=== PATIENT | female | born 1945 | race Caucasian/White ===

== ENCOUNTER 2017-03-30 13:43 | Day surgery (SDC) | payer BC, MEDICARE ==
[2017-03-22 09:30] VITALS: BMI 30.1
[~2017-03-30 13:43] MED LIST: DEXAMETHASONE SOD PHOSPHATE 10 MG/ML 1 ML VIAL IV ONE; MIDAZOLAM 2 MG/2 ML VIAL IV PRN; ONDANSETRON 4 MG/2 ML VIAL IVP ONE; SCOPOLAMINE 1.5MG/72HR PATCH TRANSDERM ONE; ceFAZolin 2 GM in SODIUM CHLORIDE 0.9% 100 ML IVPB ONE
[2017-03-30 14:03] VITALS: RESP 16
[2017-03-30] MEDS: LACTATED RINGERS 1,000 ML IV SCH ×2 (14:11→14:25)
[2017-03-30] MEDS: LIDOCAINE 1% 20 ML VIAL (10MG/ML) FOR IV START INTRADERMA PRN ×2 (14:20→14:25)
[2017-03-30] MEDS ORDERED: fentaNYL (PF) 50 MCG/ML 2 ML AMP IVP ONE (15:44)
[2017-03-30] MEDS ORDERED: BUPIVACAIN-EPI 0.5%-1:200,000 30 ML VIAL SQ ONE ×2 (16:32→16:55)
[2017-03-30] MEDS ORDERED: PROPOFOL 10 MG/ML 20 ML VIAL IV ONE (16:35)
[2017-03-30] MEDS ORDERED: ePHEDrine SULFATE/0.9% NACL/PF 50 MG/5 ML SYRINGE IV ONE (16:35)
[2017-03-30] MEDS ORDERED: LIDOCAINE 1% INJ 10MG/ML (20 ML MDV) ONE (16:35)
[2017-03-30] MEDS ORDERED: fentaNYL (PF) 50 MCG/ML 2 ML AMP ONE (16:35)
[2017-03-30] MEDS ORDERED: GLYCOPYRROLATE 0.2 MG/ML 2 ML VIAL ONE (16:35)
[2017-03-30] MEDS ORDERED: ROCURONIUM BROMIDE 10 MG/ML 10 ML VIAL IV ONE (16:35)
[2017-03-30] MEDS ORDERED: MIDAZOLAM 2 MG/2 ML VIAL ONE (16:35)
[2017-03-30] MEDS ORDERED: NEOSTIGMINE 1 MG/ML 10 ML VIAL ONE (16:35)
[2017-03-30] MEDS ORDERED: SUCCINYLCHOLINE CHLORIDE 100 MG/5 ML SYR IV ONE (16:35)
[2017-03-30] MEDS: HYDROmorphone 1 MG/ML 1 ML SYRINGE IVP PRN ×4 (18:25→18:59)
--- NOTE | 2017-03-30 18:36 | P.OP ---
Date of Procedure: 03/30/17 Preoperative Diagnosis: Symptomatic cholelithiasis Postoperative Diagnosis: Chronic cholecystitis with hydropic gall bladder abdominal wall nodule Procedure(s) Performed: Robot assisted laparoscpoic cholecystectomy Implants: Anesthesia: FREEMAN Surgeon: Camille Dodd Pathology: other (gall bladder, abdominal wall nodule) Condition: stable Disposition: PACU Indications for Procedure: Operative Findings: hydropic gallbladder anterior abdominal wall nodule Description of Procedure: Patient is a 72-year-old female who presented with right upper quadrant pain and a clinical diagnosis of chronic cholecystitis was made. Ultrasound showed non dilated duct and cholelithiasis. After appropriate informed consent and answering all the patient's questions patient taken the operating placement position and given general anesthesia with endotracheal intubation. Left upper quadrant was identified and a Veress needle was used. The abdominal cavity. Once the abdomen was insufflated to 15 mmHg Optiview technique was used and the abdominal cavity through the same incision after removal of the Veress needle. 2 right lower quadrant 8 mm ports one left upper quadrant 8 mm port and an infraumbilical 10 mm port were placed. The robot was docked and instrument were taken. Gallbladder was noted to be significantly distended and hydropic. It was retracted laterally. The cystic duct was small and deep. After meticulous dissection and probing the appropriate critical view cystic duct and 6 lateral both identified clearly. The cystic duct was normal in size. They were both clipped proximally and distally and then transected sharply with the help of a scissors. The gallbladder was then taken off the gallbladder fossa . The robot was then undocked and the gallbladder was placed in an Endo Catch bag. and removed through the 12 mm port site after dilating it. On inspection there was a small nodule on the anterior abdominal wall just to the left side of the 8 mm port site placed in the right lower quadrant. Laparoscopic scissors was used to take a biopsy of this nodule which was completely removed and handed off for pathology. Gallbladder fossa was then inspected hemostasis secured the clips were noted to be in good position and there was no spillage no other bleeding. Abdomen otherwise looked normal. In this time the 12 mm port site was removed and closed with interrupted 0 Vicryl stitches. This was done using a Ac Bolton. Local anesthesia was infiltrated around that as well. At this time the procedure was completed gas was shut off abdomen was thoroughly desufflated and all the ports were removed.
[2017-03-30] MEDS ORDERED: ALPRAZolam 0.25 MG TAB PO PRN (18:38)
[2017-03-30] MEDS ORDERED: traMADol 50 MG TAB PO PRN (18:38)
[2017-03-30] MEDS ORDERED: SUMAtriptan SUCCINATE 50 MG TAB PO PRN (18:38)
[2017-03-30] MEDS ORDERED: LACTATED RINGERS 1,000 ML IV ONE ×2 (19:21)
[2017-03-30] MEDS ORDERED: PROPRANOLOL LA 80 MG CAP.SA.24H PO SCH (21:00)
[2017-03-30] MEDS ORDERED: LORATADINE 10 MG TAB PO SCH (21:00)
[2017-03-30] MEDS: HEPARIN SODIUM,PORCINE 5,000 UNIT/ML 1 ML VIAL SQ SCH (21:03)
[2017-03-30] MEDS: HYDROcodone/APAP 5-325MG 1 EACH TAB PO PRN (21:31)
[2017-03-31] MEDS: HYDROcodone/APAP 5-325MG 1 EACH TAB PO PRN (03:44)
[2017-03-31] MEDS: LACTATED RINGERS 1,000 ML IV SCH ×2 (07:18→16:42)
[2017-03-31] MEDS ORDERED: ONDANSETRON 4 MG/2 ML VIAL IVP PRN (07:54)
[2017-03-31] MEDS ORDERED: PANTOPRAZOLE 40 MG/10 ML VIAL IVP SCH (09:00)
[2017-03-31] MEDS: HEPARIN SODIUM,PORCINE 5,000 UNIT/ML 1 ML VIAL SQ SCH (09:03)
[2017-03-31] MEDS ORDERED: KETOROLAC 30 MG/ML 1 ML VIAL IVP STA ×2 (10:54→11:14)
--- NOTE | 2017-03-31 11:51 | P.DS ---
Providers Expected date of discharge: 03/31/17 Attending physician: Camille Porter Primary care physician: [facility] Course: 72-year-old female who presented on elective admission to undergo a lap robotic- assisted cholecystectomy for a clinical diagnosis of chronic cholecystitis. Done on March 30 Patient had been seen prior with symptomatic right upper quadrant pain. Patient had a prior ultrasound done which did show nondilated duct and cholelithiasis. Patient stated that she was seen by her day light relief operator prior to the procedure Dr. Hay who indicated that the patient from a cardiac perspective was felt to be appropriate to proceed with the surgical procedure. Postop there were no new events. Patient did have one episode of feeling nauseated after receiving her [place] on an empty stomach. At the time of discharge patient was able to ambulate in the hallway urinating no difficulty surgical sites no redness. Was felt to be appropriate to be discharged Impression discharge diagnosis History of symptomatic right upper quadrant pain suspect due to cholelithiasis Chronic cholecystitis with hydropic gallbladder abdominal wall nodule March 30 robot assisted laparoscopic cholecystectomy The above impression and plan of care have been discussed and directed by signing physician. Velma Coles nurse practitioner acting as scribe for signing physician. Plan - Discharge Summary New Discharge Prescriptions: New Ondansetron HCl [Zofran] 4 mg PO Q6H #15 tablet Ibuprofen [Motrin] 800 mg OP Q6H #30 tab Continue Melatonin 1 mg PO HS Pravastatin Sodium 40 mg PO HS Gravette-3 Acid Ethyl Esters [Lovaza] 900 mg PO HS Aspirin EC [Ecotrin] 325 mg PO DAILY ALPRAZolam 0.25 mg PO BID PRN PRN Reason: Anxiety traMADol HCl [Ultram] 50 mg PO Q6H PRN PRN Reason: Headache Propranolol LA [Inderal LA] 80 mg PO HS Naproxen Sodium [Aleve] 220 mg PO Q12HR SUMAtriptan SUCCINATE [Imitrex] 100 mg PO BID PRN PRN Reason: headache Loratadine 10 mg PO HS Calcium Carbonate [Calcium] 600 mg PO HS Discharge Medication List ALPRAZolam 0.25 mg PO BID PRN 06/01/15 [History] Aspirin EC [Ecotrin] 325 mg PO DAILY 06/01/15 [History] Melatonin 1 mg PO HS 06/01/15 [History] Naproxen Sodium [Aleve] 220 mg PO Q12HR 06/01/15 [History] Gravette-3 Acid Ethyl Esters [Lovaza] 900 mg PO HS 06/01/15 [History] Pravastatin Sodium 40 mg PO HS 06/01/15 [History] Propranolol LA [Inderal LA] 80 mg PO HS 06/01/15 [History] SUMAtriptan SUCCINATE [Imitrex] 100 mg PO BID PRN 06/01/15 [History] traMADol HCl [Ultram] 50 mg PO Q6H PRN 06/01/15 [History] Calcium Carbonate [Calcium] 600 mg PO HS 03/22/17 [History] Loratadine 10 mg PO HS 03/22/17 [History] Ibuprofen [Motrin] 800 mg OP Q6H #30 tab 03/31/17 [Rx] Ondansetron HCl [Zofran] 4 mg PO Q6H #15 tablet 03/31/17 [Rx] Follow up Appointment(s)/Referral(s): Camille Porter MD [STAFF PHYSICIAN] - 04/05/17 1:00 pm Patient Instructions/Handouts: Laparoscopic Cholecystectomy (DC) Activity/Diet/Wound Care/Special Instructions: No lifting over 10 pounds Wear binder for support as needed May shower daily No tub baths until seen in the follow-up visit Notify attending dr porter if any redness fever chills at surgical site Discharge Disposition: HOME SELF-CARE
[2017-03-31 14:32] VITALS: BP 100/63; PULSE 63; TEMP 98.4
== END 2017-03-31 16:40 | disposition home or self-care (01) ==
LOC: OR 13:43 → 3SUR 18:20 → OR 03-31 16:40
PROVIDERS: ATTEND Surgery
DX: K80.10 Calculus of gallbladder with chronic cholecystitis without obstruction (principal); K82.1 Hydrops of gallbladder; R19.00 Intra-abdominal and pelvic swelling, mass and lump, unspecified site; G89.4 Chronic pain syndrome; I34.0 Nonrheumatic mitral (valve) insufficiency; E66.01 Morbid (severe) obesity due to excess calories; Z68.31 Body mass index [BMI] 31.0-31.9, adult; E78.00 Pure hypercholesterolemia, unspecified; F41.1 Generalized anxiety disorder; F43.21 Adjustment disorder with depressed mood; G43.909 Migraine, unspecified, not intractable, without status migrainosus; I10 Essential (primary) hypertension; M51.36 Other intervertebral disc degeneration, lumbar region; Z79.82 Long term (current) use of aspirin; Z79.899 Other long term (current) drug therapy; Z79.1 Long term (current) use of non-steroidal anti-inflammatories (NSAID); Z87.891 Personal history of nicotine dependence; D23.5 Other benign neoplasm of skin of trunk
CPT/HCPCS: 47562; 88304; 88305; 88342; 88341; J2250; J1644 ×2; J1100; J2710; J0690; J2405 ×2; J2001; J3010; J1885; J1170; J0330; J2704; C9113

== ENCOUNTER → 2017-06-05 | Outpatient (CLI) | payer MEDICARE, OTHER ==
--- NOTE | 2017-06-06 11:40 | MM ---
Reason for exam: screening (asymptomatic). Last mammogram was performed 1 year ago. History: Patient is postmenopausal. Family history of premenopausal breast cancer in grandmother at age 40. Cyst aspiration of the left breast. Cyst aspiration of the right breast. 2 excisional biopsies of the right breast. Took estrogen for 5 years. Took progesterone for 5 years. Physical Findings: A clinical breast exam by your physician is recommended on an annual basis and results should be correlated with mammographic findings. MG 3D Screening Mammo W/Cad Bilateral CC and MLO view(s) were taken. Prior study comparison: May 25, 2016, bilateral MG 3d screening mammo w/cad. April 28, 2015, bilateral MG screening mammo w CAD. The breast tissue is heterogeneously dense. This may lower the sensitivity of mammography. Finding: There are typically benign round calcifications in both breasts. There is no discrete abnormality. ASSESSMENT: Benign, BI-RAD 2 RECOMMENDATION: Routine screening mammogram of both breasts in 1 year.
== END | disposition home or self-care (01) ==
LOC: RADMAMWWP 10:16
PROVIDERS: ATTEND Obstetrics & Gynecology
DX: Z12.31 Encounter for screening mammogram for malignant neoplasm of breast (principal); Z80.3 Family history of malignant neoplasm of breast
CPT/HCPCS: 77063; G0202

== ENCOUNTER → 2017-10-13 | Outpatient (CLI) | payer MEDICARE, OTHER ==
--- NOTE | 2017-10-13 09:17 | FL ---
EXAMINATION TYPE: FL UGI DATE OF EXAM: 10/13/2017 COMPARISON: NONE HISTORY: Pain TECHNIQUE: A single/double contrast UGI study is performed. FINDINGS: Dual Hose Cementer image of the abdomen shows no gross abnormality. The esophagus shows normal motility and emptying into the stomach. There is small sliding-type hiatal hernia. No reflux identified during the course of the study. The stomach shows normal distensibility, peristalsis, and mucosal folds. No evidence of any mass or ulcer disease. No significant gastroesophageal reflux was seen during real time performance of this study. The duodenal bulb, sweep, and proximal small bowel loops are unremarkable. IMPRESSION: Small reducible sliding type hiatal hernia.
== END ==
LOC: RADFLMAIN 07:59
PROVIDERS: ATTEND Family Medicine
DX: K44.9 Diaphragmatic hernia without obstruction or gangrene (principal)
CPT/HCPCS: 74240

== ENCOUNTER → 2018-11-14 | Outpatient (CLI) | payer MEDICARE, OTHER ==
--- NOTE | 2018-11-16 08:25 | MM ---
Reason for exam: screening (asymptomatic). Last mammogram was performed 1 year and 5 months ago. History: Patient is postmenopausal. Family history of premenopausal breast cancer in grandmother at age 40. Cyst aspiration of the left breast. Cyst aspiration of the right breast. 2 excisional biopsies of the right breast. Took estrogen for 5 years. Took progesterone for 5 years. Physical Findings: A clinical breast exam by your physician is recommended on an annual basis and results should be correlated with mammographic findings. MG 3D Screening Mammo W/Cad Bilateral CC and MLO view(s) were taken. Prior study comparison: June 05, 2017, bilateral MG 3d screening mammo w/cad. May 25, 2016, bilateral MG 3d screening mammo w/cad. There are scattered fibroglandular densities. No significant changes when compared with prior studies. ASSESSMENT: Negative, BI-RAD 1 RECOMMENDATION: Routine screening mammogram of both breasts in 1 year.
== END | disposition home or self-care (01) ==
LOC: RADMAMWWP 13:25
PROVIDERS: ATTEND Obstetrics & Gynecology
DX: Z12.31 Encounter for screening mammogram for malignant neoplasm of breast (principal); Z80.3 Family history of malignant neoplasm of breast
CPT/HCPCS: 77063; 77067

== ENCOUNTER → 2019-12-17 | Outpatient (CLI) | payer MEDICARE, OTHER ==
--- NOTE | 2019-12-19 10:28 | MM ---
Reason for exam: screening (asymptomatic). Last mammogram was performed 1 year and 1 month ago. History: Patient is postmenopausal. Family history of premenopausal breast cancer in grandmother at age 40. Cyst aspiration of the left breast. Cyst aspiration of the right breast. 2 excisional biopsies of the right breast. Took estrogen for 5 years. Took progesterone for 5 years. Physical Findings: A clinical breast exam by your physician is recommended on an annual basis and results should be correlated with mammographic findings. MG 3D Screening Mammo W/Cad Bilateral CC and MLO view(s) were taken. Prior study comparison: November 14, 2018, bilateral MG 3d screening mammo w/cad. June 05, 2017, bilateral MG 3d screening mammo w/cad. The breast tissue is heterogeneously dense. This may lower the sensitivity of mammography. There are benign appearing round calcifications in the left breast. There is no discrete abnormality. ASSESSMENT: Benign, BI-RAD 2 RECOMMENDATION: Routine screening mammogram of both breasts in 1 year.
== END | disposition home or self-care (01) ==
LOC: RADMAMWWP 14:24
PROVIDERS: ATTEND Obstetrics & Gynecology
DX: Z12.31 Encounter for screening mammogram for malignant neoplasm of breast (principal)
CPT/HCPCS: 77063; 77067

== ENCOUNTER 2020-02-24 17:08 | Inpatient (IN) | payer MEDICARE, OTHER ==
--- NOTE | 2020-02-24 17:47 | ED ---
General Adult HPI - General Chief complaint: Recheck/Abnormal Lab/Rx Stated complaint: abnormal EKG Time Seen by Provider: 02/24/20 17:17 Source: patient, RN notes reviewed Mode of arrival: ambulatory Limitations: no limitations - History of Present Illness Initial comments: 74-year-old female presents emergency department for evaluation of fatigue, abn ormal EKG and dizziness. Patient states over the last week she's been having very fast episodes where she gets very unsteady, dizziness but she has been having chronic fatigue. Patient states that she has stress test in August which are Baseline. Patient states she contacted her merry go round attendant but her symptoms but she should go see Dr. Aguilar for her chronic headaches but states not having increasing headaches. Thought maybe is related to medications. Patient states she went to her primary care physician's up today who did also EKG showing normal rhythm. Patient has a current complaints of chest pain at this time. Patient denies any shortness with currently denies any leg swelling on the usual no abdominal pain. - Related Data Home Medications Medication Instructions Recorded Confirmed ALPRAZolam 0.25 mg PO BID PRN 06/01/15 03/30/17 Aspirin EC [Ecotrin] 325 mg PO DAILY 06/01/15 03/22/17 Melatonin 1 mg PO HS 06/01/15 03/30/17 Naproxen Sodium [Aleve] 220 mg PO Q12HR 06/01/15 03/22/17 [place]-3 Acid Ethyl Esters [Lovaza] 900 mg PO HS 06/01/15 03/30/17 Pravastatin Sodium 40 mg PO HS 06/01/15 03/30/17 Propranolol LA [Inderal LA] 80 mg PO HS 06/01/15 03/30/17 SUMAtriptan SUCCINATE [Imitrex] 100 mg PO BID PRN 06/01/15 03/30/17 traMADol HCl [Ultram] 50 mg PO Q6H PRN 06/01/15 03/30/17 Calcium Carbonate [Calcium] 600 mg PO HS 03/22/17 03/30/17 Loratadine 10 mg PO HS 03/22/17 03/30/17 Previous Rx's Medication Instructions Recorded Ibuprofen [Motrin] 800 mg OP Q6H #30 tab 03/31/17 Ondansetron HCl [Zofran] 4 mg PO Q6H #15 tablet 03/31/17 Allergies Allergy/AdvReac Type Severity Reaction Status Date / Time No Known Allergies Allergy Verified 02/24/20 17:15 Review of Systems ROS Statement: Those systems with pertinent positive or pertinent negative responses have been documented in the HPI. ROS Other: All systems not noted in ROS Statement are negative. Past Medical History Past Medical History: Hyperlipidemia, Osteoarthritis (OA) Additional Past Medical History / Comment(s): migrane, varicose veins; "leaky heart valve" sees Dr Ruiz, epidural shots in back for disk problems. History of Any Multi-Drug Resistant Organisms: None Reported Past Surgical History: Orthopedic Surgery, Tonsillectomy Additional Past Surgical History / Comment(s): vein stripping; R wrist joint replaced Past Anesthesia/Blood Transfusion Reactions: No Reported Reaction Past Psychological History: Anxiety Smoking Status: Former smoker Past Alcohol Use History: Rare Past Drug Use History: None Reported - Past Family History Mother Family Medical History: No Reported History General Exam Limitations: no limitations General appearance: alert, in no apparent distress Head exam: Present: atraumatic, normocephalic, normal inspection Eye exam: Present: normal appearance, PERRL, EOMI. Absent: scleral icterus, conjunctival injection, periorbital swelling ENT exam: Present: normal exam, normal oropharynx, mucous membranes moist Neck exam: Present: normal inspection, full ROM. Absent: tenderness, meningismus, lymphadenopathy Respiratory exam: Present: normal lung sounds bilaterally. Absent: respiratory distress, wheezes, rales, rhonchi, stridor Cardiovascular Exam: Present: regular rate, normal rhythm, normal heart sounds. Absent: systolic murmur, diastolic murmur, rubs, gallop, clicks GI/Abdominal exam: Present: soft, normal bowel sounds. Absent: distended, tenderness, guarding, rebound, rigid Neurological exam: Present: alert, oriented X3, CN II-XII intact Skin exam: Present: warm, dry, intact, normal color. Absent: rash Course Vital Signs 02/24/20 02/24/20 17:11 18:30 Temperature 97.7 F Pulse Rate 95 90 Respiratory 18 18 Rate Blood Pressure 129/87 108/80 O2 Sat by Pulse 99 96 Oximetry EKG Findings - EKG Comments: EKG Findings:: EKG performed at 17:27 sinus tachycardia with first-degree block and occasional PACs noted rate of 1:15 TX to 72 QRS 92 QT/QTC 316/437 EKG reviewed from outpatient there are areas of bradycardia and questionable runs of A. fib. Medical Decision Making - Medical Decision Making 34-year-old presented for fatigue, episodes of dizziness, abnormal EKG. Patient has cardiac arrhythmia possible proximal A. fib. Patient be admitted for cardiology evaluation. - Lab Data Result diagrams: 02/24/20 17:43 02/24/20 17:43 Lab Results 02/24/20 02/24/20 02/24/20 Range/Units 17:43 17:43 17:43 WBC 7.8 (3.8-10.6) k/uL RBC 4.98 (3.80-5.40) m/uL Hgb 14.9 (11.4-16.0) gm/dL Hct 44.4 (34.0-46.0) % MCV 89.2 (80.0-100.0) fL MCH 29.9 (25.0-35.0) pg MCHC 33.6 (31.0-37.0) g/dL RDW 12.8 (11.5-15.5) % Plt Count 220 (150-450) k/uL Neutrophils % 61 % Lymphocytes % 27 % Monocytes % 5 % Eosinophils % 4 % Basophils % 1 % Neutrophils # 4.8 (1.3-7.7) k/uL Lymphocytes # 2.1 (1.0-4.8) k/uL Monocytes # 0.4 (0-1.0) k/uL Eosinophils # 0.3 (0-0.7) k/uL Basophils # 0.1 (0-0.2) k/uL PT 9.9 (9.0-12.0) sec INR 0.9 (<1.2) APTT 22.1 (22.0-30.0) sec Sodium 137 (137-145) mmol/L Potassium 5.0 (3.5-5.1) mmol/L Chloride 104 (98-107) mmol/L Carbon Dioxide 25 (22-30) mmol/L Anion Gap 8 mmol/L BUN 14 (7-17) mg/dL Creatinine 0.59 (0.52-1.04) mg/dL Est GFR (CKD-EPI)AfAm >90 (>60 ml/min/1.73 sqM) Est GFR (CKD-EPI)NonAf >90 (>60 ml/min/1.73 sqM) Glucose 124 H (74-99) mg/dL Calcium 9.5 (8.4-10.2) mg/dL Magnesium 2.0 (1.6-2.3) mg/dL Total Bilirubin 0.7 (0.2-1.3) mg/dL AST 56 H (14-36) U/L ALT 46 H (4-34) U/L Alkaline Phosphatase 27 L (38-126) U/L Troponin I (0.000-0.034) ng/mL NT-Pro-B Natriuret Pep pg/mL Total Protein 6.8 (6.3-8.2) g/dL Albumin 4.2 (3.5-5.0) g/dL Lipase 132 (23-300) U/L TSH (0.465-4.680) mIU/L 02/24/20 02/24/20 02/24/20 Range/Units 17:43 17:43 17:43 WBC (3.8-10.6) k/uL RBC (3.80-5.40) m/uL Hgb (11.4-16.0) gm/dL Hct (34.0-46.0) % MCV (80.0-100.0) fL MCH (25.0-35.0) pg MCHC (31.0-37.0) g/dL RDW (11.5-15.5) % Plt Count (150-450) k/uL Neutrophils % % Lymphocytes % % Monocytes % % Eosinophils % % Basophils % % Neutrophils # (1.3-7.7) k/uL Lymphocytes # (1.0-4.8) k/uL Monocytes # (0-1.0) k/uL Eosinophils # (0-0.7) k/uL Basophils # (0-0.2) k/uL PT (9.0-12.0) sec INR (<1.2) APTT (22.0-30.0) sec Sodium (137-145) mmol/L Potassium (3.5-5.1) mmol/L Chloride (98-107) mmol/L Carbon Dioxide (22-30) mmol/L Anion Gap mmol/L BUN (7-17) mg/dL Creatinine (0.52-1.04) mg/dL Est GFR (CKD-EPI)AfAm (>60 ml/min/1.73 sqM) Est GFR (CKD-EPI)NonAf (>60 ml/min/1.73 sqM) Glucose (74-99) mg/dL Calcium (8.4-10.2) mg/dL Magnesium (1.6-2.3) mg/dL Total Bilirubin (0.2-1.3) mg/dL AST (14-36) U/L ALT (4-34) U/L Alkaline Phosphatase (38-126) U/L Troponin I <0.012 (0.000-0.034) ng/mL NT-Pro-B Natriuret Pep 2250 pg/mL Total Protein (6.3-8.2) g/dL Albumin (3.5-5.0) g/dL Lipase (23-300) U/L TSH 1.750 (0.465-4.680) mIU/L Disposition Clinical Impression: Dizziness, Paroxysmal cardiac arrhythmia Disposition: ADMITTED IP TO THIS HOSP Condition: Fair Referrals: Clay Yi DO [Primary Care Provider] - 1-2 days
[2020-02-24 17:50] LABS: Basophils # (A) 0.1 k/uL (0-0.2); Basophils % (A) 1 %; Eosinophils # (A) 0.3 k/uL (0-0.7); Eosinophils % (A) 4 %; HCT 44.4 % (34.0-46.0); HGB 14.9 gm/dL (11.4-16.0); Lymphocytes # (A) 2.1 k/uL (1.0-4.8); Lymphocytes % (A) 27 %; MCH 29.9 pg (25.0-35.0); MCHC 33.6 g/dL (31.0-37.0); MCV 89.2 fL (80.0-100.0); Mean Platelet Volume 9.1; Monocytes # (A) 0.4 k/uL (0-1.0); Monocytes % (A) 5 %; Neutrophils # (A) 4.8 k/uL (1.3-7.7); Neutrophils % (A) 61 %; Platelet Count 220 k/uL (150-450); RBC 4.98 m/uL (3.80-5.40); RDW 12.8 % (11.5-15.5); WBC 7.8 k/uL (3.8-10.6)
[2020-02-24 18:01] LABS: ALT 46 U/L (4-34); AST 56 U/L (14-36); African American GFR (CKD) >90 (>60 ml/min/1.73 sqM); Albumin 4.2 g/dL (3.5-5.0); Alkaline Phosphatase 27 U/L (38-126); Anion Gap 8 mmol/L; Blood Urea Nitrogen 14 mg/dL (7-17); Calcium 9.5 mg/dL (8.4-10.2); Carbon Dioxide 25 mmol/L (22-30); Chloride 104 mmol/L (98-107); Glucose 124 mg/dL (74-99); Non-African American GFR(CKD) >90 (>60 ml/min/1.73 sqM); Sodium 137 mmol/L (137-145); Total Bilirubin 0.7 mg/dL (0.2-1.3); Total Protein 6.8 g/dL (6.3-8.2)
--- NOTE | 2020-02-24 18:05 | XR ---
EXAMINATION TYPE: XR chest 2V DATE OF EXAM: 02/24/2020 COMPARISON: NONE HISTORY: Short of breath. Dizziness. TECHNIQUE: 2 views FINDINGS: There is no heart failure nor confluent pneumonic infiltrate. Costophrenic angles are clear . Thoracic aorta is atheromatous. There are chest leads. IMPRESSION: No active cardiopulmonary disease. Normal heart.
[2020-02-24 18:12] LABS: INR 0.9 (<1.2); Partial Thromboplastin Time 22.1 sec (22.0-30.0); Prothrombin Time 9.9 sec (9.0-12.0)
[2020-02-24] MEDS ORDERED: NITROGLYCERIN SL TABS 0.4 MG TAB SUBLINGUAL PRN (19:14)
[2020-02-24] MEDS ORDERED: SUMAtriptan succinate 50 MG TAB PO PRN (19:16)
[2020-02-24] MEDS ORDERED: traMADol 50 MG TAB PO PRN (19:16)
[2020-02-24] MEDS ORDERED: ALPRAZolam 0.25 MG TAB PO PRN (19:16)
[2020-02-24] MEDS ORDERED: ONDANSETRON 4 MG TAB PO PRN (19:30)
[2020-02-24] MEDS: PRAVASTATIN SODIUM 40 MG TAB PO SCH (21:07)
[2020-02-24] MEDS: MELATONIN 1 MG TAB PO SCH (21:07)
[2020-02-24] MEDS: CALCIUM CARBONATE 500 MG CHEWABLE PO SCH (21:07)
[2020-02-25] MEDS ORDERED: SUMAtriptan succinate 50 MG TAB PO PRN (00:26)
[2020-02-25] MEDS: SUMAtriptan succinate 50 MG TAB PO PRN ×2 (00:38→20:56)
[2020-02-25 08:43] LABS: Cholesterol 169 mg/dL (<200); HDL Cholesterol 50 mg/dL (40-60); LDL Cholesterol,Calculated 74 mg/dL (0-99); Triglycerides 225 mg/dL (<150)
[2020-02-25] MEDS: ASPIRIN 325 MG TAB PO SCH (09:15)
[2020-02-25] MEDS: METOPROLOL TARTRATE 25 MG TAB PO SCH ×2 (12:03→20:30)
[2020-02-25] MEDS ORDERED: HEPARIN SODIUM,PORCINE 5,000 UNIT/ML 1 ML VIAL IV PRN (13:10)
[2020-02-25] MEDS ORDERED: HEPARIN SODIUM,PORCINE 5,000 UNIT/ML 1 ML VIAL IV ONE (13:10)
--- NOTE | 2020-02-25 13:17 | P.CRDCN ---
History of Present Illness Consult date: 02/25/20 Chief complaint: Shortness of breath History of present illness: This is a very pleasant 74-year-old female patient who sees Dr. Ruiz in the off [place] on regular basis with a past medical history significant for dyslipidemia and no history of coronary artery disease or congestive heart failure or any cardiac arrhythmia was referred to come to the hospital by her primary care physician. She was seen yesterday at her neurologist office for a follow-up regarding migraine headache. She was told that her heart was irregular. When she walked to her car she was short of breath and she decided to call her primary care physician. She was seen at her primary care physician office where an EKG was performed and revealed atrial fibrillation and the patient was referred to the emergency department. Currently she is asymptomatic. She denies any chest pain or chest discomfort or shortness of breath or any feeling of heart racing or fluttering. Before she was admitted to the hospital she was experiencing shortness of breath with exertion lately. No dizziness or lightheadedness and no syncope. The atrial fibrillation is a new to the [facility]. The patient never been told that she has atrial fibrillation in the past. Currently she has been maintaining normal sinus mechanism. I am going to start the patient on small dose of metoprolol. We will consider anticoagulation with heparin for now. Subsequently she will be anticoagulated orally. Will get an echocardiogram was Doppler. 3 sets of cardiac enzymes were checked and came in to be overall unremarkable. Sleep apnea need to be ruled out probably as an outpatient. Also severe coronary artery disease needs to be ruled out as an outpatient. Past Medical History Past Medical History: Eye Disorder, GERD/Reflux, Hyperlipidemia, Osteoarthritis (OA), Vascular Disorder Additional Past Medical History / Comment(s): Frequent migraines, lower back disc disease/pain, L shoulder pain, arthritis in multiple joints, leaky heart valve, bilateral leg varicosities, IBS, benign colon polyps, bronchitis, UTI, nephritis during 1st , R eye has "light flashes"-has had injection History of Any Multi-Drug Resistant Organisms: None Reported Past Surgical History: Breast Surgery, Cholecystectomy, Orthopedic Surgery, Tonsillectomy Additional Past Surgical History / Comment(s): Bilateral wrist tendon surgery, 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 Smoking Status: Former smoker - Past Family History Mother Family Medical History: CVA/TIA Additional Family Medical History / Comment(s): Mother lived to be 92.5 years old. Father Family Medical History: Cancer, COPD Additional Family Medical History / Comment(s): Father of lung cancer. He was a smoker. Medications and Allergies Home Medications Medication Instructions Recorded Confirmed Type Aspirin EC [Ecotrin] 162.5 mg PO HS 06/01/15 02/24/20 History Elliott-3 Acid Ethyl Esters [Lovaza] 1 gm PO HS 06/01/15 02/24/20 History Pravastatin Sodium 40 mg PO HS 06/01/15 02/24/20 History Propranolol LA [Inderal LA] 80 mg PO HS 06/01/15 02/24/20 History SUMAtriptan SUCCINATE [Imitrex] 50 mg PO BID PRN 06/01/15 02/24/20 History Acetaminophen [Tylenol Extra 500 mg PO BID PRN 02/24/20 02/24/20 History Strength] Calcium Carbonate/Vitamin D3 1 cap PO HS 02/24/20 02/24/20 History [Calcium 600-Vit D3 200 Tablet] Ibuprofen [Motrin Ib] 200 mg PO BID PRN 02/24/20 02/24/20 History Melatonin 5 mg PO HS 02/24/20 02/24/20 History Omeprazole 20 mg PO HS 02/24/20 02/24/20 History Allergies Allergy/AdvReac Type Severity Reaction Status Date / Time No Known Allergies Allergy Verified 02/24/20 20:01 Physical Exam Vitals: Vital Signs Temp Pulse Pulse Resp BP BP Pulse Ox 02/25/20 11:35 97.7 F 103 H 20 127/84 97 02/25/20 09:18 97.0 F L 89 14 114/74 96 02/25/20 09:00 89 14 02/25/20 05:00 97.1 F L 89 18 130/81 99 02/25/20 01:00 97.2 F L 104 H 18 130/91 97 02/24/20 19:46 110 H 18 132/96 99 02/24/20 18:30 90 18 108/80 96 02/24/20 17:11 97.7 F 95 18 129/87 99 Intake and Output 02/24/20 02/25/20 02/25/20 22:59 06:59 14:59 Other: Voiding Method Toilet # Voids 0 Weight 88.451 kg 88.451 kg - Constitutional General appearance: no acute distress - Respiratory Respiratory: bilateral: CTA - Cardiovascular Rhythm: regular Heart sounds: normal: S1, S2 Results 02/24/20 17:43 02/24/20 17:43 Cardiac Enzymes 02/24/20 02/24/20 02/24/20 Range/Units 17:43 17:43 20:54 AST 56 H (14-36) U/L Troponin I <0.012 <0.012 (0.000-0.034) ng/mL 02/25/20 Range/Units 00:14 AST (14-36) U/L Troponin I <0.012 (0.000-0.034) ng/mL Coagulation 02/24/20 Range/Units 17:43 PT 9.9 (9.0-12.0) sec APTT 22.1 (22.0-30.0) sec Lipids 02/25/20 Range/Units 00:14 Triglycerides 225 H (<150) mg/dL Cholesterol 169 (<200) mg/dL HDL Cholesterol 50 (40-60) mg/dL CBC 02/24/20 Range/Units 17:43 WBC 7.8 (3.8-10.6) k/uL RBC 4.98 (3.80-5.40) m/uL Hgb 14.9 (11.4-16.0) gm/dL Hct 44.4 (34.0-46.0) % Plt Count 220 (150-450) k/uL Comprehensive Metabolic Panel 02/24/20 Range/Units 17:43 Sodium 137 (137-145) mmol/L Potassium 5.0 (3.5-5.1) mmol/L Chloride 104 (98-107) mmol/L Carbon Dioxide 25 (22-30) mmol/L BUN 14 (7-17) mg/dL Creatinine 0.59 (0.52-1.04) mg/dL Glucose 124 H (74-99) mg/dL Calcium 9.5 (8.4-10.2) mg/dL AST 56 H (14-36) U/L ALT 46 H (4-34) U/L Alkaline Phosphatase 27 L (38-126) U/L Total Protein 6.8 (6.3-8.2) g/dL Albumin 4.2 (3.5-5.0) g/dL Current Medications Generic Name Dose Route Start Last Admin Trade Name Freq PRN Reason Stop Dose Admin Alprazolam 0.25 mg 02/24/20 19:16 Xanax PO BID PRN Anxiety Aspirin 325 mg 02/25/20 09:00 02/25/20 09:15 Aspirin PO 325 mg DAILY [facility] Administration Calcium Carbonate/Glycine 500 mg 02/24/20 21:00 02/24/20 21:07 Tums PO 500 mg HS [facility] Administration Heparin Sodium (Porcine) 0 unit 02/25/20 13:10 Heparin IV PER PROTOCOL PRN Low PTT Protocol Heparin Sodium/Sodium Chloride 250 mls @ 10 mls/hr 02/25/20 13:15 25,000 unit/ Sodium Chloride IV .Q24H [facility] Protocol 11.306 UNITS/KG/HR Melatonin 1 mg 02/24/20 21:00 02/24/20 21:07 Melatonin PO 1 mg HS [facility] Administration Metoprolol Tartrate 25 mg 02/25/20 12:00 02/25/20 12:03 Lopressor PO 25 mg BID [facility] Administration Nitroglycerin 0.4 mg 02/24/20 19:14 Nitrostat SUBLINGUAL Q5M PRN Chest Pain Ondansetron HCl 4 mg 02/24/20 19:30 Zofran PO Q6H PRN Nausea Pravastatin Sodium 40 mg 02/24/20 21:00 02/24/20 21:07 Pravachol PO 40 mg HS [facility] Administration Sumatriptan Succinate 100 mg 02/25/20 00:27 02/25/20 00:38 Imitrex PO 50 mg BID PRN Administration headache Tramadol HCl 50 mg 02/24/20 19:16 Ultram PO Q6H PRN Headache Intake and Output 02/24/20 02/25/20 02/25/20 22:59 06:59 14:59 Other: Voiding Method Toilet # Voids 0 Weight 88.451 kg 88.451 kg Patient Weight 02/26/20 06:59 Weight 88.451 kg 02/24/20 17:43 08/03/20 17:43 Assessment and Plan Assessment: Assessment #1 paroxysmal atrial fibrillation/atrial flutter #2 dyslipidemia Plan #1 acute coronary event was ruled out #2 we'll obtain an echocardiogram was Doppler #3 sleep apnea needs to be ruled out as an outpatient #4 start the patient on metoprolol #5 rule out thyroid disorder by obtaining TSH and free T4 #6 start the patient on oral anticoagulation after IV anticoagulation Thank you for allowing us participate in the patient's care
[2020-02-25 13:32] LABS: Basophils # (A) 0.1 k/uL (0-0.2); Basophils % (A) 2 %; Eosinophils # (A) 0.3 k/uL (0-0.7); Eosinophils % (A) 5 %; HCT 44.6 % (34.0-46.0); HGB 14.6 gm/dL (11.4-16.0); Lymphocytes # (A) 1.7 k/uL (1.0-4.8); Lymphocytes % (A) 30 %; MCH 29.7 pg (25.0-35.0); MCHC 32.7 g/dL (31.0-37.0); MCV 90.6 fL (80.0-100.0); Monocytes # (A) 0.3 k/uL (0-1.0); Monocytes % (A) 6 %; Neutrophils # (A) 3.2 k/uL (1.3-7.7); Neutrophils % (A) 56 %; Platelet Count 212 k/uL (150-450); RBC 4.92 m/uL (3.80-5.40); RDW 12.9 % (11.5-15.5); WBC 5.6 k/uL (3.8-10.6)
[2020-02-25] MEDS: HEPARIN SOD,PORK IN 0.45% NACL 25,000 UNIT in 0.45% NACL 1 250ML.BAG IV SCH (13:49)
[2020-02-25 13:52] LABS: Partial Thromboplastin Time 22.4 sec (22.0-30.0); Prothrombin Time 10.2 sec (9.0-12.0)
[2020-02-25] MEDS ORDERED: FUROSEMIDE 10 MG/ML 2 ML VIAL IV ONE (18:59)
--- NOTE | 2020-02-25 18:59 | P.HPIM ---
History of Present Illness H&P Date: 02/25/20 Chief Complaint: Short of breath History of presenting complaint: This is a pleasant 74-year-old patient of Dr. Yi. Chronic stable medical conditions include GERD, hyperlipidemia, Jose Luis throat is, frequent migraines, lower back pain, arthritis in multiple joints, bilateral lower extremity varicosities, IBS, anxiety depression. For 2 weeks patient been having episodes of getting dizzy. Gets short of breath which very short distances. Feeling weak and tired fatigued. No cough. No fever no chills. No lower extremity edema. Patient's found to be in atrial flutter fibrillation. Put on beta linda. Review of systems: GEN.: Tired EYES: None HEENT: None NECK: None RESPIRATORY: As above CARDIOVASCULAR: As above, no palpitation GASTROINTESTINAL: Reflux GENITOURINARY: None MUSCULOSKELETAL: . Pain Many joints LYMPHATICS: None HEMATOLOGICAL: None PSYCHIATRY: None NEUROLOGICAL: None Past medical history to include: GERD, hyperlipidemia, osteoarthritis, migraines, lower back pain, leaky heart valve, bilateral lower extremity varicosities, IBS, colon polyps benign, anxiety depression, claustrophobia Social history: Has an adult son donned residing with her. Patient smoked for 13 years [id number]. Alcohol rarely. Physical examination: VITAL SIGNS: 97.7, 95, 18, 129/87, 99% room air GENERAL: [BMI 31.5, sitting in bed, slightly tired. EYES: Pupils equal. Conjunctiva normal. HEENT: External appearance of nose and ears normal, oral cavity grossly normal. NECK: JVD not raised; masses not palpable. HEART: Heart sounds irregular; no edema. LUNGS: Respiratory rate normal; clear to auscultation. ABDOMEN: Soft, nontender, liver spleen not palpable, no masses palpable. PSYCH: Alert and oriented x3; mood and affect normal. MUSCULAR skeletal: Evidence of OA especially in the hands NEUROLOGICAL: Cranial nerves grossly intact; no facial asymmetry, power and sensation grossly intact. LYMPHATICS: No lymph nodes palpable in the axilla and neck INVESTIGATIONS, reviewed in the clinical context: White count 7.8 hemoglobin 14.9 platelets 07392 creatinine 0.5 by AST 56 ALT 46 Troponin I 3 negative ProBNP 2250, TSH normal, LDL 74 EKG tracing personally reviewed by me-irregular heartbeat with flutter waves Chest x-ray film personally reviewed by me-questionable borderline prominence vascular Assessment: -Patient symptoms started 2 weeks ago. Of shortness of breath, dizziness, easily getting tired. Formed with atrial flutter fibrillation with a variable ventricular rate. -GERD -Hyperlipidemia -Primary osteoarthritis -Irritable bowel syndrome -Anxiety depression not otherwise specified Plan: Patient is started IV heparin. Lopressor. Home medications resumed. 2-D echocardiogram is pending. Care was discussed with the patient. On telemetry. Because of venous prominence and elevated BNP and give 1 dose of 20 mg of IV La six. Repeat labs in the morning. Past Medical History Past Medical History: Eye Disorder, GERD/Reflux, Hyperlipidemia, Osteoarthritis (OA), Vascular Disorder Additional Past Medical History / Comment(s): Frequent migraines, lower back disc disease/pain, L shoulder pain, arthritis in multiple joints, leaky heart valve, bilateral leg varicosities, IBS, benign colon polyps, bronchitis, UTI, nephritis during 1st , R eye has "light flashes"-has had injection History of Any Multi-Drug Resistant Organisms: None Reported Past Surgical History: Breast Surgery, Cholecystectomy, Orthopedic Surgery, Tonsillectomy Additional Past Surgical History / Comment(s): Bilateral wrist tendon surgery, 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 Smoking Status: Former smoker - Past Family History Mother Family Medical History: CVA/TIA Additional Family Medical History / Comment(s): Mother lived to be 92.5 years old. Father Family Medical History: Cancer, COPD Additional Family Medical History / Comment(s): Father of lung cancer. He was a smoker. Medications and Allergies Home Medications Medication Instructions Recorded Confirmed Type Aspirin EC [Ecotrin] 162.5 mg PO HS 06/01/15 02/24/20 History Morning Sun-3 Acid Ethyl Esters [Lovaza] 1 gm PO HS 06/01/15 02/24/20 History Pravastatin Sodium 40 mg PO HS 06/01/15 02/24/20 History Propranolol LA [Inderal LA] 80 mg PO HS 06/01/15 02/24/20 History SUMAtriptan SUCCINATE [Imitrex] 50 mg PO BID PRN 06/01/15 02/24/20 History Acetaminophen [Tylenol Extra 500 mg PO BID PRN 02/24/20 02/24/20 History Strength] Calcium Carbonate/Vitamin D3 1 cap PO HS 02/24/20 02/24/20 History [Calcium 600-Vit D3 200 Tablet] Ibuprofen [Motrin Ib] 200 mg PO BID PRN 02/24/20 02/24/20 History Melatonin 5 mg PO HS 02/24/20 02/24/20 History Omeprazole 20 mg PO HS 02/24/20 02/24/20 History Allergies Allergy/AdvReac Type Severity Reaction Status Date / Time No Known Allergies Allergy Verified 02/24/20 20:01 Physical Exam Vitals: Vital Signs Temp Pulse Pulse Resp BP BP Pulse Ox 02/25/20 09:18 97.0 F L 89 14 114/74 96 02/25/20 09:00 89 14 02/25/20 05:00 97.1 F L 89 18 130/81 99 02/25/20 01:00 97.2 F L 104 H 18 130/91 97 02/24/20 19:46 110 H 18 132/96 99 02/24/20 18:30 90 18 108/80 96 02/24/20 17:11 97.7 F 95 18 129/87 99 Intake and Output 02/24/20 02/25/20 02/25/20 22:59 06:59 14:59 Other: Voiding Method Toilet Weight 88.451 kg 88.451 kg Results CBC & Chem 7: 02/25/20 13:18 02/24/20 17:43 Labs: Abnormal Lab Results - Last 24 Hours (Table) 02/24/20 02/25/20 Range/Units 17:43 00:14 Glucose 124 H (74-99) mg/dL AST 56 H (14-36) U/L ALT 46 H (4-34) U/L Alkaline Phosphatase 27 L (38-126) U/L Triglycerides 225 H (<150) mg/dL Thrombosis Risk Factor Assmnt - Choose All That Apply Any of the Below Risk Factors Present?: Yes Each Factor Represents 1 point: Obesity (BMI >25), Varicose veins Other Risk Factors: Yes Each Risk Factor Represents 2 Points: Age 61-74 years Other congenital or acquired thrombophilia - If yes, enter type in comment: No Thrombosis Risk Factor Assessment Total Risk Factor Score: 4 Thrombosis Risk Factor Assessment Level: Moderate Risk
[2020-02-25] MEDS: MELATONIN 1 MG TAB PO SCH (20:30)
[2020-02-25] MEDS: PRAVASTATIN SODIUM 40 MG TAB PO SCH (20:30)
[2020-02-25] MEDS: CALCIUM CARBONATE 500 MG CHEWABLE PO SCH (20:30)
[2020-02-26 02:59] LABS: Basophils # (A) 0.1 k/uL (0-0.2); Basophils % (A) 1 %; Eosinophils # (A) 0.3 k/uL (0-0.7); Eosinophils % (A) 4 %; HCT 45.3 % (34.0-46.0); HGB 14.6 gm/dL (11.4-16.0); Lymphocytes # (A) 2.4 k/uL (1.0-4.8); Lymphocytes % (A) 33 %; MCH 29.5 pg (25.0-35.0); MCHC 32.3 g/dL (31.0-37.0); MCV 91.4 fL (80.0-100.0); Mean Platelet Volume 8.8; Monocytes # (A) 0.5 k/uL (0-1.0); Monocytes % (A) 7 %; Neutrophils # (A) 4.1 k/uL (1.3-7.7); Neutrophils % (A) 54 %; Platelet Count 195 k/uL (150-450); RBC 4.95 m/uL (3.80-5.40); RDW 12.7 % (11.5-15.5); WBC 7.5 k/uL (3.8-10.6)
[2020-02-26 03:48] LABS: African American GFR (CKD) >90 (>60 ml/min/1.73 sqM); Anion Gap 8 mmol/L; Blood Urea Nitrogen 18 mg/dL (7-17); Calcium 9.3 mg/dL (8.4-10.2); Carbon Dioxide 23 mmol/L (22-30); Chloride 106 mmol/L (98-107); Glucose 110 mg/dL (74-99); Non-African American GFR(CKD) 89 (>60 ml/min/1.73 sqM); Potassium 4.5 mmol/L (3.5-5.1); Sodium 137 mmol/L (137-145)
[2020-02-26] MEDS: METOPROLOL TARTRATE 25 MG TAB PO SCH (07:56)
[2020-02-26] MEDS: ASPIRIN 325 MG TAB PO SCH (07:56)
--- NOTE | 2020-02-26 10:29 | P.PN ---
Subjective Progress Note Date: 02/26/20 Principal diagnosis: Paroxysmal atrial fibrillation This is a very pleasant 74-year-old female patient who sees Dr. Ruiz in the office on regular basis with a past medical history significant for dyslipidemia and no history of coronary artery disease or congestive heart failure or any cardiac arrhythmia was referred to come to the hospital by her primary care physician. She was seen yesterday at her neurologist office for a follow-up regarding migraine headache. She was told that her heart was irregular. When she walked to her car she was short of breath and she decided to call her primary care physician. She was seen at her primary care physician office where an EKG was performed and revealed atrial fibrillation and the patient was referred to the emergency department. Currently she is asymptomatic. She denies any chest pain or chest discomfort or shortness of breath or any feeling of heart racing or fluttering. Before she was admitted to the hospital she was experiencing shortness of breath with exertion lately. No dizziness or lightheadedness and no syncope. The atrial fibrillation is a new to the patient. The patient never been told that she has atrial fibrillation in the past. Currently she has been maintaining normal sinus mechanism. The patient was seen today, 02/26/2020. Overall she stated that she is feeling better. She denies any chest pain or chest discomfort. Hemodynamically she is stable. She continues to be in and out atrial fibrillation. I am going to increase the dose of metoprolol to 50 mg by mouth twice a day. Beside that continue IV heparin and consider oral anticoagulation down the line. The TSH was checked and came in to be unremarkable. The echocardiogram still pending. I would advise monitor the patient for additional 24 hours. Objective - Vital Signs Vital signs: Vital Signs Temp 97.5 F L 02/26/20 08:00 Pulse 109 H 02/26/20 08:00 Resp 20 02/26/20 08:00 BP 107/69 02/26/20 08:00 Pulse Ox 96 02/26/20 08:00 Intake & Output 02/25/20 02/26/20 02/26/20 18:59 06:59 18:59 Intake Total 360 302.833 Balance 360 302.833 Weight 88.451 kg 88.9 kg Intake: Intake, IV Titration 62.833 Amount Heparin Sod,Pork in 0.45% 62.833 NaCl 25,000 unit In 0.45 % NaCl 1 250ml.bag @ 11. 306 UNITS/KG/HR 10 mls/hr IV .Q24H [facility] Rx#: [id number] Oral 360 240 Other: Voiding Method Toilet # Voids 2 3 # Bowel Movements 1 - Constitutional General appearance: Present: no acute distress - Respiratory Respiratory: bilateral: CTA - Cardiovascular Rhythm: regular Heart sounds: normal: S1, S2 - Labs CBC & Chem 7: 02/26/20 02:41 02/26/20 02:41 Labs: Abnormal Lab Results - Last 24 Hours (Table) 02/25/20 02/26/20 02/26/20 Range/Units 19:37 02:41 02:41 APTT 40.6 H 45.5 H (22.0-30.0) sec BUN 18 H (7-17) mg/dL Glucose 110 H (74-99) mg/dL Assessment and Plan Assessment: Assessment #1 paroxysmal atrial fibrillation/atrial flutter #2 dyslipidemia Plan #1 increase the dose of metoprolol #2 follow-up on the echocardiogram #3 continue IV heparin and consider oral anticoagulation #4 follow-up with the patient
[2020-02-26] MEDS: HEPARIN SOD,PORK IN 0.45% NACL 25,000 UNIT in 0.45% NACL 1 250ML.BAG IV SCH (12:23)
[2020-02-26 15:35] VITALS: RESP 18
[2020-02-26] MEDS: METOPROLOL TARTRATE 50 MG TAB PO SCH (20:54)
[2020-02-26] MEDS: MELATONIN 1 MG TAB PO SCH (20:54)
[2020-02-26] MEDS: PRAVASTATIN SODIUM 40 MG TAB PO SCH (20:54)
[2020-02-26] MEDS: CALCIUM CARBONATE 500 MG CHEWABLE PO SCH (20:54)
--- NOTE | 2020-02-26 22:47 | P.PN ---
Progress Note - Text Progress Note Date: 02/26/20 Chief Complaint: Short of breath History of presenting complaint: This is a pleasant 74-year-old patient of Dr. Yi. Chronic stable medical conditions include GERD, hyperlipidemia, Jose Luis throat is, frequent migraines, lower back pain, arthritis in multiple joints, bilateral lower extremity varicosities, IBS, anxiety depression. For 2 weeks patient been having episodes of getting dizzy. Gets short of breath which very short distances. Feeling weak and tired fatigued. No cough. No fever no chills. No lower extremity edema. Patient's found to be in atrial flutter fibrillation. Put on beta linda. Today-heart rate better controlled. Still running up. Dose of Lopressor increased to 50 mg twice a day. On IV heparin. Review of systems: Was done for constitutional, cardiovascular, GI, pulmonary. relevant finding as above Active Medications Alprazolam (Xanax) 0.25 mg PO BID PRN PRN Reason: Anxiety Aspirin (Aspirin) 325 mg PO DAILY [facility] Last Admin: 02/26/20 07:56 Dose: 325 mg Documented by: Calcium Carbonate/Glycine (Tums) 500 mg PO [facility] Last Admin: 02/26/20 20:54 Dose: 500 mg Documented by: Heparin Sodium (Porcine) (Heparin) 0 unit IV PER PROTOCOL PRN; Protocol PRN Reason: Low PTT Heparin Sodium/Sodium Chloride (25,000 unit/ Sodium Chloride) 250 mls @ 10 mls/hr IV .Q24H [facility]; Protocol Last Admin: 02/26/20 12:23 Dose: 13.3 units/kg/hr, 11.764 mls/hr Documented by: Melatonin (Melatonin) 1 mg PO [facility] Last Admin: 02/26/20 20:54 Dose: 1 mg Documented by: Metoprolol Tartrate (Lopressor) 50 mg PO BID [facility] Last Admin: 02/26/20 20:54 Dose: 50 mg Documented by: Nitroglycerin (Nitrostat) 0.4 mg SUBLINGUAL Q5M PRN PRN Reason: Chest Pain Ondansetron HCl (Zofran) 4 mg PO Q6H PRN PRN Reason: Nausea Pravastatin Sodium (Pravachol) 40 mg PO [facility] Last Admin: 02/26/20 20:54 Dose: 40 mg Documented by: Sumatriptan Succinate (Imitrex) 100 mg PO BID PRN PRN Reason: headache Last Admin: 02/25/20 20:56 Dose: 100 mg Documented by: Tramadol HCl (Ultram) 50 mg PO Q6H PRN PRN Reason: Headache Physical examination: VITAL SIGNS: 97.5, 109, 20, 107/69, 96% room air GENERAL: [BMI 31.5, sitting in bed, more comfortable EYES: Pupils equal. Conjunctiva normal. HEENT: External appearance of nose and ears normal, oral cavity grossly normal. NECK: JVD not raised; masses not palpable. HEART: Heart sounds irregular; no edema. LUNGS: Respiratory rate normal; clear to auscultation. ABDOMEN: Soft, nontender, liver spleen not palpable, no masses palpable. PSYCH: Alert and oriented x3; mood and affect normal. MUSCULAR skeletal: Evidence of OA especially in the hands INVESTIGATIONS, reviewed in the clinical context: White count 7.5 hemoglobin 14.6 potassium 4.5 creatinine 0.63 Previous testing White count 7.8 hemoglobin 14.9 platelets 34341 creatinine 0.5 by AST 56 ALT 46 Troponin I 3 negative ProBNP 2250, TSH normal, LDL 74 EKG tracing personally reviewed by me-irregular heartbeat with flutter waves Chest x-ray film personally reviewed by me-questionable borderline prominence vascular Assessment: -Patient symptoms started 2 weeks ago. Of shortness of breath, dizziness, easily getting tired. Formed with atrial flutter fibrillation with a variable ventricular rate. -GERD -Hyperlipidemia -Primary osteoarthritis -Irritable bowel syndrome -Anxiety depression not otherwise specified -IV heparin monitoring Plan: 2-D echo results pending. Lopressor increased to 50 mg twice a day. Patient encouraged to ambulate
[2020-02-27 06:26] LABS: Basophils # (A) 0.1 k/uL (0-0.2); Basophils % (A) 1 %; Eosinophils # (A) 0.3 k/uL (0-0.7); Eosinophils % (A) 5 %; HCT 44.3 % (34.0-46.0); HGB 14.1 gm/dL (11.4-16.0); Lymphocytes # (A) 2.4 k/uL (1.0-4.8); Lymphocytes % (A) 38 %; MCH 28.9 pg (25.0-35.0); MCHC 31.8 g/dL (31.0-37.0); MCV 90.9 fL (80.0-100.0); Mean Platelet Volume 8.7; Monocytes # (A) 0.4 k/uL (0-1.0); Monocytes % (A) 6 %; Neutrophils # (A) 3.1 k/uL (1.3-7.7); Neutrophils % (A) 48 %; Platelet Count 198 k/uL (150-450); RBC 4.88 m/uL (3.80-5.40); WBC 6.4 k/uL (3.8-10.6)
[2020-02-27] MEDS: SUMAtriptan succinate 50 MG TAB PO PRN (06:51)
[2020-02-27] MEDS ORDERED: PANTOPRAZOLE 40 MG TABLET PO SCH (08:00)
[2020-02-27] MEDS: METOPROLOL TARTRATE 50 MG TAB PO SCH (08:20)
[2020-02-27] MEDS: ASPIRIN 325 MG TAB PO SCH (08:20)
[2020-02-27] MEDS: HEPARIN SOD,PORK IN 0.45% NACL 25,000 UNIT in 0.45% NACL 1 250ML.BAG IV SCH (08:20)
[2020-02-27 09:23] VITALS: TEMP 98
--- NOTE | 2020-02-27 10:19 | P.PN ---
Subjective Progress Note Date: 02/27/20 Principal diagnosis: Paroxysmal atrial fibrillation This is a very pleasant 74-year-old female patient who sees Dr. Ruiz in the office on regular basis with a past medical history significant for dyslipidemia and no history of coronary artery disease or congestive heart failure or any cardiac arrhythmia was referred to come to the hospital by her primary care physician. She was seen yesterday at her neurologist office for a follow-up regarding migraine headache. She was told that her heart was irregular. When she walked to her car she was short of breath and she decided to call her primary care physician. She was seen at her primary care physician office where an EKG was performed and revealed atrial fibrillation and the patient was referred to the emergency department. Currently she is asymptomatic. She denies any chest pain or chest discomfort or shortness of breath or any feeling of heart racing or fluttering. Before she was admitted to the hospital she was experiencing shortness of breath with exertion lately. No dizziness or lightheadedness and no syncope. The atrial fibrillation is a new to the patient. The patient never been told that she has atrial fibrillation in the past. Currently she has been maintaining normal sinus mechanism. The patient was seen today 2019. Overall and from a perivascular standpoint she is asymptomatic. She denies any chest pain or chest discomfort or shortness of breath. The heart rate seems to be better with this episode of A. fib with RVR after the dose of metoprolol was increased yesterday. The echocardiogram still pending. The TSH was checked and came in to be unremarkable. If the echo came in to be unremarkable the patient can be discharged home after we get coverage for oral anticoagulation. Objective - Vital Signs Vital signs: Vital Signs Temp 98.0 F 02/27/20 08:00 Pulse 105 H 02/27/20 08:00 Resp 18 02/27/20 08:00 BP 110/66 02/27/20 08:00 Pulse Ox 96 02/27/20 08:00 Intake & Output 02/26/20 02/27/20 02/27/20 18:59 06:59 18:59 Intake Total 887.167 240 234.692 Balance 887.167 240 234.692 Intake: Intake, IV Titration 187.167 234.692 Amount Heparin Sod,Pork in 0.45% 187.167 234.692 NaCl 25,000 unit In 0.45 % NaCl 1 250ml.bag @ 11. 306 UNITS/KG/HR 10 mls/hr IV .Q24H [facility] Rx#: [id number] Oral 700 240 Other: Voiding Method Toilet Toilet # Voids 2 1 - Constitutional General appearance: Present: no acute distress - Respiratory Respiratory: bilateral: CTA - Cardiovascular Rhythm: regular Heart sounds: normal: S1, S2 - Labs CBC & Chem 7: 02/27/20 05:59 02/26/20 02:41 Labs: Abnormal Lab Results - Last 24 Hours (Table) 02/27/20 Range/Units 05:59 APTT 54.1 H (22.0-30.0) sec Assessment and Plan Assessment: Assessment #1 paroxysmal atrial fibrillation/atrial flutter #2 dyslipidemia Plan #1 continue the current medical regimen #2 check for coverage for oral anticoagulation #3 follow-up after the echo #4 possible discharge later on today
[2020-02-27] MEDS ORDERED: APIXABAN 5 MG TAB PO SCH (10:45)
[2020-02-27 11:41] VITALS: BP 114/70; PULSE 66
--- NOTE | 2020-02-27 15:09 | CDI ---
Documentation Clarification Form Date: 02/27/2020 02:56:01 PM From: Aparna Pringle RN CCDS Admit Date: 02/26/2020 12:44:00 PM Patient Name: Melida Nails Visit Number: [id number] Discharge Date: 02/27/2020 02:20:00 PM ATTENTION: The Clinical Documentation Specialists (CDI) and [facility] Coding Staff appreciate your assistance in clarifying documentation. Please respond to the clarification below the line at the bottom and electronically sign. The CDI & [facility] Coding staff will review the response and follow-up if needed. Please note: Queries are made part of the Legal Health Record. If you have any questions, please contact the author of this message via ITS. Dr. Luis Boss, Paroxysmal Atrial fibrillation / Atrial flutter is documented in Progress note 02/26 History/Risk factors: 74-year-old female presents to the ED for evaluation of fatigue abnormal EKG and dizziness. Medical History: HLD, OA, GERD, Clinical Indicators: 02/23 EKG: Sinus tachycardia with 1st degree AV block with premature atrial complexes. Nonspecific ST abnormality Treatment: 02/24 Lopressor 25 mg po BID 02/25 changed to 50mg BID, Heparin Iv x1 flowed by Heparin Ivpb; Lasix iv x1; Sent home on Eliquis In your professional opinion, in order to capture the severity of condition; can you please clarify the type of Atrial Flutter if known? Typical/Type I Atypical/Type II Other, please specify Unable to determine (Last Revision: October 2017) MTDD
--- NOTE | 2020-02-27 20:24 | P.DS ---
Providers Date of admission: 02/26/20 12:44 Expected date of discharge: 02/27/20 Attending physician: Ari Godoy Consults: 02/24/20 19:14 Consult Physician Urgent Consulting Provider: Kosta Ruiz Consult Reason/Comments: Cardiac arrhythmia Do you want consulting provider notified?: Yes Primary care physician: [facility] Course: Chief Complaint: Short of breath History of presenting complaint: This is a pleasant 74-year-old patient of Dr. Yi. Chronic stable medical conditions include GERD, hyperlipidemia, Jose Luis throat is, frequent migraines, lower back pain, arthritis in multiple joints, bilateral lower extremity varicosities, IBS, anxiety depression. For 2 weeks patient been having episodes of getting dizzy. Gets short of breath which very short distances. Feeling weak and tired fatigued. No cough. No fever no chills. No lower extremity edema. Patient's found to be in atrial flutter fibrillation. Put on beta linda. Today-heart rate better controlled. Symptoms much improved. Feeling much better. Ambulating. Cleared by cardiology Started with debby. Consultation: Dr. Law from cardiology R Physical examination: VITAL SIGNS: 98, 105, 16, 110 over city 6, 96% room air GENERAL: Sitting up, comfortable EYES: Pupils equal. Conjunctiva normal. HEENT: External appearance of nose and ears normal, oral cavity grossly normal. NECK: JVD not raised; masses not palpable. HEART: Heart sounds irregular; no edema. LUNGS: Respiratory rate normal; clear to auscultation. ABDOMEN: Soft, nontender, liver spleen not palpable, no masses palpable. PSYCH: Alert and oriented x3; mood and affect normal. MUSCULAR skeletal: Evidence of OA especially in the hands INVESTIGATIONS, reviewed in the clinical context: White count 6.4 hemoglobin 14.1 potassium 4.5 creatinine 0.63 Previous testing White count 7.8 hemoglobin 14.9 platelets [id number] creatinine 0.5 by AST 56 ALT 46 Troponin I 3 negative ProBNP 2250, TSH normal, LDL 74 EKG tracing personally reviewed by me-irregular heartbeat with flutter waves Chest x-ray film personally reviewed by me-questionable borderline prominence vascular 2-D echocardiogram results not read formally. Assessment: -Persistent atrial flutter fibrillation with a variable ventricular rate.- Symptomatic -GERD -Hyperlipidemia -Primary osteoarthritis -Irritable bowel syndrome -Anxiety depression not otherwise specified -IV heparin monitoring Disposition: Home Patient Condition at Discharge: Stable Plan - Discharge Summary Discharge Rx Participant: No New Discharge Prescriptions: New Aspirin 81 mg PO DAILY #1 chewable Apixaban [Eliquis] 5 mg PO BID #60 tab Metoprolol Tartrate [Lopressor] 50 mg PO BID #60 tab Continue Pravastatin Sodium 40 mg PO HS [place]-3 Acid Ethyl Esters [Lovaza] 1 gm PO HS SUMAtriptan SUCCINATE [Imitrex] 50 mg PO BID PRN PRN Reason: headache Omeprazole 20 mg PO HS Calcium Carbonate/Vitamin D3 [Calcium 600-Vit D3 200 Tablet] 1 cap PO HS Acetaminophen [Tylenol Extra Strength] 500 mg PO BID PRN PRN Reason: Pain Melatonin 5 mg PO HS Discontinued Aspirin EC [Ecotrin] 162.5 mg PO HS Propranolol LA [Inderal LA] 80 mg PO HS Ibuprofen [Motrin Ib] 200 mg PO BID PRN PRN Reason: Pain Discharge Medication List [place]-3 Acid Ethyl Esters [Lovaza] 1 gm PO HS 06/01/15 [History] Pravastatin Sodium 40 mg PO HS 06/01/15 [History] SUMAtriptan SUCCINATE [Imitrex] 50 mg PO BID PRN 06/01/15 [History] Acetaminophen [Tylenol Extra Strength] 500 mg PO BID PRN 02/24/20 [History] Calcium Carbonate/Vitamin D3 [Calcium 600-Vit D3 200 Tablet] 1 cap PO HS 02/24/20 [History] Melatonin 5 mg PO HS 02/24/20 [History] Omeprazole 20 mg PO HS 02/24/20 [History] Apixaban [Eliquis] 5 mg PO BID #60 tab 02/27/20 [Rx] Aspirin 81 mg PO DAILY #1 chewable 02/27/20 [Rx] Metoprolol Tartrate [Lopressor] 50 mg PO BID #60 tab 02/27/20 [Rx] Follow up Appointment(s)/Referral(s): Clay Yi DO [Primary Care Provider] - 1-2 days (March 03 8:00) Kosta Ruiz MD [STAFF PHYSICIAN] - 1 Week (March 04, 9:45) Patient Instructions/Handouts: Telemetry Monitoring (GEN), Dizziness (GEN) Activity/Diet/Wound Care/Special Instructions: heart healthy diet activity as tolerated Discharge Disposition: HOME SELF-CARE
--- NOTE | 2020-03-09 17:26 | ECHOF ---
Referral Reason:Paryoxmal A-fib MEASUREMENTS -------- HEIGHT: 165.1 cm WEIGHT: 88.5 kg BP: RVIDd: 3.1 cm (< 3.3) IVSd: 0.9 cm (0.6 - 1.1) LVIDd: 4.0 cm (3.9 - 5.3) LVPWd: 0.9 cm (0.6 - 1.1) IVSs: 1.2 cm LVIDs: 2.5 cm LVPWs: 1.5 cm LAESV Index (A-L): 31.22 ml/m Ao Diam: 3.0 cm (2.0 - 3.7) AV Cusp: 2.0 cm (1.5 - 2.6) MV EXCURSION: 16.312 mm (> 18.000) MV EF SLOPE: 104 mm/s (70 - 150) EPSS: 0.4 cm RAP: 5.00 mmHg RVSP: 19.42 mmHg FINDINGS -------- Atrial fibrillation. This was a technically good study. LV size, wall thickness and systolic function are normal, with an EF greater than 55%. The left benny tricular size is normal. The right ventricle is normal in size. The left atrium is mildly dilated. LA is midly dilated 29-33ml/m2. The right atrial size is normal. The aortic valve is trileaflet, and appears structurally normal. No aortic stenosis or regurgitation. Uehf-jl-nvgxnunz mitral regurgitation is present. Mild tricuspid regurgitation present. Right ventricular systolic pressure is normal at < 35 mmHg. There is no pulmonic regurgitation present. The aortic root size is normal. Echo free space represents a pericardial fat pad. CONCLUSIONS -------- 1. LV size, wall thickness and systolic function are normal, with an EF greater than 55%. 2. The left ventricular size is normal. 3. The right ventricle is normal in size. 4. The left atrium is mildly dilated. 5. LA is midly dilated 29-33ml/m2. 6. The right atrial size is normal. 7. Loii-ik-tybefahh mitral regurgitation is present. 8. Mild tricuspid regurgitation present. 9. Right ventricular systolic pressure is normal at < 35 mmHg. 10. Echo free space represents a pericardial fat pad. [employer]SEM[employer]ER: Alexia Bae RDCS
--- NOTE | 2020-03-12 09:29 | CDI ---
Documentation Clarification Form Date: 02/27/2020 02:52:00 PM From: Aparna Pringle R.N., CCDS Admit Date: 02/26/2020 12:44:00 PM Patient Name: Melida Nails Visit Number: [id number] Discharge Date: 02/27/2020 02:20:00 PM ATTENTION: The Clinical Documentation Specialists (CDI) and [facility] Coding Staff appreciate your assistance in clarifying documentation. Please respond to the clarification below the line at the bottom and electronically sign. The CDI & [facility] Coding staff will review the response and follow-up if needed. Please note: Queries are made part of the Legal Health Record. If you have any questions, please contact the author of this message via ITS. Dr. Luis Boss: Paroxysmal Atrial fibrillation / Atrial flutter is documented in Progress note 02/26 History/Risk factors: 74-year-old female presents to the ED for evaluation of fatigue abnormal EKG and dizziness. Medical History: HLD, OA, GERD, Clinical Indicators: 02/23 EKG: Sinus tachycardia with 1st degree AV block with premature atrial complexes. Nonspecific ST abnormality Treatment: 02/24 Lopressor 25 mg po BID 02/25 changed to 50mg BID, Heparin Iv x1 flowed by Heparin Ivpb; Lasix iv x1; Sent home on Eliquis In your professional opinion, in order to capture the severity of condition; can you please clarify the type of Atrial Flutter if known? Typical/Type I Atypical/Type II Other, please specify Unable to determine (Last Revision: October 2017) MTDD
== END 2020-02-27 14:20 | disposition home or self-care (01) | DRG 310 ==
LOC: EC 17:08 → 3NCARDOBS 19:12 → 3SCARD 02-25 07:55 → OBSVTOIN 02-26 12:44
PROVIDERS: ADMIT Hospitalist; ATTEND Hospitalist
DX: I48.19 Other persistent atrial fibrillation (principal); E66.9 Obesity, unspecified; I48.92 Unspecified atrial flutter; E78.5 Hyperlipidemia, unspecified; Z89.422 Acquired absence of other left toe(s); Z89.421 Acquired absence of other right toe(s); Z20.828 Contact with and (suspected) exposure to other viral communicable diseases; I44.0 Atrioventricular block, first degree; I83.90 Asymptomatic varicose veins of unspecified lower extremity; M89.49 Other hypertrophic osteoarthropathy, multiple sites; M54.5 Low back pain; K21.9 Gastro-esophageal reflux disease without esophagitis; G43.909 Migraine, unspecified, not intractable, without status migrainosus; K58.9 Irritable bowel syndrome, unspecified; F41.8 Other specified anxiety disorders; M19.91 Primary osteoarthritis, unspecified site; M25.512 Pain in left shoulder; I99.9 Unspecified disorder of circulatory system; R79.89 Other specified abnormal findings of blood chemistry; Z68.31 Body mass index [BMI] 31.0-31.9, adult; Z79.82 Long term (current) use of aspirin; Z79.899 Other long term (current) drug therapy; Z87.891 Personal history of nicotine dependence; Z71.6 Tobacco abuse counseling; Z90.89 Acquired absence of other organs; Z96.631 Presence of right artificial wrist joint; Z86.010 Personal history of colon polyps; Z90.49 Acquired absence of other specified parts of digestive tract; Z87.19 Personal history of other diseases of the digestive system; Z87.2 Personal history of diseases of the skin and subcutaneous tissue; Z87.42 Personal history of other diseases of the female genital tract; Z86.69 Personal history of other diseases of the nervous system and sense organs; Z87.440 Personal history of urinary (tract) infections; Z98.890 Other specified postprocedural states; Z82.3 Family history of stroke; Z82.5 Family history of asthma and other chronic lower respiratory diseases; Z80.1 Family history of malignant neoplasm of trachea, bronchus and lung; Z81.2 Family history of tobacco abuse and dependence
CPT/HCPCS: 36415; 71046; 80048; 80053; 80061; 83690; 83735; 83880; 84443; 84484; 85025; 85610; 85730; 93005; 93306; 99285

== ENCOUNTER → 2020-03-03 | Outpatient (CLI) | payer MEDICARE, OTHER ==
[2020-03-03 14:32] LABS: African American GFR (CKD) >90 (>60 ml/min/1.73 sqM); Blood Urea Nitrogen 15 mg/dL (7-17); Non-African American GFR(CKD) 87 (>60 ml/min/1.73 sqM)
--- NOTE | 2020-03-03 15:16 | CT ---
EXAMINATION TYPE: CT angio chest DATE OF EXAM: 03/03/2020 COMPARISON: CTA chest June 01, 2015 HISTORY: SOB CT DLP: 301.7 mGycm. Automated Exposure Control for Dose Reduction was Utilized. CONTRAST: CTA scan of the thorax is performed with IV Contrast, patient injected with 83cc mL of Isovue 370, pu lmonary embolism protocol. MIP Images are created on CT scanner and reviewed. FINDINGS: LUNGS: Mild dependent atelectatic change in both lower lobes is present. Mild to moderate linear atel ectasis at both bases on current study. No suspicious new focal consolidation. There is no new concer unruly parenchymal mass or nodule identified. There is no pleural effusion or pneumothorax seen. The tracheobronchial tree is patent. MEDIASTINUM: There is satisfactory enhancement of the pulmonary artery and its branches, there is no CT evidence for pulmonary embolism. There are no greater than 1 cm hilar or mediastinal lymph nodes. No significant pericardial effusion is seen. Heart size upper limits of normal. Moderate right gre ater than left biatrial dilatation. OTHER: There is 1.5 cm splenule in splenic hilum. Mild to moderate multilevel anterior and lateral sp urring with slight scoliotic curvature and coronal images. IMPRESSION: No CT evidence for acute pulmonary embolism. No suspicious new acute pulmonary process.
== END | disposition home or self-care (01) ==
LOC: RADCTMAIN 13:39
PROVIDERS: ATTEND Family Medicine
DX: R06.09 Other forms of dyspnea (principal)
CPT/HCPCS: 82565; 84520; 71275; Q9967

== ENCOUNTER → 2020-04-20 | Day surgery (SDC) | payer MEDICARE, OTHER ==
[2020-04-16 16:28] VITALS: BMI 31.6
[~2020-04-20] MED LIST changes: +ALPRAZolam 0.25 MG TAB PO PRN; +ALPRAZolam 0.5 MG TAB PO PRN; +ASPIRIN 325 MG TAB PO STA; +ATORVASTATIN 80 MG TAB PO STA; -DEXAMETHASONE SOD PHOSPHATE 10 MG/ML 1 ML VIAL IV ONE; +IOPAMIDOL-370 125ML BTL INJ ONE; +LIDOCAINE 1% INJ 10MG/ML (20 ML MDV) ONE; +LIDOCAINE 1% INJ 10MG/ML (20 ML MDV) SQ ONE; -MIDAZOLAM 2 MG/2 ML VIAL IV PRN; +MIDAZOLAM 2 MG/2 ML VIAL IVP ONE; +NITROGLYCERIN SL TABS 0.4 MG TAB SUBLINGUAL PRN; -ONDANSETRON 4 MG/2 ML VIAL IVP ONE; +RX INFO: IV CONTRAST WAS GIVEN 1 EACH MISC MISCELLANE PRN; -SCOPOLAMINE 1.5MG/72HR PATCH TRANSDERM ONE; +SODIUM CHLORIDE 0.9% 1,000 ML in EMPTY BAG 1 BAG IV ONE; -ceFAZolin 2 GM in SODIUM CHLORIDE 0.9% 100 ML IVPB ONE; +fentaNYL (PF) 50 MCG/ML 2 ML AMP IVP ONE; +fentaNYL (PF) 50 MCG/ML 2 ML AMP ONE
[2020-04-20 10:02] VITALS: RESP 18; TEMP 97.7
--- NOTE | 2020-04-20 17:01 | CC ---
CARDIAC CATHETERIZATION REPORT INDICATION: Progressively worsening shortness of breath suggestive of unstable angina. PROCEDURE NOTE: After obtaining informed consent, left heart catheterization and coronary angiogram are performed via the right femoral artery using standard Garland catheters. Patient tolerated the procedure well without any obvious immediate complications. Patient received moderate conscious sedation. Total sedation time was 15 minutes. The patient had a femoral angiogram and Angio-Seal was deployed for hemostasis. FINDINGS: 1. HEMODYNAMICS: Left ventricular end-diastolic pressure is 10 mm. There is no significant gradient across the aortic valve. 2. LEFT VENTRICULOGRAM: Left ventriculogram is not performed. 3. ANGIOGRAPHIC DATA: LEFT MAIN CORONARY ARTERY: Left main coronary artery is a normal-sized vessel and is free of stenosis. Divides into left anterior descending coronary artery and circumflex coronary artery. LAD and its branches, circumflex coronary artery and its branches are free of significant stenosis. Right coronary artery is a small nondominant vessel and is free of significant disease. CONCLUSION: 1. Normal coronary arteries. 2. Normal left ventricular end-diastolic pressure. PLAN: I reviewed angiographic data with the patient and told her that her symptoms are not related to ischemic heart disease and her management is going to be with medical therapy and optimal control of her underlying cardiac arrhythmia. MMODL / IJN: [id number] /
--- NOTE | 2020-04-20 17:01 | LTR ---
DATE OF SERVICE: 04/20/2020 RE: Melida Nails Dear Jerad: I performed cardiac catheterization on Melida Nails, a detailed catheterization note is enclosed for your records. In brief, cardiac catheterization revealed normal coronary artery. I believe, patient's exertional shortness of breath is unrelated to ischemic heart disease. Thank you for giving me the privilege of participating in the care of this pleasant lady. Sincerely, MD HANNAH Pino / DEBI: [id number] /
[2020-04-20 17:05] VITALS: BP 112/64
[2020-04-20 17:06] VITALS: PULSE 62
== END ==
LOC: CATHCVL 09:34
PROVIDERS: ATTEND Internal Medicine Cardiovascular Disease
DX: I48.0 Paroxysmal atrial fibrillation (principal); I20.0 Unstable angina; R06.02 Shortness of breath; R94.31 Abnormal electrocardiogram [ECG] [EKG]; I10 Essential (primary) hypertension; I34.0 Nonrheumatic mitral (valve) insufficiency; E78.5 Hyperlipidemia, unspecified; Z90.49 Acquired absence of other specified parts of digestive tract; Z87.891 Personal history of nicotine dependence; Z79.01 Long term (current) use of anticoagulants; Z79.82 Long term (current) use of aspirin; Z79.899 Other long term (current) drug therapy
CPT/HCPCS: 93458; C1760; C1894; C1769; J2250; J2001; J3010; Q9967

== ENCOUNTER → 2021-02-04 | Outpatient (CLI) | payer MEDICARE, OTHER ==
--- NOTE | 2021-02-05 13:37 | MM ---
Reason for exam: screening (asymptomatic). Last mammogram was performed 1 year and 2 months ago. History: Patient is postmenopausal. Family history of premenopausal breast cancer in grandmother at age 40. Cyst aspiration of the left breast. Cyst aspiration of the right breast. 2 excisional biopsies of the right breast. Took hormonal contraceptives for 6 years. Took estrogen for 5 years. Took progesterone for 5 years. Physical Findings: A clinical breast exam by your physician is recommended on an annual basis and results should be correlated with mammographic findings. MG 3D Screening Mammo W/Cad Bilateral CC and MLO view(s) were taken. Prior study comparison: December 17, 2019, bilateral MG 3d screening mammo w/cad. November 14, 2018, bilateral MG 3d screening mammo w/cad. There are scattered fibroglandular densities. Benign appearing bilateral calcifications. No significant changes when compared with prior studies. ASSESSMENT: Benign, BI-RAD 2 RECOMMENDATION: Routine screening mammogram of both breasts in 1 year.
== END | disposition home or self-care (01) ==
LOC: RADMAMWWP 15:05
PROVIDERS: ATTEND Obstetrics & Gynecology
DX: Z12.31 Encounter for screening mammogram for malignant neoplasm of breast (principal)
CPT/HCPCS: 77063; 77067

== ENCOUNTER → 2021-04-26 | Outpatient (CLI) | payer MEDICARE, OTHER ==
--- NOTE | 2021-04-26 19:21 | BD ---
EXAMINATION TYPE: Axial Bone Density DATE OF EXAM: 04/26/2021 COMPARISON: 08.25.2017 CLINICAL HISTORY: 76 YR OLD FEMALE....ICD-10 CODE: M85.88 DISORDER OF BD Height: 64.4 Weight: 195 FRAX RISK QUESTIONS: Family History (Parent hip fracture): YES History of Fracture in Adulthood: YES RISK FACTORS HISTORY OF: HX OF BROKEN RT FOOT Surgery to BOTH WRISTS AT 69 YRS OLD Family History of Osteoporosis: YES, MOTHER WITH BOTH HIP FXS AND FEMUR FX Postmenopausal woman: YES, AT AGE 47, HRT FOR ABOUT 3-4 YRS, AND BCPs FOR ABOUT 10 YRS Lost more than 2 inches in height since high school: YES Hyperparathyroidism: NO Adrenal Insufficiency: NO MEDICATIONS: Additional Medications: INDERAL, PRAVOCHOL, LOVAZA, ECOTRIN, CALCIUM AND VIT D , BP MEDS, XANAX, REFL UX, STATIN FOR CHOLESTEROL. Additional History: GB REMOVAL, ARTHRITIS, HYPERTENSION AND HEART TROUBLE. EXAM MEASUREMENTS: Bone mineral densitometry was performed using the Decision Pace System. Bone mineral density as measured about the Lumbar spine is: ----- L1-L4(G/cm2): 1.012 T Score Values are as follows: ----- L1: -1.0 ----- L2: -1.9 ----- L3: -1.4 ----- L4: -1.4 ----- L1-L4: -1.4 Bone mineral density has: Decreased -22.4% since study of: 08.25.2017 Bone mineral density about the R hip (g/cm2): 0.891 Bone mineral density about the L hip (g/cm2): 0.816 T Score values are as follows: -----R Neck: -0.9 -----L Neck: -1.6 -----R Total: -0.9 -----L Total: -1.5 Bone mineral density has: Decreased -3.5% since study of: 08.25.2017 FRAX%s: THERE IS A 27.0% CHANCE FOR A MAJOR OSTEOPOROTIC FX AND A 13.6% FOR HIP.....PROBABILITY FO R FX IN 10 YRS TIME IMPRESSION: Osteopenia (T Score between -2.5 and -1). There is slightly increased risk of fracture and the patient may be considered for treatment. Re-Screen 2-5 years. NOTE: T-SCORE=SD OF THE YOUNG ADULT MEAN.
== END | disposition home or self-care (01) ==
LOC: RADBDWWP 12:44
PROVIDERS: ATTEND Obstetrics & Gynecology
DX: M85.80 Other specified disorders of bone density and structure, unspecified site (principal)
CPT/HCPCS: 77080

== ENCOUNTER 2021-12-16 10:00 | Inpatient (IN) | payer MEDICARE, OTHER ==
[2021-12-16] MEDS ORDERED: MORPHINE SULFATE 4 MG/ML SYRINGE ONE (16:58)
--- NOTE | 2021-12-16 17:25 | XR ---
EXAMINATION TYPE: Chest X-Ray 1 View DATE OF EXAM: 12/16/2021 COMPARISON: 02/24/2020 INDICATION: Fall, pain TECHNIQUE: Single frontal view of the chest is obtained. FINDINGS: The heart size is normal. The mediastinum is somewhat prominent. Consider follow-up CT chest. The pulmonary vasculature is normal. The lungs are clear. No pneumothorax is evident in this supine view. Small pneumothoraces may not be well visualized with the positioning. No pneumothorax is evident. Spondylosis through the thoracic spine. IMPRESSION: 1. There is prominence of the mediastinum, increased from comparison. Consider CT chest for additiona l evaluation, correlate with the history.
--- NOTE | 2021-12-16 17:25 | XR ---
EXAMINATION TYPE: XR Hip Limited RT DATE OF EXAM: 12/16/2021 COMPARISON: None HISTORY: Fall, pain TECHNIQUE: AP pelvis is obtained. 2 views of the bilateral hips were obtained. FINDINGS: There is lucency within the left femoral neck with irregular indistinct margins suspicious for an acu te fracture. Growth location of the patient's pain. Femoral heads articulate with the acetabulum. Left hip joint space is mildly narrowed. There is mild to moderate narrowing of the right hip joint space. No additional acute fractures or dislocations are evident. Sacroiliac joints have degenerative change . Symphysis pubis is normal. Calcifications within the pelvis. IMPRESSION: 1. Oblique fracture through the left femoral neck. 2. Mild to moderate degenerative changes bilateral hips.
[2021-12-16 19:02] LABS: Partial Thromboplastin Time 23.2 sec (22.0-30.0); Prothrombin Time 10.6 sec (9.0-12.0)
[2021-12-16 19:04] LABS: Basophils # (A) 0.1 k/uL (0-0.2); Basophils % (A) 1 %; Eosinophils # (A) 0.1 k/uL (0-0.7); Eosinophils % (A) 2 %; HCT 43.4 % (34.0-46.0); HGB 14.5 gm/dL (11.4-16.0); Lymphocytes # (A) 1.3 k/uL (1.0-4.8); Lymphocytes % (A) 24 %; MCH 30.7 pg (25.0-35.0); MCHC 33.4 g/dL (31.0-37.0); Mean Platelet Volume 9.3; Monocytes # (A) 0.4 k/uL (0-1.0); Monocytes % (A) 8 %; Neutrophils # (A) 3.6 k/uL (1.3-7.7); Neutrophils % (A) 63 %; Platelet Count 259 k/uL (150-450); RBC 4.72 m/uL (3.80-5.40); RDW 12.8 % (11.5-15.5); WBC 5.6 k/uL (3.8-10.6)
[2021-12-16 19:05] LABS: ALT 23 U/L (4-34); AST 36 U/L (14-36); African American GFR (CKD) 76 (>60 ml/min/1.73 sqM); Albumin 4.1 g/dL (3.5-5.0); Albumin/Globulin Ratio 1.6; Alkaline Phosphatase 25 U/L (38-126); Anion Gap 8 mmol/L; Blood Urea Nitrogen 21 mg/dL (7-17); Calcium 9.4 mg/dL (8.4-10.2); Carbon Dioxide 27 mmol/L (22-30); Chloride 101 mmol/L (98-107); Globulin 2.5 g/dL; Glucose 90 mg/dL (74-99); Non-African American GFR(CKD) 66 (>60 ml/min/1.73 sqM); Potassium 4.3 mmol/L (3.5-5.1); Sodium 136 mmol/L (137-145); Total Bilirubin 0.4 mg/dL (0.2-1.3); Total Protein 6.6 g/dL (6.3-8.2)
--- NOTE | 2021-12-16 21:32 | CT ---
EXAMINATION TYPE: CT hip LT wo con CT DLP: 868.8 mGycm, Automated exposure control for dose reduction was used. DATE OF EXAM: 12/16/2021 8:45 PM COMPARISON: Extremity radiograph same day. CLINICAL INDICATION:Female, 76 years old with history of hip fracture; TECHNIQUE: Axial images were obtained of the left hip without the use of IV contrast. Additional cor onal and sagittal reformatted images and soft tissue and bone window were obtained for review. FINDINGS: There is acute left femoral neck fracture with valgus deformity. Minimal displacement of fr agments up to 4 mm. Fracture line extends medially towards the intertrochanteric line. No additional fractures are identified. There is a large pelvic cyst measuring up to 8.5 cm which is partially visu alized. Ortiz catheter is in place. IMPRESSION: 1. Left femoral neck fracture with medial fracture line extending towards the intertrochanteric line . 2. Partially visualized 8.5 cm cystic structure which could be initially further evaluated pelvic ul trasound.
[2021-12-16] MEDS ORDERED: ONDANSETRON 4 MG/2 ML VIAL IVP PRN (23:11)
[2021-12-16] MEDS: METOPROLOL TARTRATE 50 MG TAB PO SCH (23:58)
[2021-12-16] MEDS: TOBRAMYCIN 0.3% OPHTH DROPS 5 ML BTL BOTH EYES SCH (23:58)
[2021-12-17] MEDS: MORPHINE SULFATE 4 MG/ML SYRINGE IVP PRN ×3 (02:57→12:31)
[2021-12-17] MEDS: TOBRAMYCIN 0.3% OPHTH DROPS 5 ML BTL BOTH EYES SCH ×6 (04:51→23:33)
[2021-12-17] MEDS: METOPROLOL TARTRATE 50 MG TAB PO SCH ×2 (09:29→20:38)
--- NOTE | 2021-12-17 10:46 | P.HPOR ---
History of Present Illness H&P Date: 12/17/21 This patient is a 76-year-old female with past medical history of atrial fibrillation on Eliquis who presented to [facility] emergency department yesterday with complaints of left hip pain following a ground-level fall. Patient states she was at [employer] in the kitchen, tripped over her shoes and landed directly onto the left hip. She was unable to get up or weight-bear following the fall, therefore an ambulance was called. On presentation to the emergency department, x-rays of the left hip revealed a left femoral neck fracture. The patient was admitted under the care of Dr. Irizarry for consultation internal medicine for preoperative medical clearance. The patient is examined bedside this morning with Dr. Irizarry. She is complaining of isolated left hip pain. She states her last dose of Eliquis was Monday. She did not hit her head when she fell. She has no additional co mplaints or concerns at this time. Patient states she ambulates without a walking aid and lives at home with her son. She is very active outside the home and volunteers multiple places. She denies numbness or tingling the left lower extremity. Her pain is currently well controlled. Vital signs stable. Past Medical History Past Medical History: Atrial Fibrillation, Eye Disorder, GERD/Reflux, Hyperlipidemia, Osteoarthritis (OA), Vascular Disorder Additional Past Medical History / Comment(s): Frequent migraines, lower back disc disease/pain, L and R shoulder pain, flebitis, arthritis in multiple joints, leaky heart valve, bilateral leg varicosities, IBS, bronchitis, UTI, some lasering done right eye for "flashes" History of Any Multi-Drug Resistant Organisms: None Reported Past Surgical History: Adenoidectomy, Breast Surgery, Cholecystectomy, Orthopedic Surgery, Tonsillectomy Additional Past Surgical History / Comment(s): Bilateral wrist tendon surgery, bilateral feet 4th toe surg. d/t curvature, lipoma removed from back, lumbar epidural injections, L leg vein stripping, bilateral leg varicose vein injections to remove, L breast benign biopsy, colonoscopy/benign polypectomy, D&C Past Anesthesia/Blood Transfusion Reactions: No Reported Reaction Additional Past Anesthesia/Blood Transfusion Reaction / Comment(s): Pt has claustrophobia. Past Psychological History: Anxiety, Depression Additional Psychological History / Comment(s): Pt has an adult son, Wally, residing with her. She is independent, drives self. Smoking Status: Former smoker Past Alcohol Use History: Occasional Additional Past Alcohol Use History / Comment(s): Pt started smoking in 1961 and quit in 1972. Past Drug Use History: None Reported - Past Family History Mother Family Medical History: CVA/TIA, Deep Vein Thrombosis (DVT) Additional Family Medical History / Comment(s): Mother lived to be 92.5 years old. Father Family Medical History: Cancer, COPD Additional Family Medical History / Comment(s): Father of lung cancer. He was a smoker. Medications and Allergies Home Medications Medication Instructions Recorded Confirmed Type [place]-3 Acid Ethyl Esters [Lovaza] 1 gm PO HS 06/01/15 12/16/21 History Pravastatin Sodium 80 mg PO HS 06/01/15 12/16/21 History SUMAtriptan SUCCINATE [Imitrex] 100 mg PO DAILY PRN 06/01/15 12/16/21 History Acetaminophen [Tylenol Extra 500 mg PO BID PRN 02/24/20 12/16/21 History Strength] Melatonin 5 mg PO HS 02/24/20 12/16/21 History Omeprazole 20 mg PO Q48H PRN 02/24/20 12/16/21 History Apixaban [Eliquis] 5 mg PO BID #60 tab 02/27/20 12/16/21 Rx Metoprolol Tartrate [Lopressor] 50 mg PO BID #60 tab 02/27/20 12/16/21 Rx Loratadine [Claritin] 10 mg PO DAILY 04/16/20 12/16/21 History ALPRAZolam [Xanax] 0.5 mg PO DAILY PRN 12/16/21 12/16/21 History Calcium Carbonate/Vitamin D3 1 tab PO HS 12/16/21 12/16/21 History [Calcium 500Mg-Vit D3 15 mcg (600 unit)] Nystatin/Triamcin 1 applicate TOPICAL BID PRN 12/16/21 12/16/21 History [Nystatin-Triamcinolone] Tobramycin 0.3% Ophth Soln [Tobrex 1 drop BOTH EYES Q4H 12/16/21 12/16/21 History 0.3% Ophth Soln] traMADol HCL 50 mg PO BID PRN 05/26/22 05/26/22 History Allergies Allergy/AdvReac Type Severity Reaction Status Date / Time No Known Allergies Allergy Verified 04/20/20 09:50 Physical Examination On examination, the patient is sitting up in bed in no apparent distress. She is alert and oriented 3. Her head appears normocephalic and atraumatic. Her breathing appears nonlabored. On inspection of the bilateral upper extremities, there are no obvious deformities or signs of trauma. On inspection of her right lower extremity, there are no obvious deformities or signs of trauma. On inspection of the left hip, there are no lacerations or abrasions. No prior scars. Diffuse pain on palpation of the left hip, no pain with the palpation of the left knee, lower leg, ankle, foot. Range of motion of the left hip is not tested at this time. Patient has good strength and range of motion of the left ankle and toes. Motor and sensory function is intact of the left lower extremity. Dorsalis pedis pulses easily palpable, the left lower extremity is warm and well-perfused with brisk capillary refill distally. Calf soft nontender to palpation. Results Left hip and pelvis x-ray 12/16/21: Left femoral neck fracture - Labs Labs: Abnormal Lab Results - Last 24 Hours (Table) 12/16/21 Range/Units 12:35 Sodium 136 L (137-145) mmol/L BUN 21 H (7-17) mg/dL Alkaline Phosphatase 25 L (38-126) U/L H & H 12/16/21 Range/Units 12:35 Hgb 14.5 (11.4-16.0) gm/dL Hct 43.4 (34.0-46.0) % Coagulation 12/16/21 Range/Units 12:35 INR 1.0 (<1.2) Result Diagrams: 12/16/21 12:35 12/16/21 12:35 Assessment and Plan Assessment: Left femoral neck fracture Plan: - Clinical and imaging findings were discussed with the patient. The patient was discussed in detail Dr. Irizarry. Recommend a left total hip arthroplasty for patient's left femoral neck fracture. Risks and benefits were discussed w ith the patient. The patient gave verbal consent bedside. - Strict nonweightbearing left lower extremity. Bedrest. - Pain management as needed. - Internal medicine consult for pre-operative medical clearance. - We'll plan for surgery tomorrow morning. Patient will be made NPO at midnight.
[2021-12-17] MEDS ORDERED: ALPRAZolam 0.5 MG TAB PO PRN (11:37)
--- NOTE | 2021-12-17 17:35 | P.CONS ---
History of Present Illness - Reason for Consult Consult date: 12/17/21 Medical clearance for surgery - Chief Complaint Ground-level fall/left hip fracture - History of Present Illness 76-year-old female with past medical history of atrial fibrillation on Eliquis who presented to [facility] emergency department yesterday with complaints of left hip pain following a ground-level fall. Patient states she was at [employer] in the kitchen, tripped over her shoes and landed directly onto the left hip. She was unable to get up or weight-bear following the fall, t herefore an ambulance was called. On presentation to the emergency department, x-rays of the left hip revealed a left femoral neck fracture. The patient was admitted under the care of Dr. Irizarry for consultation internal medicine for preoperative medical clearance. The patient is examined bedside this morning with Dr. Irizarry. She is complaining of isolated left hip pain. She states her last dose of Eliquis was Monday. She did not hit her head when she fell. She has no additional com plaints or concerns at this time. Patient states she ambulates without a walking aid and lives at home with her son. She is very active outside the home and volunteers multiple places. She denies numbness or tingling the left lower extremity. Her pain is currently well controlled. Patient reports having followed up with them regarding a few days prior to this admission and was advised follow-up in 6 months; patient denies any chest pain or shortness of breath Review of Systems REVIEW OF SYSTEMS: CONSTITUTIONAL: No fever, no malaise, no fatigue. HEENT: No recent visual problems or hearing problems. Denied any sore throat. CARDIOVASCULAR: No chest pain, orthopnea, PND, no palpitations, no syncope. PULMONARY: No shortness of breath, no cough, no hemoptysis. GASTROINTESTINAL: No diarrhea, no nausea, no vomiting, no abdominal pain. NEUROLOGICAL: No headaches, no weakness, no numbness. HEMATOLOGICAL: Denies any bleeding or petechiae. GENITOURINARY: Denies any burning micturition, frequency, or urgency. MUSCULOSKELETAL/RHEUMATOLOGICAL: Left hip pain ENDOCRINE: Denies any polyuria or polydipsia. The rest of the 14-point review of systems is negative. Past Medical History Past Medical History: Atrial Fibrillation, Eye Disorder, GERD/Reflux, Hyperlipidemia, Osteoarthritis (OA), Vascular Disorder Additional Past Medical History / Comment(s): Frequent migraines, lower back disc disease/pain, L and R shoulder pain, flebitis, arthritis in multiple joints, leaky heart valve, bilateral leg varicosities, IBS, bronchitis, UTI, some lasering done right eye for "flashes" History of Any Multi-Drug Resistant Organisms: None Reported Past Surgical History: Adenoidectomy, Breast Surgery, Cholecystectomy, Orthopedic Surgery, Tonsillectomy Additional Past Surgical History / Comment(s): Bilateral wrist tendon surgery, bilateral feet 4th toe surg. d/t curvature, lipoma removed from back, lumbar epidural injections, L leg vein stripping, bilateral leg varicose vein injections to remove, L breast benign biopsy, colonoscopy/benign polypectomy, D&C Past Anesthesia/Blood Transfusion Reactions: No Reported Reaction Additional Past Anesthesia/Blood Transfusion Reaction / Comm: Pt has claustrophobia. Past Psychological History: Anxiety, Depression Additional Psychological History / Comment(s): Pt has an adult son, Wally, residing with her. She is independent, drives self. Smoking Status: Former smoker Past Alcohol Use History: Occasional Additional Past Alcohol Use History / Comment(s): Pt started smoking in 1961 and quit in 1972. Past Drug Use History: None Reported - Past Family History Mother Family Medical History: CVA/TIA, Deep Vein Thrombosis (DVT) Additional Family Medical History / Comment(s): Mother lived to be 92.5 years old. Father Family Medical History: Cancer, COPD Additional Family Medical History / Comment(s): Father of lung cancer. He was a smoker. Medications and Allergies Home Medications Medication Instructions Recorded Confirmed Type [place]-3 Acid Ethyl Esters [Lovaza] 1 gm PO HS 06/01/15 12/16/21 History Pravastatin Sodium 80 mg PO HS 06/01/15 12/16/21 History SUMAtriptan SUCCINATE [Imitrex] 100 mg PO DAILY PRN 06/01/15 12/16/21 History Acetaminophen [Tylenol Extra 500 mg PO BID PRN 02/24/20 12/16/21 History Strength] Melatonin 5 mg PO HS 02/24/20 12/16/21 History Omeprazole 20 mg PO Q48H PRN 02/24/20 12/16/21 History Apixaban [Eliquis] 5 mg PO BID #60 tab 02/27/20 12/16/21 Rx Metoprolol Tartrate [Lopressor] 50 mg PO BID #60 tab 02/27/20 12/16/21 Rx Loratadine [Claritin] 10 mg PO DAILY 04/16/20 12/16/21 History ALPRAZolam [Xanax] 0.5 mg PO DAILY PRN 12/16/21 12/16/21 History Calcium Carbonate/Vitamin D3 1 tab PO HS 12/16/21 12/16/21 History [Calcium 500Mg-Vit D3 15 mcg (600 unit)] Nystatin/Triamcin 1 applicate TOPICAL BID PRN 12/16/21 12/16/21 History [Nystatin-Triamcinolone] Tobramycin 0.3% Ophth Soln [Tobrex 1 drop BOTH EYES Q4H 12/16/21 12/16/21 History 0.3% Ophth Soln] traMADol HCL 50 mg PO BID PRN 12/16/21 12/16/21 History Allergies Allergy/AdvReac Type Severity Reaction Status Date / Time No Known Allergies Allergy Verified 04/20/20 09:50 Physical Exam Vitals: Vital Signs Temp Pulse Resp BP Pulse Ox 12/17/21 07:15 65 18 12/17/21 05:57 98.2 F 65 18 130/70 96 12/17/21 01:18 98.2 F 66 14 119/68 92 L 12/16/21 22:45 98.3 F 69 15 135/72 97 Intake and Output 12/16/21 12/17/21 12/17/21 22:59 06:59 14:59 Output Total 1000 1000 Balance -1000 -1000 Output: Urine 1000 1000 Other: Voiding Method Indwelling Catheter Weight 89 kg PHYSICAL EXAMINATION: GENERAL: The patient is alert and oriented x3, not in any acute distress. Well developed, well nourished. HEENT: Pupils are round and equally reacting to light. EOMI. No scleral icterus. No conjunctival pallor. Normocephalic, atraumatic. No pharyngeal erythema. No thyromegaly. CARDIOVASCULAR: S1 and S2 present. No murmurs, rubs, or gallops. PULMONARY: Chest is clear to auscultation, no wheezing or crackles. ABDOMEN: Soft, nontender, nondistended, normoactive bowel sounds. No palpable organomegaly. MUSCULOSKELETAL: No joint swelling or deformity. EXTREMITIES: No cyanosis, clubbing, or pedal edema. NEUROLOGICAL: Gross neurological examination did not reveal any focal deficits. SKIN: No rashes. Results CBC & Chem 7: 12/16/21 12:35 12/16/21 12:35 Labs: Abnormal Lab Results - Last 24 Hours (Table) 12/16/21 Range/Units 12:35 Sodium 136 L (137-145) mmol/L BUN 21 H (7-17) mg/dL Alkaline Phosphatase 25 L (38-126) U/L Assessment and Plan Assessment: 1. Ground-level fall/left hip fracture - Patient has been evaluated by orthopedic surgery and is recommended left total hip arthroplasty; patient remains strictly nonweightbearing left lower extremity and bedrest - Continue with current pain management; patient is reporting optimal pain control --- Patient is cleared to proceed with surgery likely within next 24 hours 2. Atrial fibrillation; patient remains rate controlled on metoprolol 50 mg twice a day; continues to take anticoagulation therapy in form of Eliquis which has been placed on hold - We will start patient on IV heparin infusion with plans to 4 hours before procedure - EKG has been ordered 3. Hyperlipidemia; Pravachol 80 mg by mouth daily at bedtime 4. Hypertension; stable on metoprolol 50 g twice a day 5. Gastroesophageal reflux disease; Protonix 40 mg daily 6. Seasonal ALLERGIES; we will resume both of post surgery DVT prophylaxis; SCDs/IV heparin CODE STATUS; full code
[2021-12-17] MEDS ORDERED: HEPARIN SODIUM 1,000 UN/ML (10ML VL) IV PRN (18:00)
[2021-12-17] MEDS ORDERED: HEPARIN SOD,PORK IN 0.45% NACL 25,000 UNIT in 0.45% NACL 1 250ML.BAG IV SCH (18:00)
[2021-12-17] MEDS: HYDROcodone/APAP 5-325MG 1 EACH TAB PO PRN ×2 (18:00→23:34)
[2021-12-17] MEDS: PRAVASTATIN SODIUM 80 MG TAB PO SCH (20:38)
[2021-12-17] MEDS: CALCIUM CARB-VIT D 500 MG-5 MCG TAB PO SCH (20:38)
[2021-12-18] MEDS: TOBRAMYCIN 0.3% OPHTH DROPS 5 ML BTL BOTH EYES SCH ×5 (04:02→22:31)
[2021-12-18] MEDS: HYDROcodone/APAP 5-325MG 1 EACH TAB PO PRN ×3 (05:54→22:30)
[2021-12-18] MEDS ORDERED: TRANEXAMIC ACID 1,000 MG in SODIUM CHLORIDE 0.9% 100 ML IVPB ONE ×4 (07:47)
[2021-12-18] MEDS ORDERED: LIDOCAINE 1% (10MG/ML) FOR IV START INTRADERMA PRN (07:59)
[2021-12-18] MEDS ORDERED: DEXAMETHASONE SOD PHOSPHATE 4 MG/ML 1 ML VIAL IV ONE (07:59)
[2021-12-18] MEDS ORDERED: NEOSTIGMINE 1 MG/ML 10 ML VIAL ONE (08:10)
[2021-12-18] MEDS ORDERED: PROPOFOL 10 MG/ML 20 ML VIAL IV ONE (08:10)
[2021-12-18] MEDS ORDERED: ROCURONIUM 10 MG/ML (5 ML VIAL) IV ONE (08:10)
[2021-12-18] MEDS ORDERED: GLYCOPYRROLATE 0.2 MG/ML 2 ML VIAL ONE (08:10)
[2021-12-18] MEDS ORDERED: fentaNYL (PF) 50 MCG/ML 2 ML AMP ONE (08:10)
[2021-12-18] MEDS ORDERED: ePHEDrine 50 MG/ML 1 ML VIAL ONE (08:10)
[2021-12-18] MEDS ORDERED: LIDOCAINE 2% INJ 20 MG/ML (2 ML VIAL) ONE (08:10)
[2021-12-18] MEDS ORDERED: TRANEXAMIC ACID IN NACL,ISO-OS 1,000 MG/100 ML BAG ONE (08:10)
[2021-12-18] MEDS ORDERED: SUCCINYLCHOLINE CHLORIDE 100 MG/5 ML SYR IV ONE (08:10)
[2021-12-18] MEDS: LACTATED RINGERS 1,000 ML IV SCH (08:12)
[2021-12-18] MEDS ORDERED: IV FLUID CONTINUATION 1,000 ML IV ONE (08:16)
[2021-12-18 09:08] LABS: African American GFR (CKD) 98.2 (60.0-200.0); Anion Gap 13.3 mmol/L (10.00-18.00); BUN/Creat Ratio 14.43 Ratio (12.00-20.00); Basophils # (A) 0.07 X 10*3/uL (0.00-0.10); Blood Urea Nitrogen 10.1 mg/dL (9.0-27.0); Calcium 9.6 mg/dL (8.7-10.3); Carbon Dioxide 24.7 mmol/L (20.0-27.5); Eosinophils # (A) 0.27 X 10*3/uL (0.04-0.35); Eosinophils % (A) 3.7 %; HCT 43.9 % (37.2-46.3); HGB 14.7 g/dL (12.0-15.0); Immature Grans, Automated 0.4 %; Lymphocytes % (A) 19.4 %; MCH 30.4 pg (27.0-32.0); MCHC 33.5 g/dL (32.0-37.0); MCV 90.7 fL (80.0-97.0); Mean Platelet Volume 11.4 fL (9.5-12.2); Monocytes # (A) 0.72 X 10*3/uL (0.20-1.00); NRBC Per 100 WBC 0 /100 WBCS (0.0-0.0); Neutrophils # (A) 4.73 X 10*3/uL (1.80-7.70); Neutrophils % (A) 65.5 %; Non-African American GFR(CKD) 84.8 (60.0-200.0); Platelet Count 226 X 10*3/uL (140-440); RBC 4.84 X 10*6/uL (4.10-5.20); RDW 12.2 % (11.5-14.5); WBC 7.22 X 10*3/uL (4.50-10.00)
[2021-12-18] MEDS: ROPIVACAINE/EPI/CLONIDINE/KET 50 ML SYRINGE MISCELLANE PRN ×2 (09:09→10:19)
[2021-12-18] MEDS: METOPROLOL TARTRATE 50 MG TAB PO SCH ×2 (09:28→22:31)
[2021-12-18] MEDS ORDERED: LACTATED RINGERS 1,000 ML IV ONE (10:16)
[2021-12-18 10:18] LABS: Basophils # (A) 0.1 k/uL (0-0.2); Basophils % (A) 1 %; Eosinophils # (A) 0.3 k/uL (0-0.7); Eosinophils % (A) 3 %; HCT 41.7 % (34.0-46.0); HGB 13.7 gm/dL (11.4-16.0); Lymphocytes # (A) 1.7 k/uL (1.0-4.8); Lymphocytes % (A) 21 %; MCH 29.9 pg (25.0-35.0); MCHC 32.8 g/dL (31.0-37.0); Mean Platelet Volume 8.5; Monocytes # (A) 0.6 k/uL (0-1.0); Monocytes % (A) 8 %; Neutrophils # (A) 5.1 k/uL (1.3-7.7); Neutrophils % (A) 65 %; Platelet Count 216 k/uL (150-450); RBC 4.59 m/uL (3.80-5.40); RDW 12.1 % (11.5-15.5); WBC 7.8 k/uL (3.8-10.6)
--- NOTE | 2021-12-18 11:04 | XR ---
Fluoroscopy INDICATION: Pain FINDINGS: Fluoroscopy time: 53 seconds. Images obtained: 8. IMPRESSIONS: 1. Documentation of fluoroscopy.
[2021-12-18] MEDS ORDERED: NALOXONE 0.4 MG/ML 1 ML VIAL IV PRN (11:05)
[2021-12-18] MEDS: HYDROmorphone 0.5 MG/0.5 ML SYRINGE IVP PRN ×3 (11:08→11:36)
[2021-12-18] MEDS ORDERED: HYDROmorphone 0.5 MG/0.5 ML SYRINGE IVP PRN ×2 (11:11)
--- NOTE | 2021-12-18 11:19 | P.OP ---
Date of Procedure: 12/18/21 Preoperative Diagnosis: 1. Left displaced subcapital femoral neck fracture 2. Atrial fibrillation on Eliquis Postoperative Diagnosis: Same Procedure(s) Performed: 1. Left direct anterior total hip arthroplasty Implants: 1. Casey Trident II 52 mm cup 2. Filion accolade C size #5 high offset femoral stem 3. Casey MDM 42 outer diameter, 28 mm inner diameter +4 mm femoral head Anesthesia: GETA Surgeon: Robby Irizarry Napkin Machine Operator #1: Saritha Lugo Estimated Blood Loss (ml): 1,000 IV fluids (ml): 1,200 Pathology: other (Femoral head to pathology) Condition: stable Disposition: PACU Indications for Procedure: The patient is very pleasant 76-year-old female who presented to the emergency department after a ground-level fall. The patient requested our group as she previously had care with our office. I met with the patient preoperatively after she had been admitted under my care. We had a long discussion on her x- rays and computed tomography scan. She had a displaced intracapsular femoral neck fracture. The patient states that she had mild antecedent hip and groin pain. 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 Due to her age and activity level I recommended a total hip replacement rather than a hemiarthroplasty. She understands the elevated risks of a anterior hip replacement for a femoral neck fracture. I had a long discussion with the patient in the office on the potential risks and complications of a total hip replacement through a direct anterior approach. Risks discussed include, but are certainly not limited to, risks from anesthesia, superficial infection requiring local wound care or antibiotics, deep mitchell-prosthetic joint infection and the treatment required to eradicate infection, intraoperative fracture, postoperative periprosthetic fracture, damage to local blood vessels or nerves particularly the lateral femoral cutaneous nerve, delayed wound healing requiring local wound care or possibly surgical debridement, hip dislocation, leg length discrepancy, soft tissue irritation around the total hip implant such as iliopsoas tendinitis or trochanteric bursitis, wear and osteolysis from the implants, squeaking or audible noises, groin pain, thigh pain, heterotopic ossification, stiffness, aseptic loosening of the implants, dissatisfaction with surgical outcome, need for revision surgery, DVT, PE, swelling of the operative extremity, acute coronary event, stroke, failure to thrive, and possibly loss of life or limb. The patient understands that while these are the most common complications after an elective hip replacement there are certainly other less common complications possible. They were given ample time to ask questions regarding the potential complications of a hip replacement. Following our discussion the patient provided their verbal and written consent to go forward with an elective total hip replacement. Operative Findings: There was a large hemarthrosis. The patient's femoral neck fracture was sub- capital and displaced anteriorly with posterior medial extension to but not past the calcar. Description of Procedure: The patient was identified in the preoperative holding area and the correct hip was marked with my initials. I reviewed the procedure and consent with the patient. All of their questions were answered. The patient was then brought back into the operating room by anesthesia. While on the [facility] anesthesia was administered by the anesthesia team. Preoperative antibiotics and tranexamic acid were also given. After the patient was under anesthesia I examined their ankles to determine their preoperative leg length discrepancy. The skin over the anterior aspect of the hip was shaved to remove hair over the site of planned incision. Both feet and ankles were padded with webril and boots for the Mil[place] were applied. The patient was then carefully transferred onto the [place] table. A perineal post was immediately placed. The arms were placed on arm holders and were well-padded. Both boots were secured to the spars on the Milford table. The patient was positioned so that the pelvis was centered over the post. Nonsterile drapes were applied. A timeout was performed identifying the correct patient, operative extremity, and procedure. At this point fluoroscopy was brought in to take preoperative images of the pelvis and operative hip. Using the standing AP pelvis from the office as a template, a comparable image was obtained with fluoroscopy. A metallic bar was used to create a bi-ischial line for use as a reference to leg length adjustments during the procedure. Global offset was also measured on both the operative and nonoperative leg. Flu oroscopy was then brought out and a pre-scrub using a chlorhexidine scrub brush was performed. The operative limb was then prepped and draped in the standard sterile fashion. An anterior longitudinal incision was made lateral and distal to the ASIS. The skin and subcutaneous tissues were incised sharply. The underlying tensor fascia was identified and incised in its midportion. The fascia was dissected free from the underlying muscle and the muscle belly was retracted. A blunt tipped cobra retractor was placed over the superior neck under the muscle fibers of the gluteus minimus. The deep enveloping fascia of the tensor was incised. The anterior leash of vessels were then identified and cauterized. The fascia between the rectus and the capsule was then incised and the pre-capsular fat was excised. A second Cobra was placed inferior to the neck. The interval between the rectus and iliocapsularis and the hip capsule was developed and a retractor was placed carefully over the anterior rim of the acetabulum. A T-shaped anterior capsulotomy was performed. The superior capsular leaflet was left in place in the inferior capsular flap was excised. The Cobra retractors were pl aced intracapsularly. We then made a femoral neck osteotomy according to preoperative and intraoperative templating and confirmed the level of the osteotomy using fluoroscopic imaging. The femoral head was removed, passed off to the back table, and sized. The superior capsular flap was excised. Retractors were placed circumferentially exposing the acetabulum. We then circumferentially debrided the acetabulum free of labrum and osteophytes. The pulvinar was removed to fully visualize the cotyloid fossa. We then sequentially reamed to achieve peripheral fit and excellent bleeding subchondral bone. The socket was thoroughly irrigated. The acetabular component was impacted into the appropriate position using fluoroscopy to guide version, inclination, and depth of insertion taking care to have a comparable image of the AP pelvis to the standing image taken in the office. An excellent press-fit was achieved and final position was confirmed using fluoroscopy. The press fit was augmented with bony cancellus dome screws. The liner was then impacted into the socket. Attention was then turned to the femur. The remnant dorsal lateral capsule was excised. The short external rotators were visible and protected. A bone hook was used to confirm appropriate translation of the trochanter away from the acetabulum. The leg was then extended and adducted and the bone hook was used to elevate the femur for broaching. On inspection of the patient's proximal femur, they appeared to have poor bone quality so I elected to proceed with cemented fixation of the femoral component. A box osteotome and blunt tipped canal sound was then utilized to gain access to the femoral canal. We then sequentially broached the femur in appropriate anteversion until torsional stability was achieved and the implant was felt to have reached the appropriate size to allow trialing. The neck cut was brought flush to the trial broach with a calcar planar. A trial neck and head were then placed onto the broach and the hip was atraumatically reduced under direct visualization. External rotation to 90 was performed to assess stability. Fluoroscopy was brought in. An AP and lateral fluoroscopic image of the proximal femur was obtained to assess position and fill of the trial broach. An AP of the pelvis was then obtained and matched to the preoperative image taken. A bi-ischial bar was then placed and measurements were taken to assess changes in length and offset. The hip was then carefully dislocated, the proximal femur was exposed, and the trial implants were removed. The proximal femur was then prepared for cementing. The canal was thoroughly irrigated with pulsatile lavage to remove blood and marrow contents. A cement restrictor was placed to a depth just distal to the tip of the final implant. Epinephrine-soaked gauze was then packed into the proximal femur. 2 bags of cement were then mixed using a centrifuge and placed into a cement gun. Anesthesia was notified that cementing was about to commence to make sure the patient was appropriately ventilated and hydrated. Once the cement had reached appropriate consistency, the cement gun was used to fill the canal in a retrograde fashion starting at the restrictor. Cement was then pressurized into the canal with a blue tipped ground crew supervisor. The stem was then carefully introduced into the cement taking care to guide the implant into appropriate version. The stem was held in position until the cement had fully set. All extra cement was removed while the cement was hardening. The trunnion was cleansed and the final head was tapped into place to engage the Ceballos taper. The acetabulum was irrigated and visualized to be free of debris. The hip was carefully reduced. Stability was checked clinically with external rotation to 90 and there was no evidence of instability. Final fluoroscopic images were taken. The wound was then thoroughly irrigated and soaked with a dilute Betadine rinse for 3 minutes. 3 L of sterile saline was irrigated through the wound using pulsatile lavage. Local anesthetic cocktail was injected into the soft tissues around the surgical field. A deep drain was placed. The wound was then closed in layers. A sterile dressing was placed over the surgical incision and drain site. The drapes were taken down and the patient was carefully transferred off of the Milford table. Following removal of the boots the leg lengths felt acceptable. The patient was then taken to recovery room having tolerated the procedure well. Saritha Lugo PA-C was required as a skilled administrative assistant coordinator for patient positioning, surgical exposure, retraction, placement of implants, and closure of the surgical wound. PLAN: The patient can weight-bear as tolerated on the operative extremity. 2 doses of postoperative antibiotics. DVT prophylaxis - can resume Eliquis POD#1. Physical therapy for gait training. Discontinue drain postoperative day #1 if output is less than 100 mL per shift. Will check a 25 hydroxy vitamin D level and starting calcium and vitamin D supplementation due to her fragility fracture.
--- NOTE | 2021-12-18 11:22 | FL ---
Fluoroscopy INDICATION: Pain FINDINGS: Fluoroscopy time: 53 seconds. Images obtained: 0. IMPRESSIONS: 1. Documentation of fluoroscopy.
[2021-12-18] MEDS: hydrOXYzine pamoate 25 MG CAP PO PRN ×2 (17:18→22:29)
[2021-12-18] MEDS: SENNOSIDES-DOCUSATE SODIUM 1 EACH TAB PO SCH (22:29)
[2021-12-18] MEDS: PRAVASTATIN SODIUM 80 MG TAB PO SCH (22:31)
[2021-12-18] MEDS: CALCIUM CARB-VIT D 500 MG-5 MCG TAB PO SCH (22:31)
[2021-12-19] MEDS: TOBRAMYCIN 0.3% OPHTH DROPS 5 ML BTL BOTH EYES SCH ×6 (00:49→22:38)
[2021-12-19] MEDS: HYDROmorphone 0.5 MG/0.5 ML SYRINGE IVP PRN ×3 (02:53→16:23)
[2021-12-19] MEDS: HYDROcodone/APAP 5-325MG 1 EACH TAB PO PRN ×3 (06:01→21:50)
[2021-12-19] MEDS ORDERED: METOCLOPRAMIDE 5 MG/ML 2 ML VIAL IVP PRN (07:00)
[2021-12-19] MEDS: LACTATED RINGERS 1,000 ML IV SCH (08:51)
[2021-12-19] MEDS: METOPROLOL TARTRATE 50 MG TAB PO SCH ×2 (09:12→21:50)
[2021-12-19 09:37] LABS: African American GFR (CKD) 99.1 (60.0-200.0); Anion Gap 12.4 mmol/L (10.00-18.00); BUN/Creat Ratio 17.62 Ratio (12.00-20.00); Calcium 8.4 mg/dL (8.7-10.3); Carbon Dioxide 24.6 mmol/L (20.0-27.5); Non-African American GFR(CKD) 85.5 (60.0-200.0); Potassium 4.3 mmol/L (3.5-5.5)
[2021-12-19 09:41] LABS: Basophils # (A) 0.05 X 10*3/uL (0.00-0.10); Basophils % (A) 0.5 %; Eosinophils # (A) 0.22 X 10*3/uL (0.04-0.35); Eosinophils % (A) 2.3 %; HCT 33.6 % (37.2-46.3); HGB 11.1 g/dL (12.0-15.0); Immature Grans, Automated 0.6 %; Lymphocytes # (A) 1.22 X 10*3/uL (0.90-5.00); Lymphocytes % (A) 12.8 %; MCH 29.8 pg (27.0-32.0); MCV 90.3 fL (80.0-97.0); Mean Platelet Volume 11.6 fL (9.5-12.2); Monocytes # (A) 0.96 X 10*3/uL (0.20-1.00); NRBC Per 100 WBC 0 /100 WBCS (0.0-0.0); Neutrophils # (A) 7.05 X 10*3/uL (1.80-7.70); Neutrophils % (A) 73.8 %; Platelet Count 165 X 10*3/uL (140-440); RBC 3.72 X 10*6/uL (4.10-5.20); RDW 12.4 % (11.5-14.5); WBC 9.56 X 10*3/uL (4.50-10.00)
[2021-12-19] MEDS ORDERED: ERGOCALCIFEROL 1,250 MCG (50,000 IU) CAPSULE PO SCH (10:00)
[2021-12-19] MEDS: CHOLECALCIFEROL 25 MCG (1000 IU) TABLET PO SCH (10:48)
[2021-12-19] MEDS: hydrOXYzine pamoate 25 MG CAP PO PRN ×2 (12:53→21:49)
--- NOTE | 2021-12-19 13:30 | P.PN ---
Subjective Progress Note Date: 12/18/21 Principal diagnosis: Ground-level fall/left hip fracture Atrial fibrillation; coagulation remains on hold until cleared by surgery 76-year-old female with past medical history of atrial fibrillation on Eliquis who presented to [facility] emergency department yesterday with complaints of left hip pain following a ground-level fall. Patient states she was at [employer] in the kitchen, tripped over her shoes and landed directly onto the left hip. She was unable to get up or weight-bear following the fall, therefore an ambulance was called. On presentation to the emergency department, x-rays of the left hip revealed a left femoral neck fracture. The patient was admitted under the care of Dr. Irizarry for consultation internal medicine for preoperative medical clearance. The patient is examined bedside this morning with Dr. Irizarry. She is complaining of isolated left hip pain. She states her last dose of Eliquis was Monday. She did not hit her head when she fell. She has no additional complaints or concerns at this time. Patient states she ambulates without a walking aid and lives at home with her son. She is very active outside the home and volunteers multiple places. She denies numbness or tingling the left lower extremity. Her pain is currently well controlled. Patient reports having followed up with them regarding a few days prior to this admission and was advised follow-up in 6 months; patient denies any chest pain or shortness of breath 12/18/2021 Patient is seen and evaluated with family members at bedside; patient is status post left anterior total hip arthroplasty; POD #1; patient concerned about resumption of anticoagulation therapy given history of atrial fibrillation and for stroke prevention; detailed discussion about concerns of resuming anticoagulation therapy immediately post surgery; this has been left to surgery discretion Vital signs reveal temperature of 98.9, pulse 86, respirations 16 and blood pressure of 123/76 with O2 saturation of 94% on 2 L Laboratory review shows WBC 7.8, hemoglobin of 13.7 and platelet count of 216 We will continue with current management; PT/OT to evaluate patient and make recommendations Objective - Vital Signs Vital signs: Vital Signs Temp 98.6 F 12/18/21 08:00 Pulse 59 L 12/18/21 08:00 Resp 18 12/18/21 07:30 BP 155/84 12/18/21 08:00 Pulse Ox 96 12/18/21 08:00 FiO2 Intake & Output 12/17/21 12/18/21 12/18/21 18:59 06:59 18:59 Intake Total 70.939 1300 Output Total 2099 1775 1300 Balance -2100 -1704.061 0 Intake: IV 1300 Intake, IV Titration 70.939 Amount Heparin Sod,Pork in 0.45% 70.939 NaCl 25,000 unit In 0.45 % NaCl 1 250ml.bag @ 11.2 UNITS/KG/HR 9.968 mls/hr IV .Q24H [facility] Rx#: [id number] Output: Urine 2099 1775 300 Estimated Blood Loss 1000 Other: Voiding Method Indwelling Catheter Indwelling Catheter Indwelling Catheter - Exam PHYSICAL EXAMINATION: GENERAL: The patient is alert and oriented x3, not in any acute distress. Well developed, well nourished. HEENT: Pupils are round and equally reacting to light. EOMI. No scleral icterus. No conjunctival pallor. Normocephalic, atraumatic. No pharyngeal erythema. No thyromegaly. CARDIOVASCULAR: S1 and S2 present. No murmurs, rubs, or gallops. PULMONARY: Chest is clear to auscultation, no wheezing or crackles. ABDOMEN: Soft, nontender, nondistended, normoactive bowel sounds. No palpable organomegaly. MUSCULOSKELETAL: No joint swelling or deformity. EXTREMITIES: No cyanosis, clubbing, or pedal edema. NEUROLOGICAL: Gross neurological examination did not reveal any focal deficits. SKIN: No rashes. - Labs CBC & Chem 7: 12/19/21 03:39 12/19/21 03:39 Labs: Abnormal Lab Results - Last 24 Hours (Table) 12/18/21 Range/Units 05:14 APTT 42.5 H (22.0-30.0) sec Assessment and Plan Assessment: 1. Ground-level fall/left hip fracture - Patient has been evaluated by orthopedic surgery and is recommended left total hip arthroplasty; patient remains strictly nonweightbearing left lower extremity and bedrest - Continue with current pain management; patient is reporting optimal pain control --- Patient is cleared to proceed with surgery likely within next 24 hours 2. Atrial fibrillation; patient remains rate controlled on metoprolol 50 mg twice a day; continues to take anticoagulation therapy in form of Eliquis which has been placed on hold - We will start patient on IV heparin infusion with plans to 4 hours before procedure - EKG has been ordered 3. Hyperlipidemia; Pravachol 80 mg by mouth daily at bedtime 4. Hypertension; stable on metoprolol 50 g twice a day 5. Gastroesophageal reflux disease; Protonix 40 mg daily 6. Seasonal ALLERGIES; we will resume both of post surgery DVT prophylaxis; SCDs/IV heparin CODE STATUS; full code
--- NOTE | 2021-12-19 13:36 | P.PN ---
Progress Note - Text Progress Note Date: 12/19/21 Orthopedics: History of present illness: Patient is very pleasant 76-year-old female who is seen and examined at bedside for follow-up evaluation for her left hip. She is status post left direct anterior total hip arthroplasty performed yesterday, 12/19/2021, after she sustained a left displaced subcapital neck fracture status post fall. Patient does continue to have some pain at her left hip which is better controlled at rest. She's had some difficulty ambulating on her left lower extremity due to increased pain while trying to do so. She has been able to transfer today bedside chair. She is eating without difficulty. Her Ortiz catheter has remained intact due to her limited mobility. We did discuss she could continue to work with physical therapy to increase her mobility and ambulation. She may weight-bear as tolerated on the left lower extremity with the assistance of a walker. We did discuss we will plan to discontinue her Ortiz catheter today with plans to help her mobilize her to the restroom as needed. Patient is toney rene planning for discharge to a rehabilitation facility as early as this coming 12/21/2021. Patient continues to be seen and examined by medicine for other medical diagnoses. Physical Exam Left Total Hip Arthroplasty: Status post surgical day number 1 Patient is examined lying in bed Patient is awake and alert, and oriented 3 Vital signs stable Good chest excursion with deep inspiration and expiration No signs or symptoms of DVT; no calf pain Lower extremity cuffs not currently in place bilaterally Dressing of the left hip is clean, dry, and intact; no erythema, purulence, or signs of infection Drain is intact of the left hip; drain is removed during physical examination; slight drainage from the drain removal site Nonstick Telfa and Tegaderm is reapplied over the drain removal site Full range of motion of ankles bilaterally Dorsiflexion, plantarflexion, and extensor hallucis longus positive sustained bilaterally Neurovascularly intact bilateral lower extremities Capillary refill less than 2 seconds bilateral lower extremities Ortiz catheter intact Assessment: Status post left direct anterior total hip arthroplasty Left displaced subcapital femoral neck fracture Status post fall Left hip pain Atrial fibrillation on Eliquis Hyperlipidemia History of vascular disorder Plan: 1. Patient to continue to be weight-bear as tolerated on the left lower extremity with the assistance of a walker; patient may work with physical therapy to increase mobility and ambulation; patient is encouraged to increase her mobility and ambulation 2. Continue pain control oral [place] and IV Dilaudid as prescribed as needed for pain control 3. Drain at the left hip has been removed. Drain site has been covered with nonstick Telfa and Tegaderm. This dressing may be changed as needed. Keep surgical dressing over the left hip and intact until scheduled follow-up appointment in the outpatient setting. 4. Discontinue Ortiz catheter today 5. Medicine to continue following the patient for their other medical diagnoses including atrial fibrillation currently on Eliquis, hyperlipidemia, and history of vascular disorder. 6. Continue with anticoagulation therapy with Eliquis as prescribed 7. We'll continue to follow the patient; Patient will remain in the hospital over the holiday with plans for discharge to a rehabilitation facility as early as this coming 12/21/2021 once approved and cleared by medicine 8. Following discharge, patient will plan to follow-up with Dr. Irizarry at [facility] in 2 weeks following discharge
--- NOTE | 2021-12-19 20:09 | P.PN ---
Subjective Progress Note Date: 12/19/21 Principal diagnosis: Ground-level fall/left hip fracture Atrial fibrillation; coagulation remains on hold until cleared by surgery 76-year-old female with past medical history of atrial fibrillation on Eliquis who presented to [facility] emergency department yesterday with complaints of left hip pain following a ground-level fall. Patient states she was at [employer] in the kitchen, tripped over her shoes and landed directly onto the left hip. She was unable to get up or weight-bear following the fall, therefore an ambulance was called. On presentation to the emergency department, x-rays of the left hip revealed a left femoral neck fracture. The patient was admitted under the care of Dr. Irizarry for consultation internal medicine for preoperative medical clearance. The patient is examined bedside this morning with Dr. Irizarry. She is complaining of isolated left hip pain. She states her last dose of Eliquis was Monday. She did not hit her head when she fell. She has no additional complaints or concerns at this time. Patient states she ambulates without a walking aid and lives at home with her son. She is very active outside the home and volunteers multiple places. She denies numbness or tingling the left lower extremity. Her pain is currently well controlled. Patient reports having followed up with them regarding a few days prior to this admission and was advised follow-up in 6 months; patient denies any chest pain or shortness of breath 12/18/2021 Patient is seen and evaluated with family members at bedside; patient is status post left anterior total hip arthroplasty; POD #1; patient concerned about resumption of anticoagulation therapy given history of atrial fibrillation and for stroke prevention; detailed discussion about concerns of resuming anticoagulation therapy immediately post surgery; this has been left to surgery discretion Vital signs reveal temperature of 98.9, pulse 86, respirations 16 and blood pressure of 123/76 with O2 saturation of 94% on 2 L Laboratory review shows WBC 7.8, hemoglobin of 13.7 and platelet count of 216 We will continue with current management; PT/OT to evaluate patient and make recommendations 12/19/2021 Patient is seen and evaluated in room at bedside; reports improvement in pain; patient is status post left total hip arthroplasty; POD 14 left displaced subcapital femoral neck fracture; drained removed from left hip Patient will be evaluated by PT/OT with plans for skilled rehab Patient has been cleared for resuming anticoagulation therapy for atrial fibrillation Objective - Vital Signs Vital signs: Vital Signs Temp 98.3 F 12/19/21 14:00 Pulse 98 12/19/21 14:00 Resp 16 12/19/21 09:35 BP 122/72 12/19/21 14:00 Pulse Ox 97 12/19/21 14:00 FiO2 Intake & Output 12/18/21 12/19/21 12/19/21 18:59 06:59 18:59 Intake Total 2100 Output Total 1300 425 Balance 800 -425 Intake: IV 1650 Oral 450 Output: Urine 300 425 Estimated Blood Loss 1000 Other: Voiding Method Indwelling Catheter Indwelling Catheter Indwelling Catheter - Exam PHYSICAL EXAMINATION: GENERAL: The patient is alert and oriented x3, not in any acute distress. Well developed, well nourished. HEENT: Pupils are round and equally reacting to light. EOMI. No scleral icterus. No conjunctival pallor. Normocephalic, atraumatic. No pharyngeal erythema. No thyromegaly. CARDIOVASCULAR: S1 and S2 present. No murmurs, rubs, or gallops. PULMONARY: Chest is clear to auscultation, no wheezing or crackles. ABDOMEN: Soft, nontender, nondistended, normoactive bowel sounds. No palpable organomegaly. MUSCULOSKELETAL: No joint swelling or deformity. EXTREMITIES: No cyanosis, clubbing, or pedal edema. NEUROLOGICAL: Gross neurological examination did not reveal any focal deficits. SKIN: No rashes. - Labs CBC & Chem 7: 12/19/21 03:39 12/19/21 03:39 Labs: Abnormal Lab Results - Last 24 Hours (Table) 12/19/21 12/19/21 Range/Units 03:39 03:39 RBC 3.72 L (4.10-5.20) X 10*6/uL Hgb 11.1 L (12.0-15.0) g/dL Hct 33.6 L (37.2-46.3) % Immature Gran # 0.06 H (0.00-0.04) X 10*3/uL Sodium 134 L (135-145) mmol/L Calcium 8.4 L (8.7-10.3) mg/dL Vitamin D 25-Hydroxy 20.6 L (30.0-100.0) ng/mL Assessment and Plan Assessment: 1. Ground-level fall/left hip fracture - Patient has been evaluated by orthopedic surgery and is recommended left total hip arthroplasty; patient remains strictly nonweightbearing left lower extremity and bedrest - Continue with current pain management; patient is reporting optimal pain control --- Patient is cleared to proceed with surgery likely within next 24 hours 2. Atrial fibrillation; patient remains rate controlled on metoprolol 50 mg twice a day; continues to take anticoagulation therapy in form of Eliquis which has been placed on hold - We will start patient on IV heparin infusion with plans to 4 hours before procedure - EKG has been ordered 3. Hyperlipidemia; Pravachol 80 mg by mouth daily at bedtime 4. Hypertension; stable on metoprolol 50 g twice a day 5. Gastroesophageal reflux disease; Protonix 40 mg daily 6. Seasonal ALLERGIES; we will resume both of post surgery DVT prophylaxis; SCDs/IV heparin CODE STATUS; full code
[2021-12-19] MEDS: APIXABAN 5 MG TAB PO SCH (21:49)
[2021-12-19] MEDS: PRAVASTATIN SODIUM 80 MG TAB PO SCH (21:50)
[2021-12-19] MEDS: SENNOSIDES-DOCUSATE SODIUM 1 EACH TAB PO SCH (21:50)
[2021-12-19] MEDS: CALCIUM CARB-VIT D 500 MG-5 MCG TAB PO SCH (21:50)
[2021-12-20] MEDS: TOBRAMYCIN 0.3% OPHTH DROPS 5 ML BTL BOTH EYES SCH ×6 (01:30→20:07)
[2021-12-20] MEDS: HYDROmorphone 0.5 MG/0.5 ML SYRINGE IVP PRN (01:30)
[2021-12-20] MEDS: HYDROcodone/APAP 5-325MG 1 EACH TAB PO PRN ×3 (06:04→18:42)
[2021-12-20] MEDS: hydrOXYzine pamoate 25 MG CAP PO PRN ×3 (06:05→18:43)
[2021-12-20] MEDS: APIXABAN 5 MG TAB PO SCH ×2 (08:45→20:07)
[2021-12-20] MEDS: METOPROLOL TARTRATE 50 MG TAB PO SCH ×2 (08:45→20:07)
[2021-12-20] MEDS: CHOLECALCIFEROL 25 MCG (1000 IU) TABLET PO SCH (08:45)
[2021-12-20] MEDS: LACTATED RINGERS 1,000 ML IV SCH (10:29)
--- NOTE | 2021-12-20 10:29 | P.PN ---
Progress Note - Text Progress Note Date: 12/20/21 Orthopedics: History of present illness: Patient is very pleasant 76-year-old female who is seen and examined at bedside for follow-up evaluation for her left hip. She is status post left direct anterior total hip arthroplasty performed on 12/19/2021 after she sustained a left displaced subcapital neck fracture status post fall. Patient does continue to have some pain at her left hip which is better controlled at rest. She has been able to increase her ambulation as compared to yesterday. She has been able to ambulate to the restroom multiple times. She is happy with her progress as compared to yesterday. She is eating without difficulty. Her Ortiz catheter has been discontinued. She'll continue to work with physical therapy increase her mobility and ambulation. She may weight-bear as tolerated on left lower extremity. Patient is currently planning for discharge to a rehabilitation facility as early as this coming 12/21/2021. Patient continues to be seen and examined by medicine for other medical diagnoses. She is happy with her progress as compared to yesterday. Physical Exam Left Total Hip Arthroplasty: Status post surgical day number 2 Patient is examined lying in bed Patient is awake and alert, and oriented 3 Vital signs stable Good chest excursion with deep inspiration and expiration No signs or symptoms of DVT; no calf pain Lower extremity cuffs currently in place bilaterally Dressing of the left hip is clean, dry, and intact; no erythema, purulence, or signs of infection Drain was previously removed; dressing over the drain site is clean, dry, and intact without active drainage Full range of motion of ankles bilaterally Dorsiflexion, plantarflexion, and extensor hallucis longus positive sustained bilaterally Neurovascularly intact bilateral lower extremities Capillary refill less than 2 seconds bilateral lower extremities Assessment: Status post left direct anterior total hip arthroplasty Left displaced subcapital femoral neck fracture Status post fall Left hip pain Atrial fibrillation on Eliquis Hyperlipidemia History of vascular disorder Plan: We will continue with our plan as previously set forth. 1. Patient to continue to be weight-bear as tolerated on the left lower extremity with the assistance of a walker; patient may work with physical therapy to increase mobility and ambulation; patient is encouraged to increase her mobility and ambulation 2. Continue pain control oral [place] and IV Dilaudid as prescribed as needed for pain control 3. Keep surgical dressing over the left hip and intact until scheduled follow- up appointment in the outpatient setting. Dressing over the drain removal site remains clean, dry, and intact. Patient may shower with these dressings intact. 4. Medicine to continue following the patient for their other medical diagnoses including atrial fibrillation currently on Eliquis, hyperlipidemia, and history of vascular disorder. 5. Continue with anticoagulation therapy with Eliquis as prescribed 6. We'll continue to follow the patient; Patient will remain in the hospital over the holiday with plans for discharge to a rehabilitation facility as early as this coming 12/21/2021 once approved and cleared by medicine 7. Following discharge, patient will plan to follow-up with Dr. Irizarry at [facility] in 2 weeks following discharge
[2021-12-20 12:42] LABS: Appearance,Urine Clear (Clear); Bilirubin,Urine Negative (Negative); Blood,Urine Negative (Negative); Color,Urine Yellow; Glucose,Urine (UA) Negative (Negative); Ketones,Urine Negative (Negative); Leukocyte Esterase,Urine Negative (Negative); Nitrite,Urine Negative (Negative); Protein,Urine Trace (Negative); Urobilinogen,Urine <2.0 mg/dL (<2.0)
--- NOTE | 2021-12-20 18:56 | P.PN ---
Subjective Records 76-year-old female with past medical history of atrial fibrillation on Eliquis who presented to [facility] emergency department yesterday with complaints of left hip pain following a ground-level fall. Patient states she was at conf[employer]ian[employer] in the kitchen, tripped over her shoes and landed directly onto the left hip. She was unable to get up or weight-bear following the fall, therefore an ambulance was called. On presentation to the emergency department, x-rays of the left hip revealed a left femoral neck fracture. The patient was admitted under the care of Dr. Irizarry for consultation internal medicine for preoperative medical clearance. The patient is examined bedside this morning with Dr. Irizarry. She is complaining of isolated left hip pain. She states her last dose of Eliquis was Monday. She did not hit her head when she fell. She has no additional complaints or concerns at this time. Patient states she ambulates without a walking aid and lives at home with her son. She is very active outside the home and volunteers multiple places. She denies numbness or tingling the left lower extremity. Her pain is currently well controlled. Patient reports having followed up with them regarding a few days prior to this admission and was advised follow-up in 6 months; patient denies any chest pain or shortness of breath 12/18/2021 Patient is seen and evaluated with family members at bedside; patient is status post left anterior total hip arthroplasty; POD #1; patient concerned about resumption of anticoagulation therapy given history of atrial fibrillation and for stroke prevention; detailed discussion about concerns of resuming anticoagulation therapy immediately post surgery; this has been left to surgery discretion Vital signs reveal temperature of 98.9, pulse 86, respirations 16 and blood pres sure of 123/76 with O2 saturation of 94% on 2 L Laboratory review shows WBC 7.8, hemoglobin of 13.7 and platelet count of 216 We will continue with current management; PT/OT to evaluate patient and make recommendations 12/19/2021 Patient is seen and evaluated in room at bedside; reports improvement in pain; patient is status post left total hip arthroplasty; POD 14 left displaced subcapital femoral neck fracture; drained removed from left hip Patient will be evaluated by PT/OT with plans for skilled rehab Patient has been cleared for resuming anticoagulation therapy for atrial fibrillation I'm resuming care of the patient today 12/20/21 This is a pleasant 76 years old female who presents with fall without syncope or dizziness with left hip fracture status post total hip arthroplasty on 528, patient's from closely by orthopedic team. Vitamin D is low which is been replaced. Patient denies chest pain. No dyspnea. No abdominal pain. No change in urine or bowel habits. No dysuria or urgency. No other urinary complaints. No fever today. She has 1 episode of fever, no more episodes,At the 100.6. No leukocytosis and WBCs yesterday was 9.5. Hemoglobin 11.1. BNP is reviewed and is unremarkable. Vitamin D is low at 20.6 which is been replaced. We checked urine analysis it was normal today. Ortiz catheter was discontinued. Postvoid residual checked and it was low, no need for more Ortiz catheter. Patient kept on Eliquis Recommended for ECF for rehab upon discharge Objective - Vital Signs Vital signs: Vital Signs Temp 98.4 F 12/20/21 14:00 Pulse 84 12/20/21 14:00 Resp 17 12/20/21 14:00 BP 150/72 12/20/21 14:00 Pulse Ox 98 12/20/21 14:00 FiO2 Intake & Output 12/19/21 12/20/21 12/20/21 18:59 06:59 18:59 Intake Total 400 Output Total 1300 900 Balance -900 -900 Intake: Oral 400 Output: Urine 1300 Post Void Residual 900 Other: Voiding Method Indwelling Catheter Indwelling Catheter # Voids 2 2 - Exam GENERAL: The patient is alert and oriented x3, not in any acute distress. Well developed, well nourished. HEENT: Pupils are round and equally reacting to light. EOMI. No scleral icterus. No conjunctival pallor. Normocephalic, atraumatic. No pharyngeal erythema. No thyromegaly. CARDIOVASCULAR: S1 and S2 present. No murmurs, rubs, or gallops. PULMONARY: Chest is clear to auscultation, no wheezing or crackles. ABDOMEN: Soft, nontender, nondistended, normoactive bowel sounds. No palpable organomegaly. MUSCULOSKELETAL: No joint swelling or deformity. -EXTREMITIES: No cyanosis, clubbing, or pedal edema. Left hip surgical wound with a dressing, rest of exam is deferred to surgery team NEUROLOGICAL: Gross neurological examination did not reveal any focal deficits. SKIN: No rashes. no petechiae. - Labs CBC & Chem 7: 12/19/21 03:39 12/19/21 03:39 Labs: Abnormal Lab Results - Last 24 Hours (Table) 12/20/21 Range/Units 12:39 Urine Protein Trace H (Negative) Assessment and Plan Assessment: Fall without syncope or dizziness Left hip fracture status post left DAVID on 12/18 Hypertension Hyperlipidemia History of GERD Chronic atrial fibrillation on Eliquis Plan: This is a pleasant 76 years old female who presents with fall and hip fracture status post surgical repair. Continue with postop care Continue with pain management Continue with vitamin D Continue with home dose of Eliquis Orthopedic team on the case. Labs and medication were reviewed.. Continue same treatment. Continue with symptomatic treatment. Resume home medication. Monitor lytes and vitals. DVT and GI prophylaxis. Further recommendations as per clinical course of the patient DVT prophylaxis: On Eliquis GI Prophylaxis: Pepcid PT/OT: Subacute rehab recommended We recommend close outpatient follow-up with primary care doctor in 1 week after discharge. Thank you for consulting us
[2021-12-20] MEDS: SENNOSIDES-DOCUSATE SODIUM 1 EACH TAB PO SCH (20:07)
[2021-12-20] MEDS: CALCIUM CARB-VIT D 500 MG-5 MCG TAB PO SCH (20:07)
[2021-12-20] MEDS: PRAVASTATIN SODIUM 80 MG TAB PO SCH (20:07)
[2021-12-20] MEDS ORDERED: FAMOTIDINE 20 MG/2 ML VIAL IV SCH (21:00)
[2021-12-21] MEDS: TOBRAMYCIN 0.3% OPHTH DROPS 5 ML BTL BOTH EYES SCH ×4 (01:03→11:29)
[2021-12-21] MEDS: HYDROmorphone 0.5 MG/0.5 ML SYRINGE IVP PRN (06:20)
[2021-12-21] MEDS: CHOLECALCIFEROL 25 MCG (1000 IU) TABLET PO SCH (08:17)
[2021-12-21] MEDS: METOPROLOL TARTRATE 50 MG TAB PO SCH (08:17)
[2021-12-21] MEDS: APIXABAN 5 MG TAB PO SCH (08:17)
[2021-12-21 09:00] VITALS: RESP 18
[2021-12-21] MEDS: HYDROcodone/APAP 5-325MG 1 EACH TAB PO PRN ×2 (10:54→16:30)
[2021-12-21] MEDS: hydrOXYzine pamoate 25 MG CAP PO PRN ×2 (10:56→16:30)
--- NOTE | 2021-12-21 11:26 | P.DS ---
Providers Date of admission: 12/16/21 15:09 Expected date of discharge: 12/21/21 Attending physician: Robby Irizarry Consults: 12/16/21 23:05 Consult Physician Routine Consulting Provider: Bry Marcus Reason/Comments: Medical Management Do you want consulting provider notified?: Already Contacted Placement Type Exists?: Yes Primary care physician: [facility] Course: This is a 76-year-old female who is admitted to [facility] on 12/17/21 after a ground-level fall and sustaining injury to the left hip. X-rays in the emergency department revealed a left femoral neck fracture. She is admitted to our service for surgical intervention and care. Patient was taken to surgery for direct anterior left total hip arthroplasty on 12/18/21. The procedure was performed without complication or sequelae. The patient is doing fairly well postoperatively. Vital signs and labs are stable on postoperative day #3. Patient was examined bedside today. Patient states she is doing well and has no specific complaints. Patient states her pain is well-controlled. She has been ambulating with a walker. She denies chest pain, shortness of breath, nausea, vomiting, fevers, chills. No new complaints or concerns on the day of discharge. On examination, the patient is sitting up in bed. She is alert and oriented 3. On inspection of the left hip, there is a clean, dry, intact Opsite dressing in place. There is mild swelling of the thigh, thigh is soft and compressible. Patient has good strength and ROM of the left ankle and toes. Motor and sensory function is intact of the left lower extremity. Femoral nerve function intact. Dorsalis pedis pulse +2, left lower extremity is warm and well perfused. Calf is soft and non-tender. Patient is discharged to rehab today in good condition, pending medical clearance. Patient will follow-up with Dr. Irizarry in the office in two weeks. Please see med rec for accurate list of discharge medication. Patient Condition at Discharge: Stable Plan - Discharge Summary Discharge Rx Participant: Yes New Discharge Prescriptions: New Omeprazole 40 mg PO DAILY 30 Days #30 cap Ergocalciferol [Vitamin D2 (1250 Mcg = 20524 Iu)] 1,250 mcg PO Q72H #15 capsule Docusate [Colace] 100 mg PO BID #60 capsule HYDROcodone/APAP 5-325MG [[place] 5-325] 1 tab PO Q6HR PRN 7 Days #28 tab PRN Reason: Pain Cholecalciferol [Vitamin D3 (25 Mcg = 1000 Iu)] 50 mcg PO DAILY #30 tab Continue Pravastatin Sodium 80 mg PO HS [place]-3 Acid Ethyl Esters [Lovaza] 1 gm PO HS SUMAtriptan SUCCINATE [Imitrex] 100 mg PO DAILY PRN PRN Reason: Migraine Headache Acetaminophen [Tylenol Extra Strength] 500 mg PO BID PRN PRN Reason: Pain Melatonin 5 mg PO HS Apixaban [Eliquis] 5 mg PO BID #60 tab Metoprolol Tartrate [Lopressor] 50 mg PO BID #60 tab Tobramycin 0.3% Ophth Soln [Tobrex 0.3% Ophth Soln] 1 drop BOTH EYES Q4H Calcium Carbonate/Vitamin D3 [Calcium 500Mg-Vit D3 15 mcg (600 unit)] 1 tab PO HS ALPRAZolam [Xanax] 0.5 mg PO DAILY PRN #3 tab PRN Reason: Anxiety Discontinued Omeprazole 20 mg PO Q48H PRN PRN Reason: ACID REFLUX Loratadine [Claritin] 10 mg PO DAILY Nystatin/Triamcin [Nystatin-Triamcinolone] 1 applicate TOPICAL BID PRN PRN Reason: Rash traMADol HCL 50 mg PO BID PRN PRN Reason: Pain Discharge Medication List [place]-3 Acid Ethyl Esters [Lovaza] 1 gm PO HS 06/01/15 [History] Pravastatin Sodium 80 mg PO HS 06/01/15 [History] SUMAtriptan SUCCINATE [Imitrex] 100 mg PO DAILY PRN 06/01/15 [History] Acetaminophen [Tylenol Extra Strength] 500 mg PO BID PRN 02/24/20 [History] Melatonin 5 mg PO HS 02/24/20 [History] Apixaban [Eliquis] 5 mg PO BID #60 tab 02/27/20 [Rx] Metoprolol Tartrate [Lopressor] 50 mg PO BID #60 tab 02/27/20 [Rx] Calcium Carbonate/Vitamin D3 [Calcium 500Mg-Vit D3 15 mcg (600 unit)] 1 tab PO HS 12/16/21 [History] Tobramycin 0.3% Ophth Soln [Tobrex 0.3% Ophth Soln] 1 drop BOTH EYES Q4H 05/26/22 [History] ALPRAZolam [Xanax] 0.5 mg PO DAILY PRN #3 tab 12/21/21 [Rx] Cholecalciferol [Vitamin D3 (25 Mcg = 1000 Iu)] 50 mcg PO DAILY #30 tab 12/21/21 [Rx] Docusate [Colace] 100 mg PO BID #60 capsule 12/21/21 [Rx] Ergocalciferol [Vitamin D2 (1250 Mcg = 89463 Iu)] 1,250 mcg PO Q72H #15 capsule 12/21/21 [Rx] HYDROcodone/APAP 5-325MG [[place] 5-325] 1 tab PO Q6HR PRN 7 Days #28 tab 12/21/21 [Rx] Omeprazole 40 mg PO DAILY 30 Days #30 cap 12/21/21 [Rx] Follow up Appointment(s)/Referral(s): Clay Yi DO [Primary Care Provider] - 1 Week (Office will call patient with follow up date and time. ) Ben Garcia, [NON-STAFF] - As Needed Robby Irizarry MD [Medical Doctor] - 01/04/22 1:20 pm () Activity/Diet/Wound Care/Special Instructions: 1. Weight-bear as tolerated on the left lower extremity with the assistance of a walker 2. Keep dressing over the left hip clean, dry, and intact until scheduled follow-up appointment 3. Take medications as prescribed Discharge Disposition: TRANSFER TO SNF/ECF
[2021-12-21 15:35] VITALS: BP 102/65; PULSE 72; TEMP 98.5
--- NOTE | 2021-12-21 18:04 | P.PN ---
Progress Note - Text Progress Note Date: 12/21/21 76-year-old female with past medical history of atrial fibrillation on Eliquis who presented to [facility] emergency department yesterday with complaints of left hip pain following a ground-level fall. Patient states she was at hinduism in the kitchen, tripped over her shoes and landed directly onto the left hip. She was unable to get up or weight-bear following the fall, therefore an ambulance was called. On presentation to the emergency department, x-rays of the left hip revealed a left femoral neck fracture. The patient was admitted under the care of Dr. Irizarry for consultation internal medicine for preoperative medical clearance. The patient is examined bedside this morning with Dr. Irizarry. She is complaining of isolated left hip pain. She states her last dose of Eliquis was Monday. She did not hit her head when she fell. She has no additional complaints or concerns at this time. Patient states she ambulates without a walking aid and lives at home with her son. She is very active outside the home and volunteers multiple places. She denies numbness or tingling the left lower extremity. Her pain is currently well controlled. Patient reports having followed up with them regarding a few days prior to this admission and was advised follow-up in 6 months; patient denies any chest pain or shortness of breath 12/18/2021 Patient is seen and evaluated with family members at bedside; patient is status post left anterior total hip arthroplasty; POD #1; patient concerned about resumption of anticoagulation therapy given history of atrial fibrillation and for stroke prevention; detailed discussion about concerns of resuming anticoagulation therapy immediately post surgery; this has been left to surgery discretion Vital signs reveal temperature of 98.9, pulse 86, respirations 16 and blood pressure of 123/76 with O2 saturation of 94% on 2 L Laboratory review shows WBC 7.8, hemoglobin of 13.7 and platelet count of 216 We will continue with current management; PT/OT to evaluate patient and make recommendations 12/19/2021 Patient is seen and evaluated in room at bedside; reports improvement in pain; patient is status post left total hip arthroplasty; POD 14 left displaced subcapital femoral neck fracture; drained removed from left hip Patient will be evaluated by PT/OT with plans for skilled rehab Patient has been cleared for resuming anticoagulation therapy for atrial fibrillation I'm resuming care of the patient today 12/20/21 This is a pleasant 76 years old female who presents with fall without syncope or dizziness with left hip fracture status post total hip arthroplasty on , patient's from closely by orthopedic team. Vitamin D is low which is been replaced. Patient denies chest pain. No dyspnea. No abdominal pain. No change in urine or bowel habits. No dysuria or urgency. No other urinary complaints. No fever today. She has 1 episode of fever, no more episodes,At the 100.6. No leukocytosis and WBCs yesterday was 9.5. Hemoglobin 11.1. BNP is reviewed and is unremarkable. Vitamin D is low at 20.6 which is been replaced. We checked urine analysis it was normal today. Ortiz catheter was discontinued. Postvoid residual checked and it was low, no need for more Ortiz catheter. Patient kept on Eliquis Recommended for ECF for rehab upon discharge December 21: I assumed care of patient today. Did ambulate with therapy. Relevant at the operative site. Had a BM. No nausea vomiting. Good oral intake. Current medications reviewed On examination: VITAL SIGNS: [98.7, 74, 18, 106/72, 95% room air] GENERAL APPEARANCE: Sitting on chair, awake, comfortable HEENT: Normal external appearance of nose and ear. Oral cavity normal EYES: Pupils equal. Conjunctiva normal. NECK: JVD not raised. Mass not palpable. RESPIRATORY: Respiratory effort normal. Lungs clear to auscultation. CARDIOVASCULAR: First and second sounds normal. No edema. ABDOMEN: Soft. Liver and spleen not palpable. No tenderness. No mass palpable. PSYCHIATRY: Alert and oriented x3. Mood and affect normal. MUSCULAR skeletal: Dressing over the incision site left hip. Evidence of OA INVESTIGATIONS, reviewed in the clinical context: White count 9.6 hemoglobin 11.1 platelets 165 potassium 4.3 creatinine 0.7 COVID 19: Not detected Assessment and plan: -Left displaced so D femoral neck fracture followed by anterior total hip arthroplasty By Dr. Irizarry on December 18 -Acute postprocedure blood cell anemia as expected from surgery Supplement ferrous sulfate -Hypertension Lopressor 50 mg twice a day -Hyperlipidemia Pravastatin 80 mg daily at bedtime - GERD Omeprazole 40 mg daily -Chronic atrial fibrillation Lopressor. Eliquis. -Primary osteoarthritis Medications as needed Continue current medication treatment plan. Care was discussed with the patient. Plan is for patient to go down to rehab.
== END 2021-12-21 17:00 | DRG 522 ==
LOC: EC 10:00 → 4SSUR 15:09
PROVIDERS: ADMIT Orthopaedic Surgery; ATTEND Orthopaedic Surgery
PROC: 0SRB049 Replacement of Left Hip Joint with Ceramic on Polyethylene Synthetic Substitute, Cemented, Open Approach (ICD-10-PCS; principal; 2021-12-18 08:00)
DX: S72.012A Unspecified intracapsular fracture of left femur, initial encounter for closed fracture (principal); I48.20 Chronic atrial fibrillation, unspecified; D62 Acute posthemorrhagic anemia; E78.5 Hyperlipidemia, unspecified; G43.909 Migraine, unspecified, not intractable, without status migrainosus; Z20.822 Contact with and (suspected) exposure to COVID-19; M15.9 Polyosteoarthritis, unspecified; I10 Essential (primary) hypertension; K58.9 Irritable bowel syndrome, unspecified; K21.9 Gastro-esophageal reflux disease without esophagitis; J30.2 Other seasonal allergic rhinitis; F32.A Depression, unspecified; F41.9 Anxiety disorder, unspecified; I83.90 Asymptomatic varicose veins of unspecified lower extremity; R26.2 Difficulty in walking, not elsewhere classified; M25.512 Pain in left shoulder; M25.511 Pain in right shoulder; Z79.01 Long term (current) use of anticoagulants; Z79.899 Other long term (current) drug therapy; Z87.891 Personal history of nicotine dependence; Z90.89 Acquired absence of other organs; Z90.49 Acquired absence of other specified parts of digestive tract; Z87.19 Personal history of other diseases of the digestive system; Z87.440 Personal history of urinary (tract) infections; Z87.39 Personal history of other diseases of the musculoskeletal system and connective tissue; Z87.2 Personal history of diseases of the skin and subcutaneous tissue; Z86.018 Personal history of other benign neoplasm; Z86.79 Personal history of other diseases of the circulatory system; Z87.42 Personal history of other diseases of the female genital tract; Z86.69 Personal history of other diseases of the nervous system and sense organs; Z98.890 Other specified postprocedural states; W01.0XXA Fall on same level from slipping, tripping and stumbling without subsequent striking against object, initial encounter; Y92.22 Religious institution as the place of occurrence of the external cause; Z82.3 Family history of stroke; Z83.2 Family history of diseases of the blood and blood-forming organs and certain disorders involving the immune mechanism; Z82.5 Family history of asthma and other chronic lower respiratory diseases; Z80.1 Family history of malignant neoplasm of trachea, bronchus and lung
CPT/HCPCS: 51702; 71046; 73502; 80048; 80053; 81003; 82306; 85025; 85610; 85730; 86850; 86900; 86901; 87635; 88305; 88311; 93005; 96374; 96376; 99285

== ENCOUNTER → 2022-02-03 | Outpatient (CLI) | payer MEDICARE, OTHER | END | disposition home or self-care (01) | LOC: LABWHC1 14:03 | PROVIDERS: ATTEND Orthopaedic Surgery | DX: E55.9 Vitamin D deficiency, unspecified (principal) | CPT/HCPCS: 36415; 82306 ==

== ENCOUNTER → 2022-06-21 | Outpatient (CLI) | payer MEDICARE, OTHER ==
--- NOTE | 2022-06-22 10:56 | MM ---
Reason for Exam: Screening (asymptomatic). Last mammogram was performed 1 year(s) and 4 month(s) ago. Patient History: Menarche at age 14. First Full-Term at age 18. Postmenopausal. Patient used Estrogen for 5 years. Patient used Progesterone for 5 years. Patient used Hormonal Contraceptives for 6 years. Cyst Aspiration on the Right side. Cyst Aspiration on the Left side. Excisional Biopsy on the Right side. Excisional Biopsy on the Right side. Maternal grandmother had breast cancer, age 40. Sister had ovarian cancer, age 28. Risk Values: Robyn 5 year model risk: 1.9%. NCI Lifetime model risk: 3.9%. Prior Study Comparison: 11/14/2018 Bilateral Screening Mammogram, [facility]. 12/17/2019 Bilateral Screening Mammogram, [facility]. 02/04/2021 Bilateral Screening Mammogram, [facility]. Tissue Density: There are scattered fibroglandular densities. Findings: Analyzed By CAD. There is no suspicious group of microcalcifications or new suspicious mass in either breast. Overall Assessment: Benign, BI-RAD 2 Management: Screening Mammogram of both breasts in 1 year. 1. Patient should continue monthly self breast exams. 2. A clinical breast exam by your physician is recommended on an annual basis. 3. This exam should not preclude additional follow-up of suspicious palpable abnormalities. Electronically signed and approved by: Edie Guerra M.D. Radiologist
== END | disposition home or self-care (01) ==
LOC: RADMAMWWP 11:22
PROVIDERS: ATTEND Obstetrics & Gynecology
DX: Z12.31 Encounter for screening mammogram for malignant neoplasm of breast (principal); Z78.0 Asymptomatic menopausal state; Z80.3 Family history of malignant neoplasm of breast; Z80.41 Family history of malignant neoplasm of ovary
CPT/HCPCS: 77063; 77067

== ENCOUNTER → 2022-08-16 | Outpatient (CLI) | payer MEDICARE ==
[2022-08-16 09:33] LABS: African American GFR (CKD) >90 (>60 ml/min/1.73 sqM); Blood Urea Nitrogen 18 mg/dL (7-17); Non-African American GFR(CKD) 89 (>60 ml/min/1.73 sqM)
--- NOTE | 2022-08-16 11:59 | CT ---
EXAMINATION TYPE: CT abdomen pelvis w con DATE OF EXAM: 08/16/2022 COMPARISON: CT of the left hip 12/16/2021 HISTORY: Ovarian mass CT DLP: 748.80 mGycm CONTRAST: CT scan of the abdomen and pelvis is performed with Oral Contrast and with IV Contrast, patient injec penelope with 70 mL of Isovue 300. FINDINGS: LUNG BASES-: No visible nodule. No infiltrate. LIVER/GB: The gallbladder is surgically absent. No space occupying hepatic lesion. Biliary tree is of normal caliber. PANCREAS: No inflammation. No distinct mass. SPLEEN: No splenic enlargement. No lesion seen. ADRENALS: No nodule. No thickening. KIDNEYS/BLADDER: No hydronephrosis. No nephrolithiasis. No distinct renal mass. Urinary bladder g rossly unremarkable. BOWEL: Normal appendix. Normal bowel caliber. No inflammation. GENITAL ORGANS: Enlarging cystic mass with peripheral nodular component right ovarian region measure s approximately 10.0 by seen by 11 cm. Peripheral nodular component measures 4.7 cm. 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 Left ovary appears within normal limits. There is vague nodularity of the great er omentum which may reflect metastatic disease. LYMPH NODES: No greater than 1cm abdominal or pelvic lymph nodes are appreciated. AORTA: No significant abnormality. OSSEOUS STRUCTURES: Left hip prosthesis noted. Lumbar scoliosis convex to the left. Multilevel degene rative disc space narrowing. OTHER: No significant additional abnormality is seen. IMPRESSION: 1. Cystic mass right ovary with peripheral nodular component felt to reflect malignancy until proven otherwise. As noted there is vague nodularity of the greater omentum which may reflect early omental cake.
== END | disposition home or self-care (01) ==
LOC: RADCTMAIN 08:36
PROVIDERS: ATTEND Family Medicine
DX: N83.201 Unspecified ovarian cyst, right side (principal); R19.09 Other intra-abdominal and pelvic swelling, mass and lump
CPT/HCPCS: 82565; 84520; 74177; 36415; Q9967

== ENCOUNTER → 2023-08-15 | Outpatient (CLI) | payer MEDICARE ==
--- NOTE | 2023-08-16 20:48 | MM ---
Reason for Exam: Screening (asymptomatic). Last mammogram was performed 1 year(s) and 2 month(s) ago. Patient History: Menarche at age 14. First Full-Term at age 18. Postmenopausal. Ovarian cancer. Previous chemotherapy at age 78. Patient used Estrogen for 5 years. Patient used Progesterone for 5 years. Patient used Hormonal Contraceptives for 6 years. Cyst Aspiration on the Right side. Cyst Aspiration on the Left side. Excisional Biopsy on the Right side. Excisional Biopsy on the Right side. Maternal grandmother had breast cancer, age 40. Sister had ovarian cancer, age 28. Risk Values: Robyn 5 year model risk: 1.9%. NCI Lifetime model risk: 3.6%. Prior Study Comparison: 12/17/2019 Bilateral Screening Mammogram, [facility]. 02/04/2021 Bilateral Screening Mammogram, [facility]. 06/21/2022 Bilateral MG 3D screening mammo w/cad, [facility]. Tissue Density: The breast tissue is heterogeneously dense. This may lower the sensitivity of mammography. Findings: Analyzed By CAD. Injection port on the right. Benign oil cyst calcifications on the left. There is no suspicious group of microcalcifications or new suspicious mass in either breast. Overall Assessment: Benign, BI-RAD 2 Management: Screening Mammogram of both breasts in 1 year. . Patient should continue monthly self-breast exams. A clinical breast exam by your physician is recommended on an annual basis. This exam should not preclude additional follow-up of suspicious palpable abnormalities. Note on Robyn scores and lifetime risk: 1. A Robyn score greater than 3% is considered moderate risk. If this is the case, consider specialist referral to assess eligibility for a risk reducing agent. 2. If overall lifetime risk for the development of breast cancer is 20% or higher, the patient may qualify for future screening with alternating mammogram and breast MRI. Electronically signed and approved by: Edie Guerra M.D. Radiologist
== END | disposition home or self-care (01) ==
LOC: RADMAMWWP 14:18
PROVIDERS: ATTEND Obstetrics & Gynecology
DX: Z12.31 Encounter for screening mammogram for malignant neoplasm of breast (principal); Z80.3 Family history of malignant neoplasm of breast; Z78.0 Asymptomatic menopausal state
CPT/HCPCS: 77063; 77067

== ENCOUNTER → 2024-05-07 | Outpatient (CLI) | payer MEDICARE ==
--- NOTE | 2024-05-08 09:23 | CA ---
Transthoracic Echo Report Name: Melida Nails Age: 79 Gender: F : 1945 Exam Date: 05/07/2024 14:09 Exam Location: [facility] Ht (in): 65 Wt (lb): 150 Ordering Physician: Jose Miguel Myers MD Attending/Referring Phys: Jose Miguel Myers MD [employer] Sydnie Schwab RDCS Procedure CPT: Indications: I48.2 CHRONIC ATRIAL FIBRILLATION Cardiac Hx: Technical Quality: Fair Contrast 1: Total Dose (mL): Contrast 2: Total Dose (mL): MEASUREMENTS (Male / Female) Normal Values 2D ECHO LV Diastolic Diameter PLAX 3.6 cm 4.2 - 5.9 / 3.9 - 5.3 cm LV Systolic Diameter PLAX 1.9 cm IVS Diastolic Thickness 1.3 cm 0.6 - 1.0 / 0.6 - 0.9 cm LVPW Diastolic Thickness 1.4 cm 0.6 - 1.0 / 0.6 - 0.9 cm LV Relative Wall Thickness 0.7 RV Internal Dim ED PLAX 2.9 cm LA Volume 57.9 cm??? 18 - 58 / 22 - 52 cm??? LA Volume Index 32.6 cm???/m??? 16 - 28 cm???/m??? M-MODE Aortic Root Diameter MM 2.9 cm LA Systolic Diameter MM 3.7 cm LA Ao Ratio MM 1.3 AV Cusp Separation MM 2.1 cm DOPPLER AV Peak Velocity 157.9 cm/s AV Peak Gradient 10.0 mmHg AV Mean Velocity 98.9 cm/s AV Mean Gradient 4.5 mmHg AV Velocity Time Integral 27.5 cm LVOT Peak Velocity 104.1 cm/s LVOT Peak Gradient 4.3 mmHg LVOT Velocity Time Integral 20.5 cm MV Area PHT 2.0 cm??? Mitral E Point Velocity 61.2 cm/s Mitral A Point Velocity 120.3 cm/s Mitral E to A Ratio 0.5 MV Deceleration Time 377.5 ms MV E' Velocity 5.3 cm/s Mitral E to MV E' Ratio 11.4 TR Peak Velocity 265.8 cm/s TR Peak Gradient 28.3 mmHg FINDINGS Left Ventricle Mildly increased left ventricular wall thickness. Left ventricular cavity size normal. Normal left ventricular systolic function with no obvious regional wall motion abnormalities. Left ventricular ejection fraction is estimated at 55-60 %. Grade 1 diastolic dysfunction. Right Ventricle Mild right ventricular dilatation with normal function. Right ventricular systolic pressure within normal limits. Right Atrium Mild right atrial dilatation. Left Atrium Mildly increased left atrial volume. Mitral Valve Structurally normal mitral valve. Mitral valve thickened. Mild mitral annular calcification. Moderate mitral regurgitation. Centrally directed mitral regurgitation jet. Aortic Valve Trileaflet aortic valve. Aortic valve sclerosis. No aortic valve stenosis or regurgitation. Tricuspid Valve Structurally normal tricuspid valve. [id number] tricuspid regurgitation. Pulmonic Valve Structurally normal pulmonic valve. Pericardium No pericardial effusion. Aorta Normal size aortic root and proximal ascending aorta. CONCLUSIONS Left ventricular ejection fraction 55-60% Mildly increased left ventricular wall thickness Mild mitral calcification Moderate mitral regurgitation Mild to moderate tricuspid regurgitation No pericardial effusion Previewed by: Dr. Joselito Casas DO (Electronically Signed) Final Date: 08 May 2024 09:22
== END | disposition home or self-care (01) ==
LOC: RADECHMAIN 14:07
PROVIDERS: ATTEND Obstetrics & Gynecology
DX: I48.20 Chronic atrial fibrillation, unspecified
CPT/HCPCS: 93306

== ENCOUNTER 2024-07-29 20:25 | Inpatient (IN) | payer MEDICARE ==
--- NOTE | 2024-07-29 20:46 | ED ---
Altered Mental Status HPI - General Chief Complaint: Altered Mental Status Stated Complaint: AMS Time Seen by Provider: 07/29/24 20:32 Source: patient, EMS, RN notes reviewed, old records reviewed Mode of arrival: EMS Limitations: no limitations - History of Present Illness Initial Comments: This is a 79 female to the ER for evaluation patient presents today for evaluation in regards to altered mental status. Known cancer with significant metastasis ovarian cancer, and has a metastasize above the diaphragm. Patient got IV hydration 3 days ago increased weakness and altered mental status started this morning diminished bowel movements diminished appetite decreased oral intake, no fevers MD Complaint: altered mental status, confusion, decreased responsiveness, weakness -: days(s) (1) Severity: severe Consistency of Symptoms: getting worse Context: history of similar presentation Associated Symptoms: malaise, weakness Treatments Prior to Arrival: IV fluid (2 days ago) - Related Data Home Medications Medication Instructions Recorded Confirmed ALPRAZolam [Xanax] 0.25 mg PO BID 07/30/24 07/30/24 Amoxic-Pot Clav 500-125 mg 1 tab PO BID 07/30/24 07/30/24 [Augmentin 500-125 mg] Apixaban [Eliquis] 5 mg PO BID 07/30/24 07/30/24 Chlorthalidone [Hygroton] 25 mg PO DAILY@1200 07/30/24 07/30/24 Docusate [Colace] 100 mg PO HS PRN 07/30/24 07/30/24 HYDROcodone/APAP [[place] Elixir 15 ml PO BID PRN 07/30/24 07/30/24 7.5-325Mg/15Ml] Melatonin 10 mg PO HS 07/30/24 07/30/24 Metoprolol Tartrate [Lopressor] 50 mg PO BID 07/30/24 07/30/24 Ondansetron Odt [Zofran Odt] 8 mg PO Q8HR PRN 07/30/24 07/30/24 Valsartan [Diovan] 80 mg PO HS 07/30/24 07/30/24 dexAMETHasone [Decadron] 4 mg PO DAILY 07/30/24 07/30/24 traMADol HCL 50 mg PO DAILY PRN 07/30/24 07/30/24 Allergies Allergy/AdvReac Type Severity Reaction Status Date / Time lorazepam [From Ativan] AdvReac Rash/Hives Verified 08/03/24 15:33 Review of Systems ROS Statement: Those systems with pertinent positive or pertinent negative responses have been documented in the HPI. ROS Other: All systems not noted in ROS Statement are negative. Past Medical History Past Medical History: Atrial Fibrillation, Eye Disorder, GERD/Reflux, Hyperlipidemia, Osteoarthritis (OA), Vascular Disorder Additional Past Medical History / Comment(s): Frequent migraines, lower back disc disease/pain, L and R shoulder pain, flebitis, arthritis in multiple joints, leaky heart valve, bilateral leg varicosities, IBS, bronchitis, UTI, some lasering done right eye for "flashes" History of Any Multi-Drug Resistant Organisms: None Reported Past Surgical History: Adenoidectomy, Breast Surgery, Cholecystectomy, Orthopedic Surgery, Tonsillectomy Additional Past Surgical History / Comment(s): Bilateral wrist tendon surgery, bilateral feet 4th toe surg. d/t curvature, lipoma removed from back, lumbar epidural injections, L leg vein stripping, bilateral leg varicose vein injections to remove, L breast benign biopsy, colonoscopy/benign polypectomy, D&C Past Anesthesia/Blood Transfusion Reactions: No Reported Reaction Additional Past Anesthesia/Blood Transfusion Reaction / Comment(s): Pt has claustrophobia. Past Psychological History: Anxiety, Depression Smoking Status: Former smoker Past Alcohol Use History: Occasional Past Drug Use History: None Reported - Past Family History Mother Family Medical History: CVA/TIA, Deep Vein Thrombosis (DVT) Additional Family Medical History / Comment(s): Mother lived to be 92.5 years old. Father Family Medical History: Cancer, COPD Additional Family Medical History / Comment(s): Father of lung cancer. He was a smoker. General Exam Limitations: altered mental status, physical limitation General appearance: alert, lethargic, obtunded, in distress Head exam: Present: atraumatic, normocephalic, normal inspection Eye exam: Present: normal appearance, PERRL, EOMI. Absent: scleral icterus, conjunctival injection, periorbital swelling ENT exam: Present: normal exam, mucous membranes moist Neck exam: Present: normal inspection. Absent: tenderness, meningismus, lymphadenopathy Respiratory exam: Present: normal lung sounds bilaterally. Absent: respiratory distress, wheezes, rales, rhonchi, stridor Cardiovascular Exam: Present: regular rate, normal rhythm, normal heart sounds. Absent: systolic murmur, diastolic murmur, rubs, gallop, clicks GI/Abdominal exam: Present: soft, normal bowel sounds. Absent: distended, tenderness, guarding, rebound, rigid Extremities exam: Present: normal inspection, full ROM, normal capillary refill. Absent: tenderness, pedal edema, joint swelling, calf tenderness Back exam: Present: normal inspection Neurological exam: Present: alert, oriented X3, CN II-XII intact Psychiatric exam: Present: normal affect, normal mood Skin exam: Present: warm, dry, intact, normal color. Absent: rash Course Vital Signs 07/29/24 07/30/24 07/30/24 20:34 00:04 00:15 Temperature 98.0 F Pulse Rate 79 77 Respiratory 18 20 Rate Blood Pressure 112/67 130/75 O2 Sat by Pulse 99 94 L 96 Oximetry 07/30/24 07/30/24 07/30/24 01:03 03:05 04:03 Temperature Pulse Rate 73 85 89 Respiratory 18 18 16 Rate Blood Pressure 131/74 104/71 120/77 O2 Sat by Pulse 97 94 L 97 Oximetry 07/30/24 07/30/24 07/30/24 08:33 09:00 09:34 Temperature 101.1 F H Pulse Rate 106 H 105 H Respiratory 15 17 Rate Blood Pressure 127/78 119/75 O2 Sat by Pulse 95 95 Oximetry - Reevaluation(s) Reevaluation #1: 07/29/24 20:52 Medical records reviewed Reevaluation #2: 07/29/24 22:43 Patient symptoms wax and wane here in the ER with improvement of mentation Reevaluation #3: 07/29/24 22:44 Patient informed of results questions answered Reevaluation #4: Was pt. sent in by a medical professional or institution (, PA, SENIOR NURSE MANAGER, urgent care, hospital, or correction...) When possible be specific @ -no Did you speak to anyone other than the patient for history (EMS, parent, family, police, friend...)? What history was obtained from this source @ -no Did you review nursing and triage notes (agree or disagree)? Why? @ -agree Are old charts reviewed (outside hosp., previous admission, EMS record, old EKG, old radiological studies, urgent care reports/EKG's, correction records)? Report findings @ -yes Differential Diagnosis (chest pain, altered mental status, abdominal pain women, abdominal pain men, vaginal bleeding, weakness, fever, dyspnea, syncope, headache, dizziness, GI bleed, back pain, seizure, CVA, palpatations, mental health, musculoskeletal)? @ -prior EKG interpreted by me (3pts min.). @ -yes X-rays interpreted by me (1pt min.). @ -yes negative for acute disease CT interpreted by me (1pt min.). @ -Yes negative for acute disease U/S interpreted by me (1pt. min.). @ -no What testing was considered but not performed or refused? (CT, X-rays, U/S, labs)? Why? @ -none What meds were considered but not given or refused? Why? @ -none Did you discuss the management of the patient with other professionals (professionals i.e. , PA, SENIOR NURSE MANAGER, lab, RT, psych nurse, protective services social worker, syrup machine laborer, teacher, lodge officer, employment evaluator/case manager)? Give summary @ -no Was smoking cessation discussed for >3mins.? @ -no Was critical care preformed (if so, how long)? @ -no Were there social determinants of health that impacted care today? How? (Homelessness, low income, unemployed, alcoholism, drug addiction, transportation, low edu. Level, literacy, decrease access to med. care, shelter, rehab)? @ -none Was there de-escalation of care discussed even if they declined (Discuss DNR or withdrawal of care, Hospice)? DNR status @ -no What co-morbidities impacted this encounter? (DM, HTN, Smoking, COPD, CAD, Cancer, CVA, ARF, Chemo, Hep., AIDS, mental health diagnosis, sleep apnea, morbid obesity)? @ -none Was patient admitted / discharged? Hospital course, mention meds given and route, prescriptions, significant lab abnormalities, going to OR and other pertinent info. @ - 79 female to the ER for evaluation of altered mental status. Mental status is improved but does appear to wax and wane. Patient does have positive pneumonia here in the ER placed antibiotics and can be discharged home Discharge altered mental status weakness pneumonia influenza extremes of Undiagnosed new problem with uncertain prognosis? @ -no Drug Therapy requiring intensive monitoring for toxicity (Heparin, Nitro, Insulin, Cardizem)? @ -no Were any procedures done? @ -no Diagnosis/symptom? @ - Acute, or Chronic, or Acute on Chronic? @ -Acute Uncomplicated (without systemic symptoms) or Complicated (systemic symptoms)? @ -Complicated Side effects of treatment? @ -no Exacerbation, Progression, or Severe Exacerbation? @ -exacerbation Poses a threat to life or bodily function? How? (Chest pain, USA, VT, pneumonia, PE, COPD, DKA, ARF, appy, cholecystitis, CVA, Diverticulitis, Homicidal, Suicidal, threat to staff... and all critical care pts) @ -yes 08/05/24 06:24 Reevaluation #5: Differential Altered Mental Status: Hypoglycemia, DKA, hypercapnia, ETOH, overdose, CO poisoning, trauma, myxedema coma, HTN encephalopathy, infection, encephalitis, psychosis, intercranial hemorrhage, hepatic encephalopathy, meningitis, CVA, this is not meant to be an all-inclusive list - Consultations Consultation #1: Spoke with [facility] who agrees to admit this patient Medical Decision Making - Medical Decision Making 79 female to the ER for evaluation of altered mental status. Mental status is improved but does appear to wax and wane. Patient does have positive pneumonia here in the ER placed antibiotics patient has no improvement here in the ER and will need to be admitted for significant further evaluation and monitoring - Lab Data Result diagrams: 08/05/24 05:11 08/05/24 05:11 Lab Results 07/29/24 07/29/24 07/29/24 Range/Units 20:51 20:51 20:51 WBC 11.5 H (3.8-10.6) k/uL RBC 3.95 (3.80-5.40) m/uL Hgb 12.2 (11.4-16.0) gm/dL Hct 35.7 (34.0-46.0) % MCV 90.5 (80.0-100.0) fL MCH 30.9 (25.0-35.0) pg MCHC 34.2 (31.0-37.0) g/dL RDW 21.4 H (11.5-15.5) % Plt Count 233 (150-450) k/uL MPV 7.5 Neutrophils % 91 % Lymphocytes % 4 % Monocytes % 4 % Eosinophils % 0 % Basophils % 0 % Neutrophils # 10.4 H (1.3-7.7) k/uL Lymphocytes # 0.5 L (1.0-4.8) k/uL Monocytes # 0.5 (0-1.0) k/uL Eosinophils # 0.0 (0-0.7) k/uL Basophils # 0.0 (0-0.2) k/uL Anisocytosis Moderate Macrocytosis Slight PT 11.5 (10.0-12.5) sec INR 1.0 (<1.2) APTT 22.5 (22.0-30.0) sec Sodium 125 L (137-145) mmol/L Potassium 4.6 (3.5-5.1) mmol/L Chloride 88 L (98-107) mmol/L Carbon Dioxide 24 (22-30) mmol/L Anion Gap 13 mmol/L BUN 44 H (7-17) mg/dL Creatinine 0.80 (0.52-1.04) mg/dL Est GFR (CKD-EPI)AfAm 82 (>60 ml/min/1.73 sqM) Est GFR (CKD-EPI)NonAf 71 (>60 ml/min/1.73 sqM) Glucose 202 H (74-99) mg/dL Calcium 9.1 (8.4-10.2) mg/dL Total Bilirubin 0.8 (0.2-1.3) mg/dL AST 67 H (14-36) U/L ALT 49 H (4-34) U/L Alkaline Phosphatase 43 (38-126) U/L Ammonia (<30) umol/L Troponin I (0.000-0.034) ng/mL Total Protein 6.5 (6.3-8.2) g/dL Albumin 3.8 (3.5-5.0) g/dL Serum Alcohol <10 mg/dL 07/29/24 07/29/24 Range/Units 20:51 20:51 WBC (3.8-10.6) k/uL RBC (3.80-5.40) m/uL Hgb (11.4-16.0) gm/dL Hct (34.0-46.0) % MCV (80.0-100.0) fL MCH (25.0-35.0) pg MCHC (31.0-37.0) g/dL RDW (11.5-15.5) % Plt Count (150-450) k/uL MPV Neutrophils % % Lymphocytes % % Monocytes % % Eosinophils % % Basophils % % Neutrophils # (1.3-7.7) k/uL Lymphocytes # (1.0-4.8) k/uL Monocytes # (0-1.0) k/uL Eosinophils # (0-0.7) k/uL Basophils # (0-0.2) k/uL Anisocytosis Macrocytosis PT (10.0-12.5) sec INR (<1.2) APTT (22.0-30.0) sec Sodium (137-145) mmol/L Potassium (3.5-5.1) mmol/L Chloride (98-107) mmol/L Carbon Dioxide (22-30) mmol/L Anion Gap mmol/L BUN (7-17) mg/dL Creatinine (0.52-1.04) mg/dL Est GFR (CKD-EPI)AfAm (>60 ml/min/1.73 sqM) Est GFR (CKD-EPI)NonAf (>60 ml/min/1.73 sqM) Glucose (74-99) mg/dL Calcium (8.4-10.2) mg/dL Total Bilirubin (0.2-1.3) mg/dL AST (14-36) U/L ALT (4-34) U/L Alkaline Phosphatase (38-126) U/L Ammonia <9 (<30) umol/L Troponin I <0.012 (0.000-0.034) ng/mL Total Protein (6.3-8.2) g/dL Albumin (3.5-5.0) g/dL Serum Alcohol mg/dL - EKG Data -: EKG Interpreted by Me (EKG is sinus 74 GA 175 QRS 105 QTc 369) - Radiology Data Radiology results: report reviewed (CT brain chest x-ray positive for pneumonia CT brain negative for acute disease), image reviewed Disposition Clinical Impression: Altered mental status, Pneumonia, Dizziness, Ovarian cancer, Influenza Disposition: ADMITTED IP TO THIS [facility] Condition: Serious Is patient prescribed a controlled substance at d/c from ED?: No Time of Disposition: 22:40
[2024-07-29 21:17] LABS: Anisocytosis Moderate; Basophils % (A) 0 %; Eosinophils % (A) 0 %; HCT 35.7 % (34.0-46.0); HGB 12.2 gm/dL (11.4-16.0); Lymphocytes # (A) 0.5 k/uL (1.0-4.8); Lymphocytes % (A) 4 %; MCH 30.9 pg (25.0-35.0); MCHC 34.2 g/dL (31.0-37.0); MCV 90.5 fL (80.0-100.0); Macrocytosis Slight; Mean Platelet Volume 7.5; Monocytes # (A) 0.5 k/uL (0-1.0); Monocytes % (A) 4 %; Neutrophils # (A) 10.4 k/uL (1.3-7.7); Neutrophils % (A) 91 %; Platelet Count 233 k/uL (150-450); RBC 3.95 m/uL (3.80-5.40); RDW 21.4 % (11.5-15.5); WBC 11.5 k/uL (3.8-10.6)
[2024-07-29 21:33] LABS: ALT 49 U/L (4-34); AST 67 U/L (14-36); African American GFR (CKD) 82 (>60 ml/min/1.73 sqM); Albumin 3.8 g/dL (3.5-5.0); Alcohol <10 mg/dL; Alkaline Phosphatase 43 U/L (38-126); Anion Gap 13 mmol/L; Blood Urea Nitrogen 44 mg/dL (7-17); Calcium 9.1 mg/dL (8.4-10.2); Carbon Dioxide 24 mmol/L (22-30); Chloride 88 mmol/L (98-107); Glucose 202 mg/dL (74-99); Non-African American GFR(CKD) 71 (>60 ml/min/1.73 sqM); Sodium 125 mmol/L (137-145); Total Bilirubin 0.8 mg/dL (0.2-1.3); Total Protein 6.5 g/dL (6.3-8.2)
[2024-07-29 21:36] LABS: Partial Thromboplastin Time 22.5 sec (22.0-30.0); Prothrombin Time 11.5 sec (10.0-12.5)
--- NOTE | 2024-07-29 21:58 | CT ---
EXAMINATION TYPE: CT brain wo con CT DLP: 1125.4 mGycm, Automated exposure control for dose reduction was used. DATE OF EXAM: 07/29/2024 9:32 PM COMPARISON: None. CLINICAL INDICATION:Female, 79 years old with history of Altered mental status, Pt arrived to ED by E for altered mental status and possible UTI. TECHNIQUE: Brain: Axial CT images of the brain were obtained with coronal and sagittal reformats created and rev iewed. Contrast used: None. Oral contrast used: None. FINDINGS: Brain: Extra-axial spaces: No abnormal extra-axial fluid collections. Ventricular system: Dilatation in proportion to cerebral atrophy. Cerebral parenchyma: No acute intraparenchymal hemorrhage or mass effect. The courtney-white junction is well differentiated. Cerebellum: Unremarkable. Mass effect: No evidence of midline shift. Intracranial vasculature: Atherosclerotic calcifications of the intracranial vessels. Soft tissues: Normal. Calvarium/osseous structures: No depressed skull fracture. Paranasal sinuses and mastoid air cells: Scattered fecal subtle thickening of the sphenoid, ethmoid b ilateral maxillary sinuses with a right sinus effusion appreciated. Visualized orbits: Orbital contents are intact. IMPRESSION: 1. No acute intracranial process. 2. Sinus mucosal disease. [facility], , 07/29/2024 9:56 PM
[2024-07-29 21:59] LABS: Potassium 4.6 mmol/L (3.5-5.1)
[2024-07-29] MEDS: SODIUM CHLORIDE 0.9% 1,000 ML IV ONE ×2 (22:18)
--- NOTE | 2024-07-29 22:19 | XR ---
EXAMINATION TYPE: XR chest 2V DATE OF EXAM: 07/29/2024 9:34 PM CLINICAL INDICATION:Female, 79 years old with history of altered mental status; [facility] COMPARISON: Chest radiographs from TECHNIQUE: XR chest 2V Frontal view of the chest. FINDINGS: Lungs/Pleura: Patchy airspace opacity is noted in the right middle and upper lung zone with hazy airs pace opacity seen in the left lower lung zone. No evidence of pneumothorax. Pulmonary vascularity: Unremarkable. Heart/mediastinum: Cardiomediastinal silhouette is unremarkable. Musculoskeletal: No acute osseous pathology. Other findings: None Lines/Tubes: Right internal jugular infusion port catheter with distal tip at the cavoatrial junction. IMPRESSION: Patchy airspace disease in the right middle and upper lung zone. Hazy airspace disease in the left lo wer lung zone. [facility], , 07/29/2024 10:17 PM
[2024-07-29] MEDS ORDERED: ONDANSETRON 4 MG/2 ML VIAL IVP PRN (22:39)
[2024-07-29] MEDS ORDERED: PNEUMONIA PROTOCOL UTILIZED 1 EACH MISC PO PRN (22:39)
[2024-07-29] MEDS ORDERED: NALOXONE 0.4 MG/ML 1 ML VIAL IV PRN (22:39)
[2024-07-29] MEDS: SODIUM CHLORIDE 0.9% 1,000 ML IV SCH (22:48)
[2024-07-29] MEDS: MORPHINE SULFATE 4 MG/ML SYRINGE IV PRN (23:58)
[2024-07-30 00:07] LABS: Influenza A Detected (Not Detectd); Influenza B Not Detected (Not Detectd); RSV Not Detected (Not Detectd)
[2024-07-30] MEDS: AZITHROMYCIN 500 MG in SODIUM CHLORIDE 0.9% 250 ML IVPB STA (00:44)
[2024-07-30 06:16] LABS: Anisocytosis Moderate; Basophils % (A) 0 %; Eosinophils % (A) 0 %; HCT 29.6 % (34.0-46.0); HGB 10.6 gm/dL (11.4-16.0); Lymphocytes # (A) 0.8 k/uL (1.0-4.8); Lymphocytes % (A) 8 %; MCH 31.8 pg (25.0-35.0); MCHC 35.7 g/dL (31.0-37.0); MCV 89.1 fL (80.0-100.0); Monocytes # (A) 0.5 k/uL (0-1.0); Monocytes % (A) 5 %; Neutrophils # (A) 8.5 k/uL (1.3-7.7); Neutrophils % (A) 86 %; Platelet Count 173 k/uL (150-450); RBC 3.32 m/uL (3.80-5.40); RDW 21.5 % (11.5-15.5); WBC 9.9 k/uL (3.8-10.6)
[2024-07-30 06:19] LABS: Appearance,Urine Clear (Clear); Bilirubin,Urine Negative (Negative); Blood,Urine Negative (Negative); Color,Urine Light Yellow; Glucose,Urine (UA) Negative (Negative); Ketones,Urine Negative (Negative); Leukocyte Esterase,Urine Negative (Negative); Nitrite,Urine Negative (Negative); Protein,Urine Negative (Negative); Specific Gravity,Urine 1.017 (1.001-1.035); Urobilinogen,Urine <2.0 mg/dL (<2.0)
[2024-07-30 06:21] LABS: ALT 38 U/L (4-34); AST 40 U/L (14-36); African American GFR (CKD) >90 (>60 ml/min/1.73 sqM); Albumin 2.8 g/dL (3.5-5.0); Alkaline Phosphatase 45 U/L (38-126); Anion Gap 9 mmol/L; Blood Urea Nitrogen 32 mg/dL (7-17); Calcium 8.2 mg/dL (8.4-10.2); Carbon Dioxide 24 mmol/L (22-30); Chloride 95 mmol/L (98-107); Glucose 87 mg/dL (74-99); Magnesium 1.7 mg/dL (1.6-2.3); Non-African American GFR(CKD) 84 (>60 ml/min/1.73 sqM); Phosphorus 3.6 mg/dL (2.5-4.5); Potassium 4.1 mmol/L (3.5-5.1); Sodium 128 mmol/L (137-145); Total Bilirubin 0.4 mg/dL (0.2-1.3); Total Protein 5.3 g/dL (6.3-8.2)
[2024-07-30 06:21] LABS: Glucose,Whole Blood 92 mg/dL (70-110)
[2024-07-30 06:58] LABS: Amphetamine Screen,Urine Not Detected (NotDetected); Barbiturate Screen,Urine Not Detected (NotDetected); Benzodiazepines Screen,Urine Detected (NotDetected); Cocaine Screen,Urine Not Detected (NotDetected); Methadone Screen, Urine Not Detected (NotDetected); Opiate Screen,Urine Detected (NotDetected); Oxycodone Screen, Urine Not Detected (NotDetected); Phencyclidine Screen,Urine Not Detected (NotDetected); Tricyclic Antidepressant,Urine Not Detected (NotDetected); Urn Cannabinoid Scrn Not Detected (NotDetected)
--- NOTE | 2024-07-30 07:22 | XR ---
EXAMINATION TYPE: XR chest 1V portable DATE OF EXAM: 07/30/2024 5:03 AM COMPARISON: 07/29/2024 CLINICAL INDICATION: Female, 79 years old with history of pneumonia, , FINDINGS: Right anterior chest wall injection port with catheter tip at the mid SVC level. Heart normal size. C hronic full-thickness rotator cuff tear right shoulder. Ongoing focal right midlung opacity. New larg e opacity of the left mid lung seems to correspond to the patient's overlying hand. No pleural effusi on. IMPRESSION: 1. Limited exam. There is a large opacity at the left mid lung which is new. Suspected to relate to t he patient's hand. Attention on follow-up. 2. Otherwise, there is ongoing focal abnormal right midlung opacity. [facility], , 07/30/2024 7:20 AM
[2024-07-30] MEDS: AZITHROMYCIN 500 MG in SODIUM CHLORIDE 0.9% 250 ML IVPB SCH (09:29)
[2024-07-30] MEDS: ACETAMINOPHEN TAB 500 MG TAB PO PRN (10:40)
[2024-07-30] MEDS ORDERED: HYDROcodone/APAP 15 ML SOLUTION PO PRN (10:45)
[2024-07-30] MEDS: dexAMETHasone 4 MG TAB PO SCH (11:59)
[2024-07-30] MEDS: METOPROLOL TARTRATE 50 MG TAB PO SCH (12:00)
[2024-07-30] MEDS: ALPRAZolam 0.25 MG TAB PO SCH (12:00)
[2024-07-30] MEDS: APIXABAN 5 MG TAB PO SCH (12:00)
--- NOTE | 2024-07-30 17:50 | P.HPIM ---
History of Present Illness H&P Date: 07/30/24 Chief Complaint: Altered mentation Very pleasant 79-year-old patient follows Dr. Yi. Patient's sister, daughter and granddaughter at the bedside. Chronic medical condition include atrial fibrillation, GERD, hyperlipidemia, osteoarthritis, migraine, lower back pain from disc disease, arthritis, IBS,. Anxiety depression. Patient was diagnosed with metastatic ovarian cancer 2 years ago to include the lungs and liver. Patient's had multiple rounds of chemotherapy. Including immunotherapy. Patient does follow with Dr. Myers at [facility]. At [facility] the family gotten together. Patient had oral sores with poor appetite. Over the last 2 3 days patient was noted to be increasingly confused. Poor appetite. Patient normally lives alone. Does use a walker. Patient has been delirious. Fever and tested positive for influenza in the hospital. Review of systems: GEN.: Fever EYES: None HEENT: Mouth sore NECK: None RESPIRATORY: None CARDIOVASCULAR: None GASTROINTESTINAL: None GENITOURINARY: None MUSCULOSKELETAL: [Some joint pain LYMPHATICS: None HEMATOLOGICAL: None PSYCHIATRY: Confusion NEUROLOGICAL: [Does use a walker Physical examination: VITAL SIGNS: 101.1, 105, 17, 119 x 75, 95% room air GENERAL: [BMI 28.2, resting in bed a bit delirious. EYES: Pupils equal. Conjunctiva vivian l. HEENT: External appearance of nose and ears normal, oral cavity grossly normal. NECK: JVD not raised; masses not palpable. HEART: First and second heart sounds are normal; no edema. LUNGS: Respiratory rate normal; clear to auscultation. ABDOMEN: Soft, nontender, liver spleen not palpable, no masses palpable. PSYCH: Answering occasional questions. Then drifts off l. MUSCULOSKELETAL:No Clubbing/cyanosis;muscles-grossly intact. OA NEUROLOGICAL: Cranial nerves grossly intact; no facial asymmetry, power and sensation grossly intact. LYMPHATICS: No lymph nodes palpable in the axilla and neck INVESTIGATIONS, reviewed in the clinical context: July 30: White count 9.9 hemoglobin 10.6 platelets 173 neutrophils 8.5 lymphocyte 0.8 sodium 128 potassium 4.1 BUN 32 creatinine 0.68 AST 40 ALT 38 albumin 2.8 Urine drug screen positive for opiates, benzodiazepines Influenza type a PCR: Detected Influenza type B, RSV, COVID-19: Not detected EKG tracing personally reviewed by me-normal sinus rhythm. CT scan brain: Unremarkable Chest x-ray film personally reviewed by me-right midlung opacity. Question scattered infiltrates Assessment plan: -Sepsis second underlying influenza A with pneumonitis Tamiflu. IV fluids -Doubt secondary bacterial pneumonia. Will check procalcitonin. In the meantime continue empirically with the same. -Acute delirium metabolic encephalopathy from sepsis from influenza A -Metastatic ovarian cancer for last 2 years. Has received chemotherapy immunotherapy. Does follow with Dr. Myers out of [facility]. CT scan 2 weeks ago showed disease present in the lungs liver and a spot in the sternum. -Chronic medical debility does use a walker -Paroxysmal atrial fibrillation currently in sinus rhythm Eliquis Lopressor. -Essential hypertension Diovan. Metoprolol. -Full code -Medical power of blanket winder helper, son. Malou Care was discussed with the patient family at the bedside. Questions answered. Past Medical History Past Medical History: Atrial Fibrillation, Eye Disorder, GERD/Reflux, Hyperlipidemia, Osteoarthritis (OA), Vascular Disorder Additional Past Medical History / Comment(s): Frequent migraines, lower back disc disease/pain, L and R shoulder pain, flebitis, arthritis in multiple joints, leaky heart valve, bilateral leg varicosities, IBS, bronchitis, UTI, some lasering done right eye for "flashes" History of Any Multi-Drug Resistant Organisms: None Reported Past Surgical History: Adenoidectomy, Breast Surgery, Cholecystectomy, Orthopedic Surgery, Tonsillectomy Additional Past Surgical History / Comment(s): Bilateral wrist tendon surgery, bilateral feet 4th toe surg. d/t curvature, lipoma removed from back, lumbar ep idural injections, L leg vein stripping, bilateral leg varicose vein injections to remove, L breast benign biopsy, colonoscopy/benign polypectomy, D&C Past Anesthesia/Blood Transfusion Reactions: No Reported Reaction Additional Past Anesthesia/Blood Transfusion Reaction / Comment(s): Pt has claustrophobia. Past Psychological History: Anxiety, Depression Smoking Status: Former smoker Past Alcohol Use History: Occasional Past Drug Use History: None Reported - Past Family History Mother Family Medical History: CVA/TIA, Deep Vein Thrombosis (DVT) Additional Family Medical History / Comment(s): Mother lived to be 92.5 years old. Father Family Medical History: Cancer, COPD Additional Family Medical History / Comment(s): Father of lung cancer. He was a smoker. Medications and Allergies Home Medications Medication Instructions Recorded Confirmed Type ALPRAZolam [Xanax] 0.25 mg PO BID 07/30/24 07/30/24 History Amoxic-Pot Clav 500-125 mg 1 tab PO BID 07/30/24 07/30/24 History [Augmentin 500-125 mg] Apixaban [Eliquis] 5 mg PO BID 07/30/24 07/30/24 History Chlorthalidone [Hygroton] 25 mg PO DAILY@1200 07/30/24 07/30/24 History Docusate [Colace] 100 mg PO HS PRN 07/30/24 07/30/24 History HYDROcodone/APAP [[place] Elixir 15 ml PO BID PRN 07/30/24 07/30/24 History 7.5-325Mg/15Ml] Melatonin 10 mg PO HS 07/30/24 07/30/24 History Metoprolol Tartrate [Lopressor] 50 mg PO BID 07/30/24 07/30/24 History Ondansetron Odt [Zofran Odt] 8 mg PO Q8HR PRN 07/30/24 07/30/24 History Valsartan [Diovan] 80 mg PO HS 07/30/24 07/30/24 History dexAMETHasone [Decadron] 4 mg PO DAILY 07/30/24 07/30/24 History traMADol HCL 50 mg PO DAILY PRN 07/30/24 07/30/24 History Allergies Allergy/AdvReac Type Severity Reaction Status Date / Time No Known Allergies Allergy Verified 07/30/24 08:17 Physical Exam Vitals: Vital Signs Temp Pulse Resp BP Pulse Ox 07/30/24 09:34 101.1 F H 07/30/24 09:00 105 H 17 119/75 95 07/30/24 08:33 106 H 15 127/78 95 07/30/24 04:03 89 16 120/77 97 07/30/24 03:05 85 18 104/71 94 L 07/30/24 01:03 73 18 131/74 97 07/30/24 00:15 96 07/30/24 00:04 77 20 130/75 94 L 07/29/24 20:34 98.0 F 79 18 112/67 99 Intake and Output 07/29/24 07/30/24 07/30/24 22:59 06:59 14:59 Other: Weight 81.647 kg Results CBC & Chem 7: 07/30/24 05:41 07/30/24 05:41 Labs: Abnormal Lab Results - Last 24 Hours (Table) 07/29/24 07/29/24 07/29/24 Range/Units 20:51 20:51 23:09 WBC 11.5 H (3.8-10.6) k/uL RBC (3.80-5.40) m/uL Hgb (11.4-16.0) gm/dL Hct (34.0-46.0) % RDW 21.4 H (11.5-15.5) % Neutrophils # 10.4 H (1.3-7.7) k/uL Lymphocytes # 0.5 L (1.0-4.8) k/uL Sodium 125 L (137-145) mmol/L Chloride 88 L (98-107) mmol/L BUN 44 H (7-17) mg/dL Glucose 202 H (74-99) mg/dL Calcium (8.4-10.2) mg/dL AST 67 H (14-36) U/L ALT 49 H (4-34) U/L Total Protein (6.3-8.2) g/dL Albumin (3.5-5.0) g/dL Urine Opiates Screen (NotDetected) U Benzodiazepines Scrn (NotDetected) Influenza Type A (PCR) Detected A (Not Detectd) 07/30/24 07/30/24 07/30/24 Range/Units 05:41 05:41 05:45 WBC (3.8-10.6) k/uL RBC 3.32 L (3.80-5.40) m/uL Hgb 10.6 L (11.4-16.0) gm/dL Hct 29.6 L (34.0-46.0) % RDW 21.5 H (11.5-15.5) % Neutrophils # (1.3-7.7) k/uL Lymphocytes # (1.0-4.8) k/uL Sodium 128 L (137-145) mmol/L Chloride 95 L (98-107) mmol/L BUN 32 H (7-17) mg/dL Glucose (74-99) mg/dL Calcium 8.2 L (8.4-10.2) mg/dL AST 40 H (14-36) U/L ALT 38 H (4-34) U/L Total Protein 5.3 L (6.3-8.2) g/dL Albumin 2.8 L (3.5-5.0) g/dL Urine Opiates Screen Detected H (NotDetected) U Benzodiazepines Scrn Detected H (NotDetected) Influenza Type A (PCR) (Not Detectd)
[2024-07-30] MEDS: LACTATED RINGERS 1,000 ML IV SCH (18:22)
[2024-07-30] MEDS: OSELTAMIVIR 75 MG CAP PO SCH (18:26)
[2024-07-30] MEDS: MELATONIN 5 MG TABLET PO SCH (20:40)
[2024-07-30] MEDS: MAG HYDROX/AL HYDROX/SIMETH 30 ML, LIDOCAINE VISCOUS 2% 30 ML, diphenhydrAMINE ELIXIR 7... PO SCH (22:57)
[2024-07-31 09:17] LABS: Anisocytosis Moderate; Basophils # (A) 0.1 k/uL (0-0.2); Basophils % (A) 1 %; Eosinophils % (A) 0 %; HCT 34.1 % (34.0-46.0); HGB 11.3 gm/dL (11.4-16.0); Lymphocytes % (A) 8 %; MCHC 33.1 g/dL (31.0-37.0); MCV 93.5 fL (80.0-100.0); Macrocytosis Slight; Monocytes # (A) 0.7 k/uL (0-1.0); Monocytes % (A) 6 %; Neutrophils # (A) 10.1 k/uL (1.3-7.7); Neutrophils % (A) 84 %; Platelet Count 220 k/uL (150-450); RBC 3.64 m/uL (3.80-5.40); RDW 21.2 % (11.5-15.5)
[2024-07-31] MEDS: PSYLLIUM HUSK 100% 6 GM PACKET PO SCH (09:19)
--- NOTE | 2024-07-31 13:45 | P.CONS ---
History of Present Illness - Reason for Consult Consult date: 07/30/24 hx ovarian cancer Requesting physician: Anibal Bess - Chief Complaint confusion - History of Present Illness Patient is a 79 year old female with a significant history of metastatic ovarian cancer, who follows with Dr. Myers at [facility]. She diagnosed 2 years ago, undergoing total hysterectomy in July 2022, and has been on multiple treatment regimens. Currently on Enhertu receiving cycle 3 on 07/05/24. Patient presented the emergency room with altered mental status. Upon admit CT brain was negative for acute intracranial processes. Chest x-ray showing patchy airspace disease in the right middle and upper lung zone and hazy airspace di sease in the left lower lung. She was also found to be positive for influenza A. UA negative for UTI. Patient has been started on Tamiflu and IV antibiotics. WBC 9.9, hemoglobin 10.6, platelets 173,000. Creatinine 0.68, GFR 84. Bilirubin 0.4, AST 40, ALT 38, ALP 45. Sodium 128 At today's visit family reports patient is still confused from her baseline but has shown some improvement. Review of Systems 10 point ROS is negative except as stated in the HPI Past Medical History Past Medical History: Atrial Fibrillation, Eye Disorder, GERD/Reflux, Hyperlipidemia, Osteoarthritis (OA), Vascular Disorder Additional Past Medical History / Comment(s): Frequent migraines, lower back disc disease/pain, L and R shoulder pain, flebitis, arthritis in multiple joints, leaky heart valve, bilateral leg varicosities, IBS, bronchitis, UTI, some lasering done right eye for "flashes" History of Any Multi-Drug Resistant Organisms: None Reported Past Surgical History: Adenoidectomy, Breast Surgery, Cholecystectomy, Orthopedic Surgery, Tonsillectomy Additional Past Surgical History / Comment(s): Bilateral wrist tendon surgery, bilateral feet 4th toe surg. d/t curvature, lipoma removed from back, lumbar epidural injections, L leg vein stripping, bilateral leg varicose vein injections to remove, L breast benign biopsy, colonoscopy/benign polypectomy, D&C Past Anesthesia/Blood Transfusion Reactions: No Reported Reaction Additional Past Anesthesia/Blood Transfusion Reaction / Comm: Pt has claustrophobia. Past Psychological History: Anxiety, Depression Smoking Status: Former smoker Past Alcohol Use History: Occasional Past Drug Use History: None Reported - Past Family History Mother Family Medical History: CVA/TIA, Deep Vein Thrombosis (DVT) Additional Family Medical History / Comment(s): Mother lived to be 92.5 years old. Father Family Medical History: Cancer, COPD Additional Family Medical History / Comment(s): Father of lung cancer. He was a smoker. Medications and Allergies Home Medications Medication Instructions Recorded Confirmed Type ALPRAZolam [Xanax] 0.25 mg PO BID 07/30/24 07/30/24 History Amoxic-Pot Clav 500-125 mg 1 tab PO BID 07/30/24 07/30/24 History [Augmentin 500-125 mg] Apixaban [Eliquis] 5 mg PO BID 07/30/24 07/30/24 History Chlorthalidone [Hygroton] 25 mg PO DAILY@1200 07/30/24 07/30/24 History Docusate [Colace] 100 mg PO HS PRN 07/30/24 07/30/24 History HYDROcodone/APAP [[place] Elixir 15 ml PO BID PRN 07/30/24 07/30/24 History 7.5-325Mg/15Ml] Melatonin 10 mg PO HS 07/30/24 07/30/24 History Metoprolol Tartrate [Lopressor] 50 mg PO BID 07/30/24 07/30/24 History Ondansetron Odt [Zofran Odt] 8 mg PO Q8HR PRN 07/30/24 07/30/24 History Valsartan [Diovan] 80 mg PO HS 07/30/24 07/30/24 History dexAMETHasone [Decadron] 4 mg PO DAILY 07/30/24 07/30/24 History traMADol HCL 50 mg PO DAILY PRN 07/30/24 07/30/24 History Allergies Allergy/AdvReac Type Severity Reaction Status Date / Time No Known Allergies Allergy Verified 07/30/24 08:17 Physical Exam Vitals: Vital Signs Temp Pulse Resp BP Pulse Ox 07/30/24 09:34 101.1 F H 07/30/24 09:00 105 H 17 119/75 95 07/30/24 08:33 106 H 15 127/78 95 07/30/24 04:03 89 16 120/77 97 07/30/24 03:05 85 18 104/71 94 L 07/30/24 01:03 73 18 131/74 97 07/30/24 00:15 96 07/30/24 00:04 77 20 130/75 94 L 07/29/24 20:34 98.0 F 79 18 112/67 99 Intake and Output 07/29/24 07/30/24 07/30/24 22:59 06:59 14:59 Other: Weight 81.647 kg - Constitutional General appearance: average body habitus, no acute distress - EENT Eyes: anicteric sclerae, EOMI ENT: hearing grossly normal - Respiratory breathing is even and unlabored - Cardiovascular skin warm and dry - Gastrointestinal General gastrointestinal: soft, no tenderness - Integumentary Integumentary: no cyanotic - Musculoskeletal Musculoskeletal: generalized weakness Results CBC & Chem 7: 07/31/24 08:32 07/30/24 05:41 Labs: Abnormal Lab Results - Last 24 Hours (Table) 07/29/24 07/29/24 07/29/24 Range/Units 20:51 20:51 23:09 WBC 11.5 H (3.8-10.6) k/uL RBC (3.80-5.40) m/uL Hgb (11.4-16.0) gm/dL Hct (34.0-46.0) % RDW 21.4 H (11.5-15.5) % Neutrophils # 10.4 H (1.3-7.7) k/uL Lymphocytes # 0.5 L (1.0-4.8) k/uL Sodium 125 L (137-145) mmol/L Chloride 88 L (98-107) mmol/L BUN 44 H (7-17) mg/dL Glucose 202 H (74-99) mg/dL Calcium (8.4-10.2) mg/dL AST 67 H (14-36) U/L ALT 49 H (4-34) U/L Total Protein (6.3-8.2) g/dL Albumin (3.5-5.0) g/dL Urine Opiates Screen (NotDetected) U Benzodiazepines Scrn (NotDetected) Influenza Type A (PCR) Detected A (Not Detectd) 07/30/24 07/30/24 07/30/24 Range/Units 05:41 05:41 05:45 WBC (3.8-10.6) k/uL RBC 3.32 L (3.80-5.40) m/uL Hgb 10.6 L (11.4-16.0) gm/dL Hct 29.6 L (34.0-46.0) % RDW 21.5 H (11.5-15.5) % Neutrophils # 8.5 H (1.3-7.7) k/uL Lymphocytes # 0.8 L (1.0-4.8) k/uL Sodium 128 L (137-145) mmol/L Chloride 95 L (98-107) mmol/L BUN 32 H (7-17) mg/dL Glucose (74-99) mg/dL Calcium 8.2 L (8.4-10.2) mg/dL AST 40 H (14-36) U/L ALT 38 H (4-34) U/L Total Protein 5.3 L (6.3-8.2) g/dL Albumin 2.8 L (3.5-5.0) g/dL Urine Opiates Screen Detected H (NotDetected) U Benzodiazepines Scrn Detected H (NotDetected) Influenza Type A (PCR) (Not Detectd) Chest x-ray: report reviewed CT Scan - head: report reviewed Assessment and Plan (1) Influenza Current Visit: Yes Status: Acute Code(s): J11.1 - FLU DUE TO UNIDENTIFIED INFLUENZA VIRUS W OTH RESP MANIFEST SNOMED Code(s): 6867806 (2) Ovarian cancer Current Visit: Yes Status: Acute Code(s): C56.9 - MALIGNANT NEOPLASM OF UNSPECIFIED OVARY SNOMED Code(s): 581637075 (3) Altered mental status Current Visit: Yes Status: Acute Code(s): R41.82 - ALTERED MENTAL STATUS, UNSPECIFIED SNOMED Code(s): 958446272 (4) Pneumonia Current Visit: Yes Status: Acute Code(s): J18.9 - PNEUMONIA, UNSPECIFIED ORGANISM SNOMED Code(s): 815530819 Plan: Confusion, influenza, pneumonia: Presented with altered mental status/confusion -Upon admit CT brain was negative for acute intracranial processes. Chest x-ray showing patchy airspace disease in the right middle and upper lung zone and hazy airspace disease in the left lower lung. -Positive for influenza A. -Tamiflu and IV antibiotics started -Counts stable, WBC 9.9, ANC 8.5, hemoglobin 10.6, platelets 173,000 -Defer management to admitting team and ID Metastatic ovarian cancer: History of metastatic ovarian cancer, who follows with Dr. Myers at [facility]. She diagnosed 2 years ago, undergoing total hysterectomy in July 25, and has been on multiple treatment regimens. Currently on Enhertu receiving cycle 3 on 07/05/24. -Patient to f/u with Dr. Myers on discharge for further treatment recommendations and management
[2024-07-31] MEDS ORDERED: ALPRAZolam 0.25 MG TAB PO PRN (13:48)
--- NOTE | 2024-07-31 20:14 | P.PN ---
Progress Note - Text Progress Note Date: 07/31/24 Chief Complaint: Altered mentation Very pleasant 79-year-old patient follows Dr. Yi. Patient's sister, daughter and granddaughter at the bedside. Chronic medical condition include atrial fibrillation, GERD, hyperlipidemia, osteoarthritis, migraine, lower back pain from disc disease, arthritis, IBS,. Anxiety depression. Patient was diagnosed with metastatic ovarian cancer 2 years ago to include the lungs and liver. Patient's had multiple rounds of chemotherapy. Including immunotherapy. Patient does follow with Dr. Myers at [facility]. At [place] the family gotten together. Patient had oral sores with poor appetite. Over the last 2 3 days patient was noted to be increasingly confused. Poor appetite. Patient normally lives alone. Does use a walker. Patient has been delirious. Fever and tested positive for influenza in the hospital. July 31: Remains lethargic. Family at the bedside. Status spiking fevers again. Getting IV fluids. ID consulted. Discussed with family at the bedside. ID started patient empirically on IV ceftriaxone. Patient on Tamiflu. Active Medications Acetaminophen (Acetaminophen Tab 500 Mg Tab) 500 mg PO Q6HR PRN PRN Reason: Fever and/ or Mild Pain Last Admin: 07/31/24 18:13 Dose: 500 mg Hydrocodone Bitart/Acetaminophen (Hydrocodone/Apap 15 Ml Solution) 15 ml PO BID PRN PRN Reason: Pain Albuterol/Ipratropium (Ipratropium-Albuterol 3 Ml Neb) 3 ml INHALATION RT-Q4H PRN PRN Reason: shortness of breath Alprazolam (Alprazolam 0.25 Mg Tab) 0.25 mg PO BID PRN PRN Reason: Anxiety Apixaban (Apixaban 5 Mg Tab) 5 mg PO BID [facility]; Protocol Last Admin: 07/31/24 19:46 Dose: 5 mg Al Hydroxide/Mg Hydroxide 30 ml/ Lidocaine HCl 30 ml/Diphenhydramine HCl 75 mg/Nystatin 3,000,000 unit 0 ml PO TID [facility] Last Admin: 07/31/24 19:48 Dose: 30 ml Dexamethasone (Dexamethasone 4 Mg Tab) 4 mg PO DAILY [facility] Last Admin: 07/31/24 09:19 Dose: 4 mg Ceftriaxone Sodium 2 gm/ (Sodium Chloride) 50 mls @ 100 mls/hr IVPB Q24HR [facility]; Protocol Stop: 08/02/24 09:29 Last Admin: 07/31/24 09:18 Dose: 100 mls/hr Lactated Ringer's (Lactated Ringers) 1,000 mls @ 125 mls/hr IV .Q8H [facility] Last Admin: 07/31/24 18:13 Dose: 125 mls/hr Melatonin (Melatonin 5 Mg Tablet) 10 mg PO HS [facility] Last Admin: 07/31/24 19:46 Dose: 10 mg Metoprolol Tartrate (Metoprolol Tartrate 50 Mg Tab) 50 mg PO BID [facility] Last Admin: 07/31/24 19:46 Dose: 50 mg Miscellaneous Information (Pneumonia Protocol Utilized 1 Each Misc) 1 each PO ONCE PRN PRN Reason: Per Protocol Naloxone HCl (Naloxone 0.4 Mg/Ml 1 Ml Vial) 0.2 mg IV Q2M PRN PRN Reason: Opioid Reversal Ondansetron HCl (Ondansetron 4 Mg/2 Ml Vial) 4 mg IVP Q8HR PRN PRN Reason: Nausea And Vomiting Oseltamivir Phosphate (Oseltamivir 75 Mg Cap) 75 mg PO Q12HR [facility]; Protocol Stop: 08/04/24 09:01 Last Admin: 07/31/24 19:46 Dose: 75 mg Psyllium Hydrophilic Mucilloid (Psyllium Husk 100% 6 Gm Packet) 6 gm PO DAILY [facility] Last Admin: 07/31/24 09:19 Dose: 6 gm Physical examination: VITAL SIGNS: 102.4, 144, 20, 138 x 90, 95% room air GENERAL: [BMI 28.2, remains delirious. Lethargic EYES: Pupils equal. Conjunctiva vivian l. HEENT: External appearance of nose and ears normal, oral cavity grossly normal. NECK: JVD not raised; masses not palpable. HEART: First and second heart sounds are normal; no edema. LUNGS: Respiratory rate normal; clear to auscultation. ABDOMEN: Soft, nontender, liver spleen not palpable, no masses palpable. PSYCH: Lethargic. MUSCULOSKELETAL:No Clubbing/cyanosis;muscles-grossly intact. OA NEUROLOGICAL: Cranial nerves grossly intact; no facial asymmetry, power and sensation grossly intact. INVESTIGATIONS, reviewed in the clinical context: July 31: White count 12 hemoglobin 11.3 platelets 220. Procalcitonin 0.11 July 30: White count 9.9 hemoglobin 10.6 platelets 173 neutrophils 8.5 lymphocyte 0.8 sodium 128 potassium 4.1 BUN 32 creatinine 0.68 AST 40 ALT 38 albumin 2.8 Urine drug screen positive for opiates, benzodiazepines Influenza type a PCR: Detected Influenza type B, RSV, COVID-19: Not detected EKG tracing personally reviewed by me-normal sinus rhythm. CT scan brain: Unremarkable Chest x-ray film personally reviewed by me-right midlung opacity. Question scattered infiltrates Assessment plan: -Sepsis second underlying influenza A with pneumonitis: Not improving Rule out other causes. ID consulted. Tamiflu. IV fluids Empirically started on IV ceftriaxone from ER. -Doubt secondary bacterial pneumonia. Procalcitonin 0.11. -Acute delirium metabolic encephalopathy from sepsis from influenza A: Not improving -Metastatic ovarian cancer for last 2 years. Has received chemotherapy immunotherapy. Does follow with Dr. Myers out of [facility]. CT scan 2 weeks ago showed disease present in the lungs liver and a spot in the sternum. -Chronic medical debility does use a walker -Paroxysmal atrial fibrillation currently in sinus rhythm Eliquis Lopressor. -Essential hypertension Diovan. Metoprolol. -Full code -Medical power of securities attorney, son. [place] Continue current treatment plan. ID consulted. Spoke to Dr. Treadwell. Blood culture ordered Past Medical History Past Medical History: Atrial Fibrillation, Eye Disorder, GERD/Reflux, Hyperlipidemia, Osteoarthritis (OA), Vascular Disorder Additional Past Medical History / Comment(s): Frequent migraines, lower back disc disease/pain, L and R shoulder pain, flebitis, arthritis in multiple joints, leaky heart valve, bilateral leg varicosities, IBS, bronchitis, UTI, some lasering done right eye for "flashes" History of Any Multi-Drug Resistant Organisms: None Reported Past Surgical History: Adenoidectomy, Breast Surgery, Cholecystectomy, O rthopedic Surgery, Tonsillectomy Additional Past Surgical History / Comment(s): Bilateral wrist tendon surgery, bilateral feet 4th toe surg. d/t curvature, lipoma removed from back, lumbar epidural injections, L leg vein stripping, bilateral leg varicose vein injections to remove, L breast benign biopsy, colonoscopy/benign polypectomy, D&C Past Anesthesia/Blood Transfusion Reactions: No Reported Reaction Additional Past Anesthesia/Blood Transfusion Reaction / Comment(s): Pt has claustrophobia. Past Psychological History: Anxiety, Depression Smoking Status: Former smoker Past Alcohol Use History: Occasional Past Drug Use History: None Reported
--- NOTE | 2024-07-31 20:42 | P.CONS ---
History of Present Illness - Reason for Consult Consult date: 07/31/24 Influenza/fever Requesting physician: Ari Godoy - Chief Complaint Mental status changes x 1 day on admission - History of Present Illness Patient is a 79-year-old female past medical history significant for hyperlipidemia atrial fibrillation osteoarthritis did have a history of metastatic ovarian cancer for the patient follows with Dr. Myers at [facility] in [place] that was diagnosed 2 years ago did have a total hysterectomy in July 2022 and multiple treatment regimens currently on Enhertu cycle 3 on 07/05/2024 patient was brought into the hospital for evaluation of mental status changes pending symptoms have been going on for a day or 2 before the patient has been brought to the hospital no clear history of any fever or chills at home however the patient did have a temperature of 101 F on 07/30/2023 and a temperature of 102.4 F this afternoon, patient was also tachycardic but not hypotensive or hypoxic and no need for supplemental oxygen patient did have white count of 11.4 on admission did have some improvement yesterday however is up to 2019 with a left shift creatinine 0.68 electrolyte has been normal liver isms mildly elevated, UA has been negative urine toxin was positive for opiates and benzo she tested positive for influenza A RSV COVID Legionella negative patient did have a chest x-ray patchy airspace disease in the right middle and upper lung zone is airspace disease in the left lower lung patient has been treated with a Tamiflu and Rocephin infectious disease was consulted today for further management of antibiotic therapy most information has been obtained from review the chart again the family at the bedside as the patient herself did not answer any question as per family mostly mental status changes and weakness no clear history of any nausea vomiting choking on the food abdominal pain or diarrhea Review of Systems Positive points has been mentioned in HPI complete review could not be obtained because of his underlying mental status Past Medical History Past Medical History: Atrial Fibrillation, Eye Disorder, GERD/Reflux, Hyperlipidemia, Osteoarthritis (OA), Vascular Disorder Additional Past Medical History / Comment(s): Frequent migraines, lower back disc disease/pain, L and R shoulder pain, flebitis, arthritis in multiple joints, leaky heart valve, bilateral leg varicosities, IBS, bronchitis, UTI, some lasering done right eye for "flashes" History of Any Multi-Drug Resistant Organisms: None Reported Past Surgical History: Adenoidectomy, Breast Surgery, Cholecystectomy, Orthopedic Surgery, Tonsillectomy Additional Past Surgical History / Comment(s): Bilateral wrist tendon surgery, bilateral feet 4th toe surg. d/t curvature, lipoma removed from back, lumbar epidural injections, L leg vein stripping, bilateral leg varicose vein i njections to remove, L breast benign biopsy, colonoscopy/benign polypectomy, D&C Past Anesthesia/Blood Transfusion Reactions: No Reported Reaction Additional Past Anesthesia/Blood Transfusion Reaction / Comm: Pt has claustrophobia. Past Psychological History: Anxiety, Depression Smoking Status: Former smoker Past Alcohol Use History: Occasional Past Drug Use History: None Reported - Past Family History Mother Family Medical History: CVA/TIA, Deep Vein Thrombosis (DVT) Additional Family Medical History / Comment(s): Mother lived to be 92.5 years old. Father Family Medical History: Cancer, COPD Additional Family Medical History / Comment(s): Father of lung cancer. He was a smoker. Medications and Allergies Home Medications Medication Instructions Recorded Confirmed Type ALPRAZolam [Xanax] 0.25 mg PO BID 07/30/24 07/30/24 History Amoxic-Pot Clav 500-125 mg 1 tab PO BID 07/30/24 07/30/24 History [Augmentin 500-125 mg] Apixaban [Eliquis] 5 mg PO BID 07/30/24 07/30/24 History Chlorthalidone [Hygroton] 25 mg PO DAILY@1200 07/30/24 07/30/24 History Docusate [Colace] 100 mg PO HS PRN 07/30/24 07/30/24 History HYDROcodone/APAP [[place] Elixir 15 ml PO BID PRN 07/30/24 07/30/24 History 7.5-325Mg/15Ml] Melatonin 10 mg PO HS 07/30/24 07/30/24 History Metoprolol Tartrate [Lopressor] 50 mg PO BID 07/30/24 07/30/24 History Ondansetron Odt [Zofran Odt] 8 mg PO Q8HR PRN 07/30/24 07/30/24 History Valsartan [Diovan] 80 mg PO HS 07/30/24 07/30/24 History dexAMETHasone [Decadron] 4 mg PO DAILY 07/30/24 07/30/24 History traMADol HCL 50 mg PO DAILY PRN 07/30/24 07/30/24 History Allergies Allergy/AdvReac Type Severity Reaction Status Date / Time No Known Allergies Allergy Verified 07/30/24 08:17 Physical Exam Vitals: Vital Signs Temp Pulse Resp BP Pulse Ox 07/31/24 13:17 102.4 F H 144 H 20 138/90 95 07/31/24 07:44 97.9 F 96 18 147/81 92 L 07/31/24 02:48 97.8 F 87 18 132/68 07/30/24 20:47 98.1 F 100 18 131/73 99 Intake and Output 07/31/24 07/31/24 07/31/24 06:59 14:59 22:59 Intake Total 200 Output Total 1000 Balance -1000 200 Intake: Oral 200 Output: Urine 1000 Other: Voiding Method Indwelling Catheter Weight 81.647 kg GENERAL DESCRIPTION: Elderly female lying in bed, no distress. No tachypnea or accessory muscle of respiration use. HEENT: Shows Pallor , no scleral icterus. Oral mucous membrane is dry. NECK: Trachea central, no thyromegaly. LUNGS: Unlabored breathing. Decreased breath sound at the base HEART: S1, S2, regular rate and rhythm. No loud murmur ABDOMEN: Soft, no tenderness , EXTREMITIES: No edema of feet. SKIN: No rash, no masses palpable. NEUROLOGICAL: The patient is lethargic orientation could not be determined Results CBC & Chem 7: 07/31/24 08:32 07/30/24 05:41 Labs: Abnormal Lab Results - Last 24 Hours (Table) 07/31/24 Range/Units 08:32 WBC 12.0 H (3.8-10.6) k/uL RBC 3.64 L (3.80-5.40) m/uL Hgb 11.3 L (11.4-16.0) gm/dL RDW 21.2 H (11.5-15.5) % Neutrophils # 10.1 H (1.3-7.7) k/uL Microbiology - Last 24 Hours (Table) 07/29/24 23:53 Blood Culture - Preliminary Blood Assessment and Plan (1) Sepsis Current Visit: Yes Status: Acute Code(s): A41.9 - SEPSIS, UNSPECIFIED ORGANISM SNOMED Code(s): 77314892 (2) Influenza Current Visit: Yes Status: Acute Code(s): J11.1 - FLU DUE TO UNIDENTIFIED INFLUENZA VIRUS W OTH RESP MANIFEST SNOMED Code(s): 3418641 (3) Pneumonia Current Visit: Yes Status: Acute Code(s): J18.9 - PNEUMONIA, UNSPECIFIED ORGANISM SNOMED Code(s): 257791100 Plan: 1patient was in the hospital mental status changes weakness in this patient has been febrile did have tachycardia elevated white count meeting criteria for SIRS/sepsis source likely pneumonia with mostly right middle lobe infiltrate question of possible aspiration pneumonia 2-patient also tested positive for influenza A 3-try to obtain sputum for Gram stain and culture 4-patient to continue with the Tamiflu to finish a 5-day course of therapy 5-we will discontinue Rocephin 6-start the patient on Zosyn 3.375 g every 8 hours Family bedside multiple question concern answered We will follow on clinical condition and cultures to further adjust medication if needed Thank you for this consultation we will follow the patient along with you Dictation was produced using [employer] dictation software. please excuse any grammatical, word or spelling errors. Time with Patient: Greater than 30
[2024-07-31] MEDS: PIPERACILLIN-TAZOBACTAM 3.375 GM in SODIUM CHLORIDE 0.9% 100 ML IVPB SCH (22:12)
[2024-08-01] MEDS ORDERED: ZINC OXIDE PASTE (Z-GUARD) 1 APPLIC TOPICAL PRN (11:42)
[2024-08-01 12:45] LABS: Anisocytosis Moderate; Basophils % (A) 0 %; Eosinophils % (A) 0 %; HCT 28.8 % (34.0-46.0); HGB 10.4 gm/dL (11.4-16.0); Hyperchromasia Slight; Lymphocytes # (A) 0.7 k/uL (1.0-4.8); Lymphocytes % (A) 6 %; MCH 31.3 pg (25.0-35.0); MCHC 36.3 g/dL (31.0-37.0); Mean Platelet Volume 7.4; Microcytosis Slight; Monocytes # (A) 0.5 k/uL (0-1.0); Monocytes % (A) 4 %; Neutrophils # (A) 10.7 k/uL (1.3-7.7); Neutrophils % (A) 90 %; Platelet Count 225 k/uL (150-450); Poikilocytosis Slight; RBC 3.33 m/uL (3.80-5.40)
[2024-08-01 12:55] LABS: ALT 46 U/L (4-34); AST 54 U/L (14-36); African American GFR (CKD) >90 (>60 ml/min/1.73 sqM); Albumin 2.5 g/dL (3.5-5.0); Alkaline Phosphatase 44 U/L (38-126); Anion Gap 5 mmol/L; Blood Urea Nitrogen 14 mg/dL (7-17); Calcium 7.8 mg/dL (8.4-10.2); Carbon Dioxide 25 mmol/L (22-30); Chloride 86 mmol/L (98-107); Glucose 88 mg/dL (74-99); Non-African American GFR(CKD) 88 (>60 ml/min/1.73 sqM); Potassium 3.7 mmol/L (3.5-5.1); Total Bilirubin 0.6 mg/dL (0.2-1.3); Total Protein 4.7 g/dL (6.3-8.2)
[2024-08-01 12:57] LABS: MCV 86.4 fL (80.0-100.0)
[2024-08-01 13:04] LABS: Sodium 116 mmol/L (137-145)
--- NOTE | 2024-08-01 14:39 | P.PN ---
Progress Note - Text Progress Note Date: 08/01/24 Chief Complaint: Altered mentation Very pleasant 79-year-old patient follows Dr. Yi. Patient's sister, daughter and granddaughter at the bedside. Chronic medical condition include atrial fibrillation, GERD, hyperlipidemia, osteoarthritis, migraine, lower back pain from disc disease, arthritis, IBS,. Anxiety depression. Patient was diagnosed with metastatic ovarian cancer 2 years ago to include the lungs and liver. Patient's had multiple rounds of chemotherapy. Including immunotherapy. Patient does follow with Dr. Myers at [facility]. At [place] the family gotten together. Patient had oral sores with poor appetite. Over the last 2 3 days patient was noted to be increasingly confused. Poor appetite. Patient normally lives alone. Does use a walker. Patient has been delirious. Fever and tested positive for influenza in the hospital. July 31: Remains lethargic. Family at the bedside. Status spiking fevers again. Getting IV fluids. ID consulted. Discussed with family at the bedside. ID started patient empirically on IV ceftriaxone. Patient on Tamiflu. August 01: Patient spiking fevers yesterday. For other secondary causes had consulted ID. Patient was continued on IV ceftriaxone and Tamiflu. This mo rning patient's sister and granddaughter at the bedside. Patient remains lethargic/delirious. Did eat some yesterday per the granddaughter. Later this afternoon sodium came back at 116. That could be contributing hence patient being moved to the ICU. I did speak to Dr. Jain from intensive care. Also did communicate with gate person Dr. Lopez. May consider hypertonic saline for the same. No fevers overnight. Also neurology consulted. Order EEG. Active Medications Acetaminophen (Acetaminophen Tab 500 Mg Tab) 500 mg PO Q6HR PRN PRN Reason: Fever and/ or Mild Pain Last Admin: 07/31/24 18:13 Dose: 500 mg Hydrocodone Bitart/Acetaminophen (Hydrocodone/Apap 15 Ml Solution) 15 ml PO BID PRN PRN Reason: Pain Albuterol/Ipratropium (Ipratropium-Albuterol 3 Ml Neb) 3 ml INHALATION RT-Q4H PRN PRN Reason: shortness of breath Alprazolam (Alprazolam 0.25 Mg Tab) 0.25 mg PO BID PRN PRN Reason: Anxiety Apixaban (Apixaban 5 Mg Tab) 5 mg PO BID [facility]; Protocol Last Admin: 08/01/24 10:31 Dose: 5 mg Al Hydroxide/Mg Hydroxide 30 ml/ Lidocaine HCl 30 ml/Diphenhydramine HCl 75 mg/Nystatin 3,000,000 unit 0 ml PO TID [facility] Last Admin: 08/01/24 10:46 Dose: Not Given Dexamethasone (Dexamethasone 4 Mg Tab) 4 mg PO DAILY [facility] Last Admin: 08/01/24 10:35 Dose: 4 mg Piperacillin Sod/Tazobactam (Sod 3.375 gm/ Sodium Chloride) 100 mls @ 25 mls/hr IVPB Q8H [facility]; Protocol Last Admin: 08/01/24 05:34 Dose: 25 mls/hr Melatonin (Melatonin 5 Mg Tablet) 10 mg PO HS [facility] Last Admin: 07/31/24 19:46 Dose: 10 mg Metoprolol Tartrate (Metoprolol Tartrate 50 Mg Tab) 50 mg PO BID [facility] Last Admin: 08/01/24 10:31 Dose: 50 mg Miscellaneous Information (Pneumonia Protocol Utilized 1 Each Misc) 1 each PO ONCE PRN PRN Reason: Per Protocol Naloxone HCl (Naloxone 0.4 Mg/Ml 1 Ml Vial) 0.2 mg IV Q2M PRN PRN Reason: Opioid Reversal Ondansetron HCl (Ondansetron 4 Mg/2 Ml Vial) 4 mg IVP Q8HR PRN PRN Reason: Nausea And Vomiting Oseltamivir Phosphate (Oseltamivir 75 Mg Cap) 75 mg PO Q12HR [facility]; Protocol Stop: 08/04/24 09:01 Last Admin: 08/01/24 10:46 Dose: Not Given Petrolatum (Zinc Oxide Paste (Z-Guard) 1 Applic) 1 applic TOPICAL BID PRN; Protocol PRN Reason: Wound Healing Psyllium Hydrophilic Mucilloid (Psyllium Husk 100% 6 Gm Packet) 6 gm PO DAILY [facility] Last Admin: 08/01/24 10:46 Dose: Not Given Tolvaptan (Tolvaptan 15 Mg Tablet) 7.5 mg PO ONCE ONE Stop: 08/01/24 15:01 Physical examination: VITAL SIGNS: Tmax 102.4 yesterday afternoon. This morning 96.3, 95, 17, 136 x 68, 97% room air GENERAL: [BMI 28.2, lethargic delirious. EYES: Pupils equal. Conjunctiva vivian l. HEENT: External appearance of nose and ears normal, oral cavity grossly normal. NECK: JVD not raised; masses not palpable. HEART: First and second heart sounds are normal; no edema. LUNGS: Respiratory rate normal; clear to auscultation. ABDOMEN: Soft, nontender, liver spleen not palpable, no masses palpable. PSYCH: Lethargic. Not really answering questions MUSCULOSKELETAL:No Clubbing/cyanosis;muscles-grossly intact. OA NEUROLOGICAL: Cranial nerves grossly intact; no facial asymmetry, power and sensation grossly intact. INVESTIGATIONS, reviewed in the clinical context: August 01: White count 12 hemoglobin 10.4 platelets 225 sodium 116 potassium 3.7 creatinine 0.6 July 31: White count 12 hemoglobin 11.3 platelets 220. Procalcitonin 0.11 July 30: White count 9.9 hemoglobin 10.6 platelets 173 neutrophils 8.5 lymphocyte 0.8 sodium 128 potassium 4.1 BUN 32 creatinine 0.68 AST 40 ALT 38 albumin 2.8 Urine drug screen positive for opiates, benzodiazepines Influenza type a PCR: Detected Influenza type B, RSV, COVID-19: Not detected EKG tracing personally reviewed by me-normal sinus rhythm. CT scan brain: Unremarkable Chest x-ray film personally reviewed by me-right midlung opacity. Question scattered infiltrates Assessment plan: -Sepsis second underlying influenza A with pneumonitis: Not improving Rule out other causes. ID on the case Tamiflu. IV fluids Empirically started on IV ceftriaxone from ER. -Doubt secondary bacterial pneumonia. Procalcitonin 0.11. -Acute delirium metabolic encephalopathy from sepsis from influenza A: Not improving -Hyponatremia: Worsening Could be contributing to mental status changes. Nephrology consulted to consider hypertonic saline. -Metastatic ovarian cancer for last 2 years. Has received chemotherapy immunotherapy. Does follow with Dr. Myers out of [facility]. CT scan 2 weeks ago showed disease present in the lungs liver and a spot in the sternum. -Chronic medical debility does use a walker -Paroxysmal atrial fibrillation currently in sinus rhythm Eliquis Lopressor. -Essential hypertension Diovan. Metoprolol. -Full code -Medical power of vice president of brand management, son. Westfall Moved patient to the ICU. Consultation to nephrology, neurology. Order EEG. Discussed with family at the bedside. Past Medical History Past Medical History: Atrial Fibrillation, Eye Disorder, GERD/Reflux, Hyperlipidemia, Osteoarthritis (OA), Vascular Disorder Additional Past Medical History / Comment(s): Frequent migraines, lower back disc disease/pain, L and R shoulder pain, flebitis, arthritis in multiple joints, leaky heart valve, bilateral leg varicosities, IBS, bronchitis, UTI, some lasering done right eye for "flashes" History of Any Multi-Drug Resistant Organisms: None Reported Past Surgical History: Adenoidectomy, Breast Surgery, Cholecystectomy, Orthopedic Surgery, Tonsillectomy Additional Past Surgical History / Comment(s): Bilateral wrist tendon surgery, bilateral feet 4th toe surg. d/t curvature, lipoma removed from back, lumbar epidural injections, L leg vein stripping, bilateral leg varicose vein injections to remove, L breast benign biopsy, colonoscopy/benign polypectomy, D&C Past Anesthesia/Blood Transfusion Reactions: No Reported Reaction Additional Past Anesthesia/Blood Transfusion Reaction / Comment(s): Pt has claustrophobia. Past Psychological History: Anxiety, Depression Smoking Status: Former smoker Past Alcohol Use History: Occasional Past Drug Use History: None Reported
[2024-08-01] MEDS ORDERED: TOLVAPTAN 15 MG TABLET PO ONE (15:00)
[2024-08-01 15:17] LABS: Glucose,Whole Blood 98 mg/dL (70-110)
[2024-08-01] MEDS: SODIUM CHLORIDE 3%(HYPERTONIC) 500 ML IV ONE (15:24)
[2024-08-01] MEDS ORDERED: RX INFO: IV CONTRAST WAS GIVEN 1 EACH MISC MISCELLANE PRN (16:27)
--- NOTE | 2024-08-01 16:27 | P.CNPUL ---
History of Present Illness Consult date: 08/01/24 Reason for consult: pneumonia History of present illness: 79-year-old female patient, was transferred to the intensive care unit because of symptomatic hyponatremia. The patient's was hospitalized for influenza pneumonia. The patient is known to have metastatic ovarian cancer diagnosed approximately 3 years ago with mets to the liver and the lungs. The patient received multiple rounds of systemic chemotherapy including immunotherapy. The patient has been treated through [facility], Dr. Myers. The patient presented to us with altered mentation, poor appetite, generalized weakness, and delirium. She tested positive for influenza in the hospital. She was started on IV fluids and she was also started on Tamiflu. There was a concern for a bacterial pneumonia and based on that the patient was covered with broad-spectrum antibiotics in addition. The patient had a chest x-ray that showed a large opacity in the left midlung in addition to that there was a focal right midlung opacity. No evidence of any pleural effusion. During this current hospitalization, as the patient was getting IV fluids, the patient deve loped progressive worsening her sodium level. Her sodium level at admission was 125, subsequently came 828 and currently is down to 216. IV fluids were stopped and the patient got transferred to the intensive care unit for hypertonic saline solution which is currently running at 25 cc an hour. Nephrology has been consulted. In terms of antibiotic coverage, the patient is currently on IV Zosyn. The patient is also on Tamiflu. She remains lethargic and weak and quite debilitated. No focal neurological deficits. CAT scan of the brain done in the emergency department showed no evidence of any acute intra cranial process. She is hemodynamically stable. Review of Systems ROS unobtainable: due to mental status Past Medical History Past Medical History: Atrial Fibrillation, Eye Disorder, GERD/Reflux, Hyperli pidemia, Osteoarthritis (OA), Vascular Disorder Additional Past Medical History / Comment(s): Frequent migraines, lower back disc disease/pain, L and R shoulder pain, flebitis, arthritis in multiple joints, leaky heart valve, bilateral leg varicosities, IBS, bronchitis, UTI, some lasering done right eye for "flashes" History of Any Multi-Drug Resistant Organisms: None Reported Past Surgical History: Adenoidectomy, Breast Surgery, Cholecystectomy, Orthopedic Surgery, Tonsillectomy Additional Past Surgical History / Comment(s): Bilateral wrist tendon surgery, bilateral feet 4th toe surg. d/t curvature, lipoma removed from back, lumbar epidural injections, L leg vein stripping, bilateral leg varicose vein injections to remove, L breast benign biopsy, colonoscopy/benign polypectomy, D&C Past Anesthesia/Blood Transfusion Reactions: No Reported Reaction Additional Past Anesthesia/Blood Transfusion Reaction / Comment(s): Pt has claustrophobia. Past Psychological History: Anxiety, Depression Smoking Status: Former smoker Past Alcohol Use History: Occasional Past Drug Use History: None Reported - Past Family History Mother Family Medical History: CVA/TIA, Deep Vein Thrombosis (DVT) Additional Family Medical History / Comment(s): Mother lived to be 92.5 years old. Father Family Medical History: Cancer, COPD Additional Family Medical History / Comment(s): Father of lung cancer. He was a smoker. Medications and Allergies Home Medications Medication Instructions Recorded Confirmed Type ALPRAZolam [Xanax] 0.25 mg PO BID 07/30/24 07/30/24 History Amoxic-Pot Clav 500-125 mg 1 tab PO BID 07/30/24 07/30/24 History [Augmentin 500-125 mg] Apixaban [Eliquis] 5 mg PO BID 07/30/24 07/30/24 History Chlorthalidone [Hygroton] 25 mg PO DAILY@1200 07/30/24 07/30/24 History Docusate [Colace] 100 mg PO HS PRN 07/30/24 07/30/24 History HYDROcodone/APAP [Virgilina Elixir 15 ml PO BID PRN 07/30/24 07/30/24 History 7.5-325Mg/15Ml] Melatonin 10 mg PO HS 07/30/24 07/30/24 History Metoprolol Tartrate [Lopressor] 50 mg PO BID 07/30/24 07/30/24 History Ondansetron Odt [Zofran Odt] 8 mg PO Q8HR PRN 07/30/24 07/30/24 History Valsartan [Diovan] 80 mg PO HS 07/30/24 07/30/24 History dexAMETHasone [Decadron] 4 mg PO DAILY 07/30/24 07/30/24 History traMADol HCL 50 mg PO DAILY PRN 07/30/24 07/30/24 History Allergies Allergy/AdvReac Type Severity Reaction Status Date / Time No Known Allergies Allergy Verified 07/30/24 08:17 Physical Exam Vitals: Vital Signs Temp Pulse Resp BP Pulse Ox 08/01/24 07:50 96.3 F L 95 17 136/68 97 08/01/24 01:56 97.5 F L 77 18 150/62 95 07/31/24 21:05 122 H 95 07/31/24 20:00 100.0 F H 155 H 20 150/94 95 07/31/24 17:47 101.3 F H Intake and Output 08/01/24 08/01/24 08/01/24 06:59 14:59 22:59 Output Total 1000 Balance -1000 Output: Urine 1000 Other: Voiding Method Indwelling Catheter # Bowel Movements 1 GENERAL: [BMI 28.2, lethargic delirious. EYES: Pupils equal. Conjunctiva vivian l. HEENT: External appearance of nose and ears normal, oral cavity grossly normal. NECK: JVD not raised; masses not palpable. HEART: First and second heart sounds are normal; no edema. LUNGS: Respiratory rate normal; clear to auscultation. ABDOMEN: Soft, nontender, liver spleen not palpable, no masses palpable. PSYCH: Lethargic. Not really answering questions MUSCULOSKELETAL:No Clubbing/cyanosis;muscles-grossly intact. OA NEUROLOGICAL: Cranial nerves grossly intact; no facial asymmetry, power and se nsation grossly intact. Results - Laboratory Findings CBC and BMP: 08/01/24 12:23 08/01/24 12:23 PT/INR, D-dimer PT 11.5 sec (10.0-12.5) 07/29/24 20:51 INR 1.0 (<1.2) 07/29/24 20:51 Abnormal lab findings: Abnormal Labs 07/29/24 07/29/24 07/29/24 20:51 20:51 23:09 WBC 11.5 H RBC Hgb Hct RDW 21.4 H Neutrophils # 10.4 H Lymphocytes # 0.5 L Sodium 125 L Chloride 88 L BUN 44 H Glucose 202 H Calcium AST 67 H ALT 49 H Total Protein Albumin Urine Opiates Screen U Benzodiazepines Scrn Influenza Type A (PCR) Detected A 07/30/24 07/30/24 07/30/24 05:41 05:41 05:45 WBC RBC 3.32 L Hgb 10.6 L Hct 29.6 L RDW 21.5 H Neutrophils # 8.5 H Lymphocytes # 0.8 L Sodium 128 L Chloride 95 L BUN 32 H Glucose Calcium 8.2 L AST 40 H ALT 38 H Total Protein 5.3 L Albumin 2.8 L Urine Opiates Screen Detected H U Benzodiazepines Scrn Detected H Influenza Type A (PCR) 07/31/24 08/01/24 08/01/24 08:32 12:23 12:23 WBC 12.0 H 12.0 H RBC 3.64 L 3.33 L Hgb 11.3 L 10.4 L Hct 28.8 L RDW 21.2 H 22.0 H Neutrophils # 10.1 H 10.7 H Lymphocytes # 0.7 L Sodium 116 L* Chloride 86 L BUN Glucose Calcium 7.8 L AST 54 H ALT 46 H Total Protein 4.7 L Albumin 2.5 L Urine Opiates Screen U Benzodiazepines Scrn Influenza Type A (PCR) Assessment and Plan Plan: Acute influenza syndrome with possible pneumonia. Chest x-ray shows large focal right midlung opacity and another large left opacity involving the left midlung. Underlying lung masses cannot be completely ruled out. A CAT scan of the chest will be needed accordingly. Fever, secondary to acute influenza syndrome Metastatic ovarian cancer with mets to the lungs and liver. The patient was diagnosed approximate 2 years ago and she has undergone treatment and currently she is on Enhertu receiving cycle 3 on 07/05/2024. Acute hyponatremia, rule out pneumonia induced/malignancy induced SIADH. Altered mentation/delirium, could be also related to metabolic encephalopathy History of atrial fibrillation Osteoarthritis Hyperlipidemia Irritable bowel syndrome History of varicose veins involving lower extremities Former smoker Plan Patient is currently on room air oxygen Hemodynamically stable The patient was transferred to the intensive care unit Monitor mental status Hypertonic saline 3% with a rate of 25 cc an hour Monitor sodium level every 4 hours Nephrology consult regarding hyponatremia Check urine osmolality and serum osmolality and urine sodium Fluid restriction Continue Tamiflu Broad-spectrum antibiotics with IV Zosyn CAT scan of the chest with contrast Procalcitonin level is not elevated at 0.11 Full CODE STATUS Will continue to follow
--- NOTE | 2024-08-01 16:32 | P.PN ---
Subjective Progress Note Date: 08/01/24 Principal diagnosis: Reason for follow-up is acute influenza A and pneumonia Patient is a 79-year-old female past medical history significant for hyperlipidemia atrial fibrillation osteoarthritis did have a history of metastatic ovarian cancer for the patient follows with Dr. Myers at [facility] in [place] presenting to the hospital for evaluation of mental status changes she was noted to be febrile tested positive for influenza A and there was concern for right middle lobe upper lobe opacity suspicious for pneumonia. On today's evaluation that is 08/01/2024,the patient fever pattern has improved and the patient is afebrile this morning patient remains to be lethargic and did not answer any question no worsening cough vomiting or diarrhea reported by the family at the bedside. Patient white count is 12,000, creatinine 0.68 blood cultures are pending Objective - Vital Signs Vital signs: Vital Signs Temp 96.3 F L 08/01/24 07:50 Pulse 95 08/01/24 07:50 Resp 17 08/01/24 07:50 BP 136/68 08/01/24 07:50 Pulse Ox 97 08/01/24 07:50 FiO2 Intake & Output 07/31/24 08/01/24 08/01/24 18:59 06:59 18:59 Intake Total 200 Output Total 1150 1000 Balance -950 -1000 Intake: Oral 200 Output: Urine 1150 1000 Other: Voiding Method Indwelling Catheter Indwelling Catheter # Bowel Movements 1 1 - Exam GENERAL DESCRIPTION: An elderly female lying in bed in no distress RESPIRATORY SYSTEM: Unlabored breathing , decreased intensity of breath sounds, no wheeze HEART: S1 S2 regular rate and rhythm , ABDOMEN: Soft , no tenderness EXTREMITIES: No edema feet - Labs CBC & Chem 7: 08/01/24 12:23 08/01/24 12:23 Labs: Abnormal Lab Results - Last 24 Hours (Table) 08/01/24 Range/Units 12:23 WBC 12.0 H (3.8-10.6) k/uL RBC 3.33 L (3.80-5.40) m/uL Hgb 10.4 L (11.4-16.0) gm/dL Hct 28.8 L (34.0-46.0) % RDW 22.0 H (11.5-15.5) % Neutrophils # 10.7 H (1.3-7.7) k/uL Lymphocytes # 0.7 L (1.0-4.8) k/uL Microbiology - Last 24 Hours (Table) 07/29/24 23:53 Blood Culture - Preliminary Blood Assessment and Plan (1) Sepsis Current Visit: Yes Status: Acute Code(s): A41.9 - SEPSIS, UNSPECIFIED ORGANISM SNOMED Code(s): 78154666 (2) Influenza Current Visit: Yes Status: Acute Code(s): J11.1 - FLU DUE TO UNIDENTIFIED INFLUENZA VIRUS W OTH RESP MANIFEST SNOMED Code(s): 5424369 (3) Pneumonia Current Visit: Yes Status: Acute Code(s): J18.9 - PNEUMONIA, UNSPECIFIED ORGANISM SNOMED Code(s): 200572671 Plan: 1patient was in the hospital mental status changes weakness in this patient has been febrile did have tachycardia elevated white count meeting criteria for SIRS/sepsis source likely pneumonia with mostly right middle lobe infiltrate question of possible aspiration pneumonia 2-patient also tested positive for influenza A 3-try to obtain sputum for Gram stain and culture 4-patient to continue with the Tamiflu to finish a 5-day course of therapy 5-patient did have improvement in fever pattern with adjustment of antibiotics to Zosyn 3.375 g every 8 hours which will be continued antibiotic clinical course closely Family bedside multiple question concern answered Dictation was produced using AquaMost dictation software. please excuse any grammatical, word or spelling errors. Time with Patient: Less than 30
--- NOTE | 2024-08-01 18:39 | CT ---
EXAMINATION TYPE: CT chest w con DATE OF EXAM: 08/01/2024 6:14 PM COMPARISON: Chest radiograph from 08/01/2024 CLINICAL INDICATION: Female, 79 years old with history of history of mass ; PHH, Hx of mass. TECHNIQUE: Multiple axial images were obtained through the chest. Sagittal and coronal reformats were created for review. MIP was performed on a separate workstation. Contrast used:100 ml mL of Isovue 300 with IV Contrast (None if empty) Oral contrast used: (None if empty) CT DLP: 270.8 mGycm, Automated exposure control for dose reduction was used. FINDINGS: LUNGS/ PLEURA: Right middle lobe and anterior inferior upper lobe consolidation changes with masslike appearance. Additionally there is a scattered pulmonary nodules which are peripheral located right g reater than left. Some area of cavitation. AIRWAY: Patent and unremarkable. HEART: Size within normal limits. MEDIASTINUM: No gross evidence of adenopathy. Small hiatal hernia present. VASCULATURE: No aortic aneurysm. MUSCULOSKELETAL: No acute osseous abnormalities SOFT TISSUES/LYMPH NODES: Unremarkable. LOWER NECK: No significant findings. UPPER ABDOMEN: No significant findings. Splenule is present. IMPRESSION: 1. Right masslike consolidation changes with some air bronchograms. Findings on this exam alone coul d represent airspace disease such as pneumonia with underlying mass not excluded. 2. Scattered peripheral nodules with central cavitation would correlate for septic embolic phenomeno n versus versus cavitating malignancy if there is a mass in the inferior right middle/right lower lob e. Other etiologies include autoimmune disorders [facility], , 08/01/2024 6:37 PM
--- NOTE | 2024-08-01 18:48 | EEG ---
ELECTROENCEPHALOGRAM REPORT PREAMBLE: This is a 79-year-old female with acute mental status change, confusion. The patient has severe hyponatremia. EEG FINDINGS: This is a 21-channel digital EEG recorded with video component, utilizing 10/20 international system with referential and bipolar montages. Background consists of poorly developed and regulated, predominantly dysrhythmic, disorganized 2 to 3 hertz delta activity seen in bihemispheric region. A lot of myogenic activity seen in the frontal temporal region. Different stages of sleep were not seen. Photic stimulation was not performed. No focal or generalized epileptiform activity was seen. IMPRESSION: This is an abnormal EEG due to background slowing and disorganization of severe degree. This is suggestive of generalized cerebral dysfunction as can be seen with toxic metabolic encephalopathy or related to diffuse structural brain abnormality. Clinical correlation is recommended. No epileptiform activity was seen. MMHERSON / DEBI: [id number] / MTDD
--- NOTE | 2024-08-01 21:31 | P.NPCON ---
History of Present Illness - Reason for Consult hyponatremia - History of Present Illness Patient is a 79-year-old female with history of metastatic ovarian cancer who was admitted to the hospital with complaints of weakness. She is noted to have a fever and tested positive for influenza A. Patient was maintained on IV fluids. Serum sodium was 125 on admission. Improved to 128 initially and then dropped to 116 this afternoon. Patient was also noted to have mental status changes and is barely responsive. She is therefore being transferred to the ICU to start 3% saline. No significant hypotension noted. Patient has indwelling Ortiz catheter. Chest x-ray shows bilateral hazy opacities. O2 sats 91% on room air. No reports of diarrhea nausea or vomiting. Past Medical History Past Medical History: Atrial Fibrillation, Eye Disorder, GERD/Reflux, Hyperlipid emia, Osteoarthritis (OA), Vascular Disorder Additional Past Medical History / Comment(s): Frequent migraines, lower back disc disease/pain, L and R shoulder pain, flebitis, arthritis in multiple joints, leaky heart valve, bilateral leg varicosities, IBS, bronchitis, UTI, so me lasering done right eye for "flashes" History of Any Multi-Drug Resistant Organisms: None Reported Past Surgical History: Adenoidectomy, Breast Surgery, Cholecystectomy, Orthopedic Surgery, Tonsillectomy Additional Past Surgical History / Comment(s): Bilateral wrist tendon surgery, bilateral feet 4th toe surg. d/t curvature, lipoma removed from back, lumbar epidural injections, L leg vein stripping, bilateral leg varicose vein injections to remove, L breast benign biopsy, colonoscopy/benign polypectomy, D&C Past Anesthesia/Blood Transfusion Reactions: No Reported Reaction Additional Past Anesthesia/Blood Transfusion Reaction / Comment(s): Pt has claustrophobia. Past Psychological History: Anxiety, Depression Smoking Status: Former smoker Past Alcohol Use History: Occasional Past Drug Use History: None Reported - Past Family History Mother Family Medical History: CVA/TIA, Deep Vein Thrombosis (DVT) Additional Family Medical History / Comment(s): Mother lived to be 92.5 years ol d. Father Family Medical History: Cancer, COPD Additional Family Medical History / Comment(s): Father of lung cancer. He was a smoker. Medications and Allergies Home Medications Medication Instructions Recorded Confirmed Type ALPRAZolam [Xanax] 0.25 mg PO BID 07/30/24 07/30/24 History Amoxic-Pot Clav 500-125 mg 1 tab PO BID 07/30/24 07/30/24 History [Augmentin 500-125 mg] Apixaban [Eliquis] 5 mg PO BID 07/30/24 07/30/24 History Chlorthalidone [Hygroton] 25 mg PO DAILY@1200 07/30/24 07/30/24 History Docusate [Colace] 100 mg PO HS PRN 07/30/24 07/30/24 History HYDROcodone/APAP [[place] Elixir 15 ml PO BID PRN 07/30/24 07/30/24 History 7.5-325Mg/15Ml] Melatonin 10 mg PO HS 07/30/24 07/30/24 History Metoprolol Tartrate [Lopressor] 50 mg PO BID 07/30/24 07/30/24 History Ondansetron Odt [Zofran Odt] 8 mg PO Q8HR PRN 07/30/24 07/30/24 History Valsartan [Diovan] 80 mg PO HS 07/30/24 07/30/24 History dexAMETHasone [Decadron] 4 mg PO DAILY 07/30/24 07/30/24 History traMADol HCL 50 mg PO DAILY PRN 07/30/24 07/30/24 History Allergies Allergy/AdvReac Type Severity Reaction Status Date / Time No Known Allergies Allergy Verified 07/30/24 08:17 Physical Exam Vitals: Vital Signs Temp Pulse Pulse Resp BP BP Pulse Ox 08/01/24 20:00 100.1 F H 101 H 132/81 89 L 08/01/24 19:30 96 27 H 91 L 08/01/24 19:00 97 25 H 130/86 90 L 08/01/24 18:30 91 13 125/84 94 L 08/01/24 18:15 92 13 125/84 91 L 08/01/24 17:30 93 33 H 126/69 90 L 08/01/24 17:00 92 18 131/67 92 L 08/01/24 16:30 89 16 123/88 92 L 08/01/24 16:00 97.8 F 88 14 101/85 93 L 08/01/24 15:30 87 12 130/78 95 08/01/24 07:50 96.3 F L 95 17 136/68 97 08/01/24 01:56 97.5 F L 77 18 150/62 95 Intake and Output 08/01/24 08/01/24 08/01/24 06:59 14:59 22:59 Intake Total 225 Output Total 1000 1100 Balance -1000 -875 Intake: IV 225 Piperacillin-Tazobactam 3 100 .375 gm In Sodium Chloride 0.9% 100 ml @ 25 mls/hr IVPB Q8H [facility] Rx#: [id number] Sodium Chloride 3%( 125 Hypertonic) 500 ml @ 25 mls/hr IV .Q20H [facility] Rx#: [id number] Output: Urine 1000 1100 Other: Voiding Method Indwelling Catheter Indwelling Catheter # Bowel Movements 1 Patient is barely responsive. Does not communicate much Examination of the heart S1 and S2 Examination of the lungs bilateral breath sounds are heard Abdomen is soft nontender Examination of lower extremities shows chronic skin changes no significant edema. Results - Lab Results Most recent lab results Calcium 7.8 mg/dL (8.4-10.2) L 08/01/24 12:23 Phosphorus 3.6 mg/dL (2.5-4.5) 07/30/24 05:41 Magnesium 1.7 mg/dL (1.6-2.3) 07/30/24 05:41 08/01/24 12:23 08/01/24 18:22 Assessment and Plan Assessment: 1. Acute hyponatremia with mental status changes. Most likely secondary to SIADH as serum sodium worsened with normal saline. Check urine osmolality and random urine sodium. Patient will need to start 3% saline and she is being transferred to ICU. 2. Influenza A infection/pneumonia 3. Metastatic ovarian cancer 4. Mental status changes most likely associated with metabolic encephalopathy/, hyponatremia and underlying infection. Plan: Start 3% saline Repeat sodium in 4 hours Check urine osmolality and random urine sodium DC normal saline Thank you for the consultation. We will continue to follow the patient with you during her hospitalization.
[2024-08-02 02:17] LABS: Glucose,Whole Blood 94 mg/dL (70-110)
[2024-08-02 03:38] LABS: Anisocytosis Moderate; Basophils % (A) 0 %; Eosinophils % (A) 0 %; HCT 30.3 % (34.0-46.0); HGB 10.8 gm/dL (11.4-16.0); Hyperchromasia Slight; Lymphocytes # (A) 0.5 k/uL (1.0-4.8); Lymphocytes % (A) 4 %; MCH 31.2 pg (25.0-35.0); MCHC 35.7 g/dL (31.0-37.0); MCV 87.5 fL (80.0-100.0); Mean Platelet Volume 7.2; Monocytes # (A) 0.4 k/uL (0-1.0); Monocytes % (A) 3 %; Neutrophils # (A) 10.5 k/uL (1.3-7.7); Neutrophils % (A) 92 %; Platelet Count 229 k/uL (150-450); Poikilocytosis Slight; RBC 3.46 m/uL (3.80-5.40); RDW 21.7 % (11.5-15.5); WBC 11.5 k/uL (3.8-10.6)
[2024-08-02 04:03] LABS: Sodium 120 mmol/L (137-145)
--- NOTE | 2024-08-02 04:34 | XR ---
EXAM: XR Chest, 1 View CLINICAL HISTORY: ITS.REASON XR Reason: NG tube placement TECHNIQUE: Frontal view of the chest. COMPARISON: X-ray dated 07/30/2024 FINDINGS: Lungs: Resolution of confluent opacity seen overlying the left lung. Stable confluent opacity seen within the right lung. Pleural space: Unremarkable. No pneumothorax. Heart: Unremarkable. No cardiomegaly. Mediastinum: Unremarkable. Normal mediastinal contour. Bones/joints: Generative changes seen within the spine and shoulders. No acute fracture. Vasculature: Calcifications overlie the aorta. Tubes, lines and devices: Enteric tube is in place with the tip curled over the gastric bubble. Stable placement of right-sided central venous catheter. IMPRESSION: Enteric tube as above.
[2024-08-02 06:11] LABS: Glucose,Whole Blood 78 mg/dL (70-110)
[2024-08-02] MEDS ORDERED: DEXTROSE 50% SYRINGE 50 ML IVP PRN (06:18)
[2024-08-02] MEDS: DEXTROSE 50% SYRINGE 50 ML IVP PRN (06:27)
[2024-08-02 07:14] LABS: African American GFR (CKD) >90 (>60 ml/min/1.73 sqM); Anion Gap 13 mmol/L; Blood Urea Nitrogen 13 mg/dL (7-17); Carbon Dioxide 17 mmol/L (22-30); Chloride 90 mmol/L (98-107); Glucose 72 mg/dL (74-99); Non-African American GFR(CKD) 87 (>60 ml/min/1.73 sqM); Potassium 3.2 mmol/L (3.5-5.1)
[2024-08-02] MEDS ORDERED: Potassium Replacement Protocol 1 EACH MISC MISCELLANE PRN (07:22)
[2024-08-02] MEDS: IPRATROPIUM-ALBUTEROL 3 ML NEB INHALATION PRN (08:20)
[2024-08-02] MEDS: POTASSIUM BICARBONATE/CIT AC 20 MEQ TABLET.EFF NG-TUBE SCH (08:39)
--- NOTE | 2024-08-02 08:44 | P.CNNES ---
History of Present Illness Consult date: 08/01/24 Requesting physician: Ari Godoy Reason for Consult: Altered mentation History of Present Illness: Patient is a 79-year-old right-handed female with history of metastatic ovarian cancer, on chemotherapy, came to the hospital by ambulance on 07/29/2024 at 8:25 PM for altered mental status. Patient's son, [id number] and granddaughters were present to provide her with a history. Patient is completely obtunded at this time. Family mentions that patient became slightly altered on 07/28/2024 when she was slightly confused and then it progressed. At baseline she is mentally very clear, drives, sings choir at the [employer]. Recently she has been talking about her mother and father and was thinking that her mother is alive. She was very confused, did not know her last name, saw a big cutting saw in the room. She was hallucinating, asking "move onions out of the way", stating that the pictures are broken although not. Family has not noticed any strokelike symptoms, like slurred speech, facial droop, visual problems, focal numbness tingling or weakness. She has been just generalized weak. Patient does take Xanax very sporadically not on a regular basis. Today she has become worse, and is not speaking. Therefore neurology was consulted. As per EMS flowsheet when they arrived, patient was alert, disoriented and confused. Patient's family states patient has decrease in mental status since Monday. Patient is unable to answer any questions appropriately or obey any commands. Family states patient is normally alert and orient x 4. Patient is being treated for ovarian cancer and received her last chemo treatment approximately 3 weeks ago. Patient denies any recent falls or trauma. Patient's vitals at the scene was blood pressure 136/75, pulse 77 respiration 18, saturation 95%. Blood test shows normal CBC with slightly decreased hemoglobin 10.6, sodium 128 potassium 4.1, normal renal functions, AST mildly elevated 40, ALT 38. UA negative. Urine drug screen positive for opiate and benzodiazepine. C. difficile negative. Urine Legionella negative. EKG showed sinus rhythm. CT head revealed no acute intracranial process. Sinus mucosal disease. I personally reviewed CT head, agree with the findings. There is evidence of significant bilateral ethmoid, frontal, right more than left maxillary and right more than left sphenoid sinus disease. Air-fluid levels are seen at multiple levels. Chest x-ray revealed large opacity in the left midlung which is new. Suspected to relate to the patient's hand. Otherwise there is ongoing focal abnormal right midlung opacity. Patient was diagnosed with stage IV over 81 and cancer years ago with metastasis to liver and lungs and lymph nodes. She is currently on chemotherapy, receiving some research medication twice a month. The last infusion was on 07/13/2024. She has developed some ulcer/so around her nose from chemotherapy. Patient has history of smoking, not heavy for 15 to severe, quit in her 40s. Review of Systems Other review of systems as per HPI reported by family members. ROS unobtainable: due to mental status Past Medical History Past Medical History: Atrial Fibrillation, Eye Disorder, GERD/Reflux, Hyperlipidemia, Osteoarthritis (OA), Vascular Disorder Additional Past Medical History / Comment(s): Frequent migraines, lower back disc disease/pain, L and R shoulder pain, flebitis, arthritis in multiple joints, leaky heart valve, bilateral leg varicosities, IBS, bronchitis, UTI, some lasering done right eye for "flashes" History of Any Multi-Drug Resistant Organisms: None Reported Past Surgical History: Adenoidectomy, Breast Surgery, Cholecystectomy, Orthopedic Surgery, Tonsillectomy Additional Past Surgical History / Comment(s): Bilateral wrist tendon surgery, bilateral feet 4th toe surg. d/t curvature, lipoma removed from back, lumbar epidural injections, L leg vein stripping, bilateral leg varicose vein injections to remove, L breast benign biopsy, colonoscopy/benign polypectomy, D&C Past Anesthesia/Blood Transfusion Reactions: No Reported Reaction Additional Past Anesthesia/Blood Transfusion Reaction / Comment(s): Pt has claustrophobia. Past Psychological History: Anxiety, Depression Smoking Status: Former smoker Past Alcohol Use History: Occasional Past Drug Use History: None Reported - Past Family History Mother Family Medical History: CVA/TIA, Deep Vein Thrombosis (DVT) Additional Family Medical History / Comment(s): Mother lived to be 92.5 years old. Father Family Medical History: Cancer, COPD Additional Family Medical History / Comment(s): Father of lung cancer. He was a smoker. Medications and Allergies Home Medications Medication Instructions Recorded Confirmed Type ALPRAZolam [Xanax] 0.25 mg PO BID 07/30/24 07/30/24 History Amoxic-Pot Clav 500-125 mg 1 tab PO BID 07/30/24 07/30/24 History [Augmentin 500-125 mg] Apixaban [Eliquis] 5 mg PO BID 07/30/24 07/30/24 History Chlorthalidone [Hygroton] 25 mg PO DAILY@1200 07/30/24 07/30/24 History Docusate [Colace] 100 mg PO HS PRN 07/30/24 07/30/24 History HYDROcodone/APAP [[place] Elixir 15 ml PO BID PRN 07/30/24 07/30/24 History 7.5-325Mg/15Ml] Metoprolol Tartrate [Lopressor] 50 mg PO BID 07/30/24 07/30/24 History Ondansetron Odt [Zofran Odt] 8 mg PO Q8HR PRN 07/30/24 07/30/24 History RX: Melatonin 10 mg PO HS 07/30/24 07/30/24 History RX: traMADol HCL 50 mg PO DAILY PRN 07/30/24 07/30/24 History Valsartan [Diovan] 80 mg PO HS 07/30/24 07/30/24 History dexAMETHasone [Decadron] 4 mg PO DAILY 07/30/24 07/30/24 History Allergies Allergy/AdvReac Type Severity Reaction Status Date / Time No Known Allergies Allergy Verified 07/30/24 08:17 Physical Examination - Vital Signs Vital Signs: Vital Signs Temp Pulse Resp BP Pulse Ox 08/01/24 07:50 96.3 F L 95 17 136/68 97 08/01/24 01:56 97.5 F L 77 18 150/62 95 07/31/24 21:05 122 H 95 07/31/24 20:00 100.0 F H 155 H 20 150/94 95 07/31/24 17:47 101.3 F H 07/31/24 14:18 98.4 F 07/31/24 13:17 102.4 F H 144 H 20 138/90 95 Intake and Output 07/31/24 08/01/24 08/01/24 22:59 06:59 14:59 Output Total 1150 1000 Balance -1150 -1000 Output: Urine 1150 1000 Other: Voiding Method Indwelling Catheter # Bowel Movements 1 1 Patient is an elderly female, who is completely obtunded, mute, unresponsive. Patient not responding to calling her name loudly. She is not responding to painful stimuli. She is keeping her eyes closed. Patient is not grimacing or withdrawing with nailbed pressure. On cranial nerve examination, the patient's eyes are closed. Very difficult to open the eyes to see the pupils, but appears grossly equal. Patient did not cooperate with even manually opening the eyes. Visual hensley could not be teste d. Extraocular muscles could not be tested as she is completely keeping her eyes shut. Face is symmetric. She did not protrude her tongue. Lower cranial nerves cannot be tested because of his noncooperation. On muscle strength testing, patient not cooperating. Patient not responding to painful supply. Deep tendon reflexes are symmetric, very hypoactive. Sensory to touch or noxious stimulus, patient not responding. Cerebellar function cannot be assessed, as patient is completely obtunded, unresponsive. Tone and bulk of muscles normal. Gait deferred.. On general examination, there is no carotid bruit or murmur, S1-S2 audible. Chest is clear on consultation. Abdomen is soft nontender. No organomegaly, bowel sounds present. Peripheral pulses are present. No peripheral edema. Results - Laboratory Findings CBC and BMP: 08/02/24 03:00 08/02/24 07:09 Abnormal Lab Findings: Abnormal Labs 07/29/24 07/29/24 07/29/24 20:51 20:51 23:09 WBC 11.5 H RBC Hgb Hct RDW 21.4 H Neutrophils # 10.4 H Lymphocytes # 0.5 L Sodium 125 L Chloride 88 L BUN 44 H Glucose 202 H Calcium AST 67 H ALT 49 H Total Protein Albumin Urine Opiates Screen U Benzodiazepines Scrn Influenza Type A (PCR) Detected A 07/30/24 07/30/24 07/30/24 05:41 05:41 05:45 WBC RBC 3.32 L Hgb 10.6 L Hct 29.6 L RDW 21.5 H Neutrophils # 8.5 H Lymphocytes # 0.8 L Sodium 128 L Chloride 95 L BUN 32 H Glucose Calcium 8.2 L AST 40 H ALT 38 H Total Protein 5.3 L Albumin 2.8 L Urine Opiates Screen Detected H U Benzodiazepines Scrn Detected H Influenza Type A (PCR) 07/31/24 08:32 WBC 12.0 H RBC 3.64 L Hgb 11.3 L Hct RDW 21.2 H Neutrophils # 10.1 H Lymphocytes # Sodium Chloride BUN Glucose Calcium AST ALT Total Protein Albumin Urine Opiates Screen U Benzodiazepines Scrn Influenza Type A (PCR) Assessment and Plan Assessment: Altered mental status, likely due to metabolic encephalopathy, severe. Reasons multifactorial as mentioned below. Hyponatremia with current sodium 116. Acute influenza A infection with pneumonia Metastatic ovarian cancer, on investigational chemotherapy. Anemia Elevated LFTs Pansinusitis Plan: * EEG was performed, which revealed background slowing and disorganization of severe degree. This is suggestive of generalized cerebral dysfunction as can be seen with toxic metabolic encephalopathy or related to diffuse structural brain abnormality. Clinical correlation is recommended. No epileptiform activity was seen. * Patient will be admitted to ICU for severe hyponatremia and other medical conditions. * Treatment of hyponatremia, pneumonia and other medical conditions as per IM and other specialties on board. * Neurology will follow clinically. Discussed with family members in detail. * Thank you for the consult.
--- NOTE | 2024-08-02 10:19 | P.PN ---
Subjective Patient is seen for follow-up for hyponatremia. 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 Serum sodium has worsened with normal saline infusion significantly. Currently maintained on 3% saline as patient has had mental status changes. Serum sodium this morning was 120. She is maintained on 25 cc an hour of 3% saline which was increased to 30 cc/ hour today. Tested positive for influenza A. Patient remains obtunded with minimal response to verbal stimuli. Underlying history of metastatic ovarian cancer. Objective - Vital Signs Vital signs: Vital Signs Temp 101.4 F H 08/02/24 08:00 Pulse 98 08/02/24 09:00 Resp 54 H 08/02/24 09:00 BP 128/80 08/02/24 09:00 Pulse Ox 97 08/02/24 09:00 FiO2 Intake & Output 08/01/24 08/02/24 08/02/24 18:59 06:59 18:59 Intake Total 175 500 25 Output Total 875 1085 100 Balance -700 -585 -75 Weight 62.3 kg 62.3 kg Intake: IV 175 500 25 Piperacillin-Tazobactam 3 100 200 .375 gm In Sodium Chloride 0.9% 100 ml @ 25 mls/hr IVPB Q8H [facility] Rx#: [id number] Sodium Chloride 3%( 75 300 25 Hypertonic) 500 ml @ 25 mls/hr IV .Q20H [facility] Rx#: [id number] Output: Urine 875 1085 100 Other: Voiding Method Indwelling Catheter Indwelling Catheter Indwelling Catheter - Exam Patient is barely responsive. Does not communicate much Examination of the heart S1 and S2 Examination of the lungs bilateral breath sounds are heard Abdomen is soft nontender Examination of lower extremities shows chronic skin changes no significant edema. - Labs CBC & Chem 7: 08/02/24 03:00 08/02/24 07:09 Labs: Abnormal Lab Results - Last 24 Hours (Table) 08/01/24 08/01/24 08/01/24 Range/Units 12:23 12:23 12:23 WBC 12.0 H (3.8-10.6) k/uL RBC 3.33 L (3.80-5.40) m/uL Hgb 10.4 L (11.4-16.0) gm/dL Hct 28.8 L (34.0-46.0) % RDW 22.0 H (11.5-15.5) % Neutrophils # 10.7 H (1.3-7.7) k/uL Lymphocytes # 0.7 L (1.0-4.8) k/uL Sodium 116 L* (137-145) mmol/L Potassium (3.5-5.1) mmol/L Chloride 86 L (98-107) mmol/L Carbon Dioxide (22-30) mmol/L Glucose (74-99) mg/dL Osmolality 249 L (275-295) mOsm/kg Calcium 7.8 L (8.4-10.2) mg/dL AST 54 H (14-36) U/L ALT 46 H (4-34) U/L Total Protein 4.7 L (6.3-8.2) g/dL Albumin 2.5 L (3.5-5.0) g/dL 08/01/24 08/01/24 08/02/24 Range/Units 18:22 22:00 03:00 WBC 11.5 H (3.8-10.6) k/uL RBC 3.46 L (3.80-5.40) m/uL Hgb 10.8 L (11.4-16.0) gm/dL Hct 30.3 L (34.0-46.0) % RDW 21.7 H (11.5-15.5) % Neutrophils # 10.5 H (1.3-7.7) k/uL Lymphocytes # 0.5 L (1.0-4.8) k/uL Sodium 115 L* 117 L* (137-145) mmol/L Potassium (3.5-5.1) mmol/L Chloride (98-107) mmol/L Carbon Dioxide (22-30) mmol/L Glucose (74-99) mg/dL Osmolality (275-295) mOsm/kg Calcium (8.4-10.2) mg/dL AST (14-36) U/L ALT (4-34) U/L Total Protein (6.3-8.2) g/dL Albumin (3.5-5.0) g/dL 08/02/24 08/02/24 Range/Units 03:00 07:09 WBC (3.8-10.6) k/uL RBC (3.80-5.40) m/uL Hgb (11.4-16.0) gm/dL Hct (34.0-46.0) % RDW (11.5-15.5) % Neutrophils # (1.3-7.7) k/uL Lymphocytes # (1.0-4.8) k/uL Sodium 120 L 120 L (137-145) mmol/L Potassium 3.2 L (3.5-5.1) mmol/L Chloride 90 L (98-107) mmol/L Carbon Dioxide 17 L (22-30) mmol/L Glucose 72 L (74-99) mg/dL Osmolality (275-295) mOsm/kg Calcium 8.0 L (8.4-10.2) mg/dL AST (14-36) U/L ALT (4-34) U/L Total Protein (6.3-8.2) g/dL Albumin (3.5-5.0) g/dL Microbiology - Last 24 Hours (Table) 07/29/24 23:53 Blood Culture - Preliminary Blood 07/31/24 14:31 Blood Culture - Preliminary Blood Assessment and Plan Assessment: 1. Acute hyponatremia with mental status changes. Most likely secondary to SIADH as serum sodium worsened with normal saline. Urine osmolality 566 and urine sodium 152. 2. Influenza A infection/pneumonia 3. Metastatic ovarian cancer 4. Mental status changes possibly associated with metabolic encephalopathy/, hyponatremia and underlying infection. Rule out other etiology. Repeat CT scan of the head ordered today Plan: Continue 3% saline Repeat sodium in 4 hours
--- NOTE | 2024-08-02 11:45 | CT ---
EXAMINATION TYPE: CT brain wo con DATE OF EXAM: 08/02/2024 COMPARISON: CT brain 4 days earlier CLINICAL INDICATION: Female, 79 years old with history of ams; PHH, AMS. TECHNIQUE: CT scan of the head is performed without contrast. CT DLP: 1139.4 mGycm Automated exposure control for dose reduction was used. FINDINGS: There is no acute intracranial hemorrhage or midline shift identified. Ventricles and sul ci within normal limits in size for patient's age. There is [id number] vague areas of low atte nuation scattered throughout the white matter bilaterally redemonstrated. Findings are nonspecific bu t favor product of chronic small vessel ischemic change in patient of this age. The calvarium is inta ct. There is persistent partial opacification of ethmoid and maxillary sinuses bilaterally along with near complete opacification of the right sphenoid sinus and dependent fluid in the bilateral frontal sinuses. The globes are intact bilaterally. IMPRESSION: No acute intracranial hemorrhage or midline shift. No significant change from most recen t prior CT. [facility], , 08/02/2024 11:42 AM
[2024-08-02 11:53] LABS: Glucose,Whole Blood 101 mg/dL (70-110)
[2024-08-02] MEDS: SODIUM CHLORIDE 3%(HYPERTONIC) 500 ML IV ONE (12:23)
--- NOTE | 2024-08-02 13:41 | P.PN ---
Subjective Progress Note Date: 08/02/24 79-year-old female patient, was transferred to the intensive care unit because of symptomatic hyponatremia. The patient's was hospitalized for influenza pneumonia. The patient is known to have metastatic ovarian cancer diagnosed approximately 3 years ago with mets to the liver and the lungs. The patient received multiple rounds of systemic chemotherapy including immunotherapy. The patient has been treated through [facility], Dr. Myers. The patient presented to us with altered mentation, poor appetite, generalized weakness, and delirium. She tested positive for influenza in the hospital. She was started on IV fluids and she was also started on Tamiflu. There was a concern for a bacterial pneumonia and based on that the patient was covered with broad-spectrum antibiotics in addition. The patient had a chest x-ray that showed a large opacity in the left midlung in addition to that there was a focal right midlung opacity. No evidence of any pleural effusion. During this current hospitalization, as the patient was getting IV fluids, the patient developed progressive worsening her sodium level. Her sodium level at admission was 125, subsequently came 828 and currently is down to 216. IV fluids were stopped and the patient got transferred to the intensive care unit for hypertonic saline solution which is currently running at 25 cc an hour. Nephrology has been consulted. In terms of antibiotic coverage, the patient is currently on IV Zosyn. The patient is also on Tamiflu. She remains lethargic and weak and quite debilitated. No focal neurological deficits. CAT scan of the brain done in the emergency department showed no evidence of any acute intra cranial process. She is hemodynamically stable. 08/02/2024, the patient remains altered and confused. She is nonverbal. Sluggishly responsive to painful stimulation and there is significant impairment level of consciousness. Based on that, a repeat CAT scan of the brain was ordered and was performed this morning. Neurology is also on the case. EEG that was on 08/01/2024 showed background slowing with disorganization of severe degree and generalized cerebral dysfunction. The patient's sodium level gradually continues to improve. She remains on 3% hypertonic saline and currently her sodium level is up to 120. Meanwhile, she remains on 12 L of oxygen by nasal cannula. Chest x-ray remains unchanged. CAT scan of the chest was performed yesterday and showed evidence of metastatic disease with pulmonary involvement with several pulmonary nodules. In addition, there was an area of masslike consolidation involving the right upper lobe which is suggestive of underlying pneumonia and the patient remains on IV Zosyn. She remains on Tamiflu. NG tube was inserted for medication and oral feeding. She remains on Decadron 4 mg p.o. daily. She remains on IV Zosyn. She remains on hypertonic saline solution. Labs from today shows a WBC count of 11 hemoglobin 10.8 and platelet count of 229. Sodium is at 120 with a potassium level of 3.2, BUN 13 with a creatinine of 0.6. Serum bicarb is at 17. Glucose at 78. Calcium levels at 8.0. The procalcitonin level was 0.11. Objective - Vital Signs Vital signs: Vital Signs Temp 101.4 F H 08/02/24 08:00 Pulse 96 08/02/24 08:33 Resp 24 08/02/24 08:00 BP 116/88 08/02/24 08:00 Pulse Ox 93 L 08/02/24 08:21 FiO2 Intake & Output 08/01/24 08/02/24 08/02/24 18:59 06:59 18:59 Intake Total 175 500 25 Output Total 875 1085 100 Balance -700 -585 -75 Weight 62.3 kg Intake: IV 175 500 25 Piperacillin-Tazobactam 3 100 200 .375 gm In Sodium Chloride 0.9% 100 ml @ 25 mls/hr IVPB Q8H [facility] Rx#: [id number] Sodium Chloride 3%( 75 300 25 Hypertonic) 500 ml @ 25 mls/hr IV .Q20H ONE Rx#: [id number] Output: Urine 875 1085 100 Other: Voiding Method Indwelling Catheter Indwelling Catheter Indwelling Catheter - Exam GENERAL: Unresponsive, extremely lethargic, nonverbal, lethargic delirious. The patient is currently on 12 L of oxygen by nasal cannula. NG tube is in place. EYES: Pupils equal. Conjunctiva vivian HEENT: External appearance of nose and ears normal, oral cavity grossly normal. NECK: JVD not raised; masses not palpable. HEART: First and second heart sounds are normal; no edema. LUNGS: Respiratory rate normal; clear to auscultation. ABDOMEN: Soft, nontender, liver spleen not palpable, no masses palpable. PSYCH: Lethargic. Not really answering questions MUSCULOSKELETAL:No Clubbing/cyanosis;muscles-grossly intact. OA NEUROLOGICAL: Cranial nerves grossly intact; no facial asymmetry, Nevertheless, there is significant impairment level of consciousness. The patient is not following commands. Barely grimaces to painful stimulation. Motor and sensory functions cannot be appropriately obtained. Pupils are equal reactive to light. - Labs CBC & Chem 7: 08/02/24 03:00 08/02/24 10:45 Labs: Abnormal Lab Results - Last 24 Hours (Table) 08/01/24 08/01/24 08/01/24 Range/Units 12:23 12:23 12:23 WBC 12.0 H (3.8-10.6) k/uL RBC 3.33 L (3.80-5.40) m/uL Hgb 10.4 L (11.4-16.0) gm/dL Hct 28.8 L (34.0-46.0) % RDW 22.0 H (11.5-15.5) % Neutrophils # 10.7 H (1.3-7.7) k/uL Lymphocytes # 0.7 L (1.0-4.8) k/uL Sodium 116 L* (137-145) mmol/L Potassium (3.5-5.1) mmol/L Chloride 86 L (98-107) mmol/L Carbon Dioxide (22-30) mmol/L Glucose (74-99) mg/dL Osmolality 249 L (275-295) mOsm/kg Calcium 7.8 L (8.4-10.2) mg/dL AST 54 H (14-36) U/L ALT 46 H (4-34) U/L Total Protein 4.7 L (6.3-8.2) g/dL Albumin 2.5 L (3.5-5.0) g/dL 08/01/24 08/01/24 08/02/24 Range/Units 18:22 22:00 03:00 WBC 11.5 H (3.8-10.6) k/uL RBC 3.46 L (3.80-5.40) m/uL Hgb 10.8 L (11.4-16.0) gm/dL Hct 30.3 L (34.0-46.0) % RDW 21.7 H (11.5-15.5) % Neutrophils # 10.5 H (1.3-7.7) k/uL Lymphocytes # 0.5 L (1.0-4.8) k/uL Sodium 115 L* 117 L* (137-145) mmol/L Potassium (3.5-5.1) mmol/L Chloride (98-107) mmol/L Carbon Dioxide (22-30) mmol/L Glucose (74-99) mg/dL Osmolality (275-295) mOsm/kg Calcium (8.4-10.2) mg/dL AST (14-36) U/L ALT (4-34) U/L Total Protein (6.3-8.2) g/dL Albumin (3.5-5.0) g/dL 08/02/24 08/02/24 Range/Units 03:00 07:09 WBC (3.8-10.6) k/uL RBC (3.80-5.40) m/uL Hgb (11.4-16.0) gm/dL Hct (34.0-46.0) % RDW (11.5-15.5) % Neutrophils # (1.3-7.7) k/uL Lymphocytes # (1.0-4.8) k/uL Sodium 120 L 120 L (137-145) mmol/L Potassium 3.2 L (3.5-5.1) mmol/L Chloride 90 L (98-107) mmol/L Carbon Dioxide 17 L (22-30) mmol/L Glucose 72 L (74-99) mg/dL Osmolality (275-295) mOsm/kg Calcium 8.0 L (8.4-10.2) mg/dL AST (14-36) U/L ALT (4-34) U/L Total Protein (6.3-8.2) g/dL Albumin (3.5-5.0) g/dL Microbiology - Last 24 Hours (Table) 07/29/24 23:53 Blood Culture - Preliminary Blood 07/31/24 14:31 Blood Culture - Preliminary Blood Assessment and Plan Plan: Acute influenza syndrome with possible pneumonia. Chest x-ray shows large focal right midlung opacity and another large left opacity involving the left midlung. Underlying lung masses cannot be completely ruled out. A CAT scan of the chest was completed on 08/01/2024 and there is evidence of metastatic pulmonary nodules in addition to an area of consolidation in the right upper lobe suggestive of bacterial pneumonia and the patient remains on IV Zosyn Fever, secondary to acute influenza syndrome Metastatic ovarian cancer with mets to the lungs and liver. The patient was diagnosed approximate 2 years ago and she has undergone treatment and currently she is on Enhertu receiving cycle 3 on 07/05/2024.. CAT scan of the chest shows metastatic bilateral pulmonary nodules Acute hyponatremia, rule out pneumonia induced/malignancy induced SIADH, currently on hypertonic saline solution and sodium levels of 220 Altered mentation/delirium, could be also related to metabolic encephalopathy, rule out leptomeningeal metastases. Rule out viral encephalitis. History of atrial fibrillation Osteoarthritis Hyperlipidemia Irritable bowel syndrome History of varicose veins involving lower extremities Former smoker Plan Patient is 12 L of oxygen by nasal cannula Right upper lobe consolidation suggestive of bacterial pneumonia the patient remains on IV Zosyn Hemodynamically stable Significantly impaired mental status and the patient to be seen by neurology Obtain a follow-up CAT scan of the brain Check ammonia level Consider lumbar puncture if no improvement in the patient's mental status Monitor electrolytes and sodium levels gradually improving The patient was transferred to the intensive care unit Monitor mental status Hypertonic saline 3% with a rate of 30 cc an hour Monitor sodium level every 4 hour Fluid restriction Continue Tamiflu Broad-spectrum antibiotics with IV Zosyn Procalcitonin level is not elevated at 0.11 Full CODE STATUS NG tube in place for enteral feeding to be started today Will continue to follow Condition is critical. Critical care evaluation that was done more than 30 minutes. Will continue following up this patient with the rest of the consultants. Time with Patient: Greater than 30
--- NOTE | 2024-08-02 16:31 | P.PN ---
Progress Note - Text Progress Note Date: 08/02/24 Chief Complaint: Altered mentation Very pleasant 79-year-old patient follows Dr. Yi. Patient's sister, daughter and granddaughter at the bedside. Chronic medical condition include atrial fibrillation, GERD, hyperlipidemia, osteoarthritis, migraine, lower back pain from disc disease, arthritis, IBS,. Anxiety depression. Patient was diagnosed with metastatic ovarian cancer 2 years ago to include the lungs and liver. Patient's had multiple rounds of chemotherapy. Including immunotherapy. Patient does follow with Dr. Myers at [facility]. At [place] the family gotten together. Patient had oral sores with poor appetite. Over the last 2 3 days patient was noted to be increasingly confused. Poor appetite. Patient normally lives alone. Does use a walker. Patient has been delirious. Fever and tested positive for influenza in the hospital. July 31: Remains lethargic. Family at the bedside. Status spiking fevers again. Getting IV fluids. ID consulted. Discussed with family at the bedside. ID started patient empirically on IV ceftriaxone. Patient on Tamiflu. August 01: Patient spiking fevers yesterday. For other secondary causes had consulted ID. Patient was continued on IV ceftriaxone and Tamiflu. This mo rning patient's sister and granddaughter at the bedside. Patient remains lethargic/delirious. Did eat some yesterday per the granddaughter. Later this afternoon sodium came back at 116. That could be contributing hence patient being moved to the ICU. I did speak to Dr. Jain from intensive care. Also did communicate with sponge maker Dr. Lopez. May consider hypertonic saline for the same. No fevers overnight. Also neurology consulted. Order EEG. August 02: Patient moved to the ICU yesterday because of low sodium at 116. Hypertonic saline given. Also on IV Zosyn. CT scan of the brain done this afternoon did not show anything acute. CT scan chest done yesterday evening shows right masslike consolidation with some air bronchograms. Could represent pneumonia. Malignant mass still possible. Other peripheral nodules with central cavitation different differential. Spoke to patient's son Stephen at the bedside and his . Prognosis guarded because of multiple issues. Patient is a full code. NG tube feeding has been started. Sodium this afternoon 123. Spiked fever this morning. On high flow 10 L oxygen. Active Medications Acetaminophen (Acetaminophen Tab 500 Mg Tab) 500 mg PO Q6HR PRN PRN Reason: Fever and/ or Mild Pain Last Admin: 07/31/24 18:13 Dose: 500 mg Hydrocodone Bitart/Acetaminophen (Hydrocodone/Apap 15 Ml Solution) 15 ml PO BID PRN PRN Reason: Pain Albuterol/Ipratropium (Ipratropium-Albuterol 3 Ml Neb) 3 ml INHALATION RT-Q4H PRN PRN Reason: shortness of breath Last Admin: 08/02/24 08:20 Dose: 3 ml Apixaban (Apixaban 5 Mg Tab) 5 mg PO BID [facility]; Protocol Last Admin: 08/02/24 08:39 Dose: 5 mg Al Hydroxide/Mg Hydroxide 30 ml/ Lidocaine HCl 30 ml/Diphenhydramine HCl 75 mg/Nystatin 3,000,000 unit 0 ml PO TID [facility] Last Admin: 08/02/24 15:23 Dose: Not Given Dexamethasone (Dexamethasone 4 Mg Tab) 4 mg PO DAILY [facility] Last Admin: 08/02/24 09:42 Dose: 4 mg Dextrose/Water (Dextrose 50% Syringe 50 Ml) 50 ml IVP ONCE PRN; Protocol PRN Reason: Hypoglycemia Last Admin: 08/02/24 06:27 Dose: 50 ml Piperacillin Sod/Tazobactam (Sod 3.375 gm/ Sodium Chloride) 100 mls @ 25 mls/hr IVPB Q8H [facility]; Protocol Last Admin: 08/02/24 15:22 Dose: 25 mls/hr Sodium Chloride (Hypertonic) (Saline 3% (Hypertonic)) 500 mls @ 30 mls/hr IV .[id number] [facility]; Protocol Stop: 08/03/24 01:26 Last Admin: 08/02/24 12:23 Dose: 30 mls/hr Melatonin (Melatonin 5 Mg Tablet) 10 mg PO HS [facility] Last Admin: 08/01/24 20:29 Dose: Not Given Metoprolol Tartrate (Metoprolol Tartrate 50 Mg Tab) 50 mg PO BID [facility] Last Admin: 08/02/24 05:39 Dose: 50 mg Miscellaneous Information (Pneumonia Protocol Utilized 1 Each Misc) 1 each PO ONCE PRN PRN Reason: Per Protocol Miscellaneous Information (Rx Info: Iv Contrast Was Given 1 Each Misc) 1 each MISCELLANE DAILY PRN PRN Reason: Per Protocol Stop: 08/03/24 16:27 Miscellaneous Information (Potassium Replacement Protocol 1 Each Misc) 1 each MISCELLANE DAILY PRN; Protocol PRN Reason: Per Protocol Naloxone HCl (Naloxone 0.4 Mg/Ml 1 Ml Vial) 0.2 mg IV Q2M PRN PRN Reason: Opioid Reversal Ondansetron HCl (Ondansetron 4 Mg/2 Ml Vial) 4 mg IVP Q8HR PRN PRN Reason: Nausea And Vomiting Oseltamivir Phosphate (Oseltamivir 75 Mg Cap) 75 mg PO Q12HR [facility]; Protocol Stop: 08/04/24 09:01 Last Admin: 08/02/24 08:40 Dose: 75 mg Petrolatum (Zinc Oxide Paste (Z-Guard) 1 Applic) 1 applic TOPICAL BID PRN; Protocol PRN Reason: Wound Healing Psyllium Hydrophilic Mucilloid (Psyllium Husk 100% 6 Gm Packet) 6 gm PO DAILY [facility] Last Admin: 08/02/24 08:40 Dose: Not Given Physical examination: VITAL SIGNS: Tmax 101.4 this a.m., 101, 27, 126 x 77, 95% on 10 L high flow GENERAL: [BMI 28.2, lethargic delirious. EYES: Pupils equal. Conjunctiva vivian l. HEENT: External appearance of nose and ears normal, oral cavity grossly normal. NECK: JVD not raised; masses not palpable. HEART: First and second heart sounds are normal; no edema. LUNGS: Respiratory rate normal; clear to auscultation. ABDOMEN: Soft, nontender, liver spleen not palpable, no masses palpable. PSYCH: Lethargic. Not really answering questions MUSCULOSKELETAL:No Clubbing/cyanosis;muscles-grossly intact. OA NEUROLOGICAL: Cranial nerves grossly intact; no facial asymmetry, power and sensation grossly intact. INVESTIGATIONS, reviewed in the clinical context: August 01: White count 12 hemoglobin 10.4 platelets 225 sodium 116 potassium 3.7 creatinine 0.6 July 31: White count 12 hemoglobin 11.3 platelets 220. Procalcitonin 0.11 July 30: White count 9.9 hemoglobin 10.6 platelets 173 neutrophils 8.5 lymphocyte 0.8 sodium 128 potassium 4.1 BUN 32 creatinine 0.68 AST 40 ALT 38 albumin 2.8 Urine drug screen positive for opiates, benzodiazepines Influenza type a PCR: Detected Influenza type B, RSV, COVID-19: Not detected EKG tracing personally reviewed by me-normal sinus rhythm. CT scan brain: Unremarkable Chest x-ray film personally reviewed by me-right midlung opacity. Question scattered infiltrates Assessment plan: -Sepsis second underlying influenza A with pneumonitis and possible secondary bacterial pneumonia.: Slow to respond Pulmonary and ID following Tamiflu. IV fluids. IV Zosyn -Possible secondary bacterial pneumonia.: Slow to respond IV Zosyn -Acute delirium metabolic encephalopathy from sepsis from influenza A: Slow to respond -Severe hyponatremia: Slow improvement Could be contributing to mental status changes. Hypertonic saline Nephrology following. -Feeding via NG tube -Metastatic ovarian cancer for last 2 years. Has received chemotherapy immunotherapy. Does follow with Dr. yMers out of [facility]. CT scan 2 weeks ago showed disease present in the lungs liver and a spot in the sternum. -Chronic medical debility does use a walker -Paroxysmal atrial fibrillation currently in sinus rhythm Simona Raza. -Essential hypertension Diovan. Metoprolol. -Full code -Medical power of assistant prosecuting attorney, son. [facility] ICU. NG tube feeding. IV Zosyn. Hypertonic saline. Tamiflu. Discussed with son at the bedside. Prognosis guarded. Past Medical History Past Medical History: Atrial Fibrillation, Eye Disorder, GERD/Reflux, Hyperlipidemia, Osteoarthritis (OA), Vascular Disorder Additional Past Medical History / Comment(s): Frequent migraines, lower back disc disease/pain, L and R shoulder pain, flebitis, arthritis in multiple joints, leaky heart valve, bilateral leg varicosities, IBS, bronchitis, UTI, some lasering done right eye for "flashes" History of Any Multi-Drug Resistant Organisms: None Reported Past Surgical History: Adenoidectomy, Breast Surgery, Cholecystectomy, Orthopedic Surgery, Tonsillectomy Additional Past Surgical History / Comment(s): Bilateral wrist tendon surgery, bilateral feet 4th toe surg. d/t curvature, lipoma removed from back, lumbar epidural injections, L leg vein stripping, bilateral leg varicose vein injections to remove, L breast benign biopsy, colonoscopy/benign polypectomy, D&C Past Anesthesia/Blood Transfusion Reactions: No Reported Reaction Additional Past Anesthesia/Blood Transfusion Reaction / Comment(s): Pt has claustrophobia. Past Psychological History: Anxiety, Depression Smoking Status: Former smoker Past Alcohol Use History: Occasional Past Drug Use History: None Reported
[2024-08-02 17:11] LABS: Glucose,Whole Blood 150 mg/dL (70-110)
[2024-08-02 17:51] LABS: Glucose,Whole Blood 141 mg/dL (70-110)
[2024-08-02] MEDS: LORazepam 2 MG/ML INJ IV PRN (21:51)
[2024-08-02] MEDS: levETIRAcetam IV 500 MG/5 ML VIAL IVP SCH (21:51)
[2024-08-03 00:22] LABS: Glucose,Whole Blood 128 mg/dL (70-110)
[2024-08-03 05:48] LABS: Anisocytosis Moderate; HCT 30.2 % (34.0-46.0); HGB 10.3 gm/dL (11.4-16.0); MCH 30.9 pg (25.0-35.0); MCV 90.8 fL (80.0-100.0); Macrocytosis Slight; Mean Platelet Volume 7.1; Platelet Count 238 k/uL (150-450); RBC 3.33 m/uL (3.80-5.40); RDW 21.6 % (11.5-15.5)
[2024-08-03 06:05] LABS: Glucose,Whole Blood 128 mg/dL (70-110)
[2024-08-03 06:38] LABS: African American GFR (CKD) >90 (>60 ml/min/1.73 sqM); Anion Gap 11 mmol/L; Blood Urea Nitrogen 18 mg/dL (7-17); Calcium 8.5 mg/dL (8.4-10.2); Carbon Dioxide 22 mmol/L (22-30); Chloride 94 mmol/L (98-107); Glucose 115 mg/dL (74-99); Non-African American GFR(CKD) 88 (>60 ml/min/1.73 sqM); Potassium 3.6 mmol/L (3.5-5.1); Sodium 127 mmol/L (137-145)
[2024-08-03] MEDS: POTASSIUM BICARBONATE/CIT AC 20 MEQ TABLET.EFF NG-TUBE SCH ×2 (06:50→15:43)
[2024-08-03] MEDS ORDERED: SODIUM CHLORIDE 0.9% 1,000 ML IV SCH (07:30)
--- NOTE | 2024-08-03 08:30 | XR ---
EXAMINATION TYPE: XR chest 1V DATE OF EXAM: 08/03/2024 7:41 AM COMPARISON: 08/02/[address] chest 08/01/2024 CLINICAL INDICATION: Female, 79 years old with history of right pneumonia, TECHNIQUE: XR chest 1V view(s) obtained. FINDINGS: The heart size is normal. The pulmonary vasculature is normal. Right perihilar opacity is present. Correlate for pneumonia. Underlying mass should be considered. Fo llow-up is recommended . Port is present on the right with the tip in the superior vena cava region. Nasogastric tube transver ses the thorax tip within the abdomen IMPRESSION: 1. Stable right perihilar density. Mass versus pneumonia [facility], , 08/03/2024 8:28 AM
--- NOTE | 2024-08-03 10:50 | P.PN ---
Subjective Patient is seen for follow-up for hyponatremia. 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 Serum sodium had worsened with normal saline infusion. Status post 3% saline Most recent sodium was 127. Currently off of 3% saline There is consideration for underlying viral encephalitis. Patient response to sounds but does not communicate. Objective - Vital Signs Vital signs: Vital Signs Temp 98.4 F 08/03/24 04:00 Pulse 99 08/03/24 07:00 Resp 19 08/03/24 07:00 BP 112/73 08/03/24 07:00 Pulse Ox 99 08/03/24 07:00 FiO2 Intake & Output 08/02/24 08/03/24 08/03/24 18:59 06:59 18:59 Intake Total 485 330 10 Output Total 520 565 50 Balance -35 -235 -40 Weight 62.3 kg 66.406 kg Intake: IV 425 160 Piperacillin-Tazobactam 3 100 100 .375 gm In Sodium Chloride 0.9% 100 ml @ 25 mls/hr IVPB Q8H [facility] Rx#: [id number] Sodium Chloride 3%( 325 60 Hypertonic) 500 ml @ 30 mls/hr IV .[id number] ONE Rx #:[id number] Tube Feeding 30 110 10 Other 30 60 Output: Urine 520 565 50 Other: Voiding Method Indwelling Catheter Indwelling Catheter # Bowel Movements 3 - Exam Patient opens eyes Does not communicate much Examination of the heart S1 and S2 Examination of the lungs bilateral breath sounds are heard Abdomen is soft nontender Examination of lower extremities shows chronic skin changes no significant edema. - Labs CBC & Chem 7: 08/03/24 04:52 08/03/24 04:52 Labs: Abnormal Lab Results - Last 24 Hours (Table) 08/02/24 08/02/24 08/02/24 Range/Units 10:45 15:52 17:10 WBC (3.8-10.6) k/uL RBC (3.80-5.40) m/uL Hgb (11.4-16.0) gm/dL Hct (34.0-46.0) % RDW (11.5-15.5) % Sodium 122 L 123 L (137-145) mmol/L Chloride (98-107) mmol/L BUN (7-17) mg/dL Glucose (74-99) mg/dL POC Glucose (mg/dL) 150 H (70-110) mg/dL 08/02/24 08/02/24 08/03/24 Range/Units 17:48 20:23 00:21 WBC (3.8-10.6) k/uL RBC (3.80-5.40) m/uL Hgb (11.4-16.0) gm/dL Hct (34.0-46.0) % RDW (11.5-15.5) % Sodium 125 L (137-145) mmol/L Chloride (98-107) mmol/L BUN (7-17) mg/dL Glucose (74-99) mg/dL POC Glucose (mg/dL) 141 H 128 H (70-110) mg/dL 08/03/24 08/03/24 08/03/24 Range/Units 00:42 04:52 04:52 WBC 14.0 H (3.8-10.6) k/uL RBC 3.33 L (3.80-5.40) m/uL Hgb 10.3 L (11.4-16.0) gm/dL Hct 30.2 L (34.0-46.0) % RDW 21.6 H (11.5-15.5) % Sodium 126 L 127 L (137-145) mmol/L Chloride 94 L (98-107) mmol/L BUN 18 H (7-17) mg/dL Glucose 115 H (74-99) mg/dL POC Glucose (mg/dL) (70-110) mg/dL 08/03/24 Range/Units 06:04 WBC (3.8-10.6) k/uL RBC (3.80-5.40) m/uL Hgb (11.4-16.0) gm/dL Hct (34.0-46.0) % RDW (11.5-15.5) % Sodium (137-145) mmol/L Chloride (98-107) mmol/L BUN (7-17) mg/dL Glucose (74-99) mg/dL POC Glucose (mg/dL) 128 H (70-110) mg/dL Microbiology - Last 24 Hours (Table) 07/31/24 14:31 Blood Culture - Preliminary Blood Assessment and Plan Assessment: 1. Acute hyponatremia with mental status changes. Most likely secondary to SIADH as serum sodium worsened with normal saline. Urine osmolality 566 and urine sodium 152. 2. Influenza A infection/pneumonia 3. Metastatic ovarian cancer 4. Mental status changes possibly associated with metabolic encephalopathy/, hyponatremia and underlying infection. Rule out other etiology. Being followed by neurology. There is consideration for underlying viral encephalitis. Plan: Continue off of 3% saline. Sodium is slowly improving. Avoid 0.9% saline infusion due to SIADH Repeat sodium in 4 hours
--- NOTE | 2024-08-03 10:51 | P.PN ---
Subjective Progress Note Date: 08/02/24 Patient was seen for a follow-up. Patient continues to be severely obtunded, occasionally opening her eyes but sometimes deviated to the left. No seizure- like activity has been noticed. Patient's 2 sons were present. Patient has not improved. Objective - Vital Signs Vital signs: Vital Signs Temp 98.4 F 08/02/24 12:00 Pulse 93 08/02/24 14:00 Resp 23 08/02/24 14:00 BP 125/82 08/02/24 14:00 Pulse Ox 94 L 08/02/24 14:00 FiO2 Intake & Output 08/01/24 08/02/24 08/02/24 18:59 06:59 18:59 Intake Total 175 500 115 Output Total 875 1085 240 Balance -700 -585 -125 Weight 62.3 kg 62.3 kg Intake: IV 175 500 115 Piperacillin-Tazobactam 3 100 200 .375 gm In Sodium Chloride 0.9% 100 ml @ 25 mls/hr IVPB Q8H [facility] Rx#: [id number] Sodium Chloride 3%( 75 300 115 Hypertonic) 500 ml @ 30 mls/hr IV .[id number] ONE Rx #:[id number] Output: Urine 875 1085 240 Other: Voiding Method Indwelling Catheter Indwelling Catheter Indwelling Catheter - Exam Examination remains unchanged. Pupils are equal, round and reacting. On manually opening the eyelids, her gaze is to the right. No obvious seizure-like activity. Patient is stuporous. - Labs CBC & Chem 7: 08/03/24 04:52 08/03/24 04:52 Labs: Abnormal Lab Results - Last 24 Hours (Table) 08/01/24 08/01/24 08/01/24 Range/Units 12:23 18:22 22:00 WBC (3.8-10.6) k/uL RBC (3.80-5.40) m/uL Hgb (11.4-16.0) gm/dL Hct (34.0-46.0) % RDW (11.5-15.5) % Neutrophils # (1.3-7.7) k/uL Lymphocytes # (1.0-4.8) k/uL Sodium 115 L* 117 L* (137-145) mmol/L Potassium (3.5-5.1) mmol/L Chloride (98-107) mmol/L Carbon Dioxide (22-30) mmol/L Glucose (74-99) mg/dL Osmolality 249 L (275-295) mOsm/kg Calcium (8.4-10.2) mg/dL 08/02/24 08/02/24 08/02/24 Range/Units 03:00 03:00 07:09 WBC 11.5 H (3.8-10.6) k/uL RBC 3.46 L (3.80-5.40) m/uL Hgb 10.8 L (11.4-16.0) gm/dL Hct 30.3 L (34.0-46.0) % RDW 21.7 H (11.5-15.5) % Neutrophils # 10.5 H (1.3-7.7) k/uL Lymphocytes # 0.5 L (1.0-4.8) k/uL Sodium 120 L 120 L (137-145) mmol/L Potassium 3.2 L (3.5-5.1) mmol/L Chloride 90 L (98-107) mmol/L Carbon Dioxide 17 L (22-30) mmol/L Glucose 72 L (74-99) mg/dL Osmolality (275-295) mOsm/kg Calcium 8.0 L (8.4-10.2) mg/dL 08/02/24 Range/Units 10:45 WBC (3.8-10.6) k/uL RBC (3.80-5.40) m/uL Hgb (11.4-16.0) gm/dL Hct (34.0-46.0) % RDW (11.5-15.5) % Neutrophils # (1.3-7.7) k/uL Lymphocytes # (1.0-4.8) k/uL Sodium 122 L (137-145) mmol/L Potassium (3.5-5.1) mmol/L Chloride (98-107) mmol/L Carbon Dioxide (22-30) mmol/L Glucose (74-99) mg/dL Osmolality (275-295) mOsm/kg Calcium (8.4-10.2) mg/dL Microbiology - Last 24 Hours (Table) 07/29/24 23:53 Blood Culture - Preliminary Blood 07/31/24 14:31 Blood Culture - Preliminary Blood Assessment and Plan Assessment: Altered mental status, likely due to metabolic encephalopathy, severe. Reasons multifactorial as mentioned below. Hyponatremia with current sodium 116. Acute influenza A infection with pneumonia Metastatic ovarian cancer, on investigational chemotherapy. Anemia Elevated LFTs Pansinusitis Plan: * EEG 08/01/2024 revealed background slowing and disorganization of severe degree. This is suggestive of generalized cerebral dysfunction as can be seen with toxic metabolic encephalopathy or related to diffuse structural brain abnormality. Clinical correlation is recommended. No epileptiform activity was seen. * Patient will need lumbar puncture. However patient is receiving Eliquis, and she did receive 5 mg this morning. Lumbar puncture would not be able to be performed for 5 days. * Patient currently on Zosyn. ID following. * Patient's sodium still very low 122. * Repeat CT head performed today revealed no acute intracranial hemorrhage or midline shift. No significant change from most recent prior CT. * Management of hyponatremia, and other medical conditions as per IM and critical care. * We will observe overnight. If no improvement, will recheck EEG in the morning. * Discussed with patient's nurse and family members in detail.
--- NOTE | 2024-08-03 11:02 | P.PN ---
Subjective Progress Note Date: 08/03/24 79-year-old female patient, was transferred to the intensive care unit because of symptomatic hyponatremia. The patient's was hospitalized for influenza pneumonia. The patient is known to have metastatic ovarian cancer diagnosed approximately 3 years ago with mets to the liver and the lungs. The patient received multiple rounds of systemic chemotherapy including immunotherapy. The patient has been treated through [facility], Dr. Myers. The patient presented to us with altered mentation, poor appetite, generalized weakness, and delirium. She tested positive for influenza in the hospital. She was started on IV fluids and she was also started on Tamiflu. There was a concern for a bacterial pneumonia and based on that the patient was covered with broad-spectrum antibiotics in addition. The patient had a chest x-ray that showed a large opacity in the left midlung in addition to that there was a focal right midlung opacity. No evidence of any pleural effusion. During this current hospitalization, as the patient was getting IV fluids, the patient developed progressive worsening her sodium level. Her sodium level at admission was 125, subsequently came 828 and currently is down to 216. IV fluids were stopped and the patient got transferred to the intensive care unit for hypertonic saline solution which is currently running at 25 cc an hour. Nephrology has been consulted. In terms of antibiotic coverage, the patient is currently on IV Zosyn. The patient is also on Tamiflu. She remains lethargic and weak and quite debilitated. No focal neurological deficits. CAT scan of the brain done in the emergency department showed no evidence of any acute intra cranial process. She is hemodynamically stable. 08/02/2024, the patient remains altered and confused. She is nonverbal. Sluggishly responsive to painful stimulation and there is significant impairment level of consciousness. Based on that, a repeat CAT scan of the brain was ordered and was performed this morning. Neurology is also on the case. EEG that was on 08/01/2024 showed background slowing with disorganization of severe degree and generalized cerebral dysfunction. The patient's sodium level gradually continues to improve. She remains on 3% hypertonic saline and currently her sodium level is up to 120. Meanwhile, she remains on 12 L of oxygen by nasal cannula. Chest x-ray remains unchanged. CAT scan of the chest was performed yesterday and showed evidence of metastatic disease with pulmonary involvement with several pulmonary nodules. In addition, there was an area of masslike consolidation involving the right upper lobe which is suggestive of underlying pneumonia and the patient remains on IV Zosyn. She remains on Tamiflu. NG tube was inserted for medication and oral feeding. She remains on Decadron 4 mg p.o. daily. She remains on IV Zosyn. She remains on hypertonic saline solution. Labs from today shows a WBC count of 11 hemoglobin 10.8 and platelet count of 229. Sodium is at 120 with a potassium level of 3.2, BUN 13 with a creatinine of 0.6. Serum bicarb is at 17. Glucose at 78. Calcium levels at 8.0. The procalcitonin level was 0.11. 08/03/2024, the patient continues to have significant diminished level of consciousness. The patient continues to be febrile. At the same time, earlier this morning about 3 AM, the patient started having twitching in her eyes and jerking left upper extremity and subsequently to the head for generalized tonic-clonic seizures that lasted for around 20 to 30 seconds. She was given Ativan 1 mg IV. She was given 1 g of Keppra and neurology has been informed. EEG is to follow. Meanwhile, the patient continues to have diarrhea. The fecal management system has been placed. NG tube is in place. She is on vital high- protein at rate of 10 cc an hour. She remains off hypertonic saline solution. Sodium levels up to 127. BUN is 80 with a creatinine of 0.5. The white cell count of 14 with a hemoglobin 10.3 and a platelet count of 238. Calcium level is at 8.5. Chest x-ray from today shows a stable right upper lobe consolidation. Objective - Vital Signs Vital signs: Vital Signs Temp 98.4 F 08/03/24 04:00 Pulse 99 08/03/24 07:00 Resp 19 08/03/24 07:00 BP 112/73 08/03/24 07:00 Pulse Ox 99 08/03/24 07:00 FiO2 Intake & Output 08/02/24 08/03/24 08/03/24 18:59 06:59 18:59 Intake Total 485 330 10 Output Total 520 565 50 Balance -35 -235 -40 Weight 62.3 kg 66.406 kg Intake: IV 425 160 Piperacillin-Tazobactam 3 100 100 .375 gm In Sodium Chloride 0.9% 100 ml @ 25 mls/hr IVPB Q8H [facility] Rx#: [id number] Sodium Chloride 3%( 325 60 Hypertonic) 500 ml @ 30 mls/hr IV .[id number] ONE Rx #:[id number] Tube Feeding 30 110 10 Other 30 60 Output: Urine 520 565 50 Other: Voiding Method Indwelling Catheter Indwelling Catheter # Bowel Movements 3 - Exam GENERAL: Unresponsive, extremely lethargic, nonverbal, The patient is currently on 10 L of oxygen by nasal cannula. NG tube is in place. EYES: Pupils equal. Conjunctiva vivian HEENT: External appearance of nose and ears normal, oral cavity grossly normal. NECK: JVD not raised; masses not palpable. HEART: First and second heart sounds are normal; no edema. LUNGS: Respiratory rate normal; clear to auscultation. ABDOMEN: Soft, nontender, liver spleen not palpable, no masses palpable. PSYCH: Lethargic. Not really answering questions MUSCULOSKELETAL:No Clubbing/cyanosis;muscles-grossly intact. OA NEUROLOGICAL: Cranial nerves grossly intact; no facial asymmetry, Nevertheless, there is significant impairment level of consciousness. The patient is not following commands. Barely grimaces to painful stimulation. Motor and sensory functions cannot be appropriately obtained. Pupils are equal reactive to light. - Labs CBC & Chem 7: 08/03/24 04:52 08/03/24 04:52 Labs: Abnormal Lab Results - Last 24 Hours (Table) 08/02/24 08/02/24 08/02/24 Range/Units 03:00 07:09 10:45 WBC (3.8-10.6) k/uL RBC (3.80-5.40) m/uL Hgb (11.4-16.0) gm/dL Hct (34.0-46.0) % RDW (11.5-15.5) % Sodium 120 L 122 L (137-145) mmol/L Potassium 3.2 L (3.5-5.1) mmol/L Chloride 90 L (98-107) mmol/L Carbon Dioxide 17 L (22-30) mmol/L BUN (7-17) mg/dL Glucose 72 L (74-99) mg/dL POC Glucose (mg/dL) (70-110) mg/dL Calcium 8.0 L (8.4-10.2) mg/dL 08/02/24 08/02/24 08/02/24 Range/Units 15:52 17:10 17:48 WBC (3.8-10.6) k/uL RBC (3.80-5.40) m/uL Hgb (11.4-16.0) gm/dL Hct (34.0-46.0) % RDW (11.5-15.5) % Sodium 123 L (137-145) mmol/L Potassium (3.5-5.1) mmol/L Chloride (98-107) mmol/L Carbon Dioxide (22-30) mmol/L BUN (7-17) mg/dL Glucose (74-99) mg/dL POC Glucose (mg/dL) 150 H 141 H (70-110) mg/dL Calcium (8.4-10.2) mg/dL 08/02/24 08/03/24 08/03/24 Range/Units 20:23 00:21 00:42 WBC (3.8-10.6) k/uL RBC (3.80-5.40) m/uL Hgb (11.4-16.0) gm/dL Hct (34.0-46.0) % RDW (11.5-15.5) % Sodium 125 L 126 L (137-145) mmol/L Potassium (3.5-5.1) mmol/L Chloride (98-107) mmol/L Carbon Dioxide (22-30) mmol/L BUN (7-17) mg/dL Glucose (74-99) mg/dL POC Glucose (mg/dL) 128 H (70-110) mg/dL Calcium (8.4-10.2) mg/dL 08/03/24 08/03/24 08/03/24 Range/Units 04:52 04:52 06:04 WBC 14.0 H (3.8-10.6) k/uL RBC 3.33 L (3.80-5.40) m/uL Hgb 10.3 L (11.4-16.0) gm/dL Hct 30.2 L (34.0-46.0) % RDW 21.6 H (11.5-15.5) % Sodium 127 L (137-145) mmol/L Potassium (3.5-5.1) mmol/L Chloride 94 L (98-107) mmol/L Carbon Dioxide (22-30) mmol/L BUN 18 H (7-17) mg/dL Glucose 115 H (74-99) mg/dL POC Glucose (mg/dL) 128 H (70-110) mg/dL Calcium (8.4-10.2) mg/dL Microbiology - Last 24 Hours (Table) 07/31/24 14:31 Blood Culture - Preliminary Blood 07/29/24 23:53 Blood Culture - Preliminary Blood Assessment and Plan Plan: Acute influenza syndrome with possible pneumonia. Chest x-ray shows large focal right midlung opacity and another large left opacity involving the left midlung. Underlying lung masses cannot be completely ruled out. A CAT scan of the chest was completed on 08/01/2024 and there is evidence of metastatic pulmonary nodules in addition to an area of consolidation in the right upper lobe suggestive of bacterial pneumonia and the patient remains on IV Zosyn. Chest x-ray from 08/03/2024 remains unchanged Fever, secondary to acute influenza syndrome Encephalopathy with significant diminishment in level of consciousness. Rule out viral encephalitis, rule out TRANSLATION DIRECTOR metastases/leptomeningeal involvement. New onset seizures, given Ativan and currently on IV Keppra Metastatic ovarian cancer with mets to the lungs and liver. The patient was diagnosed approximate 2 years ago and she has undergone treatment and currently she is on Enhertu receiving cycle 3 on 07/05/2024.. CAT scan of the chest shows metastatic bilateral pulmonary nodules Acute hyponatremia, secondary to SIADH, improved and the patient is currently off hypertonic saline Diarrhea History of atrial fibrillation Osteoarthritis Hyperlipidemia Irritable bowel syndrome History of varicose veins involving lower extremities Former smoker Plan Patient is 10 L of oxygen by nasal cannula Right upper lobe consolidation suggestive of bacterial pneumonia the patient remains on IV Zosyn Hemodynamically stable Significantly impaired mental status and the patient to be seen by neurology CAT scan of the brain showed no acute abnormalities Check ammonia level nonelevated Consider lumbar puncture if no improvement in the patient's mental status, the patient remains off Eliquis Sodium levels improved and the patient is currently off hypertonic saline solution Continue IV Keppra EEG Add IV acyclovir Neurology follow-up Fluid restriction Continue Tamiflu Broad-spectrum antibiotics with IV Zosyn Procalcitonin level is not elevated at 0.11 Full CODE STATUS NG tube in place for enteral feeding to be advanced Will continue to follow Condition is critical. Critical care evaluation that was done more than 30 minutes. Will continue following up this patient with the rest of the consultan ts. Time with Patient: Greater than 30
[2024-08-03] MEDS: ACYCLOVIR SODIUM 650 MG in SODIUM CHLORIDE 0.9% 100 ML IV SCH (11:46)
[2024-08-03 12:15] LABS: Glucose,Whole Blood 149 mg/dL (70-110)
[2024-08-03 13:00] LABS: Potassium 3.7 mmol/L (3.5-5.1)
--- NOTE | 2024-08-03 13:10 | P.PN ---
Progress Note - Text Progress Note Date: 08/03/24 Chief Complaint: Altered mentation Very pleasant 79-year-old patient follows Dr. Yi. Patient's sister, daughter and granddaughter at the bedside. Chronic medical condition include atrial fibrillation, GERD, hyperlipidemia, osteoarthritis, migraine, lower back pain from disc disease, arthritis, IBS,. Anxiety depression. Patient was diagnosed with metastatic ovarian cancer 2 years ago to include the lungs and liver. Patient's had multiple rounds of chemotherapy. Including immunotherapy. Patient does follow with Dr. Myers at [facility]. At [place] the family gotten together. Patient had oral sores with poor appetite. Over the last 2 3 days patient was noted to be increasingly confused. Poor appetite. Patient normally lives alone. Does use a walker. Patient has been delirious. Fever and tested positive for influenza in the hospital. July 31: Remains lethargic. Family at the bedside. Status spiking fevers again. Getting IV fluids. ID consulted. Discussed with family at the bedside. ID started patient empirically on IV ceftriaxone. Patient on Tamiflu. August 01: Patient spiking fevers yesterday. For other secondary causes had consulted ID. Patient was continued on IV ceftriaxone and Tamiflu. This mo rning patient's sister and granddaughter at the bedside. Patient remains lethargic/delirious. Did eat some yesterday per the granddaughter. Later this afternoon sodium came back at 116. That could be contributing hence patient being moved to the ICU. I did speak to Dr. Jain from intensive care. Also did communicate with dependency director Dr. Lopez. May consider hypertonic saline for the same. No fevers overnight. Also neurology consulted. Order EEG. August 02: Patient moved to the ICU yesterday because of low sodium at 116. Hypertonic saline given. Also on IV Zosyn. CT scan of the brain done this afternoon did not show anything acute. CT scan chest done yesterday evening shows right masslike consolidation with some air bronchograms. Could represent pneumonia. Malignant mass still possible. Other peripheral nodules with central cavitation different differential. Spoke to patient's son Stephen at the bedside and his . Prognosis guarded because of multiple issues. Patient is a full code. NG tube feeding has been started. Sodium this afternoon 123. Spiked fever this morning. On high flow 10 L oxygen. August 02: ICU. Saw the patient earlier today. 8 L nasal cannula. This opens eyes. Minimal response to pain. Tube feeding at 10 cc an hour. Increase to 20 cc an hour. Pending dietitian input. Telemetry shows sinus rhythm. Patient on IV acyclovir. Last night patient had seizures was started on IV Keppra by neurology. Also on IV Zosyn. Also getting Decadron and Tamiflu. Discussed with nurse Xiomy. Checks x-ray reports stable right perihilar density mass versus pneumonia. EEG from August 01 showed generalized cerebral dysfunction. No epileptiform activity was reported Active Medications Acetaminophen (Acetaminophen Tab 500 Mg Tab) 500 mg PO Q6HR PRN PRN Reason: Fever and/ or Mild Pain Last Admin: 08/03/24 00:43 Dose: 500 mg Hydrocodone Bitart/Acetaminophen (Hydrocodone/Apap 15 Ml Solution) 15 ml PO BID PRN PRN Reason: Pain Albuterol/Ipratropium (Ipratropium-Albuterol 3 Ml Neb) 3 ml INHALATION RT-Q4H PRN PRN Reason: shortness of breath Last Admin: 08/02/24 08:20 Dose: 3 ml Apixaban (Apixaban 5 Mg Tab) 5 mg PO BID [facility]; Protocol Last Admin: 08/02/24 08:39 Dose: 5 mg Al Hydroxide/Mg Hydroxide 30 ml/ Lidocaine HCl 30 ml/Diphenhydramine HCl 75 mg/Nystatin 3,000,000 unit 0 ml PO TID [facility] Last Admin: 08/03/24 11:06 Dose: 30 ml Dexamethasone (Dexamethasone 4 Mg Tab) 4 mg PO DAILY [facility] Last Admin: 08/03/24 09:10 Dose: 4 mg Dextrose/Water (Dextrose 50% Syringe 50 Ml) 50 ml IVP ONCE PRN; Protocol PRN Reason: Hypoglycemia Last Admin: 08/02/24 06:27 Dose: 50 ml Piperacillin Sod/Tazobactam (Sod 3.375 gm/ Sodium Chloride) 100 mls @ 25 mls/hr IVPB Q8H [facility]; Protocol Last Admin: 08/03/24 06:10 Dose: 25 mls/hr Acyclovir Sodium 650 mg/ (Sodium Chloride) 113 mls @ 100 mls/hr IV Q8H [facility]; Protocol Last Admin: 08/03/24 11:46 Dose: 100 mls/hr Levetiracetam (Levetiracetam Iv 500 Mg/5 Ml Vial) 1,000 mg IVP Q12HR [facility] Last Admin: 08/03/24 09:10 Dose: 1,000 mg Lorazepam (Lorazepam 2 Mg/Ml Inj) 1 mg IV Q5M PRN PRN Reason: Seizures Stop: 08/03/24 21:42 Last Admin: 08/03/24 11:46 Dose: 1 mg Melatonin (Melatonin 5 Mg Tablet) 10 mg PO HS [facility] Last Admin: 08/02/24 19:54 Dose: Not Given Metoprolol Tartrate (Metoprolol Tartrate 50 Mg Tab) 50 mg PO BID [facility] Last Admin: 08/03/24 12:53 Dose: 50 mg Miscellaneous Information (Pneumonia Protocol Utilized 1 Each Misc) 1 each PO ONCE PRN PRN Reason: Per Protocol Miscellaneous Information (Rx Info: Iv Contrast Was Given 1 Each Misc) 1 each MISCELLANE DAILY PRN PRN Reason: Per Protocol Stop: 08/03/24 16:27 Miscellaneous Information (Potassium Replacement Protocol 1 Each Misc) 1 each MISCELLANE DAILY PRN; Protocol PRN Reason: Per Protocol Naloxone HCl (Naloxone 0.4 Mg/Ml 1 Ml Vial) 0.2 mg IV Q2M PRN PRN Reason: Opioid Reversal Ondansetron HCl (Ondansetron 4 Mg/2 Ml Vial) 4 mg IVP Q8HR PRN PRN Reason: Nausea And Vomiting Oseltamivir Phosphate (Oseltamivir 75 Mg Cap) 75 mg PO Q12HR [facility]; Protocol Stop: 08/04/24 09:01 Last Admin: 08/03/24 09:10 Dose: 75 mg Petrolatum (Zinc Oxide Paste (Z-Guard) 1 Applic) 1 applic TOPICAL BID PRN; Protocol PRN Reason: Wound Healing Psyllium Hydrophilic Mucilloid (Psyllium Husk 100% 6 Gm Packet) 6 gm PO DAILY [facility] Last Admin: 08/03/24 09:06 Dose: Not Given Physical examination: VITAL SIGNS: Tmax 100.8, 99, 19, 112 x 73, 99% on 8 L high flow GENERAL: [BMI 28.2, lethargic EYES: Pupils equal. Conjunctiva vivian l. HEENT: External appearance of nose and ears normal, oral cavity grossly normal. NECK: JVD not raised; masses not palpable. HEART: First and second heart sounds are normal; no edema. LUNGS: Respiratory rate normal; clear to auscultation. ABDOMEN: Soft, nontender, liver spleen not palpable, no masses palpable. PSYCH: Lethargic. Not really answering questions MUSCULOSKELETAL:No Clubbing/cyanosis;muscles-grossly intact. OA NEUROLOGICAL: Cranial nerves grossly intact; no facial asymmetry, barely responding to pain. INVESTIGATIONS, reviewed in the clinical context: EEG [August 01] severe generalized cerebral dysfunction. No epileptiform activity. CT brain [August 02]: Unremarkable August 03: White count 14 hemoglobin 10.3 platelets 238 potassium 3.6 creatinine 0.59 sodium 127 August 01: White count 12 hemoglobin 10.4 platelets 225 sodium 116 potassium 3.7 creatinine 0.6 July 31: White count 12 hemoglobin 11.3 platelets 220. Procalcitonin 0.11 July 30: White count 9.9 hemoglobin 10.6 platelets 173 neutrophils 8.5 lymphocyte 0.8 sodium 128 potassium 4.1 BUN 32 creatinine 0.68 AST 40 ALT 38 albumin 2.8 Urine drug screen positive for opiates, benzodiazepines Influenza type a PCR: Detected Influenza type B, RSV, COVID-19: Not detected EKG tracing personally reviewed by me-normal sinus rhythm. CT scan brain: Unremarkable Chest x-ray film personally reviewed by me-right midlung opacity. Question scattered infiltrates Assessment plan: -Sepsis second underlying influenza A with pneumonitis and possible secondary bacterial pneumonia.: Slow to respond Pulmonary and ID following Tamiflu. IV fluids. IV Zosyn -Possible secondary bacterial pneumonia.: Slow to respond IV Zosyn -Acute delirium metabolic encephalopathy from sepsis from influenza A: Slow to respond -Severe hyponatremia: Some improvement today 127 t Could be contributing to mental status changes. Had received hypertonic saline Nephrology following. -Feeding via NG tube Increased to 20 cc an hour -Metastatic ovarian cancer for last 2 years. Has received chemotherapy immunotherapy. Does follow with Dr. Myers out of [facility]. CT scan 2 weeks ago showed disease present in the lungs liver and a spot in the sternum. -Chronic medical debility does use a walker -Paroxysmal atrial fibrillation currently in sinus rhythm Eliquis Lopressor. -Essential hypertension Diovan. Metoprolol. -Full code -Medical power of employment attorney, [facility]. [facility]. NG tube feeding increased to 20 cc an hour.. IV Zosyn. . Tamiflu. Follow-up with multiple consultants. Blood cultures negative till now. Past Medical History Past Medical History: Atrial Fibrillation, Eye Disorder, GERD/Reflux, Hyperlipidemia, Osteoarthritis (OA), Vascular Disorder Additional Past Medical History / Comment(s): Frequent migraines, lower back disc disease/pain, L and R shoulder pain, flebitis, arthritis in multiple joints, leaky heart valve, bilateral leg varicosities, IBS, bronchitis, UTI, some lasering done right eye for "flashes" History of Any Multi-Drug Resistant Organisms: None Reported Past Surgical History: Adenoidectomy, Breast Surgery, Cholecystectomy, Orthopedic Surgery, Tonsillectomy Additional Past Surgical History / Comment(s): Bilateral wrist tendon surgery, bilateral feet 4th toe surg. d/t curvature, lipoma removed from back, lumbar epidural injections, L leg vein stripping, bilateral leg varicose vein injections to remove, L breast benign biopsy, colonoscopy/benign polypectomy, D&C Past Anesthesia/Blood Transfusion Reactions: No Reported Reaction Additional Past Anesthesia/Blood Transfusion Reaction / Comment(s): Pt has claustrophobia. Past Psychological History: Anxiety, Depression Smoking Status: Former smoker Past Alcohol Use History: Occasional Past Drug Use History: None Reported
--- NOTE | 2024-08-03 14:19 | P.PN ---
Subjective Progress Note Date: 08/02/24 Principal diagnosis: Reason for follow-up is acute influenza A and pneumonia Patient is a 79-year-old female past medical history significant for hyperlipidemia atrial fibrillation osteoarthritis did have a history of metastatic ovarian cancer for the patient follows with Dr. Myers at [facility] in [place] presenting to the hospital for evaluation of mental status changes she was noted to be febrile tested positive for influenza A and there was concern for right middle lobe upper lobe opacity suspicious for pneumonia. On today's evaluation that is 08/02/2024, the patient did have a fever of 101.4 F this morning, the patient is on room air and breathing comfortably, the Pt remains to be lethargic and provide any history no vomiting did have some diarrhea Patient white count is down to 11.5 creatinine 0.62, stool for C. difficile negative Objective - Vital Signs Vital signs: Vital Signs Temp 101.4 F H 08/02/24 08:00 Pulse 96 08/02/24 10:00 Resp 26 H 08/02/24 10:00 BP 121/81 08/02/24 10:00 Pulse Ox 97 08/02/24 10:00 FiO2 Intake & Output 08/01/24 08/02/24 08/02/24 18:59 06:59 18:59 Intake Total 175 500 25 Output Total 875 1085 100 Balance -700 -585 -75 Weight 62.3 kg 62.3 kg Intake: IV 175 500 25 Piperacillin-Tazobactam 3 100 200 .375 gm In Sodium Chloride 0.9% 100 ml @ 25 mls/hr IVPB Q8H [facility] Rx#: [id number] Sodium Chloride 3%( 75 300 25 Hypertonic) 500 ml @ 25 mls/hr IV .Q20H ONE Rx#: [id number] Output: Urine 875 1085 100 Other: Voiding Method Indwelling Catheter Indwelling Catheter Indwelling Catheter - Exam GENERAL DESCRIPTION: An elderly female lying in bed in no distress RESPIRATORY SYSTEM: Unlabored breathing , decreased intensity of breath sounds, no wheeze HEART: S1 S2 regular rate and rhythm , ABDOMEN: Soft , no tenderness EXTREMITIES: No edema feet - Labs CBC & Chem 7: 08/03/24 04:52 08/03/24 12:27 Labs: Abnormal Lab Results - Last 24 Hours (Table) 08/01/24 08/01/24 08/01/24 Range/Units 12:23 12:23 12:23 WBC 12.0 H (3.8-10.6) k/uL RBC 3.33 L (3.80-5.40) m/uL Hgb 10.4 L (11.4-16.0) gm/dL Hct 28.8 L (34.0-46.0) % RDW 22.0 H (11.5-15.5) % Neutrophils # 10.7 H (1.3-7.7) k/uL Lymphocytes # 0.7 L (1.0-4.8) k/uL Sodium 116 L* (137-145) mmol/L Potassium (3.5-5.1) mmol/L Chloride 86 L (98-107) mmol/L Carbon Dioxide (22-30) mmol/L Glucose (74-99) mg/dL Osmolality 249 L (275-295) mOsm/kg Calcium 7.8 L (8.4-10.2) mg/dL AST 54 H (14-36) U/L ALT 46 H (4-34) U/L Total Protein 4.7 L (6.3-8.2) g/dL Albumin 2.5 L (3.5-5.0) g/dL 08/01/24 08/01/24 08/02/24 Range/Units 18:22 22:00 03:00 WBC 11.5 H (3.8-10.6) k/uL RBC 3.46 L (3.80-5.40) m/uL Hgb 10.8 L (11.4-16.0) gm/dL Hct 30.3 L (34.0-46.0) % RDW 21.7 H (11.5-15.5) % Neutrophils # 10.5 H (1.3-7.7) k/uL Lymphocytes # 0.5 L (1.0-4.8) k/uL Sodium 115 L* 117 L* (137-145) mmol/L Potassium (3.5-5.1) mmol/L Chloride (98-107) mmol/L Carbon Dioxide (22-30) mmol/L Glucose (74-99) mg/dL Osmolality (275-295) mOsm/kg Calcium (8.4-10.2) mg/dL AST (14-36) U/L ALT (4-34) U/L Total Protein (6.3-8.2) g/dL Albumin (3.5-5.0) g/dL 08/02/24 08/02/24 Range/Units 03:00 07:09 WBC (3.8-10.6) k/uL RBC (3.80-5.40) m/uL Hgb (11.4-16.0) gm/dL Hct (34.0-46.0) % RDW (11.5-15.5) % Neutrophils # (1.3-7.7) k/uL Lymphocytes # (1.0-4.8) k/uL Sodium 120 L 120 L (137-145) mmol/L Potassium 3.2 L (3.5-5.1) mmol/L Chloride 90 L (98-107) mmol/L Carbon Dioxide 17 L (22-30) mmol/L Glucose 72 L (74-99) mg/dL Osmolality (275-295) mOsm/kg Calcium 8.0 L (8.4-10.2) mg/dL AST (14-36) U/L ALT (4-34) U/L Total Protein (6.3-8.2) g/dL Albumin (3.5-5.0) g/dL Microbiology - Last 24 Hours (Table) 07/29/24 23:53 Blood Culture - Preliminary Blood 07/31/24 14:31 Blood Culture - Preliminary Blood Assessment and Plan (1) Sepsis Current Visit: Yes Status: Acute Code(s): A41.9 - SEPSIS, UNSPECIFIED ORGANISM SNOMED Code(s): 66855501 (2) Influenza Current Visit: Yes Status: Acute Code(s): J11.1 - FLU DUE TO UNIDENTIFIED INFLUENZA VIRUS W OTH RESP MANIFEST SNOMED Code(s): 5800601 (3) Pneumonia Current Visit: Yes Status: Acute Code(s): J18.9 - PNEUMONIA, UNSPECIFIED ORGANISM SNOMED Code(s): 666121863 Plan: 1patient was in the hospital mental status changes weakness in this patient has been febrile did have tachycardia elevated white count meeting criteria for SIR S/sepsis source likely pneumonia with mostly right middle lobe infiltrate question of possible aspiration pneumonia 2-patient also tested positive for influenza A, for which the patient is currently on 3- still running a fever the white count is trending down, patient will be treated with Zosyn 3.375 g every 8 hours and monitor clinical course closely Dictation was produced using [employer] dictation software. please excuse any grammatical, word or spelling errors. Time with Patient: Less than 30
--- NOTE | 2024-08-03 14:20 | P.PN ---
Subjective Progress Note Date: 08/03/24 Principal diagnosis: Reason for follow-up is acute influenza A and pneumonia Patient is a 79-year-old female past medical history significant for hyperlipidemia atrial fibrillation osteoarthritis did have a history of metastatic ovarian cancer for the patient follows with Dr. Myers at [facility] in [place] presenting to the hospital for evaluation of mental status changes she was noted to be febrile tested positive for influenza A and there was concern for right middle lobe upper lobe opacity suspicious for pneumonia. On today's evaluation that is 08/03/2024, patient did have improvement of fever but over the last temperature 100.8 at midnight no fever this morning, the patient is hemodynamically stable not requiring any pressor support patient is currently on 18-nasal cannula oxygen no vomiting or diarrhea. By the nursing staff. Patient white count is 14,000, creatinine 0.59 Objective - Vital Signs Vital signs: Vital Signs Temp 98.4 F 08/03/24 04:00 Pulse 99 08/03/24 07:00 Resp 19 08/03/24 07:00 BP 112/73 08/03/24 07:00 Pulse Ox 99 08/03/24 07:00 FiO2 Intake & Output 08/02/24 08/03/24 08/03/24 18:59 06:59 18:59 Intake Total 485 330 10 Output Total 520 565 50 Balance -35 -235 -40 Weight 62.3 kg 66.406 kg Intake: IV 425 160 Piperacillin-Tazobactam 3 100 100 .375 gm In Sodium Chloride 0.9% 100 ml @ 25 mls/hr IVPB Q8H [facility] Rx#: [id number] Sodium Chloride 3%( 325 60 Hypertonic) 500 ml @ 30 mls/hr IV .[id number] ONE Rx #:[id number] Tube Feeding 30 110 10 Other 30 60 Output: Urine 520 565 50 Other: Voiding Method Indwelling Catheter Indwelling Catheter # Bowel Movements 3 - Exam GENERAL DESCRIPTION: An elderly female lying in bed in no distress RESPIRATORY SYSTEM: Unlabored breathing , decreased intensity of breath sounds, no wheeze HEART: S1 S2 regular rate and rhythm , ABDOMEN: Soft , no tenderness EXTREMITIES: No edema feet - Labs CBC & Chem 7: 08/03/24 04:52 08/03/24 12:27 Labs: Abnormal Lab Results - Last 24 Hours (Table) 08/02/24 08/02/24 08/02/24 Range/Units 15:52 17:10 17:48 WBC (3.8-10.6) k/uL RBC (3.80-5.40) m/uL Hgb (11.4-16.0) gm/dL Hct (34.0-46.0) % RDW (11.5-15.5) % Sodium 123 L (137-145) mmol/L Chloride (98-107) mmol/L BUN (7-17) mg/dL Glucose (74-99) mg/dL POC Glucose (mg/dL) 150 H 141 H (70-110) mg/dL 08/02/24 08/03/24 08/03/24 Range/Units 20:23 00:21 00:42 WBC (3.8-10.6) k/uL RBC (3.80-5.40) m/uL Hgb (11.4-16.0) gm/dL Hct (34.0-46.0) % RDW (11.5-15.5) % Sodium 125 L 126 L (137-145) mmol/L Chloride (98-107) mmol/L BUN (7-17) mg/dL Glucose (74-99) mg/dL POC Glucose (mg/dL) 128 H (70-110) mg/dL 08/03/24 08/03/24 08/03/24 Range/Units 04:52 04:52 06:04 WBC 14.0 H (3.8-10.6) k/uL RBC 3.33 L (3.80-5.40) m/uL Hgb 10.3 L (11.4-16.0) gm/dL Hct 30.2 L (34.0-46.0) % RDW 21.6 H (11.5-15.5) % Sodium 127 L (137-145) mmol/L Chloride 94 L (98-107) mmol/L BUN 18 H (7-17) mg/dL Glucose 115 H (74-99) mg/dL POC Glucose (mg/dL) 128 H (70-110) mg/dL Microbiology - Last 24 Hours (Table) 07/31/24 14:31 Blood Culture - Preliminary Blood Assessment and Plan (1) Sepsis Current Visit: Yes Status: Acute Code(s): A41.9 - SEPSIS, UNSPECIFIED ORGANISM SNOMED Code(s): 40393491 (2) Influenza Current Visit: Yes Status: Acute Code(s): J11.1 - FLU DUE TO UNIDENTIFIED INFLUENZA VIRUS W OTH RESP MANIFEST SNOMED Code(s): 8398021 (3) Pneumonia Current Visit: Yes Status: Acute Code(s): J18.9 - PNEUMONIA, UNSPECIFIED ORGANISM SNOMED Code(s): 439849811 Plan: 1patient was in the hospital mental status changes weakness in this patient has been febrile did have tachycardia elevated white count meeting criteria for SIRS/sepsis source likely pneumonia with mostly right middle lobe infiltrate question of possible aspiration pneumonia 2-patient also tested positive for influenza A, for which the patient is currently on Tamiflu to finish a 5-day course of therapy 3-patient did have improvement in the fever pattern white count slightly up today need to be monitored closely, patient will be treated with Zosyn 3.375 g every 8 hours, possible transfer to care for persistent seizure activity as reported by the nursing staff Dictation was produced using [employer] dictation software. please excuse any grammatical, word or spelling errors. Time with Patient: Less than 30
--- NOTE | 2024-08-03 14:29 | P.PN ---
Subjective Progress Note Date: 08/03/24 Patient was seen for a follow-up. I was informed by ICU nurse at 9:30 PM that "patient had about 20 to 30-second episode of left-sided full body tremors and then it stopped. It looks like seizure like activity. The movements start but patient is constantly almost like moving her mouth up and down." Patient was given 1 mg of Ativan IV followed by Keppra 1000 mg stat and then twice daily. Also gave order for Ativan 1 mg every 5 minutes, maximum 6 mg per 24-hour. Apparently since then patient has not had any more seizure but she continues to be severely obtunded. No improvement as compared to yesterday. Stat EEG was ordered. Objective - Vital Signs Vital signs: Vital Signs Temp 98.4 F 08/03/24 04:00 Pulse 99 08/03/24 07:00 Resp 19 08/03/24 07:00 BP 112/73 08/03/24 07:00 Pulse Ox 99 08/03/24 07:00 FiO2 Intake & Output 08/02/24 08/03/24 08/03/24 18:59 06:59 18:59 Intake Total 485 330 10 Output Total 520 565 50 Balance -35 -235 -40 Weight 62.3 kg 66.406 kg Intake: IV 425 160 Piperacillin-Tazobactam 3 100 100 .375 gm In Sodium Chloride 0.9% 100 ml @ 25 mls/hr IVPB Q8H [facility] Rx#: [id number] Sodium Chloride 3%( 325 60 Hypertonic) 500 ml @ 30 mls/hr IV .[id number] ONE Rx #:[id number] Tube Feeding 30 110 10 Other 30 60 Output: Urine 520 565 50 Other: Voiding Method Indwelling Catheter Indwelling Catheter # Bowel Movements 3 - Exam Examination remains unchanged. Pupils are equal, round and reacting. On manually opening the eyelids, her gaze is at times to the midline, then sometimes goes to the right or left. Some eye blinking was noted concerning for seizure. Patient is stuporous. - Labs CBC & Chem 7: 08/03/24 04:52 08/03/24 12:27 Labs: Abnormal Lab Results - Last 24 Hours (Table) 08/02/24 08/02/24 08/02/24 Range/Units 15:52 17:10 17:48 WBC (3.8-10.6) k/uL RBC (3.80-5.40) m/uL Hgb (11.4-16.0) gm/dL Hct (34.0-46.0) % RDW (11.5-15.5) % Sodium 123 L (137-145) mmol/L Chloride (98-107) mmol/L BUN (7-17) mg/dL Glucose (74-99) mg/dL POC Glucose (mg/dL) 150 H 141 H (70-110) mg/dL 08/02/24 08/03/24 08/03/24 Range/Units 20:23 00:21 00:42 WBC (3.8-10.6) k/uL RBC (3.80-5.40) m/uL Hgb (11.4-16.0) gm/dL Hct (34.0-46.0) % RDW (11.5-15.5) % Sodium 125 L 126 L (137-145) mmol/L Chloride (98-107) mmol/L BUN (7-17) mg/dL Glucose (74-99) mg/dL POC Glucose (mg/dL) 128 H (70-110) mg/dL 08/03/24 08/03/24 08/03/24 Range/Units 04:52 04:52 06:04 WBC 14.0 H (3.8-10.6) k/uL RBC 3.33 L (3.80-5.40) m/uL Hgb 10.3 L (11.4-16.0) gm/dL Hct 30.2 L (34.0-46.0) % RDW 21.6 H (11.5-15.5) % Sodium 127 L (137-145) mmol/L Chloride 94 L (98-107) mmol/L BUN 18 H (7-17) mg/dL Glucose 115 H (74-99) mg/dL POC Glucose (mg/dL) 128 H (70-110) mg/dL 08/03/24 Range/Units 12:13 WBC (3.8-10.6) k/uL RBC (3.80-5.40) m/uL Hgb (11.4-16.0) gm/dL Hct (34.0-46.0) % RDW (11.5-15.5) % Sodium (137-145) mmol/L Chloride (98-107) mmol/L BUN (7-17) mg/dL Glucose (74-99) mg/dL POC Glucose (mg/dL) 149 H (70-110) mg/dL Microbiology - Last 24 Hours (Table) 07/31/24 14:31 Blood Culture - Preliminary Blood Assessment and Plan Assessment: Altered mental status, initially came with metabolic encephalopathy, from severe hyponatremia. Patient overnight developed seizures. Stat EEG performed revealed nonconvulsive generalized status epilepticus. Nonconvulsive generalized status epilepticus Hyponatremia presented with sodium 116, now 127. Acute influenza A infection with pneumonia Metastatic ovarian cancer, on investigational chemotherapy. Anemia Elevated LFTs Pansinusitis Plan: * Stat EEG performed today, and preliminary report revealed significantly d isorganized background, with appearance of generalized polyspikes followed by periods of suppression, consistent with nonconvulsive generalized status epilepticus. During initial part of the EEG, there was a lot of eyeblink artifacts, and patient with continuous frowning at the forehead producing m yogenic artifact. It was uncertain if patient has underlying epileptiform activity. Ativan 1 mg IV push was given, after which the myogenic activity resolved, with appearance of very obvious generalized status epilepticus. Recommend continuous EEG monitoring. * Recommended patient transfer to [facility] for continuous EEG monitoring. Spoke to the primary physician, but during this time I was later informed by nurse that patient's son was very upset why patient received Ativan. Apparently he has mentioned to the nurse yesterday for patient not to receive any Xanax or any other "mental altering medication" without speaking with him first. This information was not available to the nurse taking care of patient this morning, and I was not aware of this as well. When patient's son Albino heard about it, was very upset. I called him to inform the reason, but patient's son started yelling, using foul language and then hanged up. * I spoke to patient's other son, who was visiting the patient, who states is also a power of ict support engineer, informed him about the reasons patient received Ativan. Also recommended patient would need to be intubated and started on Versed drip to control nonconvulsive generalized status. At first he said do what is necessary, but then he said he will talk to his brother Albino and let us know if he agrees with possible intubation and starting Versed drip. * Nursing staff has contacted [facility] but their bed status is completely full. Contacted [facility], and spoke to Dr. Giordano, mentioned that EEG machine is available, but he was not aware of the bed situation. However varsha's son completely declined patient to be transferred to [facility]. He wants patient to be transferred to one of the [facility]. * At present awaiting permission from patient's power of ict support engineer to initiate medications Versed drip. * Discussed with Dr. Jain, who mentioned that will go to ICU to speak to the family. * Initial EEG 08/01/2024 revealed background slowing and disorganization of severe degree. This is suggestive of generalized cerebral dysfunction as can be seen with toxic metabolic encephalopathy or related to diffuse structural brain abnormality. Clinical correlation is recommended. No epileptiform activity was seen. 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 * Lumbar puncture cannot be performed because patient received Eliquis 5 mg and the last dose was yesterday morning. Will need at least 48 hours to be off Eliquis. * Patient currently on Zosyn. ID following. * Repeat CT head performed 08/02/2024 revealed no acute intracranial hemorrhage or midline shift. No significant change from most recent prior CT. * Management of hyponatremia, and other medical conditions as per IM and critical care. * Discussed with patient's nurse, ICU staff and family members in detail. Addendum: 2:[address] Jain called back, after speaking to patient's family. Apparently family completely declining all benzodiazepines. They do not want patient to be intubated. I wanted to give Dilantin, but it has major interaction with Eliquis. Discussed with pharmacist. Likewise phenobarbital is not an option because of affecting mental functioning Instead we will start Vimpat 200 mg IV twice daily for status. Patient awaiting transfer to higher level of care. Time with Patient: Greater than 30
[2024-08-03] MEDS: Lacosamide IV (ages 17+ yrs) 200 MG/20 ML ML IVP STA (15:43)
[2024-08-03 17:03] LABS: Potassium 4.2 mmol/L (3.5-5.1)
[2024-08-03 17:15] LABS: Glucose,Whole Blood 171 mg/dL (70-110)
[2024-08-03 23:20] LABS: Glucose,Whole Blood 150 mg/dL (70-110)
[2024-08-03] MEDS: Lacosamide IV (ages 17+ yrs) 200 MG/20 ML ML IVP SCH (23:22)
--- NOTE | 2024-08-03 23:58 | EEG ---
ELECTROENCEPHALOGRAM REPORT PREAMBLE: This is a 79-year-old female with history of ovarian cancer, undergoing chemotherapy, became confused. The patient had a seizure last night. CURRENT MEDICATIONS: 1. Keppra. 2. Eliquis. EEG FINDINGS: This is a 21-channel portable EEG recorded with video component, utilizing 10/20 international system with referential and bipolar montages. The recording starts with presence of diffuse disorganized, moderate amplitude 2 to 3 hertz delta slowing, followed by some periods of suppression. A lot of eye blink artifact and myogenic artifacts were seen. Intermittent high amplitude polyspike type waves were seen, but were intermixed with myogenic activity. The patient was given 1 mg Ativan, which was followed by resolution of myogenic activity, but emergence of clear-cut generalized spike/polyspike waves in bihemispheric region with some periods of suppression. No motor activity was witnessed during the study. Photic stimulation was not done. Different stages of sleep were not seen. IMPRESSION: Severely abnormal EEG due to presence of generalized sharp waves or poly spikes followed by periods of suppression. This epileptiform activity became much more clear after receiving 1 mg of Ativan when the muscle artifact resolved. This EEG is consistent with nonconvulsive generalized status epilepticus. Continuous video EEG monitoring strongly recommended. MMODL / IJN: [id number] / LESIA
[2024-08-04 06:37] LABS: Glucose,Whole Blood 137 mg/dL (70-110)
[2024-08-04 07:44] LABS: African American GFR (CKD) >90 (>60 ml/min/1.73 sqM); Anion Gap 5 mmol/L; Blood Urea Nitrogen 24 mg/dL (7-17); Calcium 8.7 mg/dL (8.4-10.2); Carbon Dioxide 28 mmol/L (22-30); Chloride 96 mmol/L (98-107); Glucose 123 mg/dL (74-99); Magnesium 1.9 mg/dL (1.6-2.3); Non-African American GFR(CKD) >90 (>60 ml/min/1.73 sqM); Potassium 3.8 mmol/L (3.5-5.1); Sodium 129 mmol/L (137-145)
[2024-08-04 07:47] LABS: Anisocytosis Moderate; Basophils % (A) 0 %; Eosinophils % (A) 0 %; HCT 27.5 % (34.0-46.0); HGB 9.2 gm/dL (11.4-16.0); Lymphocytes # (A) 0.4 k/uL (1.0-4.8); Lymphocytes % (A) 4 %; MCH 30.7 pg (25.0-35.0); MCHC 33.6 g/dL (31.0-37.0); MCV 91.4 fL (80.0-100.0); Macrocytosis Slight; Mean Platelet Volume 7.6; Monocytes # (A) 0.4 k/uL (0-1.0); Monocytes % (A) 4 %; Neutrophils # (A) 9.7 k/uL (1.3-7.7); Neutrophils % (A) 92 %; Platelet Count 259 k/uL (150-450); RDW 21.9 % (11.5-15.5); WBC 10.5 k/uL (3.8-10.6)
--- NOTE | 2024-08-04 09:41 | XR ---
EXAMINATION TYPE: XR chest 1V portable DATE OF EXAM: 08/04/2024 6:52 AM COMPARISON: 08/03/2024 08/01/2024 CT chest CLINICAL INDICATION: Female, 79 years old with history of short of breath, TECHNIQUE: XR chest 1V portable view(s) obtained. FINDINGS: The heart size is normal. The pulmonary vasculature is normal. Right perihilar opacity is present. Correlate for mass or pneumonia. Continued follow-up recommended. Port is present on the right with the tip in the superior vena cava region. Nasogastric tube transver ses the thorax with tip in the abdomen. IMPRESSION: 1. Persistent stable opacity right perihilar region. Pneumonia and mass remain within the differentia l. Continued follow-up is recommended. [facility], , 08/04/2024 9:39 AM
--- NOTE | 2024-08-04 11:39 | P.PN ---
Subjective Progress Note Date: 08/04/24 79-year-old female patient, was transferred to the intensive care unit because of symptomatic hyponatremia. The patient's was hospitalized for influenza pneumonia. The patient is known to have metastatic ovarian cancer diagnosed approximately 3 years ago with mets to the liver and the lungs. The patient received multiple rounds of systemic chemotherapy including immunotherapy. The patient has been treated through [facility], Dr. Myers. The patient presented to us with altered mentation, poor appetite, generalized weakness, and delirium. She tested positive for influenza in the hospital. She was started on IV fluids and she was also started on Tamiflu. There was a concern for a bacterial pneumonia and based on that the patient was covered with broad-spectrum antibiotics in addition. The patient had a chest x-ray that showed a large opacity in the left midlung in addition to that there was a focal right midlung opacity. No evidence of any pleural effusion. During this current hospitalization, as the patient was getting IV fluids, the patient developed progressive worsening her sodium level. Her sodium level at admission was 125, subsequently came 828 and currently is down to 216. IV fluids were stopped and the patient got transferred to the intensive care unit for hypertonic saline solution which is currently running at 25 cc an hour. Nephrology has been consulted. In terms of antibiotic coverage, the patient is currently on IV Zosyn. The patient is also on Tamiflu. She remains lethargic and weak and quite debilitated. No focal neurological deficits. CAT scan of the brain done in the emergency department showed no evidence of any acute intra cranial process. She is hemodynamically stable. 08/02/2024, the patient remains altered and confused. She is nonverbal. Sluggishly responsive to painful stimulation and there is significant impairment level of consciousness. Based on that, a repeat CAT scan of the brain was ordered and was performed this morning. Neurology is also on the case. EEG that was on 08/01/2024 showed background slowing with disorganization of severe degree and generalized cerebral dysfunction. The patient's sodium level gradually continues to improve. She remains on 3% hypertonic saline and currently her sodium level is up to 120. Meanwhile, she remains on 12 L of oxygen by nasal cannula. Chest x-ray remains unchanged. CAT scan of the chest was performed yesterday and showed evidence of metastatic disease with pulmonary involvement with several pulmonary nodules. In addition, there was an area of masslike consolidation involving the right upper lobe which is suggestive of underlying pneumonia and the patient remains on IV Zosyn. She remains on Tamiflu. NG tube was inserted for medication and oral feeding. She remains on Decadron 4 mg p.o. daily. She remains on IV Zosyn. She remains on hypertonic saline solution. Labs from today shows a WBC count of 11 hemoglobin 10.8 and platelet count of 229. Sodium is at 120 with a potassium level of 3.2, BUN 13 with a creatinine of 0.6. Serum bicarb is at 17. Glucose at 78. Calcium levels at 8.0. The procalcitonin level was 0.11. 08/03/2024, the patient continues to have significant diminished level of consciousness. The patient continues to be febrile. At the same time, earlier this morning about 3 AM, the patient started having twitching in her eyes and jerking left upper extremity and subsequently to the head for generalized tonic-clonic seizures that lasted for around 20 to 30 seconds. She was given Ativan 1 mg IV. She was given 1 g of Keppra and neurology has been informed. EEG is to follow. Meanwhile, the patient continues to have diarrhea. The fecal management system has been placed. NG tube is in place. She is on vital high- protein at rate of 10 cc an hour. She remains off hypertonic saline solution. Sodium levels up to 127. BUN is 80 with a creatinine of 0.5. The white cell count of 14 with a hemoglobin 10.3 and a platelet count of 238. Calcium level is at 8.5. Chest x-ray from today shows a stable right upper lobe consolidation. Are clear. Precoius are you here on clear 08/04/2024, the patient is being seen for a follow-up. Neurologically, the patient grimaces only to painful stimulation. Remains unresponsive. EEG of the brain was done and showed burst suppression consistent with seizure activity and overall clinical presentation is consistent with encephalitis. Based on that, we made recommendations for the patient to be transferred to a facility where there is continuous EEG monitoring. The patient is accepted at [facility] to be transferred at a later stage. Family declined benzodiazepines. Family declined intubation. We were not comfortable starting the patient on a Versed drip and we kept the patient on a combination of Vimpat 200 mg IV every 12 hours and IV Keppra 1 g twice daily. No visible seizure activity at this point in time. A follow-up EEG to be done today. NG tube is in place. She is on vital high-protein at rate of 40 cc an hour. She is afebrile. She remains on 2 L of oxygen by nasal cannula. Labs from today shows white cell count of 10 hemoglobin of 9 and platelet count of 259. BUN is 24 with a creatinine of 0.5 and a sodium levels at 129. She is off the hypertonic saline solution. Hemodynamically stable. Chest x-ray shows a persistent right upper lobe consolidation. Objective - Vital Signs Vital signs: Vital Signs Temp 97.8 F 08/04/24 04:00 Pulse 84 08/04/24 07:00 Resp 25 H 08/04/24 07:00 BP 83/55 08/04/24 07:00 Pulse Ox 98 08/04/24 08:15 FiO2 Intake & Output 08/03/24 08/04/24 08/04/24 18:59 06:59 18:59 Intake Total 280 610 120 Output Total 455 480 30 Balance -175 130 90 Weight 65.6 kg Intake: IV 100 300 100 Acyclovir Sodium 650 mg 100 In Sodium Chloride 0.9% 100 ml @ 100 mls/hr IV Q8H [facility] Rx#:[id number] Piperacillin-Tazobactam 3 100 200 100 .375 gm In Sodium Chloride 0.9% 100 ml @ 25 mls/hr IVPB Q8H [facility] Rx#: [id number] Intake, IV Titration 160 Amount Acyclovir Sodium 650 mg 100 In Sodium Chloride 0.9% 100 ml @ 100 mls/hr IV Q8H [facility] Rx#:[id number] Sodium Chloride 0.9% 1, 60 000 ml @ 40 mls/hr IV . Q24H [facility] Rx#:[id number] Tube Feeding 20 220 20 Other 90 Output: Urine 455 480 30 Other: Voiding Method Indwelling Catheter Indwelling Catheter - Exam GENERAL: Unresponsive, extremely lethargic, nonverbal, The patient is currently on 2 L of oxygen by nasal cannula. NG tube is in place. EYES: Pupils equal. Conjunctiva vivian HEENT: External appearance of nose and ears normal, oral cavity grossly normal. NECK: JVD not raised; masses not palpable. HEART: First and second heart sounds are normal; no edema. LUNGS: Respiratory rate normal; clear to auscultation. ABDOMEN: Soft, nontender, liver spleen not palpable, no masses palpable. PSYCH: Lethargic. Not really answering questions MUSCULOSKELETAL:No Clubbing/cyanosis;muscles-grossly intact. OA NEUROLOGICAL: Cranial nerves grossly intact; no facial asymmetry, Nevertheless, there is significant impairment level of consciousness. The patient is not following commands. Barely grimaces to painful stimulation. Motor and sensory functions cannot be appropriately obtained. Pupils are equal reactive to light. - Labs CBC & Chem 7: 08/04/24 06:30 08/04/24 06:30 Labs: Abnormal Lab Results - Last 24 Hours (Table) 08/03/24 08/03/24 08/03/24 Range/Units 12:13 12:27 16:44 RBC (3.80-5.40) m/uL Hgb (11.4-16.0) gm/dL Hct (34.0-46.0) % RDW (11.5-15.5) % Neutrophils # (1.3-7.7) k/uL Lymphocytes # (1.0-4.8) k/uL Sodium 127 L 127 L (137-145) mmol/L Chloride (98-107) mmol/L BUN (7-17) mg/dL Glucose (74-99) mg/dL POC Glucose (mg/dL) 149 H (70-110) mg/dL 08/03/24 08/03/24 08/04/24 Range/Units 17:13 23:19 06:30 RBC 3.00 L (3.80-5.40) m/uL Hgb 9.2 L (11.4-16.0) gm/dL Hct 27.5 L (34.0-46.0) % RDW 21.9 H (11.5-15.5) % Neutrophils # 9.7 H (1.3-7.7) k/uL Lymphocytes # 0.4 L (1.0-4.8) k/uL Sodium (137-145) mmol/L Chloride (98-107) mmol/L BUN (7-17) mg/dL Glucose (74-99) mg/dL POC Glucose (mg/dL) 171 H 150 H (70-110) mg/dL 08/04/24 08/04/24 Range/Units 06:30 06:35 RBC (3.80-5.40) m/uL Hgb (11.4-16.0) gm/dL Hct (34.0-46.0) % RDW (11.5-15.5) % Neutrophils # (1.3-7.7) k/uL Lymphocytes # (1.0-4.8) k/uL Sodium 129 L (137-145) mmol/L Chloride 96 L (98-107) mmol/L BUN 24 H (7-17) mg/dL Glucose 123 H (74-99) mg/dL POC Glucose (mg/dL) 137 H (70-110) mg/dL Microbiology - Last 24 Hours (Table) 07/29/24 23:53 Blood Culture - Final Blood 07/31/24 14:31 Blood Culture - Preliminary Blood Assessment and Plan Plan: Acute influenza syndrome with possible pneumonia. Chest x-ray shows large focal right midlung opacity and another large left opacity involving the left midlung. Underlying lung masses cannot be completely ruled out. A CAT scan of the chest was completed on 08/01/2024 and there is evidence of metastatic pulmonary nodules in addition to an area of consolidation in the right upper lobe suggestive of bacterial pneumonia and the patient remains on IV Zosyn. Chest x-ray from 08/04/2024 remains unchanged Acute hypoxic respiratory failure, oxygenation is improved and the patient is currently on 2 L O2 nasal cannula Fever, secondary to acute influenza syndrome Encephalopathy with significant diminishment in level of consciousness. Rule out viral encephalitis, rule out BOTTOM LINER metastases/leptomeningeal involvement. EEG showed burst suppression consistent with seizure and the patient is currently on a combination of Keppra and Vimpat. New onset seizures, given Ativan and currently on IV Keppra and Vimpat. Rule out secondary to encephalitis. Metastatic ovarian cancer with mets to the lungs and liver. The patient was diagnosed approximate 2 years ago and she has undergone treatment and currently she is on Enhertu receiving cycle 3 on 07/05/2024.. CAT scan of the chest shows metastatic bilateral pulmonary nodules Acute hyponatremia, secondary to SIADH, improved and the patient is currently off hypertonic saline Diarrhea History of atrial fibrillation Osteoarthritis Hyperlipidemia Irritable bowel syndrome History of varicose veins involving lower extremities Former smoker Plan Patient is to L of oxygen by nasal cannula Right upper lobe consolidation suggestive of bacterial pneumonia the patient remains on IV Zosyn Hemodynamically stable Significantly impaired mental status and the patient to be seen by neurology CAT scan of the brain showed no acute abnormalities Check ammonia level nonelevated Consider lumbar puncture if no improvement in the patient's mental status, the patient remains off Eliquis Sodium levels improved and the patient is currently off hypertonic saline solu tion Continue IV Keppra and IV Vimpat EEG to be repeated today Continue IV acyclovir Neurology follow-up Patient is accepted at [facility], pending transfer Fluid restriction Continue Tamiflu Enteral feeding for nutritional support Procalcitonin level is not elevated at 0.11 Full CODE STATUS Fluid restriction and IV fluids are currently at KVO Will continue to follow Condition is critical. Critical care evaluation that was done more than 30 minutes. Will continue following up this patient with the rest of the consultants. Time with Patient: Greater than 30
--- NOTE | 2024-08-04 11:41 | P.PN ---
Subjective Patient is seen for follow-up for hyponatremia. 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 Serum sodium had worsened significantly with normal saline infusion. Status post 3% saline Most recent sodium was 1279 today. There is consideration for underlying viral encephalitis. No improvement in mentation. Patient opens eyes but does not track or communicate. Objective - Vital Signs Vital signs: Vital Signs Temp 97.8 F 08/04/24 08:00 Pulse 89 08/04/24 11:00 Resp 24 08/04/24 11:00 BP 101/56 08/04/24 11:00 Pulse Ox 95 08/04/24 11:00 FiO2 Intake & Output 08/03/24 08/04/24 08/04/24 18:59 06:59 18:59 Intake Total 280 610 120 Output Total 455 480 130 Balance -175 130 -10 Weight 65.6 kg Intake: IV 100 300 100 Acyclovir Sodium 650 mg 100 In Sodium Chloride 0.9% 100 ml @ 100 mls/hr IV Q8H [facility] Rx#:[id number] Piperacillin-Tazobactam 3 100 200 100 .375 gm In Sodium Chloride 0.9% 100 ml @ 25 mls/hr IVPB Q8H [facility] Rx#: [id number] Intake, IV Titration 160 Amount Acyclovir Sodium 650 mg 100 In Sodium Chloride 0.9% 100 ml @ 100 mls/hr IV Q8H [facility] Rx#:[id number] Sodium Chloride 0.9% 1, 60 000 ml @ 40 mls/hr IV . Q24H [facility] Rx#:[id number] Tube Feeding 20 220 20 Other 90 Output: Urine 455 480 130 Other: Voiding Method Indwelling Catheter Indwelling Catheter Indwelling Catheter - Exam Patient opens eyes Does not communicate much Examination of the heart S1 and S2 Examination of the lungs bilateral breath sounds are heard Abdomen is soft nontender Examination of lower extremities shows chronic skin changes no significant edema. - Labs CBC & Chem 7: 08/04/24 06:30 08/04/24 06:30 Labs: Abnormal Lab Results - Last 24 Hours (Table) 08/03/24 08/03/24 08/03/24 Range/Units 12:13 12:27 16:44 RBC (3.80-5.40) m/uL Hgb (11.4-16.0) gm/dL Hct (34.0-46.0) % RDW (11.5-15.5) % Neutrophils # (1.3-7.7) k/uL Lymphocytes # (1.0-4.8) k/uL Sodium 127 L 127 L (137-145) mmol/L Chloride (98-107) mmol/L BUN (7-17) mg/dL Glucose (74-99) mg/dL POC Glucose (mg/dL) 149 H (70-110) mg/dL 08/03/24 08/03/24 08/04/24 Range/Units 17:13 23:19 06:30 RBC 3.00 L (3.80-5.40) m/uL Hgb 9.2 L (11.4-16.0) gm/dL Hct 27.5 L (34.0-46.0) % RDW 21.9 H (11.5-15.5) % Neutrophils # 9.7 H (1.3-7.7) k/uL Lymphocytes # 0.4 L (1.0-4.8) k/uL Sodium (137-145) mmol/L Chloride (98-107) mmol/L BUN (7-17) mg/dL Glucose (74-99) mg/dL POC Glucose (mg/dL) 171 H 150 H (70-110) mg/dL 08/04/24 08/04/24 Range/Units 06:30 06:35 RBC (3.80-5.40) m/uL Hgb (11.4-16.0) gm/dL Hct (34.0-46.0) % RDW (11.5-15.5) % Neutrophils # (1.3-7.7) k/uL Lymphocytes # (1.0-4.8) k/uL Sodium 129 L (137-145) mmol/L Chloride 96 L (98-107) mmol/L BUN 24 H (7-17) mg/dL Glucose 123 H (74-99) mg/dL POC Glucose (mg/dL) 137 H (70-110) mg/dL Microbiology - Last 24 Hours (Table) 07/29/24 23:53 Blood Culture - Final Blood 07/31/24 14:31 Blood Culture - Preliminary Blood Assessment and Plan Assessment: 1. Acute hyponatremia with mental status changes secondary to SIADH as serum sodium worsened with normal saline. Urine osmolality 566 and urine sodium 152. Status post 3% saline. 2. Influenza A infection/pneumonia 3. Metastatic ovarian cancer 4. Mental status changes possibly associated with metabolic encephalopathy/, hyponatremia and underlying infection. Rule out other etiology. Being followed by neurology. There is consideration for underlying viral encephalitis. Plan: Continue off of 3% saline. Sodium is slowly improving. Avoid 0.9% saline infusion due to SIADH. Maintained on free water along with tube feedings. Repeat sodium later this evening.
[2024-08-04 11:43] LABS: Glucose,Whole Blood 145 mg/dL (70-110)
--- NOTE | 2024-08-04 13:08 | P.PN ---
Subjective Progress Note Date: 08/04/24 Principal diagnosis: Reason for follow-up is acute influenza A and pneumonia Patient is a 79-year-old female past medical history significant for hyperlipidemia atrial fibrillation osteoarthritis did have a history of metastatic ovarian cancer for the patient follows with Dr. Myers at [facility] in [place] presenting to the hospital for evaluation of mental status changes she was noted to be febrile tested positive for influenza A and there was concern for right middle lobe upper lobe opacity suspicious for pneumonia. On today's evaluation that is 08/04/2024, Patient is afebrile this morning patient is on 2 L nasal cannula oxygen she not requiring any pressor support as reported by nursing staff the patient admits to be lethargic no vomiting or diarrhea has been reported. Patient white count is normal at 10.5 creatinine 0.54 blood culture have been negative Objective - Vital Signs Vital signs: Vital Signs Temp 97.8 F 08/04/24 08:00 Pulse 102 H 08/04/24 12:30 Resp 24 08/04/24 12:30 BP 97/61 08/04/24 12:30 Pulse Ox 99 08/04/24 12:30 FiO2 Intake & Output 08/03/24 08/04/24 08/04/24 18:59 06:59 18:59 Intake Total 280 610 120 Output Total 455 480 190 Balance -175 130 -70 Weight 65.6 kg Intake: IV 100 300 100 Acyclovir Sodium 650 mg 100 In Sodium Chloride 0.9% 100 ml @ 100 mls/hr IV Q8H [facility] Rx#:[id number] Piperacillin-Tazobactam 3 100 200 100 .375 gm In Sodium Chloride 0.9% 100 ml @ 25 mls/hr IVPB Q8H [facility] Rx#: [id number] Intake, IV Titration 160 Amount Acyclovir Sodium 650 mg 100 In Sodium Chloride 0.9% 100 ml @ 100 mls/hr IV Q8H [facility] Rx#:[id number] Sodium Chloride 0.9% 1, 60 000 ml @ 40 mls/hr IV . Q24H [facility] Rx#:[id number] Tube Feeding 20 220 20 Other 90 Output: Urine 455 480 190 Other: Voiding Method Indwelling Catheter Indwelling Catheter Indwelling Catheter - Exam GENERAL DESCRIPTION: An elderly female lying in bed in no distress RESPIRATORY SYSTEM: Unlabored breathing , decreased intensity of breath sounds, no wheeze HEART: S1 S2 regular rate and rhythm , ABDOMEN: Soft , no tenderness EXTREMITIES: No edema feet - Labs CBC & Chem 7: 08/04/24 06:30 08/04/24 06:30 Labs: Abnormal Lab Results - Last 24 Hours (Table) 08/03/24 08/03/24 08/03/24 Range/Units 16:44 17:13 23:19 RBC (3.80-5.40) m/uL Hgb (11.4-16.0) gm/dL Hct (34.0-46.0) % RDW (11.5-15.5) % Neutrophils # (1.3-7.7) k/uL Lymphocytes # (1.0-4.8) k/uL Sodium 127 L (137-145) mmol/L Chloride (98-107) mmol/L BUN (7-17) mg/dL Glucose (74-99) mg/dL POC Glucose (mg/dL) 171 H 150 H (70-110) mg/dL 08/04/24 08/04/24 08/04/24 Range/Units 06:30 06:30 06:35 RBC 3.00 L (3.80-5.40) m/uL Hgb 9.2 L (11.4-16.0) gm/dL Hct 27.5 L (34.0-46.0) % RDW 21.9 H (11.5-15.5) % Neutrophils # 9.7 H (1.3-7.7) k/uL Lymphocytes # 0.4 L (1.0-4.8) k/uL Sodium 129 L (137-145) mmol/L Chloride 96 L (98-107) mmol/L BUN 24 H (7-17) mg/dL Glucose 123 H (74-99) mg/dL POC Glucose (mg/dL) 137 H (70-110) mg/dL 08/04/24 Range/Units 11:41 RBC (3.80-5.40) m/uL Hgb (11.4-16.0) gm/dL Hct (34.0-46.0) % RDW (11.5-15.5) % Neutrophils # (1.3-7.7) k/uL Lymphocytes # (1.0-4.8) k/uL Sodium (137-145) mmol/L Chloride (98-107) mmol/L BUN (7-17) mg/dL Glucose (74-99) mg/dL POC Glucose (mg/dL) 145 H (70-110) mg/dL Microbiology - Last 24 Hours (Table) 07/29/24 23:53 Blood Culture - Final Blood 07/31/24 14:31 Blood Culture - Preliminary Blood Assessment and Plan (1) Sepsis Current Visit: Yes Status: Acute Code(s): A41.9 - SEPSIS, UNSPECIFIED ORGA NISM SNOMED Code(s): 50447998 (2) Influenza Current Visit: Yes Status: Acute Code(s): J11.1 - FLU DUE TO UNIDENTIFIED INFLUENZA VIRUS W OTH RESP MANIFEST SNOMED Code(s): 5075251 (3) Pneumonia Current Visit: Yes Status: Acute Code(s): J18.9 - PNEUMONIA, UNSPECIFIED ORGANISM SNOMED Code(s): 571391454 Plan: 1patient was in the hospital mental status changes weakness in this patient has been febrile did have tachycardia elevated white count meeting criteria for SIRS/sepsis source likely pneumonia with mostly right middle lobe infiltrate question of possible aspiration pneumonia 2-patient also tested positive for influenza A, for which the patient has finished a 5-day course of Tamiflu therapy 3-patient did have resolution of her fever white count has normalized culture have been negative so far patient will be treated with Zosyn 3.375 g every 8 hours, currently waiting for transfer to tertiary care for persistent seizure activity as reported by the nursing staff/neurologist Dictation was produced using [employer] dictation software. please excuse any grammatical, word or spelling errors.
--- NOTE | 2024-08-04 14:51 | P.PN ---
Progress Note - Text Progress Note Date: 08/04/24 Chief Complaint: Altered mentation Very pleasant 79-year-old patient follows Dr. Yi. Patient's sister, daughter and granddaughter at the bedside. Chronic medical condition include atrial fibrillation, GERD, hyperlipidemia, osteoarthritis, migraine, lower back pain from disc disease, arthritis, IBS,. Anxiety depression. Patient was diagnosed with metastatic ovarian cancer 2 years ago to include the lungs and liver. Patient's had multiple rounds of chemotherapy. Including immunotherapy. Patient does follow with Dr. Myers at [facility]. At [employer] the family gotten together. Patient had oral sores with poor appetite. Over the last 2 3 days patient was noted to be increasingly confused. Poor appetite. Patient normally lives alone. Does use a walker. Patient has been delirious. Fever and tested positive for influenza in the hospital. July 31: Remains lethargic. Family at the bedside. Status spiking fevers again. Getting IV fluids. ID consulted. Discussed with family at the bedside. ID started patient empirically on IV ceftriaxone. Patient on Tamiflu. August 01: Patient spiking fevers yesterday. For other secondary causes had consulted ID. Patient was continued on IV ceftriaxone and Tamiflu. This mo rning patient's sister and granddaughter at the bedside. Patient remains lethargic/delirious. Did eat some yesterday per the granddaughter. Later this afternoon sodium came back at 116. That could be contributing hence patient being moved to the ICU. I did speak to Dr. Jain from intensive care. Also did communicate with screen print operator Dr. Lopez. May consider hypertonic saline for the same. No fevers overnight. Also neurology consulted. Order EEG. August 02: Patient moved to the ICU yesterday because of low sodium at 116. Hypertonic saline given. Also on IV Zosyn. CT scan of the brain done this afternoon did not show anything acute. CT scan chest done yesterday evening shows right masslike consolidation with some air bronchograms. Could represent pneumonia. Malignant mass still possible. Other peripheral nodules with central cavitation different differential. Spoke to patient's son Stephen at the bedside and his . Prognosis guarded because of multiple issues. Patient is a full code. NG tube feeding has been started. Sodium this afternoon 123. Spiked fever this morning. On high flow 10 L oxygen. August 02: ICU. Saw the patient earlier today. 8 L nasal cannula. This opens eyes. Minimal response to pain. Tube feeding at 10 cc an hour. Increase to 20 cc an hour. Pending dietitian input. Telemetry shows sinus rhythm. Patient on IV acyclovir. Last night patient had seizures was started on IV Keppra by neurology. Also on IV Zosyn. Also getting Decadron and Tamiflu. Discussed with nurse Xiomy. Checks x-ray reports stable right perihilar density mass versus pneumonia. EEG from August 01 showed generalized cerebral dysfunction. No epileptiform activity was reported August 03: ICU. Yesterday afternoon Dr. Whitmore called. Patient is a status epilepticus. Wanted the patient to be transferred out. I spoke to Dr. Rubi from . No beds available. Patient put in the queue. Also no beds available at [facility]. [place]. Patient's son lives did not want the patient to be transferred to [facility]. Dr. Whitmore is spoken to Neurologist at [facility] otherwise. Patient on IV acyclovir, IV K eppra, IV Zosyn, IV Vimpat. This morning patient remains to be lethargic. NG tube feeding. Remains on above IV medications. Spoke to the patient's son and his . They are agreeable to patient took [facility]. They understand no beds available at at [facility] and [facility]. Did convey to the nurse. Patient has remained afebrile. Tamiflu course completed. Patient has remained off hypertonic 3% saline Active Medications Acetaminophen (Acetaminophen Tab 500 Mg Tab) 500 mg PO Q6HR PRN PRN Reason: Fever and/ or Mild Pain Last Admin: 08/03/24 00:43 Dose: 500 mg Hydrocodone Bitart/Acetaminophen (Hydrocodone/Apap 15 Ml Solution) 15 ml PO BID PRN PRN Reason: Pain Albuterol/Ipratropium (Ipratropium-Albuterol 3 Ml Neb) 3 ml INHALATION RT-Q4H PRN PRN Reason: shortness of breath Last Admin: 08/02/24 08:20 Dose: 3 ml Apixaban (Apixaban 5 Mg Tab) 5 mg PO BID [facility]; Protocol Last Admin: 08/02/24 08:39 Dose: 5 mg Al Hydroxide/Mg Hydroxide 30 ml/ Lidocaine HCl 30 ml/Diphenhydramine HCl 75 mg/Nystatin 3,000,000 unit 0 ml PO TID [facility] Last Admin: 08/04/24 09:54 Dose: Not Given Dexamethasone (Dexamethasone 4 Mg Tab) 4 mg PO DAILY [facility] Last Admin: 08/04/24 08:08 Dose: 4 mg Dextrose/Water (Dextrose 50% Syringe 50 Ml) 50 ml IVP ONCE PRN; Protocol PRN Reason: Hypoglycemia Last Admin: 08/02/24 06:27 Dose: 50 ml Piperacillin Sod/Tazobactam (Sod 3.375 gm/ Sodium Chloride) 100 mls @ 25 mls/hr IVPB Q8H [facility]; Protocol Last Admin: 08/04/24 06:36 Dose: 25 mls/hr Acyclovir Sodium 650 mg/ (Sodium Chloride) 113 mls @ 100 mls/hr IV Q8H [facility]; Protocol Last Admin: 08/04/24 09:55 Dose: 100 mls/hr Lacosamide (Lacosamide Iv (Ages 17+ Yrs) 200 Mg/20 Ml Ml) 200 mg IVP BID [facility] Last Admin: 08/04/24 08:08 Dose: 200 mg Levetiracetam (Levetiracetam Iv 500 Mg/5 Ml Vial) 1,000 mg IVP Q12HR [facility] Last Admin: 08/04/24 08:08 Dose: 1,000 mg Melatonin (Melatonin 5 Mg Tablet) 10 mg PO HS [facility] Last Admin: 08/03/24 19:43 Dose: Not Given Metoprolol Tartrate (Metoprolol Tartrate 50 Mg Tab) 50 mg PO BID [facility] Last Admin: 08/04/24 08:04 Dose: Not Given Miscellaneous Information (Pneumonia Protocol Utilized 1 Each Misc) 1 each PO ONCE PRN PRN Reason: Per Protocol Miscellaneous Information (Potassium Replacement Protocol 1 Each Misc) 1 each MISCELLANE DAILY PRN; Protocol PRN Reason: Per Protocol Naloxone HCl (Naloxone 0.4 Mg/Ml 1 Ml Vial) 0.2 mg IV Q2M PRN PRN Reason: Opioid Reversal Ondansetron HCl (Ondansetron 4 Mg/2 Ml Vial) 4 mg IVP Q8HR PRN PRN Reason: Nausea And Vomiting Petrolatum (Zinc Oxide Paste (Z-Guard) 1 Applic) 1 applic TOPICAL BID PRN; Protocol PRN Reason: Wound Healing Psyllium Hydrophilic Mucilloid (Psyllium Husk 100% 6 Gm Packet) 6 gm PO DAILY [facility] Last Admin: 08/04/24 08:04 Dose: Not Given Physical examination: VITAL SIGNS: 97.8, 79, 12, 96 x 61, 97% on 8 L high flow GENERAL: [BMI 28.2, lethargic EYES: Pupils equal. Conjunctiva vivian l. HEENT: External appearance of nose and ears normal, oral cavity grossly normal. NECK: JVD not raised; masses not palpable. HEART: First and second heart sounds are normal; no edema. LUNGS: Respiratory rate normal; increased breath sound ABDOMEN: Soft, nontender, liver spleen not palpable, no masses palpable. PSYCH: Lethargic. Not really answering questions MUSCULOSKELETAL:No Clubbing/cyanosis;muscles-grossly intact. OA NEUROLOGICAL: Cranial nerves grossly intact; no facial asymmetry, barely responding to pain. INVESTIGATIONS, reviewed in the clinical context: August 04: White count 10.5 hemoglobin 9.2 platelets 259 sodium 129 potassium 3.8 creatinine 0.54 EEG [August 01] severe generalized cerebral dysfunction. No epileptiform activity. CT brain [August 02]: Unremarkable August 03: White count 14 hemoglobin 10.3 platelets 238 potassium 3.6 creatinine 0.59 sodium 127 August 01: White count 12 hemoglobin 10.4 platelets 225 sodium 116 potassium 3.7 creatinine 0.6 July 31: White count 12 hemoglobin 11.3 platelets 220. Procalcitonin 0.11 July 30: White count 9.9 hemoglobin 10.6 platelets 173 neutrophils 8.5 lymphocyte 0.8 sodium 128 potassium 4.1 BUN 32 creatinine 0.68 AST 40 ALT 38 albumin 2.8 Urine drug screen positive for opiates, benzodiazepines Influenza type a PCR: Detected Influenza type B, RSV, COVID-19: Not detected EKG tracing personally reviewed by me-normal sinus rhythm. CT scan brain: Unremarkable Chest x-ray film personally reviewed by me-right midlung opacity. Question scattered infiltrates Assessment plan: -Sepsis second underlying influenza A with pneumonitis and possible secondary bacterial pneumonia.: [facility] and ID following Tamiflu. IV fluids. IV Zosyn -Possible right middle lobe pneumonia suspect gram-negative organism/aspiration pneumonia. IV Zosyn -Acute delirium metabolic encephalopathy from sepsis from influenza A: Slow to respond -Status epilepticus: Slow to respond We tried to transfer the patient [facility] did not want that yesterday. Agree with the rec today. No beds available at [facility] and [facility]. IV Keppra. IV Vimpat. Neurology following -Severe hyponatremia: Some improvement, today 129 Status post hypertonic saline Nephrology following. -Feeding via NG tube 20 cc an hour -Metastatic ovarian cancer for last 2 years. Has received chemotherapy immunotherapy. Does follow with Dr. Myers out of [facility]. CT scan 2 weeks ago showed disease present in the lungs liver and a spot in the sternum. -Chronic medical debility does use a walker -Paroxysmal atrial fibrillation currently in sinus rhythm Eliquis Lopressor. -Essential hypertension Diovan. Metoprolol. -Full code -Medical power of employee benefits attorney, son. [facility] ICU. NG tube feeding. IV Zosyn. Tamiflu completed. Empirically IV acyclovir. On 2 antiepileptic medications. Nurse will try for [facility] transfer. Prognosis guarded. Past Medical History Past Medical History: Atrial Fibrillation, Eye Disorder, GERD/Reflux, Hyperlipidemia, Osteoarthritis (OA), Vascular Disorder Additional Past Medical History / Comment(s): Frequent migraines, lower back disc disease/pain, L and R shoulder pain, flebitis, arthritis in multiple joints, leaky heart valve, bilateral leg varicosities, IBS, bronchitis, UTI, some lasering done right eye for "flashes" History of Any Multi-Drug Resistant Organisms: None Reported Past Surgical History: Adenoidectomy, Breast Surgery, Cholecystectomy, Orthopedic Surgery, Tonsillectomy Additional Past Surgical History / Comment(s): Bilateral wrist tendon surgery, bilateral feet 4th toe surg. d/t curvature, lipoma removed from back, lumbar epidural injections, L leg vein stripping, bilateral leg varicose vein injections to remove, L breast benign biopsy, colonoscopy/benign polypectomy, D&C Past Anesthesia/Blood Transfusion Reactions: No Reported Reaction Additional Past Anesthesia/Blood Transfusion Reaction / Comment(s): Pt has claustrophobia. Past Psychological History: Anxiety, Depression Smoking Status: Former smoker Past Alcohol Use History: Occasional Past Drug Use History: None Reported
[2024-08-04] MEDS: SODIUM CHLORIDE 0.9% IVPB STA (15:51)
[2024-08-04] MEDS: PHENYTOIN SODIUM IVPB STA (15:51)
[2024-08-04] MEDS: VALPROATE SODIUM 1,000 MG in SODIUM CHLORIDE 0.9% 50 ML IVPB SCH (16:48)
[2024-08-04 17:36] LABS: Glucose,Whole Blood 216 mg/dL (70-110)
--- NOTE | 2024-08-04 23:29 | EEG ---
ELECTROENCEPHALOGRAM REPORT PREAMBLE: This is a 79-year-old female with nonconvulsive generalized status epilepticus. This is a followup study. CURRENT MEDICATIONS: 1. Vimpat. 2. Keppra. EEG FINDINGS: This is a 21-channel digital EEG recorded with video component, utilizing 10/20 international system with referential and bipolar montages. The recording starts and continues with presence of burst suppression pattern. The bursts consist of high- amplitude, generalized sharp or polyspike waves followed by periods of suppression lasting between 1 second to maximum 6 seconds seen during this study. At times, these bursts occur repetitively at 1 Hz during this study. Background otherwise had disorganized, moderate amplitude mixed theta and delta frequency activity seen during the bursts. At times, some rhythmic twitching of the right arm was noted. Some eye blinking was also noticed clinically periodically. Photic stimulation and hyperventilation were not done. Different stages of sleep were not seen. IMPRESSION: This is a severely abnormal EEG due to presence of generalized, high amplitude polyspikes or sharp waves followed by periods of suppression lasting between 1 second to maximum 6 seconds. Clinically, some intermittent right arm tremors were noted and sometimes eye blinking. Overall, this EEG is consistent with electrographic generalized status epilepticus. When compared to the EEG from yesterday, the epileptiform activity seems to have got worse and more prolonged periods of generalized suppression. Clinical correlation and continuous EEG monitoring strongly recommended. HANNAH / DEBI: [id number] / LESIA
[2024-08-05] LABS: Glucose,Whole Blood 176 mg/dL (70-110)
[2024-08-05] MEDS: NOREPINEPHRINE 4 MG in SODIUM CHLORIDE 0.9% 250 ML IV SCH (02:38)
[2024-08-05] MEDS: PHENYTOIN SODIUM IVPB STA (02:45)
[2024-08-05] MEDS: SODIUM CHLORIDE 0.9% IVPB STA (02:45)
--- NOTE | 2024-08-05 03:08 | P.PN ---
Subjective Progress Note Date: 08/04/24 08/04/2024: Patient was seen for a follow-up. Patient not on any sedation. Akua ent continues to be severely encephalopathic. Patient slightly withdrawing to painful stimuli and grimacing. With painful stimuli, patient starts low amplitude twitching of the extremity tested. : Patient was seen for a follow-up. I was informed by ICU nurse last night at 9:30 PM that "patient had about 20 to 30-second episode of left-sided full body tremors and then it stopped. It looks like seizure like activity. The movements start but patient is constantly almost like moving her mouth up and down." Patient was given 1 mg of Ativan IV followed by Keppra 1000 mg stat and then twice daily. Also gave order for Ativan 1 mg every 5 minutes, maximum 6 mg per 24-hour. Apparently since then patient has not had any more seizure but she continues to be severely obtunded. No improvement as compared to yesterday. Stat EEG was ordered. Objective - Vital Signs Vital signs: Vital Signs Temp 97.8 F 08/04/24 08:00 Pulse 89 08/04/24 11:00 Resp 24 08/04/24 11:00 BP 101/56 08/04/24 11:00 Pulse Ox 95 08/04/24 11:00 FiO2 Intake & Output 08/03/24 08/04/24 08/04/24 18:59 06:59 18:59 Intake Total 280 610 120 Output Total 455 480 130 Balance -175 130 -10 Weight 65.6 kg Intake: IV 100 300 100 Acyclovir Sodium 650 mg 100 In Sodium Chloride 0.9% 100 ml @ 100 mls/hr IV Q8H [facility] Rx#:[id number] Piperacillin-Tazobactam 3 100 200 100 .375 gm In Sodium Chloride 0.9% 100 ml @ 25 mls/hr IVPB Q8H [facility] Rx#: [id number] Intake, IV Titration 160 Amount Acyclovir Sodium 650 mg 100 In Sodium Chloride 0.9% 100 ml @ 100 mls/hr IV Q8H [facility] Rx#:[id number] Sodium Chloride 0.9% 1, 60 000 ml @ 40 mls/hr IV . Q24H [facility] Rx#:[id number] Tube Feeding 20 220 20 Other 90 Output: Urine 455 480 130 Other: Voiding Method Indwelling Catheter Indwelling Catheter Indwelling Catheter - Exam Examination remains unchanged. Patient continues to be severely encephal opathic, obtunded. Pupils are equal, round and reacting. On manually opening the eyelids, her gaze is at times to the midline, then sometimes goes to the right or left. Some eye blinking was noted concerning for seizure. Patient is stuporous, Right arm twitching was noted particularly with alerting for seizure- like painful stimuli. - Labs CBC & Chem 7: 08/04/24 06:30 08/04/24 06:30 Labs: Abnormal Lab Results - Last 24 Hours (Table) 08/03/24 08/03/24 08/03/24 Range/Units 12:27 16:44 17:13 RBC (3.80-5.40) m/uL Hgb (11.4-16.0) gm/dL Hct (34.0-46.0) % RDW (11.5-15.5) % Neutrophils # (1.3-7.7) k/uL Lymphocytes # (1.0-4.8) k/uL Sodium 127 L 127 L (137-145) mmol/L Chloride (98-107) mmol/L BUN (7-17) mg/dL Glucose (74-99) mg/dL POC Glucose (mg/dL) 171 H (70-110) mg/dL 08/03/24 08/04/24 08/04/24 Range/Units 23:19 06:30 06:30 RBC 3.00 L (3.80-5.40) m/uL Hgb 9.2 L (11.4-16.0) gm/dL Hct 27.5 L (34.0-46.0) % RDW 21.9 H (11.5-15.5) % Neutrophils # 9.7 H (1.3-7.7) k/uL Lymphocytes # 0.4 L (1.0-4.8) k/uL Sodium 129 L (137-145) mmol/L Chloride 96 L (98-107) mmol/L BUN 24 H (7-17) mg/dL Glucose 123 H (74-99) mg/dL POC Glucose (mg/dL) 150 H (70-110) mg/dL 08/04/24 08/04/24 Range/Units 06:35 11:41 RBC (3.80-5.40) m/uL Hgb (11.4-16.0) gm/dL Hct (34.0-46.0) % RDW (11.5-15.5) % Neutrophils # (1.3-7.7) k/uL Lymphocytes # (1.0-4.8) k/uL Sodium (137-145) mmol/L Chloride (98-107) mmol/L BUN (7-17) mg/dL Glucose (74-99) mg/dL POC Glucose (mg/dL) 137 H 145 H (70-110) mg/dL Microbiology - Last 24 Hours (Table) 07/29/24 23:53 Blood Culture - Final Blood 07/31/24 14:31 Blood Culture - Preliminary Blood Assessment and Plan Assessment: Nonconvulsive generalized status epilepticus Severe encephalopathy, likely from combination of status epilepticus, and metabolic encephalopathy due to reasons mentioned below. Hyponatremia presented with sodium 116, now 129. Acute influenza A infection with pneumonia Metastatic ovarian cancer, on investigational chemotherapy. Anemia Elevated LFTs Pansinusitis Plan: * Repeat EEG performed today was severely abnormal due to presence of generalized high amplitude polyspike's or sharp wave followed by periods of suppression lasting between 1 second to maximum 6 seconds. Clinically some intermittent right arm tremors were noted and some eye blinking. Overall, this EEG is consistent with generalized status epilepticus. When compared to the EEG from yesterday, the epileptiform activity seems to have got worse and more prolonged periods of generalized suppression. Clinical correlation and continuous EEG monitoring strongly recommended. * Patient currently on Vimpat 200 mg twice daily, Keppra 1000 mg twice daily. * Stat EEG performed 08/03/2024 revealed significantly disorganized background, with appearance of generalized polyspikes followed by periods of suppression, consistent with nonconvulsive generalized status epilepticus. During initial part of the EEG, there was a lot of eyeblink artifacts, and patient with continuous frowning at the forehead producing myogenic artifact. It was uncer tain if patient has underlying epileptiform activity. Ativan 1 mg IV push was given, after which the myogenic activity resolved, with appearance of very obvious generalized status epilepticus. Recommend continuous EEG monitoring. * I discussed EEG results with patient's sons including Philip and Albino and Albino's . They still do not want intubation, mechanical ventilation, IV drips like Versed, Ativan. They proposed patient to be given Valtoco intranasally, and I informed them that this is intranasal Valium, which is like Ativan. The still wanted patient to receive this medication. I further informed them that this is not formulary in the hospital pharmacy. They wanted a prescription of this medication so they can buy from the pharmacy and bring it to the hospital to given to the patient. I informed them that this is not possible, as hospital policy does not allow patient to receive any medication from external source. After prolonged discussion, they agreed for patient to receive Dilantin and Depakote. Dilantin will interact with Eliquis, but patient is already on hold on Eliquis, in preparation for lumbar puncture. Patient will be given for loading dose of Dilantin, and Depakote 1000 mg IV every 8 hours. * Repeat Dilantin level in the morning. * Repeat stat EEG in the morning. * Awaiting transfer to higher level of care. * Initial EEG 08/01/2024 revealed background slowing and disorganization of severe degree. This is suggestive of generalized cerebral dysfunction as can be seen with toxic metabolic encephalopathy or related to diffuse structural brain abnormality. Clinical correlation is recommended. No epileptiform activity was seen. 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 * Lumbar puncture cannot be performed because patient received Eliquis 5 mg and the last dose was on the morning of 08/02/2024. * Patient currently on Zosyn. ID following. * Repeat CT head performed 08/02/2024 revealed no acute intracranial hemorrhage or midline shift. No significant change from most recent prior CT. * Management of hyponatremia, and other medical conditions as per IM and critical care. * Discussed with patient's nurse, ICU staff and family members in detail.
[2024-08-05 04:20] VITALS: TEMP 98.2
[2024-08-05 05:27] LABS: Glucose,Whole Blood 154 mg/dL (70-110)
[2024-08-05 06:03] LABS: Anisocytosis Moderate; Basophils % (A) 0 %; Eosinophils % (A) 0 %; HCT 26.3 % (34.0-46.0); HGB 9.3 gm/dL (11.4-16.0); Lymphocytes # (A) 0.9 k/uL (1.0-4.8); Lymphocytes % (A) 7 %; MCH 31.8 pg (25.0-35.0); MCHC 35.3 g/dL (31.0-37.0); MCV 90.2 fL (80.0-100.0); Macrocytosis Slight; Mean Platelet Volume 7.7; Monocytes # (A) 0.4 k/uL (0-1.0); Monocytes % (A) 3 %; Neutrophils % (A) 89 %; Platelet Count 342 k/uL (150-450); RBC 2.92 m/uL (3.80-5.40); RDW 22.6 % (11.5-15.5); WBC 12.4 k/uL (3.8-10.6)
[2024-08-05 06:06] LABS: African American GFR (CKD) >90 (>60 ml/min/1.73 sqM); Anion Gap 8 mmol/L; Blood Urea Nitrogen 22 mg/dL (7-17); Calcium 8.6 mg/dL (8.4-10.2); Carbon Dioxide 24 mmol/L (22-30); Chloride 97 mmol/L (98-107); Glucose 138 mg/dL (74-99); Magnesium 1.7 mg/dL (1.6-2.3); Non-African American GFR(CKD) >90 (>60 ml/min/1.73 sqM); Potassium 3.9 mmol/L (3.5-5.1); Sodium 129 mmol/L (137-145)
[2024-08-05] MEDS ORDERED: Potassium Replacement Protocol 1 EACH MISC MISCELLANE PRN (06:21)
[2024-08-05] MEDS: POTASSIUM BICARBONATE/CIT AC 20 MEQ TABLET.EFF NG-TUBE SCH (06:29)
[2024-08-05] MEDS: MAGNESIUM SULFATE-D5W PMX 1 GM in DEXTROSE/WATER 1 100ML.BAG IVPB ONE (06:33)
--- NOTE | 2024-08-05 06:47 | XR ---
EXAMINATION TYPE: XR chest 1V portable DATE OF EXAM: 08/05/2024 3:30 AM COMPARISON: Chest radiographs from 08/04/2024 CLINICAL INDICATION: Female, 79 years old with history of Aspirated; TECHNIQUE: XR chest 1V portable Frontal view of the chest. FINDINGS: Lungs/Pleura: Stable appearance of the lung bases. Right upper lung airspace consolidation. There is no evidence of pleural effusion, focal consolidation, or pneumothorax. Pulmonary vascularity: Unremarkable. Heart/mediastinum: Cardiomediastinal silhouette is unremarkable. Atherosclerotic calcifications are seen in the aorta. Musculoskeletal: No acute osseous pathology. * Nasogastric tube terminates below the diaphragm. * Right [id number] tip in the superior vena cava. IMPRESSION: Stable appearance of the lung bases no definitive evidence for aspiration. Stable right upper lung consolidation. [facility], , 08/05/2024 6:45 AM
[2024-08-05 07:04] VITALS: RESP 16
--- NOTE | 2024-08-05 08:40 | P.PN ---
Subjective Patient is seen in follow-up for hyponatremia. Sodium level stable at 129. Currently on Levophed. Tube feeds held due to concern for aspiration. Vital signs are stable. On Levophed. General: Resting in bed. HEENT: NG tube noted. LUNGS: No audible rhonchi or wheezes. HEART: Rate and Rhythm are regular. ABDOMEN: No distention. EXTREMITITES: No edema. Objective - Vital Signs Vital signs: Vital Signs Temp 98.2 F 08/05/24 04:00 Pulse 79 08/05/24 07:00 Resp 16 08/05/24 07:00 BP 105/60 08/05/24 07:00 Pulse Ox 93 L 08/05/24 07:00 FiO2 Intake & Output 08/04/24 08/05/24 08/05/24 18:59 06:59 18:59 Intake Total 380 911.404 102.166 Output Total 410 530 30 Balance -30 381.404 72.166 Weight 67.5 kg Intake: IV 200 450 100 Acyclovir Sodium 650 mg 200 In Sodium Chloride 0.9% 100 ml @ 100 mls/hr IV Q8H [facility] Rx#:[id number] Magnesium Sulfate-D5w Pmx 100 1 gm In Dextrose/Water 1 100ml.bag @ 100 mls/hr IVPB ONCE ONE Rx#: [id number] Phenytoin Sodium Inj 600 100 mg In Sodium Chloride 0.9 % 50 ml @ 100 mls/hr IVPB ONCE STA Rx#:[id number] Piperacillin-Tazobactam 3 200 100 .375 gm In Sodium Chloride 0.9% 100 ml @ 25 mls/hr IVPB Q8H [facility] Rx#: [id number] Valproate Sodium 1,000 mg 50 In Sodium Chloride 0.9% 50 ml @ 50 mls/hr IVPB Q8HR [facility] Rx#:[id number] Intake, IV Titration 100 51.404 2.166 Amount Norepinephrine 4 mg In 51.404 2.166 Sodium Chloride 0.9% 250 ml @ 0.03 MCG/KG/MIN 7. 498 mls/hr IV .Q24H [facility] Rx#:[id number] Phenytoin Sodium Inj 1, 100 320 mg In Sodium Chloride 0.9% 100 ml @ 200 mls/hr IVPB ONCE STA Rx#: [id number] Tube Feeding 80 210 Other 200 Output: Urine 410 530 30 Other: Voiding Method Indwelling Catheter Indwelling Catheter - Labs CBC & Chem 7: 08/05/24 05:11 08/05/24 05:11 Labs: Abnormal Lab Results - Last 24 Hours (Table) 08/04/24 08/04/24 08/04/24 Range/Units 11:41 17:32 23:58 WBC (3.8-10.6) k/uL RBC (3.80-5.40) m/uL Hgb (11.4-16.0) gm/dL Hct (34.0-46.0) % RDW (11.5-15.5) % Neutrophils # (1.3-7.7) k/uL Lymphocytes # (1.0-4.8) k/uL Sodium (137-145) mmol/L Chloride (98-107) mmol/L BUN (7-17) mg/dL Creatinine (0.52-1.04) mg/dL Glucose (74-99) mg/dL POC Glucose (mg/dL) 145 H 216 H 176 H (70-110) mg/dL 08/05/24 08/05/24 08/05/24 Range/Units 05:11 05:11 05:26 WBC 12.4 H (3.8-10.6) k/uL RBC 2.92 L (3.80-5.40) m/uL Hgb 9.3 L (11.4-16.0) gm/dL Hct 26.3 L (34.0-46.0) % RDW 22.6 H (11.5-15.5) % Neutrophils # 11.0 H (1.3-7.7) k/uL Lymphocytes # 0.9 L (1.0-4.8) k/uL Sodium 129 L (137-145) mmol/L Chloride 97 L (98-107) mmol/L BUN 22 H (7-17) mg/dL Creatinine 0.50 L (0.52-1.04) mg/dL Glucose 138 H (74-99) mg/dL POC Glucose (mg/dL) 154 H (70-110) mg/dL Microbiology - Last 24 Hours (Table) 07/29/24 23:53 Blood Culture - Final Blood Assessment and Plan Plan: Assessment: 1. 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 Status post 3% saline. Sodium level stable at 129. 2. Influenza A infection/pneumonia. 3. Metastatic ovarian cancer. 4. Altered mental status with concern for viral encephalitis. Neurology following. Plan: Currently off IV fluids. Tube feeds also held. Check TSH and cortisol level. Repeat labs in the morning.
[2024-08-05 10:57] VITALS: BMI 23.3
[2024-08-05] MEDS: PHENYTOIN SODIUM INJ 200 MG in SODIUM CHLORIDE 0.9% 36 ML IVPB SCH (11:28)
[2024-08-05 11:39] VITALS: BP 106/62; PULSE 85
[2024-08-05 11:50] LABS: Glucose,Whole Blood 103 mg/dL (70-110)
--- NOTE | 2024-08-05 11:59 | P.PN ---
Subjective Progress Note Date: 08/05/24 Principal diagnosis: Acute influenza syndrome with pneumonia and acute metabolic encephalopathy. 79-year-old female patient, was transferred to the intensive care unit because of symptomatic hyponatremia. The patient's was hospitalized for influenza pneumonia. The patient is known to have metastatic ovarian cancer diagnosed approximately 3 years ago with mets to the liver and the lungs. The patient received multiple rounds of systemic chemotherapy including immunotherapy. The patient has been treated through [facility], Dr. Myers. The patient presented to us with altered mentation, poor appetite, generalized weakness, and delirium. She tested positive for influenza in the hospital. She was started on IV fluids and she was also started on Tamiflu. There was a concern for a bacterial pneumonia and based on that the patient was covered with broad-spectrum antibiotics in addition. The patient had a chest x-ray that showed a large opacity in the left midlung in addition to that there was a focal right midlung opacity. No evidence of any pleural effusion. During this current hospitalization, as the patient was getting IV fluids, the patient developed progressive worsening her sodium level. Her sodium level at admission was 125, subsequently came 828 and currently is down to 216. IV fluids were stopped and the patient got transferred to the intensive care unit for hypertonic saline solution which is currently running at 25 cc an hour. Nephrology has been consulted. In terms of antibiotic coverage, the patient is currently on IV Zosyn. The patient is also on Tamiflu. She remains lethargic and weak and quite debilitated. No focal neurological deficits. CAT scan of the brain done in the emergency department showed no evidence of any acute intra cranial process. She is hemodynamically stable. 08/02/2024, the patient remains altered and confused. She is nonverbal. Sluggishly responsive to painful stimulation and there is significant impairment level of consciousness. Based on that, a repeat CAT scan of the brain was ordered and was performed this morning. Neurology is also on the case. EEG that was on 08/01/2024 showed background slowing with disorganization of severe degree and generalized cerebral dysfunction. The patient's sodium level gradually continues to improve. She remains on 3% hypertonic saline and currently her sodium level is up to 120. Meanwhile, she remains on 12 L of oxygen by nasal cannula. Chest x-ray remains unchanged. CAT scan of the chest was performed yesterday and showed evidence of metastatic disease with pulmonary involvement with several pulmonary nodules. In addition, there was an area of masslike consolidation involving the right upper lobe which is suggestive of underlying pneumonia and the patient remains on IV Zosyn. She remains on Tamiflu. NG tube was inserted for medication and oral feeding. She remains on Decadron 4 mg p.o. daily. She remains on IV Zosyn. She remains on hypertonic saline solution. Labs from today shows a WBC count of 11 hemoglobin 10.8 and platelet count of 229. Sodium is at 120 with a potassium level of 3.2, BUN 13 with a creatinine of 0.6. Serum bicarb is at 17. Glucose at 78. Calcium levels at 8.0. The procalcitonin level was 0.11. 08/03/2024, the patient continues to have significant diminished level of consciousness. The patient continues to be febrile. At the same time, earlier this morning about 3 AM, the patient started having twitching in her eyes and jerking left upper extremity and subsequently to the head for generalized tonic- clonic seizures that lasted for around 20 to 30 seconds. She was given Ativan 1 mg IV. She was given 1 g of Keppra and neurology has been informed. EEG is to follow. Meanwhile, the patient continues to have diarrhea. The fecal management system has been placed. NG tube is in place. She is on vital high- protein at rate of 10 cc an hour. She remains off hypertonic saline solution. Sodium levels up to 127. BUN is 80 with a creatinine of 0.5. The white cell count of 14 with a hemoglobin 10.3 and a platelet count of 238. Calcium level is at 8.5. Chest x-ray from today shows a stable right upper lobe consolidation. Are clear. Precious are you here on clear 08/04/2024, the patient is being seen for a follow-up. Neurologically, the patient grimaces only to painful stimulation. Remains unresponsive. EEG of the brain was done and showed burst suppression consistent with seizure activity and overall clinical presentation is consistent with encephalitis. Based on that, we made recommendations for the patient to be transferred to a facility where there is continuous EEG monitoring. The patient is accepted at [facility] to be transferred at a later stage. Family declined benzodiazepines. Family declined intubation. We were not comfortable starting the patient on a Versed drip and we kept the patient on a combination of Vimpat 200 mg IV every 12 hours and IV Keppra 1 g twice daily. No visible seizure activity at this point in time. A follow-up EEG to be done today. NG tube is in place. She is on vital high-protein at rate of 40 cc an hour. She is afebrile. She remains on 2 L of oxygen by nasal cannula. Labs from today shows white cell count of 10 hemoglobin of 9 and platelet count of 259. BUN is 24 with a creatinine of 0.5 and a sodium levels at 129. She is off the hypertonic saline solution. Hemodynamically stable. Chest x-ray shows a persistent right upper lobe consolidation Patient was seen today on 08/05/24, remains in the ICU, she is on 10 L high flow nasal cannula, still requiring norepinephrine at 0.03 mcg/kg/min. Patient is on maximal therapy, mental status is basically about the same, remains confused, does not answer any questions. Apparently patient had seizure activities, and EEG is abnormal, soto on seizure medications as per neurology Eliquis remains on hold for potential lumbar puncture, patient is on Tamiflu Zosyn Decadron acyclovir Eliquis has been on hold, and she is also on Vimpat and Keppra. He is to have a nasogastric tube in place, her enteral feeding is presently on hold because of residual and possible aspiration. Chest x-ray continues to show right hilar infiltrate, with air bronchogram as noted on CT of the chest, and she seems to have some nodules in the lungs related most likely to metastatic ovarian cancer. WBC count is 12.4 hemoglobin 9.3 electrolytes showed a sodium of 129 potassium 3.9 BUN is 22 creatinine 0.5 Objective - Vital Signs Vital signs: Vital Signs Temp 98.2 F 08/05/24 04:00 Pulse 85 08/05/24 11:30 Resp 16 08/05/24 11:30 BP 106/62 08/05/24 11:30 Pulse Ox 91 L 08/05/24 11:30 FiO2 Intake & Output 08/04/24 08/05/24 08/05/24 18:59 06:59 18:59 Intake Total 380 911.404 302.166 Output Total 410 530 230 Balance -30 381.404 72.166 Weight 67.5 kg 67.5 kg Intake: IV 200 450 300 Acyclovir Sodium 650 mg 200 100 In Sodium Chloride 0.9% 100 ml @ 100 mls/hr IV Q8H [facility] Rx#:[id number] Magnesium Sulfate-D5w Pmx 100 1 gm In Dextrose/Water 1 100ml.bag @ 100 mls/hr IVPB ONCE ONE Rx#: [id number] Phenytoin Sodium Inj 600 100 50 mg In Sodium Chloride 0.9 % 50 ml @ 100 mls/hr IVPB ONCE STA Rx#:[id number] Piperacillin-Tazobactam 3 200 100 .375 gm In Sodium Chloride 0.9% 100 ml @ 25 mls/hr IVPB Q8H [facility] Rx#: [id number] Valproate Sodium 1,000 mg 50 50 In Sodium Chloride 0.9% 50 ml @ 50 mls/hr IVPB Q8HR [facility] Rx#:[id number] Intake, IV Titration 100 51.404 2.166 Amount Norepinephrine 4 mg In 51.404 2.166 Sodium Chloride 0.9% 250 ml @ 0.03 MCG/KG/MIN 7. 498 mls/hr IV .Q24H [facility] Rx#:[id number] Phenytoin Sodium Inj 1, 100 320 mg In Sodium Chloride 0.9% 100 ml @ 200 mls/hr IVPB ONCE STA Rx#: [id number] Tube Feeding 80 210 Other 200 Output: Urine 410 530 230 Other: Voiding Method Indwelling Catheter Indwelling Catheter - Exam GENERAL: 79-year-old female, lethargic, unresponsive to any verbal commands. EYES: Pupils equal. Conjunctiva vivian HEENT: External appearance of nose and ears normal, oral cavity grossly normal. NECK: JVD not raised; masses not palpable. HEART: Distant S1-S2, no S3 gallop. LUNGS: Minich breath sound bilaterally no rhonchi no wheezes ABDOMEN: Soft, nontender, liver spleen not palpable, no masses palpable. PSYCH: Lethargic. Unable to assess patient is not answering any questions MUSCULOSKELETAL:No Clubbing/cyanosis;muscles-grossly intact. OA NEUROLOGICAL: Cranial nerves grossly intact; no facial asymmetry, Nevertheless, there is significant impairment level of consciousness. The patient is not following commands. - Labs CBC & Chem 7: 08/05/24 05:11 08/05/24 05:11 Labs: Abnormal Lab Results - Last 24 Hours (Table) 08/04/24 08/04/24 08/05/24 Range/Units 17:32 23:58 05:11 WBC 12.4 H (3.8-10.6) k/uL RBC 2.92 L (3.80-5.40) m/uL Hgb 9.3 L (11.4-16.0) gm/dL Hct 26.3 L (34.0-46.0) % RDW 22.6 H (11.5-15.5) % Neutrophils # 11.0 H (1.3-7.7) k/uL Lymphocytes # 0.9 L (1.0-4.8) k/uL Sodium (137-145) mmol/L Chloride (98-107) mmol/L BUN (7-17) mg/dL Creatinine (0.52-1.04) mg/dL Glucose (74-99) mg/dL POC Glucose (mg/dL) 216 H 176 H (70-110) mg/dL 08/05/24 08/05/24 Range/Units 05:11 05:26 WBC (3.8-10.6) k/uL RBC (3.80-5.40) m/uL Hgb (11.4-16.0) gm/dL Hct (34.0-46.0) % RDW (11.5-15.5) % Neutrophils # (1.3-7.7) k/uL Lymphocytes # (1.0-4.8) k/uL Sodium 129 L (137-145) mmol/L Chloride 97 L (98-107) mmol/L BUN 22 H (7-17) mg/dL Creatinine 0.50 L (0.52-1.04) mg/dL Glucose 138 H (74-99) mg/dL POC Glucose (mg/dL) 154 H (70-110) mg/dL Assessment and Plan Assessment: Impression: Acute influenza syndrome with pneumonia acute hypoxic respiratory failure secondary to pneumonia Acute metabolic encephalopathy New onset seizures Hypotension most likely secondary to sepsis still requiring norepinephrine at 0.03 mcg/kg/min Suspect metastatic ovarian cancer with mets to lungs and liver Electrolytes imbalance possible SIADH with hyponatremia Chronic diarrhea Chronic atrial fibrillation Degenerative joint disease Irritable bowel syndrome Former smoker Recommendation: Continue to monitor in ICU for now patient is still requiring norepinephrine at 0.03 mcg/kg/min Continue antibiotics and acyclovir patient is on Zosyn and acyclovir as well as Decadron she is also on Tamiflu Continue hemodynamic support CT of the brain showed no acute abnormalities Neurology is considering lumbar puncture and I think that is appropriate Eliquis remains on hold Continue to monitor electrolytes and address accordingly patient is now off hypertonic saline Continue Keppra and Vimpat Continue enteral feeding presently on hold for today Noted procalcitonin to be not elevated at 0.11 Fluid restriction for hyponatremia again most likely SIADH related Patient remains critically ill Critical care time is over 30 minutes Time with Patient: Greater than 30
--- NOTE | 2024-08-05 12:02 | XR ---
EXAMINATION TYPE: XR chest 1V portable DATE OF EXAM: 08/05/2024 11:44 AM COMPARISON: Chest radiographs from 08/05/2024 CLINICAL INDICATION: Female, 79 years old with history of NG placement; TECHNIQUE: XR chest 1V portable Frontal view of the chest. FINDINGS: Lungs/Pleura: Right perihilar consolidation remains unchanged. There is no evidence of pleural effusi on, focal consolidation, or pneumothorax. Pulmonary vascularity: Unremarkable. Heart/mediastinum: Cardiomediastinal silhouette is unremarkable. Musculoskeletal: No acute osseous pathology. Other findings: None Lines/Tubes: Nasogastric tube with its distal tip and side-port projecting under the diaphragm. [place] projecting over the right hemithorax with distal tip at the cavoatrial junction. IMPRESSION: 1. Nasogastric tube in appropriate position. 2. Similar right perihilar consolidation. [facility], , 08/05/2024 12:00 PM
--- NOTE | 2024-08-05 13:53 | P.DS ---
Providers Date of admission: 07/29/24 22:44 Expected date of discharge: 08/05/24 Attending physician: Ari Godoy Consults: 07/29/24 22:39 Consult Physician Routine Consulting Provider: Frank Moran Consult Reason/Comments: known Do you want consulting provider notified?: Yes 07/31/24 16:21 Consult Physician Routine Consulting Provider: Bella Varghese Consult Reason/Comments: influenza Do you want consulting provider notified?: Yes 08/01/24 12:21 Consult Physician Routine Consulting Provider: Chris Whitmore Consult Reason/Comments: altered mentation Do you want consulting provider notified?: Yes 08/01/24 13:35 Consult Physician Routine Consulting Provider: Callum Farr Consult Reason/Comments: Na 116 Do you want consulting provider notified?: Yes 08/01/24 14:57 Consult Physician Routine Consulting Provider: Alfa Jain Consult Reason/Comments: ICU management Do you want consulting provider notified?: Already Contacted Primary care physician: [facility] Course: Chief Complaint: Altered mentation Very pleasant 79-year-old patient follows Dr. Yi. Patient's sister, daughter and granddaughter at the bedside. Chronic medical condition include atrial fibrillation, GERD, hyperlipidemia, osteoarthritis, migraine, lower back pain from disc disease, arthritis, IBS,. Anxiety depression. Patient was diagnosed with metastatic ovarian cancer 2 years ago to include the lungs and liver. Patient's had multiple rounds of chemotherapy. Including immunotherapy. Patient does follow with Dr. Myers at [facility]. At [place] the family gotten together. Patient had oral sores with poor appetite. Over the last 2 3 days patient was noted to be increasingly confused. Poor appetite. Patient normally lives alone. Does use a walker. Patient has been delirious. Fever and tested positive for influenza in the hospital. July 31: Remains lethargic. Family at the bedside. Status spiking fevers again. Getting IV fluids. ID consulted. Discussed with family at the bedside. ID started patient empirically on IV ceftriaxone. Patient on Tamiflu. August 01: Patient spiking fevers yesterday. For other secondary causes had consulted ID. Patient was continued on IV ceftriaxone and Tamiflu. This morning patient's sister and granddaughter at the bedside. Patient remains lethargic/delirious. Did eat some yesterday per the granddaughter. Later this afternoon sodium came back at 116. That could be contributing hence patient being moved to the ICU. I did speak to Dr. Jain from intensive care. Also did communicate with wood crafter Dr. Lopez. May consider hypertonic saline for the same. No fevers overnight. Also neurology consulted. Order EEG. August 02: Patient moved to the ICU yesterday because of low sodium at 116. Hypertonic saline given. Also on IV Zosyn. CT scan of the brain done this afternoon did not show anything acute. CT scan chest done yesterday evening shows right masslike consolidation with some air bronchograms. Could represent pneumonia. Malignant mass still possible. Other peripheral nodules with central cavitation different differential. Spoke to patient's son Stephen at the bedside and his . Prognosis guarded because of multiple issues. Patient is a full code. NG tube feeding has been started. Sodium this afternoon 123. Spiked fever this morning. On high flow 10 L oxygen. August 02: ICU. Saw the patient earlier today. 8 L nasal cannula. This opens eyes. Minimal response to pain. Tube feeding at 10 cc an hour. Increase to 20 cc an hour. Pending dietitian input. Telemetry shows sinus rhythm. Patient on IV acyclovir. Last night patient had seizures was started on IV Keppra by neurology. Also on IV Zosyn. Also getting Decadron and Tamiflu. Discussed with nurse Stauffer. Checks x-ray reports stable right perihilar density mass versus pneumonia. EEG from August 01 showed generalized cerebral dysfunction. No epileptiform activity was reported August 03: ICU. Yesterday afternoon Dr. Whitmore called. Patient is a status epilepticus. Wanted the patient to be transferred out. I spoke to Dr. Rubi from [facility]. No beds available. Patient put in the queue. Also no beds available at [facility]. [place]. Patient's son lives did not want the patient to be transferred to [facility]. Dr. Whitmore is spoken to Neurologist at [facility] otherwise. Patient on IV acyclovir, IV Keppra, IV Zosyn, IV Vimpat. This morning patient remains to be lethargic. NG tube feeding. Remains on above IV medications. Spoke to the patient's son and his . They are agreeable to patient took Evgeny Vincent. They understand no beds available at at [facility] and [facility]. Did convey to the nurse. Patient has remained afebrile. Tamiflu course completed. Patient has remained off hypertonic 3% saline August 04: ICU. Overnight patient did have some aspiration. Was increased from 3 to 2 L to 8 L. X-ray did not show any obvious infiltrate. FiO2 did decrease to 6 L currently on 94% this afternoon. Patient is EEG yesterday showed continued status epilepticus. Antiepileptic drugs include IV Dilantin, Keppra, Vimpat, Depakote. Patient overnight blood pressure dropped was put on norepinephrine. Discontinued this morning. Tube feeding to be resumed. Having some liquid stool Metamucil added. Chest x-ray from today reviewed by me shows no infiltrate except previous right sided likely malignant mass I spoke to , engineer exhauster from [facility]. Gave him an update. Patient was accepted. Did communicate with the nurse. No family at the bedside. Did call patient's son wilson on the phone and updated him about the transfer. Discussion and discharge planning more than 35 minutes Physical examination: VITAL SIGNS: 85, 16, 106 x 62, 91% on 6 L GENERAL: [BMI 23.3, lethargic. Occasionally opening eyes EYES: Pupils equal. Conjunctiva vivian l. HEENT: External appearance of nose and ears normal, oral cavity grossly normal. NECK: JVD not raised; masses not palpable. HEART: First and second heart sounds are normal; no edema. LUNGS: Respiratory rate normal; increased breath sound ABDOMEN: Soft, nontender, liver spleen not palpable, no masses palpable. PSYCH: Lethargic. Not really answering questions MUSCULOSKELETAL:No Clubbing/cyanosis;muscles-grossly intact. OA NEUROLOGICAL: Cranial nerves grossly intact; no facial asymmetry, occasionally opening eyes INVESTIGATIONS, reviewed in the clinical context: August 05: White count 12.4 hemoglobin 9.3 platelets 342 sodium 129 potassium 3.9 creatinine 0.5 EEG [August 04] status epilepticus August 04: White count 10.5 hemoglobin 9.2 platelets 259 sodium 129 potassium 3.8 creatinine 0.54 EEG [August 01] severe generalized cerebral dysfunction. No epileptiform activity. CT brain [August 02]: Unremarkable August 03: White count 14 hemoglobin 10.3 platelets 238 potassium 3.6 creatinine 0.59 sodium 127 August 01: White count 12 hemoglobin 10.4 platelets 225 sodium 116 potassium 3.7 creatinine 0.6 July 31: White count 12 hemoglobin 11.3 platelets 220. Procalcitonin 0.11 July 30: White count 9.9 hemoglobin 10.6 platelets 173 neutrophils 8.5 lymphocyte 0.8 sodium 128 potassium 4.1 BUN 32 creatinine 0.68 AST 40 ALT 38 alb umin 2.8 Urine drug screen positive for opiates, benzodiazepines Influenza type a PCR: Detected Influenza type B, RSV, COVID-19: Not detected EKG tracing personally reviewed by me-normal sinus rhythm. CT scan brain: Unremarkable Chest x-ray film personally reviewed by me-right midlung opacity. Question scattered infiltrates Assessment plan: -Sepsis second underlying influenza A with pneumonitis and possible secondary bacterial pneumonia.: [facility] and ID following Tamiflu-course completed. IV fluids. IV Zosyn -Possible right middle lobe pneumonia suspect gram-negative organism/aspiration pneumonia. IV Zosyn - -Acute delirium metabolic encephalopathy from sepsis from influenza A: Slow to respond -Status epilepticus: Not improving Being transferred to [facility] IV Keppra. IV Vimpat. IV Dilantin. IV Depakote Neurology following -Hypotensive shock overnight patient required Levophed drip. Now being discontinued -Severe hyponatremia: Improvement Status post hypertonic saline Nephrology following. -Feeding via NG tube 20 cc an hour -Metastatic ovarian cancer for last 2 years. Has received chemotherapy immunotherapy. Does follow with Dr. Myers out of [facility]. CT scan 2 weeks ago showed disease present in the lungs liver and a spot in the sternum. -Chronic medical debility does use a walker -Paroxysmal atrial fibrillation currently in sinus rhythm Eliquis Lopressor. -Essential hypertension Diovan. Metoprolol. -Full code -Medical power of deputy prosecuting attorney, son. [place] Disposition: [facility] ([place], [place]) for higher level of care for continuous EEG monitoring not available here. Past Medical History Past Medical History: Atrial Fibrillation, Eye Disorder, GERD/Reflux, Hyperlipidemia, Osteoarthritis (OA), Vascular Disorder Additional Past Medical History / Comment(s): Frequent migraines, lower back disc disease/pain, L and R shoulder pain, flebitis, arthritis in multiple joints, leaky heart valve, bilateral leg varicosities, IBS, bronchitis, UTI, some lasering done right eye for "flashes" History of Any Multi-Drug Resistant Organisms: None Reported Past Surgical History: Adenoidectomy, Breast Surgery, Cholecystectomy, Orthopedic Surgery, Tonsillectomy Additional Past Surgical History / Comment(s): Bilateral wrist tendon surgery, bilateral feet 4th toe surg. d/t curvature, lipoma removed from back, lumbar epidural injections, L leg vein stripping, bilateral leg varicose vein injections to remove, L breast benign biopsy, colonoscopy/benign polypectomy, D&C Past Anesthesia/Blood Transfusion Reactions: No Reported Reaction Additional Past Anesthesia/Blood Transfusion Reaction / Comment(s): Pt has claustrophobia. Past Psychological History: Anxiety, Depression Smoking Status: Former smoker Past Alcohol Use History: Occasional Past Drug Use History: None Reported Plan - Discharge Summary Discharge Rx Participant: No New Discharge Prescriptions: No Action traMADol HCL 50 mg PO DAILY PRN PRN Reason: Pain Valsartan [Diovan] 80 mg PO HS Ondansetron Odt [Zofran Odt] 8 mg PO Q8HR PRN PRN Reason: Nausea And Vomiting HYDROcodone/APAP [[place] Elixir 7.5-325Mg/15Ml] 15 ml PO BID PRN PRN Reason: Pain Chlorthalidone [Hygroton] 25 mg PO DAILY@1200 dexAMETHasone [Decadron] 4 mg PO DAILY Apixaban [Eliquis] 5 mg PO BID Amoxic-Pot Clav 500-125 mg [Augmentin 500-125 mg] 1 tab PO BID ALPRAZolam [Xanax] 0.25 mg PO BID Docusate [Colace] 100 mg PO HS PRN PRN Reason: Constipation Metoprolol Tartrate [Lopressor] 50 mg PO BID Melatonin 10 mg PO HS Discharge Medication List ALPRAZolam [Xanax] 0.25 mg PO BID 07/30/24 [History] Amoxic-Pot Clav 500-125 mg [Augmentin 500-125 mg] 1 tab PO BID 07/30/24 [History] Apixaban [Eliquis] 5 mg PO BID 07/30/24 [History] Chlorthalidone [Hygroton] 25 mg PO DAILY@1200 07/30/24 [History] Docusate [Colace] 100 mg PO HS PRN 07/30/24 [History] HYDROcodone/APAP [[place] Elixir 7.5-325Mg/15Ml] 15 ml PO BID PRN 07/30/24 [History] Melatonin 10 mg PO HS 07/30/24 [History] Metoprolol Tartrate [Lopressor] 50 mg PO BID 07/30/24 [History] Ondansetron Odt [Zofran Odt] 8 mg PO Q8HR PRN 07/30/24 [History] Valsartan [Diovan] 80 mg PO HS 07/30/24 [History] dexAMETHasone [Decadron] 4 mg PO DAILY 07/30/24 [History] traMADol HCL 50 mg PO DAILY PRN 07/30/24 [History] Follow up Appointment(s)/Referral(s): Clay Yi DO [Primary Care Provider] - 1-2 days
--- NOTE | 2024-08-06 04:52 | EEG ---
ELECTROENCEPHALOGRAM REPORT CLINICAL HISTORY: This is a 79-year-old woman with nonconvulsive status epilepticus, who continues to be severely confused. The video EEG is obtained to evaluate for seizure epileptiform activity. RELEVANT MEDICATIONS: 1. Dilantin. 2. Keppra. 3. Vimpat. 4. Depakote. EEG TYPE: Routine 21 channel EEG with video using the 10/20 electrode placement system. DESCRIPTION: The background consists of burst suppression. During burst, it consists of diffuse spike and slow waves or sharp and slow waves lasting for 1 to 1.5 hertz. At times, the background consists of diffuse theta delta activity as well as the patient had diffuse suppression activity. ACTIVATION PROCEDURE: Photic stimulation and hyperventilation is not performed. CLINICAL INTERPRETATION: This is an abnormal routine EEG. The patient continues to be in burst suppression likely due to status epilepticus. The background slowing is suggestive of severe encephalopathy. Recommend a prolonged EEG. Clinical correlation is recommended. HANNAH / DEBI: [id number] / LESIA
--- NOTE | 2024-08-07 08:55 | P.PN ---
Subjective Progress Note Date: 08/05/24 Principal diagnosis: Reason for follow-up is acute influenza A and pneumonia Patient is a 79-year-old female past medical history significant for hyperlipidemia atrial fibrillation osteoarthritis did have a history of metastatic ovarian cancer for the patient follows with Dr. Myers at [facility] in [place] presenting to the hospital for evaluation of mental status changes she was noted to be febrile tested positive for influenza A and there was concern for right middle lobe upper lobe opacity suspicious for pneumonia. On today's evaluation that is 08/05/2023, patient has been afebrile, patient is breathing comfortably however is requiring high flow nasal cannula oxygen patient did have an open eyes but not a very good historian no vomiting diarrhea and the changes reported by the nursing staff. Patient white count is 12.4, creatinine 0.50 Objective - Vital Signs Vital signs: Vital Signs Temp 98.2 F 08/05/24 04:00 Pulse 79 08/05/24 07:00 Resp 16 08/05/24 07:00 BP 105/60 08/05/24 07:00 Pulse Ox 93 L 08/05/24 07:00 FiO2 Intake & Output 08/04/24 08/05/24 08/05/24 18:59 06:59 18:59 Intake Total 380 911.404 102.166 Output Total 410 530 30 Balance -30 381.404 72.166 Weight 67.5 kg Intake: IV 200 450 100 Acyclovir Sodium 650 mg 200 In Sodium Chloride 0.9% 100 ml @ 100 mls/hr IV Q8H [facility] Rx#:[id number] Magnesium Sulfate-D5w Pmx 100 1 gm In Dextrose/Water 1 100ml.bag @ 100 mls/hr IVPB ONCE ONE Rx#: [id number] Phenytoin Sodium Inj 600 100 mg In Sodium Chloride 0.9 % 50 ml @ 100 mls/hr IVPB ONCE STA Rx#:[id number] Piperacillin-Tazobactam 3 200 100 .375 gm In Sodium Chloride 0.9% 100 ml @ 25 mls/hr IVPB Q8H [facility] Rx#: [id number] Valproate Sodium 1,000 mg 50 In Sodium Chloride 0.9% 50 ml @ 50 mls/hr IVPB Q8HR [facility] Rx#:[id number] Intake, IV Titration 100 51.404 2.166 Amount Norepinephrine 4 mg In 51.404 2.166 Sodium Chloride 0.9% 250 ml @ 0.03 MCG/KG/MIN 7. 498 mls/hr IV .Q24H [facility] Rx#:[id number] Phenytoin Sodium Inj 1, 100 320 mg In Sodium Chloride 0.9% 100 ml @ 200 mls/hr IVPB ONCE STA Rx#: [id number] Tube Feeding 80 210 Other 200 Output: Urine 410 530 30 Other: Voiding Method Indwelling Catheter Indwelling Catheter - Exam GENERAL DESCRIPTION: An elderly female lying in bed in no distress RESPIRATORY SYSTEM: Unlabored breathing , decreased intensity of breath sounds, no wheeze HEART: S1 S2 regular rate and rhythm , ABDOMEN: Soft , no tenderness EXTREMITIES: No edema feet - Labs CBC & Chem 7: 08/05/24 05:11 08/05/24 05:11 Labs: Abnormal Lab Results - Last 24 Hours (Table) 08/04/24 08/04/24 08/04/24 Range/Units 11:41 17:32 23:58 WBC (3.8-10.6) k/uL RBC (3.80-5.40) m/uL Hgb (11.4-16.0) gm/dL Hct (34.0-46.0) % RDW (11.5-15.5) % Neutrophils # (1.3-7.7) k/uL Lymphocytes # (1.0-4.8) k/uL Sodium (137-145) mmol/L Chloride (98-107) mmol/L BUN (7-17) mg/dL Creatinine (0.52-1.04) mg/dL Glucose (74-99) mg/dL POC Glucose (mg/dL) 145 H 216 H 176 H (70-110) mg/dL 08/05/24 08/05/24 08/05/24 Range/Units 05:11 05:11 05:26 WBC 12.4 H (3.8-10.6) k/uL RBC 2.92 L (3.80-5.40) m/uL Hgb 9.3 L (11.4-16.0) gm/dL Hct 26.3 L (34.0-46.0) % RDW 22.6 H (11.5-15.5) % Neutrophils # 11.0 H (1.3-7.7) k/uL Lymphocytes # 0.9 L (1.0-4.8) k/uL Sodium 129 L (137-145) mmol/L Chloride 97 L (98-107) mmol/L BUN 22 H (7-17) mg/dL Creatinine 0.50 L (0.52-1.04) mg/dL Glucose 138 H (74-99) mg/dL POC Glucose (mg/dL) 154 H (70-110) mg/dL Assessment and Plan (1) Sepsis Status: Acute Code(s): A41.9 - SEPSIS, UNSPECIFIED ORGANISM SNOMED Code(s): 61345856 (2) Influenza Status: Acute Code(s): J11.1 - FLU DUE TO UNIDENTIFIED INFLUENZA VIRUS W OTH RESP MANIFEST SNOMED Code(s): 9516428 (3) Pneumonia Status: Acute Code(s): J18.9 - PNEUMONIA, UNSPECIFIED ORGANISM SNOMED Cod e(s): 081647558 Plan: 1patient was in the hospital mental status changes weakness in this patient has been febrile did have tachycardia elevated white count meeting criteria for SIRS/sepsis source likely pneumonia with mostly right middle lobe infiltrate q uestion of possible aspiration pneumonia 2-patient also tested positive for influenza A, for which the patient has finished a 5-day course of Tamiflu therapy 3-patient did have resolution of her fever white count slightly up today however culture have been negative so far 4patient will be treated with Zosyn 3.375 g every 8 hours currently getting transferred to patient care for persistent seizures/status epilepticus Dictation was produced using [employer] dictation software. please excuse any gra mmatical, word or spelling errors. Time with Patient: Less than 30
== END 2024-08-05 12:55 | disposition short-term general hospital (02) | DRG 871 ==
LOC: EC 20:25 → 5NMEDONC 22:44 → 4SSUR 07-30 01:10 → 1SOBS 07-30 09:34 → 2SICU 08-01 15:15
PROVIDERS: ADMIT Hospitalist; ATTEND Hospitalist
PROC: 4A10X4Z Monitoring of Central Nervous Electrical Activity, External Approach (ICD-10-PCS; principal; 2024-08-01)
DX: A41.89 Other specified sepsis (principal); G93.41 Metabolic encephalopathy; J69.0 Pneumonitis due to inhalation of food and vomit; J15.9 Unspecified bacterial pneumonia; J10.08 Influenza due to other identified influenza virus with other specified pneumonia; J96.01 Acute respiratory failure with hypoxia; C56.9 Malignant neoplasm of unspecified ovary; E22.2 Syndrome of inappropriate secretion of antidiuretic hormone; C78.7 Secondary malignant neoplasm of liver and intrahepatic bile duct; Z11.52 Encounter for screening for COVID-19; C78.00 Secondary malignant neoplasm of unspecified lung; Z85.43 Personal history of malignant neoplasm of ovary; I10 Essential (primary) hypertension; I48.0 Paroxysmal atrial fibrillation; Z79.01 Long term (current) use of anticoagulants; J32.4 Chronic pansinusitis; R79.89 Other specified abnormal findings of blood chemistry; Z87.891 Personal history of nicotine dependence; K58.9 Irritable bowel syndrome, unspecified; E78.5 Hyperlipidemia, unspecified; M19.90 Unspecified osteoarthritis, unspecified site; G40.901 Epilepsy, unspecified, not intractable, with status epilepticus; R94.01 Abnormal electroencephalogram [EEG]; K58.0 Irritable bowel syndrome with diarrhea; D64.9 Anemia, unspecified; I95.1 Orthostatic hypotension; F32.A Depression, unspecified; F40.240 Claustrophobia; G43.909 Migraine, unspecified, not intractable, without status migrainosus; G93.89 Other specified disorders of brain; K21.9 Gastro-esophageal reflux disease without esophagitis; Z79.899 Other long term (current) drug therapy; Z90.710 Acquired absence of both cervix and uterus
CPT/HCPCS: 36415; 51798; 70450; 71045; 71046; 71260; 80048; 80053; 80185; 80306; 80320; 81003; 82140; 83735; 83930; 83935; 84100; 84132; 84145; 84295; 84300; 84484; 85025; 85027; 85610; 85730; 87040; 87324; 87449; 87636; 93005; 94640; 95816; 95819; 96361; 96365; 96366; 96368; 96375; 99285